=== PATIENT | male | born 1955 | race Caucasian/White ===

== ENCOUNTER 2018-02-11 12:43 | Emergency (ER) | payer OTHER, SELFPAY ==
--- NOTE | 2018-02-11 12:46 | ED.WOUNDLAC ---
HPI - Wound/Laceration <ARIANNE Mojica - Last Filed: 02/11/18 22:15> General Chief Complaint: Wound/Laceration Stated Complaint: cut on right leg Time Seen by Provider: 02/11/18 12:46 Source: patient Mode of arrival: ambulatory Limitations: no limitations History of Present Illness HPI narrative: 63-year-old male with history of previous [place] and is a former smoker here for complaint of lacerations to his right [place]. he states that he accidentally bumped his [place]ton area on the 31 of January causing laceration. He states that he has been treating it with hydrogen peroxide and alcohol and dressing it with antibiotic ointment and a dressing. He reports that it has been healing slowly. He denies any fevers. He denies any drainage from the area. He denies any other injuries or complaints. He is ambulatory into the emergency room. Related Data Home Medications Medication Instructions Recorded Confirmed PRASUGREL HYDROCHLORIDE (EFFIENT) 10 mg PO #0 tab 01/18/13 11/09/17 aspirin 81 mg PO QDAY #0 01/18/13 11/09/17 Previous Rx's Medication Instructions Recorded sildenafil [Viagra] 0 mg PO QDAY PRN #10 tab 08/31/16 carvedilol 6.25 mg tablet See Label Instructions .ROUTE 10/25/17 .COMPLEX #180 tab atorvastatin [Lipitor] 40 mg PO HS #90 tab 12/06/17 lisinopril 2.5 mg tablet 2.5 mg PO QDAY #90 tab 12/08/17 mupirocin 1 applictn TOP BID #15 gram 02/11/18 Allergies Allergy/AdvReac Type Severity Reaction Status Date / Time No Known Drug Allergies Allergy Verified 02/11/18 13:09 Review of Systems <ARIANNE Mojica - Last Filed: 02/11/18 22:15> Constitutional Denies chills, Denies fever(s), Denies lethargy and Denies weakness Eyes Denies change in vision, Denies eye discharge, Denies irritation and Denies loss of vision ENT Ears, Nose, Mouth, and Throat: Denies change in voice, Denies neck pain and Denies sore throat Cardiovascular Denies chest pain, Denies irregular heart rhythm, Denies lightheadedness, Denies palpitations, Denies dyspnea, Denies dyspnea on exertion and Denies orthopnea Respiratory Denies cough, Denies dyspnea, Denies dyspnea on exertion and Denies wheezing Gastrointestinal Gastrointestinal: Denies abdominal pain, Denies change in bowel habits, Denies diarrhea, Denies nausea and Denies vomiting Genitourinary Denies hematuria, Denies flank pain, Denies urinary incontinence and Denies urinary urgency Musculoskeletal Denies neck pain Comments: Lacerations right newton Integumentary/Breasts Denies pruritus, Denies erythema, Denies rash and Denies wounds Neurologic Denies confusion, Denies loss of vision and Denies weakness Psychiatric Denies anxiety, Denies confusion, Denies depression, Denies homicidal ideation and Denies suicidal ideation Endocrine Denies palpitations Hematologic/Lymphatic Denies easy bruising Allergic/Immunologic Denies wheezing Exam <ARIANNE Mojica - Last Filed: 02/11/18 22:15> Initial Vital Signs Initial Vital Signs: Vital Signs Pulse Rate 81 02/11/18 12:49 Respiratory Rate 17 02/11/18 12:49 Blood Pressure 125/77 02/11/18 12:49 Pulse Oximetry 96 02/11/18 12:49 Const General: cooperative and well developed Nutritional Appearance: well nourished Orientation: alert, awake, oriented x3 and not confused HENLA Mouth: oral mucosae normal and oropharynx normal Eyes Conjunctivae: conjunctivae normal Sclera: sclerae normal Pupils: PERRL EOM: EOM intact bilaterally Resp Effort & Inspection: normal respiratory effort, able to speak in complete sentences, no respiratory distress and no use of accessory muscles Auscultation: clear to auscultation bilaterally, no rales, no rhonchi and no wheezes Cardio Rate: regular rate Rhythm: regular rhythm Heart Sounds: no click, no gallops, no murmurs and no rubs Pulses: normal peripheral pulses Skin General: no rashes or lesions noted, No jaundice and No petechiae Neuro General: alert, oriented x3, gait normal and no focal motor deficits Speech: speech normal Extrem Other: to 1.5 cm laceration/ erosions to the right newton area no signs of infection. No induration or fluctuance. Wounds appear to be healing by secondary intention. distal sensation is intact. Distal range of motion is intact. Distal cap refill less than 2 sec. <Remigio Logan DO - Last Filed: 02/14/18 04:51> Initial Vital Signs Initial Vital Signs: Vital Signs Pulse Rate 81 02/11/18 12:49 Respiratory Rate 17 02/11/18 12:49 Blood Pressure 125/77 02/11/18 12:49 Pulse Oximetry 96 02/11/18 12:49 Course <ARIANNE Mojica - Last Filed: 02/11/18 22:15> Orders Ordered: Discontinued Medications Diphtheria/Tetanus/Acell Pertussis (Adacel) 0.5 ml IM .ONCE ONE Stop: 02/11/18 12:58 Last Admin: 02/11/18 13:08 Dose: 0.5 ml Vital Signs - 8 hr 02/11/18 12:49 Pulse Rate 81 Respiratory Rate 17 Blood Pressure [Right Arm] 125/77 Pulse Oximetry 96 <Remigio Logan DO - Last Filed: 02/14/18 04:51> Orders Ordered: Discontinued Medications Diphtheria/Tetanus/Acell Pertussis (Adacel) 0.5 ml IM .ONCE ONE Stop: 02/11/18 12:58 Last Admin: 02/11/18 13:08 Dose: 0.5 ml Vital Signs - 8 hr 02/11/18 12:49 Pulse Rate 81 Respiratory Rate 17 Blood Pressure [Right Arm] 125/77 Pulse Oximetry 96 MDM - Wound/Laceration <ARIANNE Mojica - Last Filed: 02/11/18 22:15> MDM Narrative Medical decision making narrative: Wounds to right [place] area is healing by secondary intention. No signs of infection at this time. He is instructed not to use hydrogen peroxide or alcohol to clean the wound as this could delay wound healing. Mupirocin is prescribed for topical antibiotic to prevent infection. He does not know when his last tetanus was. Tetanus was updated in the emergency room today. [id number] Tylenol as needed for any discomfort. Follow up with primary care provider next week. For any worsening symptoms return to the emergency room. Discharge Plan Departure Patient Disposition: Home Clinical Impression: Laceration of leg, right Discharge Date/Time: 02/11/18 13:22 Interventions: ED Discharge Assessment Last Done: 02/11/18 13:21 Instructions: DI for Minor Laceration Activity Restrictions/Additional Instructions: laceration to the right [place] area appeared to be healing by secondary intention. The do not appear to be infected at this time. Do not use the hydrogen peroxide or alcohol as this could delay wound care as it causes damage to the tissues. tetanus was updated in the emergency room. You are prescribed a topical antibiotic called mupirocin use as directed. Dress wound daily with antibiotic and gauze. use [id number] Tylenol as needed for any discomfort. Follow up with primary care provider next week. For any worsening symptoms return to the emergency room. Prescriptions: New mupirocin 2 % ointment 1 applictn TOP BID Qty: 15 RF: 0 No Action aspirin 81 MG tablet,delayed release (DR/EC) 81 mg PO QDAY Qty: 0 RF: 0 PRASUGREL HYDROCHLORIDE (EFFIENT) 10 mg PO Qty: 0 RF: 0 sildenafil [Viagra] 100 MG tablet PO QDAY PRNQty: 10 RF: 12 carvedilol [Coreg] 6.25 mg tablet See Label Instructions .ROUTE .COMPLEX Qty: 180 RF: 1 atorvastatin [Lipitor] 40 mg tablet 40 mg PO HS Qty: 90 RF: 1 lisinopril 2.5 mg tablet 2.5 mg PO QDAY Qty: 90 RF: 0 Referrals: Kaz Cosme MD [Primary Care Provider] - <Remigio Logan DO - Last Filed: 02/14/18 04:51> Cosign ED Attending Juanature Attestation: I was immediately available in the department for consultation. Documentation has been reviewed. I agree with assessment and plan.
[2018-02-11 12:49] VITALS: BP 125/77; PULSE 81; RESP 17; O2SAT 96
[2018-02-11 12:59] VITALS: PULSE 81; RESP 17; TEMP 36.9; O2SAT 96
[2018-02-11] MEDS: TET,DIPH,PERTUSS(ACELL),VAC/PF 0.5 ML SYRINGE IM (13:08)
== END 2018-02-11 13:22 | disposition home or self-care (01) ==
PROVIDERS: Emergency Provider Nurse Practitioner Family; Family Provider Family Medicine; PCP Family Medicine
DX: S81.811A Laceration without foreign body, right lower leg, initial encounter (principal); W22.8XXA Striking against or struck by other objects, initial encounter
CPT/HCPCS: 90471; 99283; 90715

== ENCOUNTER → 2019-01-24 15:50 | Outpatient (CLI) | payer OTHER, SELFPAY ==
--- NOTE | 2019-01-24 15:54 | DI.RAD.S_ITS ---
PROCEDURE: XR LUMBAR SPINE 2-3V INDICATIONS: pain LUMBAR TECHNIQUE: 3 views of the lumbar spine were acquired. COMPARISON: [facility], , L-SPINE 2-3 VIEWS, 08/28/2007, 11:03. FINDINGS: Bones: 5 [id number]-ror-qbuoveu vertebrae are present. There is abnormal bony alignment, with grade 2 anterolisthesis of L4 on L5, associated with relatively prominent degenerative facet osteoarthritis and degenerative disc disease at L4-5 allowing anterolisthesis due to ligamentous laxity.. No vertebral body compression fractures. No suspicious bony lesions. Soft tissues: Overlying bowel gas pattern is normal. No suspicious soft tissue calcifications. IMPRESSION: Moderately severe degenerative disc disease and facet osteoarthritis allows grade 2 anterolisthesis of L4 on L5 and likelihood of significant spinal and foraminal stenosis at that level as a result. Dictated by: Hipolito Gonsalves M.D. on 01/24/2019 at 16:49 Approved by: Hipolito Gonsalves M.D. on 01/24/2019 at 16:51
--- NOTE | 2019-01-24 15:54 | DI.RAD.S_ITS ---
PROCEDURE: XR HAND LT MIN 3V INDICATIONS: pain LEFT HAND TECHNIQUE: 3 views of the hand(s) acquired. COMPARISON: None. FINDINGS: Bones: No fractures or dislocations. Carpal bones are normally aligned. No suspicious bony lesions. Soft tissues: No suspicious soft tissue calcifications. IMPRESSION: No trauma found, a moderate degree of osteoarthritis is seen at the base of the first metacarpal, less than that seen on the right. No recent trauma suspected. Dictated by: Hipolito Gonsalves M.D. on 01/24/2019 at 16:49 Approved by: Hipolito Gonsalves M.D. on 01/24/2019 at 16:49
--- NOTE | 2019-01-24 15:54 | DI.RAD.S_ITS ---
PROCEDURE: XR KNEE LT 3V INDICATIONS: pain LEFT KNEE TECHNIQUE: 3 views of the knee were acquired. COMPARISON: None. FINDINGS: Bones: No fractures or dislocations. No suspicious bony lesions. Soft tissues: No joint effusion. No suspicious soft tissue calcifications. IMPRESSION: Minimal degenerative osteoarthritic change appears present at the left knee where a slight degree of medial compartment joint space narrowing is present. No effusion or loose body. No trauma found. Dictated by: Hipolito Gonsalves M.D. on 01/24/2019 at 16:48 Approved by: Hipolito Gonsalves M.D. on 01/24/2019 at 16:48
--- NOTE | 2019-01-24 15:54 | DI.RAD.S_ITS ---
PROCEDURE: XR KNEE RT 3V INDICATIONS: pain RIGHT KNEE TECHNIQUE: 3 views of the knee were acquired. COMPARISON: None. FINDINGS: Bones: No fractures or dislocations. No suspicious bony lesions. Soft tissues: No joint effusion. No suspicious soft tissue calcifications. IMPRESSION: There is a slight degree of medial and lateral compartment joint space narrowing, consistent with a small degree of osteoarthritis in that portion of the right knee. No effusion or loose body is seen. Dictated by: Hipolito Gonsalves M.D. on 01/24/2019 at 16:47 Approved by: Hipolito Gonsalves M.D. on 01/24/2019 at 16:48
--- NOTE | 2019-01-24 15:54 | DI.RAD.S_ITS ---
PROCEDURE: XR HAND RT MIN 3V INDICATIONS: pain RIGHT HAND TECHNIQUE: 3 views of the hand(s) acquired. COMPARISON: None. FINDINGS: Bones: No fractures or dislocations. Carpal bones are normally aligned. No suspicious bony lesions. There is a moderate to moderately severe degree of degenerative osteoarthritis at the base of the first metacarpal as it articulates against the trapezium. Soft tissues: No suspicious soft tissue calcifications. IMPRESSION: No acute trauma found, moderately severe degenerative osteoarthritis at the base of the first metacarpal. Dictated by: Hipolito Gonsalves M.D. on 01/24/2019 at 16:47 Approved by: Hipolito Gonsalves M.D. on 01/24/2019 at 16:47
[2019-01-24 16:12] LABS: Add Manual Diff / Slide Review NO; Basophils Absolute Auto 100 /uL (0-100); Basophils Percent Auto 1.1 % (0-2); Eosinophils Absolute Auto 200 /uL (0-450); Eosinophils Percent Auto 2.8 % (2-4); Hematocrit 40.3 % (41-53); Lymphocytes Absolute Auto 1900 /uL (1100-4500); Lymphocytes Percent Auto 30.8 % (25-40); Mean Corpuscular HGB Conc 34.8 % (30-36); Mean Corpuscular Hemoglobin 33.9 PG (26-34); Mean Corpuscular Volume 97.6 fL (80-100); Monocytes Absolute Auto 500 /uL (0-900); Monocytes Percent Auto 7.9 % (3-14); Neutrophils Absolute Auto 3500 /uL (1500-7000); Neutrophils Percent Auto 57.4 % (50-75); Platelet Count 147 X10^3/uL (150-400); Red Blood Cell Count 4.12 X10^6/uL (4.5-5.9); Red Cell Distribution Width 13.1 % (11.6-14.8); White Blood Cell Count 6.1 X10^3/uL (4.5-11.0)
[2019-01-24 16:59] LABS: Alanine Aminotransferase 28 IU/L (21-72); Albumin 4.2 g/dL (3.5-5.0); Albumin Globulin Ratio 1.7 (1.0-2.8); Alkaline Phosphatase 60 U/L (38-126); Aspartate Aminotransferase 22 IU/L (17-59); BUN Creatinine Ratio 24.3 (6-22); Bilirubin Total 1.2 mg/dL (0.2-1.3); Blood Urea Nitrogen 17 mg/dL (9-20); Calcium 8.9 mg/dL (8.4-10.2); Carbon Dioxide 25 mmol/L (22-32); Chloride 104 mmol/L (98-107); Cholesterol 112 mg/dL (140-199); Estimated Glomerular Filt Rate > 60.0 mL/min (>60); Globulin 2.5 g/dL (1.7-4.1); Glucose 130 mg/dL (80-110); HDL Cholesterol 46 mg/dL (40-60); HEMOLYSIS 17 (0-50); LDL Cholesterol Calculated 29 mg/dL (<100); Potassium 4.3 mmol/L (3.4-5.1); Sodium 139 mmol/L (137-145); Total Protein 6.7 g/dL (6.3-8.2); Triglycerides 183 mg/dL (35-150)
[2019-01-24 17:28] LABS: Prostate Specific Antigen Scrn 0.354 ng/mL (0.1-4.0); Thyroid Stimulating Hormone 2.26 uIU/mL (0.47-4.68)
== END ==
PROVIDERS: PCP Family Medicine; Visit Provider Family Medicine
DX: M19.90 Unspecified osteoarthritis, unspecified site (principal); E78.2 Mixed hyperlipidemia
CPT/HCPCS: 36415; 72100; 73130; 73562; 80053; 80061; 84443; 85025; G0103

== ENCOUNTER 2019-03-07 12:15 | Outpatient (RCR) | payer OTHER, SELFPAY ==
--- NOTE | 2019-02-26 11:32 | PT.OIE ---
Current Diagnoses Pain in unspecified knee (02/26/19) Dorsalgia, unspecified (02/26/19) Past Medical History (Last Reviewed 02/11/18 @ 13:01 by ARIANNE Mojica) Hearing loss (Resolved 1978) Heart attack (Resolved 2011) Past Surgical History (Last Reviewed 02/11/18 @ 13:01 by ARIANNE Mojica) Anesthesia (Resolved) H/O heart artery stent (Resolved 05/09/12) History of vasectomy (Resolved 1998) Status post hernia repair (Resolved) Visit Care Team Role Provider Type Kaz Cosme MD Attending Provider Physician Primary Care Provider Specialty: Family Practice Address: [address] [place] [address], [facility] Email: [email or web address] Therapy Initial Evaluation PT-OP-A Visit Information Start: 02/26/19 07:32 Freq: Status: Active Protocol: Document 02/26/19 08:28 MB (Rec: 02/26/19 09:13 MB [id number]) Out-Patient Physical Therapy Visit Information Visit Information Visit Type Initial Evaluation Visit Note Pt arrives 12 minutes after eval time Visit Start Time 08:28 Visit Stop Time 09:01 Total Visit Minutes 33 Visit Number 1 Number of PARKING CONTROL OFFICER Visits 0 Evaluation Information Evaluation Date 02/26/19 PT-OP-B Current Condition Start: 02/26/19 07:32 Freq: Status: Active Protocol: Document 02/26/19 08:28 MB (Rec: 02/26/19 09:13 MB [id number]) Current Condition History of Current Condition Onset Date Gradual Current Complaints LB pain, LLE pain, B knee pain History of Current Condition Chronic onset of LBP, LLE pain (posterior) and occ LLE numbness, B knee pain. Biggest complaint is back pain. He has B knee pain with descending-type movements. Works 40 hr/week at [employer]. He states that he squats. Hx LA and cardiac rehab. Hx HTN, HLD Prior Treatments and Tests Cardiac rehab Treatment Goals Patient/Caregiver Goals To decrease back pain, be able to go for walks and play with grandkids Prior Functional Status Baseline Function- ADL's Independent Baseline Function- Mobility Independent Personal Factors Other Personal Factors That May Effect Working 40 hrs/week [employer] Therapy/Recovery PT-OP-C Subjective Start: 02/26/19 07:32 Freq: Status: Active Protocol: Document 02/26/19 08:28 MB (Rec: 02/26/19 09:13 MB [id number]) OP-PT Subjective Patient Comments Patient Comments Pt states that he has occ episodes of grabbing back and he points to B SI area. He reports occ shooting pain down his posterior left leg and numbness down posterior left leg. No associated weakness or sensation loss. No change in B&B. His sleep is disturbed greatly, sleeps on both sides without pillow support between knees. Patient Reported Progress Worse Patient Questionnaires Oswestry Low Back Index Oswestry Score 18/50 Oswestry Impairment 20 to 39% Impaired (Score 20- 39) OP-PT Pain Assessment Pain Assessment Grid Paper Pain Assessment Grid Completed Yes: Most pain 5/10 LB PT-OP-D Balance Start: 02/26/19 07:32 Freq: Status: Active Protocol: Document 02/26/19 08:28 MB (Rec: 02/26/19 09:43 MB [id number]) Balance Tests Other Other Balance Tests Performed Pt is unable to get into B SLS with socks on--LOB; Romberg and Romberg with eyes closed 30 sec in socks PT-OP-J Posture/Palpation/Skin Start: 02/26/19 07:32 Freq: Status: Active Protocol: Document 02/26/19 08:28 MB (Rec: 02/26/19 09:43 MB [id number]) Posture Evaluation Comments Posture Comments Standing with socks on: forward head, rounded shoulders with tragus 1/2 in front of AC joint, decreased thoracic kyphosis and increased lumbar lordosis. Left iliac crest grossly 1/4 higher than the right. He stands with feet greater than 1 foot apart. B pes planus. B LEs intact to light touch testing PT-OP-M Strength Start: 02/26/19 07:32 Freq: Status: Active Protocol: Document 02/26/19 08:28 MB (Rec: 02/26/19 09:43 MB [id number]) Hip Strength Hip Manual Muscle Testing Left Flexion (L2) 4 Good Abduction 4 Good Right Flexion (L2) 5 Normal Abduction 5 Normal Comments Supine LE MMT Knee Strength Knee Manual Muscle Testing Left Flexion (S2) 5 Normal Extension (L3) 5 Normal Right Flexion (S2) 5 Normal Extension (L3) 5 Normal Ankle/Foot Strength Ankle and Foot Manual Muscle Testing Left Plantarflexion (S1) 5 Normal Right Dorsiflexion (L4) 5 Normal Plantarflexion (S1) 5 Normal Comments B great toe extension 4/5 PT-OP-Q Treatments Start: 02/26/19 07:32 Freq: Status: Active Protocol: Document 02/26/19 08:28 MB (Rec: 02/26/19 09:43 MB [id number]) Self-Care/Home Management Treatment Education Other Education Pillow support between LEs when sleeping on her side; use of frozen vegetables in pillow case to help decrease pain PT-OP-T Assessment and Plan Start: 02/26/19 07:32 Freq: Status: Active Protocol: Document 02/26/19 08:28 MB (Rec: 02/26/19 09:43 MB [id number]) Physical Therapy Assessment Rehab Potential Rehabilitation Potential Good Evaluation Complexity Number of Personal Factors/Comorbidities 1-2 Number of Body Systems Impaired 1-2 Clinical Presentation at Evaluation Evolving Impairments Impairments Balance,Pain,Posture,Soft Tissue Mobility,Strength Other Impairments Pt presents with B passive straight leg raise reduced, worse on the left LE: right 50 deg and c/o LE stretch; Left 45 deg and pt reports greater stretch than on the right Repeated standing extension increases anterior thigh discomfort B; pt can reach with fingertips 6 from floor for forward flexion. Reports increased left greater than right leg stretch with flexion . Slump B causes LE stretch, greater on the left. Per x-ray lumbar spine, pt has mod-severe DDD amd facet arthritis with grade 2 anterolisthesis L4-5, stenosis Goals 6 Welding Machine Operator Ultrasonic Goal (LTG) Pt will perform progressive HEP with I by 04/28/19. LTG Duration 8 weeks 5 Assisted Goal (LTG) Pt will present with an improved Oswestry score to reflect no more than 10% impairment by 04/28/19. LTG Duration 8 weeks 4 Impairment Poor sleep Assisted Goal (LTG) Pt will report a 50% improvement in sleeping by 04/28/19. LTG Duration 8 weeks 3 Impairment L hip weakness Welding Machine Operator Ultrasonic Goal (LTG) Pt will presents with left hip flexion and abduction to 5/5 with MMT by 04/28/19. LTG Duration 8 weeks 2 Impairment Decreased LE flexibility Assisted Goal (LTG) Pt will present with B LE flexibility improved with passive SLR to at least 75 deg in supine to decrease strain on LB and allow improvement in posture and hip strength by 04/28/19. LTG Duration 8 weeks 1 Impairment Pain Assisted Goal (LTG) Pt will report a 75% improvement in LB and LLE pain and paresthesias by 04/28/19. LTG Duration 8 weeks Assessment Summary Assessment Pt is a 63 y/o male presenting with decreased balance, postural changes, LLE weakness and pain. His pain is chronic progressive in nature and is localized to his LBP with reports of pain down his LLE. The pain is intermittent. Lumbar x-ray does reveal many changes that may be contributory to his sxs. He will benefit from PT for flexibility, strengthening, pelvic realignment and balance exercises. He will benefit from manual intervention. He has a history of LA and takes BP and HLD medications. Physical Therapy Plan Frequency and Duration Frequency of Treatment 2x/Week Duration of Treatment 8 weeks Plan of Care Start Date 02/26/19 Plan of Care End Date 04/28/19 Therapeutic Interventions Therapeutic Interventions Balance Training,Home Exercise Program,Joint Mobilizations, Manual Therapy,Neuromuscular Re-education,Patient/Caregiver Education,Self-Care/Home Management,Soft Tissue Mobilization,Taping, Therapeutic Activities, Therapeutic Exercises Modalities Cold Pack/Ice Massage,Electric Stimulation,Hot Packs, Ultrasound Next Visit Focus/Plan Next Note Type Treatment Note Next Visit Plan Initiate hamstring, calf flexibility exercises, pelvic realignment ex
--- NOTE | 2019-02-28 15:11 | PT.OTN ---
Current Diagnoses Pain in unspecified knee (02/28/19) Dorsalgia, unspecified (02/28/19) Physical Therapy Treatment Note PT-OP-A Visit Information Start: 02/26/19 07:32 Freq: Status: Active Protocol: Document 02/28/19 12:01 MB (Rec: 02/28/19 14:45 MB [id number]) Out-Patient Physical Therapy Visit Information Visit Information Visit Type Treatment Note Visit Note Progressed cardiac and flexibility exercises this date. Visit Start Time 12:01 Visit Stop Time 12:45 Total Visit Minutes 44 Visit Number 2 Number of HELIUM ARC WELDER Visits 0 PT-OP-B Current Condition Start: 02/26/19 07:32 Freq: Status: Active Protocol: Document 02/26/19 08:28 MB (Rec: 02/26/19 09:13 MB [id number]) Current Condition History of Current Condition Onset Date Gradual Current Complaints LB pain, LLE pain, B knee pain History of Current Condition Chronic onset of LBP, LLE pain (posterior) and occ LLE numbness, B knee pain. Biggest complaint is back pain. He has B knee pain with descending-type movements. Works 40 hr/week at [employer]. He states that he squats. Hx [place] and cardiac rehab. Hx HTN, HLD Prior Treatments and Tests Cardiac rehab Treatment Goals Patient/Caregiver Goals To decrease back pain, be able to go for walks and play with grandkids Prior Functional Status Baseline Function- ADL's Independent Baseline Function- Mobility Independent Personal Factors Other Personal Factors That May Effect Working 40 hrs/week [employer] Therapy/Recovery PT-OP-C Subjective Start: 02/26/19 07:32 Freq: Status: Active Protocol: Document 02/28/19 12:01 MB (Rec: 02/28/19 12:43 MB [id number]) OP-PT Subjective Patient Comments Patient Comments Pt states that he is sleeping with the pillow between his knees and his feet feel better in the morning. He typically has pain in his feet for 5 minutes when he gets up in the morning. PT-OP-D Balance Start: 02/26/19 07:32 Freq: Status: Active Protocol: Document 02/26/19 08:28 MB (Rec: 02/26/19 09:43 MB [id number]) Balance Tests Other Other Balance Tests Performed Pt is unable to get into B SLS with socks on--LOB; Romberg and Romberg with eyes closed 30 sec in socks PT-OP-J Posture/Palpation/Skin Start: 02/26/19 07:32 Freq: Status: Active Protocol: Document 02/26/19 08:28 MB (Rec: 02/26/19 09:43 MB [id number]) Posture Evaluation Comments Posture Comments Standing with socks on: forward head, rounded shoulders with tragus 1/2 in front of AC joint, decreased thoracic kyphosis and increased lumbar lordosis. Left iliac crest grossly 1/4 higher than the right. He stands with feet greater than 1 foot apart. B pes planus. B LEs intact to light touch testing PT-OP-M Strength Start: 02/26/19 07:32 Freq: Status: Active Protocol: Document 02/26/19 08:28 MB (Rec: 02/26/19 09:43 MB [id number]) Hip Strength Hip Manual Muscle Testing Left Flexion (L2) 4 Good Abduction 4 Good Right Flexion (L2) 5 Normal Abduction 5 Normal Comments Supine LE MMT Knee Strength Knee Manual Muscle Testing Left Flexion (S2) 5 Normal Extension (L3) 5 Normal Right Flexion (S2) 5 Normal Extension (L3) 5 Normal Ankle/Foot Strength Ankle and Foot Manual Muscle Testing Left Plantarflexion (S1) 5 Normal Right Dorsiflexion (L4) 5 Normal Plantarflexion (S1) 5 Normal Comments B great toe extension 4/5 PT-OP-Q Treatments Start: 02/26/19 07:32 Freq: Status: Active Protocol: Document 02/28/19 12:01 MB (Rec: 02/28/19 12:43 MB [id number]) Cardio Equipment Recumbent Stepper (Sci-Fit) Duration (Minutes) 10 Resistance 1.5 Therapeutic Exercises Supine Exercises Raj stretch Comments Added to HEP: Raj stretch Hamstring, calf and AP stretch Comments Added to HEP: hamstring, calf and AP stretch with belt under foot, add/abd PT-OP-T Assessment and Plan Start: 02/26/19 07:32 Freq: Status: Active Protocol: Document 02/28/19 12:01 MB (Rec: 02/28/19 12:43 MB [id number]) Physical Therapy Assessment Assessment Summary Assessment Progressed cardio and flexibility exercises this date. Pt responds well. Physical Therapy Plan Frequency and Duration Frequency of Treatment 2x/Week Duration of Treatment 8 weeks Plan of Care Start Date 02/26/19 Plan of Care End Date 04/28/19 Therapeutic Interventions Therapeutic Interventions Balance Training,Home Exercise Program,Joint Mobilizations, Manual Therapy,Neuromuscular Re-education,Patient/Caregiver Education,Self-Care/Home Management,Soft Tissue Mobilization,Taping, Therapeutic Activities, Therapeutic Exercises Modalities Cold Pack/Ice Massage,Electric Stimulation,Hot Packs, Ultrasound Next Visit Focus/Plan Next Note Type Treatment Note Next Visit Plan Initiate pelvic realignment exercises
--- NOTE | 2019-03-05 08:33 | PT-IP ANOTE ---
Pt does not show for appointment. PT calls him and he is apologetic. He overslept. Confirmed next appointment.
--- NOTE | 2019-03-07 13:41 | PT.OTN ---
Current Diagnoses Pain in unspecified knee (03/07/19) Dorsalgia, unspecified (03/07/19) Physical Therapy Treatment Note PT-OP-A Visit Information Start: 02/26/19 07:32 Freq: Status: Active Protocol: Document 03/07/19 12:11 MB (Rec: 03/07/19 12:25 MB [id number]) Out-Patient Physical Therapy Visit Information Visit Information Visit Type Treatment Note Visit Start Time 12:17 Visit Stop Time 13:00 Total Visit Minutes 43 Visit Number 3 Number of HOIST CYLINDER LOADER Visits 0 PT-OP-B Current Condition Start: 02/26/19 07:32 Freq: Status: Active Protocol: Document 02/26/19 08:28 MB (Rec: 02/26/19 09:13 MB [id number]) Current Condition History of Current Condition Onset Date Gradual Current Complaints LB pain, LLE pain, B knee pain History of Current Condition Chronic onset of LBP, LLE pain (posterior) and occ LLE numbness, B knee pain. Biggest complaint is back pain. He has B knee pain with descending-type movements. Works 40 hr/week at [employer]. He states that he squats. Hx [place] and cardiac rehab. Hx HTN, HLD Prior Treatments and Tests Cardiac rehab Treatment Goals Patient/Caregiver Goals To decrease back pain, be able to go for walks and play with grandkids Prior Functional Status Baseline Function- ADL's Independent Baseline Function- Mobility Independent Personal Factors Other Personal Factors That May Effect Working 40 hrs/week [employer] Therapy/Recovery PT-OP-C Subjective Start: 02/26/19 07:32 Freq: Status: Active Protocol: Document 03/07/19 12:11 MB (Rec: 03/07/19 12:22 MB [id number]) OP-PT Subjective Patient Comments Patient Comments Pt states that he is doing pretty good. The stretches are helpful. He is feeling good at work. PT-OP-D Balance Start: 02/26/19 07:32 Freq: Status: Active Protocol: Document 02/26/19 08:28 MB (Rec: 02/26/19 09:43 MB [id number]) Balance Tests Other Other Balance Tests Performed Pt is unable to get into B SLS with socks on--LOB; Romberg and Romberg with eyes closed 30 sec in socks PT-OP-J Posture/Palpation/Skin Start: 02/26/19 07:32 Freq: Status: Active Protocol: Document 02/26/19 08:28 MB (Rec: 02/26/19 09:43 MB [id number]) Posture Evaluation Comments Posture Comments Standing with socks on: forward head, rounded shoulders with tragus 1/2 in front of AC joint, decreased thoracic kyphosis and increased lumbar lordosis. Left iliac crest grossly 1/4 higher than the right. He stands with feet greater than 1 foot apart. B pes planus. B LEs intact to light touch testing PT-OP-M Strength Start: 02/26/19 07:32 Freq: Status: Active Protocol: Document 02/26/19 08:28 MB (Rec: 02/26/19 09:43 MB [id number]) Hip Strength Hip Manual Muscle Testing Left Flexion (L2) 4 Good Abduction 4 Good Right Flexion (L2) 5 Normal Abduction 5 Normal Comments Supine LE MMT Knee Strength Knee Manual Muscle Testing Left Flexion (S2) 5 Normal Extension (L3) 5 Normal Right Flexion (S2) 5 Normal Extension (L3) 5 Normal Ankle/Foot Strength Ankle and Foot Manual Muscle Testing Left Plantarflexion (S1) 5 Normal Right Dorsiflexion (L4) 5 Normal Plantarflexion (S1) 5 Normal Comments B great toe extension 4/5 PT-OP-Q Treatments Start: 02/26/19 07:32 Freq: Status: Active Protocol: Document 03/07/19 12:11 MB (Rec: 03/07/19 12:38 MB [id number]) Cardio Equipment Recumbent Bicycle Duration (Minutes) 10 Resistance 10-12 Other Rest break d/t SOB, pt request Therapeutic Exercises Supine Exercises Pelvic realignment exercises Comments Pelvic realignment exercises, added to HEP Raj stretch Comments Added to HEP: Raj stretch Manual Therapy Treatment Other Other Manual Treatments Rolling pin STM right rectus and vastus lateralis PT-OP-T Assessment and Plan Start: 02/26/19 07:32 Freq: Status: Active Protocol: Document 03/07/19 12:11 MB (Rec: 03/07/19 12:13 MB [id number]) Physical Therapy Assessment Goals 6 Mcc Goal (LTG) Pt will perform progressive HEP with I by 04/28/19. LTG Duration 8 weeks 5 Work Adjustment Instructor Goal (LTG) Pt will present with an improved Oswestry score to reflect no more than 10% impairment by 04/28/19. LTG Duration 8 weeks 4 Impairment Poor sleep Work Adjustment Instructor Goal (LTG) Pt will report a 50% improvement in sleeping by 04/28/19. LTG Duration 8 weeks 3 Impairment L hip weakness Work Adjustment Instructor Goal (LTG) Pt will presents with left hip flexion and abduction to 5/5 with MMT by 04/28/19. LTG Duration 8 weeks 2 Impairment Decreased LE flexibility Work Adjustment Instructor Goal (LTG) Pt will present with B LE flexibility improved with passive SLR to at least 75 deg in supine to decrease strain on LB and allow improvement in posture and hip strength by 04/28/19. LTG Duration 8 weeks 1 Impairment Pain Work Adjustment Instructor Goal (LTG) Pt will report a 75% improvement in LB and LLE pain and paresthesias by 04/28/19. LTG Duration 8 weeks Assessment Summary Assessment Pt presents with increased tightness right hip flexor and quads compared to the left. Physical Therapy Plan Frequency and Duration Frequency of Treatment 2x/Week Duration of Treatment 8 weeks Plan of Care Start Date 02/26/19 Plan of Care End Date 04/28/19 Therapeutic Interventions Therapeutic Interventions Balance Training,Home Exercise Program,Joint Mobilizations, Manual Therapy,Neuromuscular Re-education,Patient/Caregiver Education,Self-Care/Home Management,Soft Tissue Mobilization,Taping, Therapeutic Activities, Therapeutic Exercises Modalities Cold Pack/Ice Massage,Electric Stimulation,Hot Packs, Ultrasound Next Visit Focus/Plan Next Note Type Treatment Note Next Visit Plan Consider adding hip extensor and abductor strengthening soon.
--- NOTE | 2019-03-12 08:34 | PT-OP ANOTE ---
Pt did not show for appointment. PT called him and he forgot. He is aware of appointment time on 03/14 and states he will come.
--- NOTE | 2019-03-14 13:27 | PT-OP ANOTE ---
Patient no showed today's treatment, 3rd no show. SIZE WORKER called patient regarding today's missed appt and he stated Oh, I forgot again, I am so sorry, I wasn't paying attention to the clock. SIZE WORKER reminded patient regarding the 3 no show policy will be discharged from PT and all scheduled appts will be cancelled. If wanting to continue PT, will need a new script from his physician, he verbalized understanding and will call his physician and get a new script. SIZE WORKER notified [facility] needing a discharge and front sight attacher to cancel upcoming appts.
--- NOTE | 2019-03-14 15:37 | PT.OPDS ---
Current Diagnoses Pain in unspecified knee (03/07/19) Dorsalgia, unspecified (03/07/19) Visit Care Team Role Provider Type Kaz Cosme MD Attending Provider Physician Primary Care Provider Specialty: Family Practice Address: [address] [place] [address], [facility] Email: [email or web address] Visit Number Visit Number 3 Discharge Summary PT-OP-B Current Condition Start: 02/26/19 07:32 Freq: Status: Active Protocol: Document 02/26/19 08:28 MB (Rec: 02/26/19 09:13 MB [id number]) Current Condition History of Current Condition Onset Date Gradual Current Complaints LB pain, LLE pain, B knee pain History of Current Condition Chronic onset of LBP, LLE pain (posterior) and occ LLE numbness, B knee pain. Biggest complaint is back pain. He has B knee pain with descending-type movements. Works 40 hr/week at [employer]. He states that he squats. Hx [place] and cardiac rehab. Hx HTN, HLD Prior Treatments and Tests Cardiac rehab Treatment Goals Patient/Caregiver Goals To decrease back pain, be able to go for walks and play with grandkids Prior Functional Status Baseline Function- ADL's Independent Baseline Function- Mobility Independent Personal Factors Other Personal Factors That May Effect Working 40 hrs/week [employer] Therapy/Recovery PT-OP-C Subjective Start: 02/26/19 07:32 Freq: Status: Active Protocol: Document 03/07/19 12:11 MB (Rec: 03/07/19 12:22 MB [id number]) OP-PT Subjective Patient Comments Patient Comments Pt states that he is doing pretty good. The stretches are helpful. He is feeling good at work. PT-OP-D Balance Start: 02/26/19 07:32 Freq: Status: Active Protocol: Document 02/26/19 08:28 MB (Rec: 02/26/19 09:43 MB [id number]) Balance Tests Other Other Balance Tests Performed Pt is unable to get into B SLS with socks on--LOB; Romberg and Romberg with eyes closed 30 sec in socks PT-OP-J Posture/Palpation/Skin Start: 02/26/19 07:32 Freq: Status: Active Protocol: Document 02/26/19 08:28 MB (Rec: 02/26/19 09:43 MB [id number]) Posture Evaluation Comments Posture Comments Standing with socks on: forward head, rounded shoulders with tragus 1/2 in front of AC joint, decreased thoracic kyphosis and increased lumbar lordosis. Left iliac crest grossly 1/4 higher than the right. He stands with feet greater than 1 foot apart. B pes planus. B LEs intact to light touch testing PT-OP-M Strength Start: 02/26/19 07:32 Freq: Status: Active Protocol: Document 02/26/19 08:28 MB (Rec: 02/26/19 09:43 MB [id number]) Hip Strength Hip Manual Muscle Testing Left Flexion (L2) 4 Good Abduction 4 Good Right Flexion (L2) 5 Normal Abduction 5 Normal Comments Supine LE MMT Knee Strength Knee Manual Muscle Testing Left Flexion (S2) 5 Normal Extension (L3) 5 Normal Right Flexion (S2) 5 Normal Extension (L3) 5 Normal Ankle/Foot Strength Ankle and Foot Manual Muscle Testing Left Plantarflexion (S1) 5 Normal Right Dorsiflexion (L4) 5 Normal Plantarflexion (S1) 5 Normal Comments B great toe extension 4/5 PT-OP-T Assessment and Plan Start: 02/26/19 07:32 Freq: Status: Active Protocol: Document 03/14/19 15:34 MB (Rec: 03/14/19 15:36 MB [id number]) Physical Therapy Assessment Assessment Summary Assessment Pt d/cd this date d/t 3rd no show. 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 Physical Therapy Plan Discharge Physical Therapy Discharge Comments 3rd time missed treatment
== END 2019-03-21 15:44 | disposition home or self-care (01) ==
LOC: PHYS 12:15
PROVIDERS: PCP Family Medicine; Visit Provider Family Medicine
DX: M25.569 Pain in unspecified knee (principal); M54.9 Dorsalgia, unspecified
CPT/HCPCS: 97110; 97140; 97161

== ENCOUNTER → 2019-10-09 08:30 | Outpatient (CLI) | payer OTHER, SELFPAY ==
[2019-10-09 09:27] LABS: Add Manual Diff / Slide Review NO; Basophils Absolute Auto 100 /uL (0-100); Basophils Percent Auto 1.3 % (0-2); Eosinophils Absolute Auto 100 /uL (0-450); Eosinophils Percent Auto 2.5 % (2-4); Hematocrit 42.6 % (41-53); Hemoglobin 14.9 g/dL (13.5-17.5); Lymphocytes Absolute Auto 1900 /uL (1100-4500); Lymphocytes Percent Auto 32.2 % (25-40); Mean Corpuscular HGB Conc 34.9 % (30-36); Mean Corpuscular Volume 97.5 fL (80-100); Monocytes Absolute Auto 500 /uL (0-900); Monocytes Percent Auto 8.6 % (3-14); Neutrophils Absolute Auto 3200 /uL (1500-7000); Neutrophils Percent Auto 55.4 % (50-75); Platelet Count 154 X10^3/uL (150-400); Red Blood Cell Count 4.37 X10^6/uL (4.5-5.9); Red Cell Distribution Width 13.2 % (11.6-14.8); White Blood Cell Count 5.9 X10^3/uL (4.5-11.0)
[2019-10-09 09:39] LABS: Alanine Aminotransferase 26 IU/L (<50); Albumin 4.5 g/dL (3.5-5.0); Albumin Globulin Ratio 1.5 (1.0-2.8); Alkaline Phosphatase 59 U/L (38-126); Aspartate Aminotransferase 26 IU/L (17-59); BUN Creatinine Ratio 16.7 (6-22); Bilirubin Total 1.2 mg/dL (0.2-1.3); Blood Urea Nitrogen 18 mg/dL (9-20); Calcium 9.6 mg/dL (8.4-10.2); Carbon Dioxide 30 mmol/L (22-32); Chloride 103 mmol/L (98-107); Cholesterol 147 mg/dL (140-199); Estimated Glomerular Filt Rate > 60.0 mL/min (>60); Globulin 3.1 g/dL (1.7-4.1); Glucose 111 mg/dL (80-110); HDL Cholesterol 43 mg/dL (40-60); HEMOLYSIS < 15 (0-50); LDL Cholesterol Calculated 77 mg/dL (<100); Potassium 4.8 mmol/L (3.4-5.1); Sodium 142 mmol/L (137-145); Total Protein 7.6 g/dL (6.3-8.2); Triglycerides 135 mg/dL (35-150)
[2019-10-09 10:10] LABS: Thyroid Stimulating Hormone 3.07 uIU/mL (0.47-4.68)
== END ==
PROVIDERS: PCP Family Medicine; Referring Provider Family Medicine; Visit Provider Family Medicine
DX: E78.2 Mixed hyperlipidemia (principal)
CPT/HCPCS: 36415; 80053; 80061; 84443; 85025

== ENCOUNTER → 2020-02-16 13:47 | Outpatient (CLI) | payer OTHER, SELFPAY ==
--- NOTE | 2020-02-16 13:48 | DI.MRI.S_ITS ---
PROCEDURE: MR LUMBAR SPINE WO CON INDICATIONS: low back pain with radiculopathy TECHNIQUE: Noncontrast sagittal T1 spin echo and T2 fast echo, sagittal STIR, axial T1 and T2 fast spin echo through the lumbar spine. In cases with scoliosis, additional coronal T2 fast spin echo may be performed. COMPARISON: [facility], CR, XR LUMBAR SPINE 2-3V, 01/24/2019, 16:11. FINDINGS: Image quality: Excellent. Alignment and Curvature: There is grade 1 L4 on L5 anterolisthesis. This is unchanged when compared with the plain film dated January 24, 2019. Bone Marrow: Marrow is of normal overall signal. No acute vertebral body compression fractures. Spinal Cord: Conus medullaris terminates at the T12 you level. Visualized cord demonstrates normal signal and size. Paraspinous Soft Tissues: No paravertebral masses. L1-L2: Normal appearance. L2-L3: Normal appearance. L3-L4: Mild disc bulge. Moderate facet ligamentum flavum hypertrophy. No canal stenosis. No neural foraminal narrowing. L4-L5: Epidural lipomatosis. Mild disc bulge. Severe facet ligamentum flavum hypertrophy. Severe canal stenosis. Severe bilateral foraminal stenosis with flattening of the exiting left nerve root. L5-S1: Epidural lipomatosis. Broad-based disc bulge. Mild facet sclerosis. There is narrowing of the thecal sac secondary to epidural lipomatosis. No foraminal stenosis. IMPRESSION: 1. Severe facet ligamentum flavum hypertrophy , trace anterolisthesis, and mild disc bulge at L4-5 with resultant severe canal stenosis. 2. Severe bilateral foraminal narrowing at L4-5 with flattening of the exiting left nerve root. 3. Epidural lipomatosis of the lower lumbar spine likely contributing to canal narrowing. Dictated by: Nathaly Ramires M.D. on 02/18/2020 at 9:54 Approved by: Nathaly Ramires M.D. on 02/18/2020 at 10:14
== END ==
PROVIDERS: Family Provider Family Medicine; PCP Family Medicine; Referring Provider Family Medicine; Visit Provider Family Medicine
DX: M54.5 Low back pain (principal); M51.16 Intervertebral disc disorders with radiculopathy, lumbar region; M48.061 Spinal stenosis, lumbar region without neurogenic claudication; E88.2 Lipomatosis, not elsewhere classified
CPT/HCPCS: 72148

== ENCOUNTER 2020-04-03 10:30 | Outpatient (RCR) | payer OTHER, SELFPAY ==
--- NOTE | 2019-11-15 18:01 | PT.OIE ---
Current Diagnoses Pain in right knee (11/15/19) Low back pain (11/15/19) Dorsalgia, unspecified (11/15/19) Difficulty in walking, not elsewhere classified (11/15/19) Abnormal posture (11/15/19) Weakness (11/15/19) Past Medical History (Last Reviewed 02/11/18 @ 13:01 by ARIANNE Mojica) Hearing loss (Resolved 1978) Heart attack (Resolved 2011) Past Surgical History (Last Reviewed 02/11/18 @ 13:01 by ARIANNE Mojica) Anesthesia (Resolved) H/O heart artery stent (Resolved 05/09/12) History of vasectomy (Resolved 1998) Status post hernia repair (Resolved) Visit Care Team Role Provider Type Kaz Cosme MD Attending Provider Physician Family Provider Primary Care Provider Referring Provider Specialty: Family Practice Address: [address] [place] [address], [facility] Email: [email or web address] Physical Therapy Initial Evaluation PT-OP-A Visit Information Start: 11/14/19 17:50 Freq: Status: Active Protocol: Document 11/15/19 15:18 [facility] (Rec: 11/15/19 16:03 [facility] [id number]) Out-Patient Physical Therapy Visit Information Visit Information Visit Type Initial Evaluation Visit Start Time 15:20 Visit Stop Time 16:00 Total Visit Minutes 40 Visit Number 1/6 Number of BLOCK MECHANIC Visits 0 PT-OP-B Current Condition Start: 11/14/19 17:50 Freq: Status: Active Protocol: Document 11/15/19 15:18 [facility] (Rec: 11/15/19 16:03 [facility] [id number]) Current Condition History of Current Condition Onset Date hurt again in July but started about 1 year ago Current Complaints R knee and L LBP History of Current Condition Pt reports pain will be there but not be so sharp then all of a sudden really bother him. Pt reports about 1 year ago LBP started and in July he fell back d/t stepping back and holding blue rock salt and fell into coworker but that inc pain. Reports it has not gotten better from that incident. He has seen a chiropractor 2x so far and will be seeing him again. Pt reports R knee pain happened when he fell in July. It doesn't bother him as much now but still hurts. He has not been working d/t pain and he is unable to lift. Pain goes from back and into leg. Pt can only stand about 15-20 min or less. He notes pain even with walking in grocery store. Even sitting he has pain. Cannot walk greater tahn 2 blocks d/t back pain. pt went for a run/walk about 1 week ago and regretted it after d/t pain. Pt recently has been moving around going side/side at night and having deififculty sleeping d/t pain. 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, be able to go for walks so he could lose some weight (up to 255 now and was 210 prior to this) Personal Factors Other Personal Factors That May Effect back pain, heart disease, R Therapy/Recovery inguinal hernia, hernia surgery, 4 stents in heart over 2 surgeries PT-OP-C Subjective Start: 11/14/19 17:50 Freq: Status: Active Protocol: Document 11/15/19 15:18 [facility] (Rec: 11/15/19 16:03 [facility] [id number]) Patient Questionnaires Lower Extremity Functional Scale LEFS Score 25/80 LEFS Impairment 60 to 79% Impaired (Score 17- 31) Neck Disability Index NDI Score 25/50 OP-PT Pain Assessment Location R knee Pain Location Details med knee Scale Used Numeric (0 - 10) Description- Other hardly any, just occasional w/ moving wrong direction Frequency Occasional Pain Duration a couple min Other Pain Aggravating Factors turning wrong way LB Pain Location Details LLB into LLE Intensity 5 Scale Used Numeric (0 - 10) Description Dull,With Movement Description- Other sometimes grabs and cannot move until can slowly move out of that position Frequency Frequent Pain Duration 2-3 min Radiating Location down entire thigh into post calf Variations/Patterns no numbness tingling Pain Aggravating Factors Standing,Sitting,Walking, Bending,Lifting Pain Alleviating Factors Heat,Medication Other Pain Alleviating Factors dec WB Into LLE, stand still the move around gently, laying down PT-OP-F Manual Assessment Start: 11/14/19 17:50 Freq: Status: Active Protocol: Document 11/15/19 15:18 [facility] (Rec: 11/15/19 16:03 [facility] [id number]) Manual Assessments Soft Tissue Assessment Soft Tissue Mobility Assessment L>R QL, ES, HS, calf & glutes tight & tender Joint Mobility Assessment Joint Mobility Assessment L iliac crest higher, even greater throchanter PT-OP-G Mobility & Gait Start: 11/14/19 17:50 Freq: Status: Active Protocol: Document 11/15/19 15:18 [facility] (Rec: 11/15/19 16:03 [facility] [id number]) OP Gait Assessment Comments Gait Comments Dec stance time LLE, dec push off B, lat shifting with amb PT-OP-J Posture/Palpation/Skin Start: 11/14/19 17:50 Freq: Status: Active Protocol: Document 11/15/19 15:18 [facility] (Rec: 11/15/19 16:03 [facility] [id number]) Posture Evaluation Kamlesh Postural Classification System Kamlesh Postural Classifications Posterior/Anterior Vertebral Compression Test 0 Elbow Flexion Test 2 Lumbar Protective Mechanism Left AP 1 Lumbar Protective Mechanism Right AP 0 Lumbar Protective Mechanism Left PA 2 Lumbar Protective Mechanism Right PA 1 PT-OP-K Range of Motion Start: 11/14/19 17:50 Freq: Status: Active Protocol: Document 11/15/19 15:18 [facility] (Rec: 11/15/19 16:03 [facility] [id number]) Lumbar Spine Range of Motion Lumbar Spine Active Degrees Flexion 31 Extension 24 Rotation Left 41 Rotation Right 71 Lateral Flexion Left 30 Lateral Flexion Right 31 ROM Limitations Pain Knee Goniometric Range of Motion Knee Right Flexion Active (degrees) 121 Extension Active (degrees) 8 PT-OP-L Special Tests Start: 11/14/19 17:50 Freq: Status: Active Protocol: Document 11/15/19 15:18 [facility] (Rec: 11/15/19 16:03 [facility] [id number]) Special Tests Lumbar Spine Special Tests SLR Test Results L positive Slump Test Results L positive PT-OP-M Strength Start: 11/14/19 17:50 Freq: Status: Active Protocol: Document 11/15/19 15:18 [facility] (Rec: 11/15/19 16:03 [facility] [id number]) Hip Strength Hip Manual Muscle Testing Left Flexion (L2) 3 Fair Extension (S1) 3+ Fair+ Abduction 4- Good- External Rotation 4- Good- Internal Rotation 4- Good- Right Flexion (L2) 4- Good- Extension (S1) 3+ Fair+ Abduction 4+ Good+ External Rotation 4 Good Internal Rotation 4 Good Knee Strength Knee Manual Muscle Testing Left Flexion (S2) 5 Normal Extension (L3) 5 Normal Right Flexion (S2) 5 Normal Extension (L3) 5 Normal Ankle/Foot Strength Ankle and Foot Manual Muscle Testing Left Dorsiflexion (L4) 5 Normal Plantarflexion (S1) 5 Normal Comments PF tested seated B Right Dorsiflexion (L4) 5 Normal Plantarflexion (S1) 5 Normal PT-OP-Q Treatments Start: 11/14/19 17:50 Freq: Status: Active Protocol: Document 11/15/19 15:18 [facility] (Rec: 11/15/19 18:01 [facility] [id number]) Therapeutic Exercises Supine Exercises HS stretch Side right Reps/Minutes 30 sec n glide Supine Exercise Name sciatic Side left Reps/Minutes 10 PT-OP-T Assessment and Plan Start: 11/14/19 17:50 Freq: Status: Active Protocol: Document 11/15/19 15:18 [facility] (Rec: 11/15/19 16:03 [facility] [id number]) Physical Therapy Assessment Rehab Potential Rehabilitation Potential Good Evaluation Complexity Number of Personal Factors/Comorbidities 3 or More Number of Body Systems Impaired 4 or More Clinical Presentation at Evaluation Evolving Impairments Impairments Activity Tolerance,Balance, Functional Activities, Functional Mobility,Gait,Pain, Posture,ROM,Soft Tissue Mobility,Strength Goals 3 Impairment Strength Short Term Goal (STG) Pt will be indep with HEP STG Duration 12/15/19 Duty Engineer Goal (LTG) Pt will have 5/5 LE strenth B and 4/5 LPM, EFT & VCT in order to show improved postural stability to allow him to do typical daily activities without pain. LTG Duration 01/15/20 2 Impairment DANILO 25 Short Term Goal (STG) DANILO will improve to 1850 to show improved functional ability for inc participation in typicaly daily activities. STG Duration 12/15/19 Retirement Goal (LTG) DANILO will improve to to show improved functional ability for inc participation in typicaly daily activities. LTG Duration 01/15/20 1 Impairment activities. Short Term Goal (STG) Pt will be able to demonstrate good lifting mechanics to lift an object that is 10 lbs without inc pain. STG Duration 12/15/19 Retirement Goal (LTG) Pt will be able to return to work with no greater than 2/10 pain. LTG Duration 01/15/20 Assessment Summary Assessment Pt presents with progressively worse LBP w/LLE radiculopathy that started about a year ago and got worse after his injury while carrying a heavy bag in July. During that same fall, pt injured his R knee, which is gradually is getting better but still is painful at end range flex and with twisting. His gait is significantly impaired, posture is impaired, core and LE strength is dec and lumbar & knee ROM is dec. He would benefit from skilled PT in order to return back to work and his other typical activities without pain. Physical Therapy Plan Frequency and Duration Frequency of Treatment 2x/Week Duration of Treatment 2 months Plan of Care Start Date 11/15/19 Plan of Care End Date 01/15/20 Therapeutic Interventions Therapeutic Interventions Aquatic Therapy,Balance Training,Home Exercise Program ,Joint Mobilizations,Manual Therapy,Neuromuscular Re- education,Patient/Caregiver Education,Self-Care/Home Management,Soft Tissue Mobilization,Taping, Therapeutic Activities, Therapeutic Exercises Modalities Cold Pack/Ice Massage,Electric Stimulation,Hot Packs, Infrared Therapy,Ultrasound Next Visit Focus/Plan Next Note Type Treatment Note Next Visit Plan supine core progression, STM to back, PNF
--- NOTE | 2019-11-15 18:01 | PT.OPPOC ---
Physical, Occupational & Speech Therapy At [facility] Current Diagnoses Pain in right knee (11/15/19) Low back pain (11/15/19) Dorsalgia, unspecified (11/15/19) Difficulty in walking, not elsewhere classified (11/15/19) Abnormal posture (11/15/19) Weakness (11/15/19) Visit Care Team Role Provider Type Kaz Csome MD Attending Provider Physician Family Provider Primary Care Provider Referring Provider Specialty: Family Practice Address: [address] [place] [address] Email: [email or web address] Plan Of Care PT-OP-T Assessment and Plan Start: 11/14/19 17:50 Freq: Status: Active Protocol: Document 11/15/19 15:18 [facility] (Rec: 11/15/19 16:03 [facility] [id number]) Physical Therapy Assessment Rehab Potential Rehabilitation Potential Good Evaluation Complexity Number of Personal Factors/Comorbidities 3 or More Number of Body Systems Impaired 4 or More Clinical Presentation at Evaluation Evolving Impairments Impairments Activity Tolerance,Balance, Functional Activities, Functional Mobility,Gait,Pain, Posture,ROM,Soft Tissue Mobility,Strength Goals 3 Impairment Strength Short Term Goal (STG) Pt will be indep with HEP STG Duration 12/15/19 Art Supervisor Goal (LTG) Pt will have 5/5 LE strenth B and 4/5 LPM, EFT & VCT in order to show improved postural stability to allow him to do typical daily activities without pain. LTG Duration 01/15/20 2 Impairment DANILO 25/50 Short Term Goal (STG) DANILO will improve to 18/50 to show improved functional ability for inc participation in typicaly daily activities. STG Duration 12/15/19 Art Supervisor Goal (LTG) DANILO will improve to 7/50 to show improved functional ability for inc participation in typicaly daily activities. LTG Duration 01/15/20 1 Impairment activities. Short Term Goal (STG) Pt will be able to demonstrate good lifting mechanics to lift an object that is 10 lbs without inc pain. STG Duration 12/15/19 Retirement Goal (LTG) Pt will be able to return to work with no greater than 2/10 pain. LTG Duration 01/15/20 Assessment Summary Assessment Pt presents with progressively worse LBP w/LLE radiculopathy that started about a year ago and got worse after his injury while carrying a heavy bag in July. During that same fall, pt injured his R knee, which is gradually is getting better but still is painful at end range flex and with twisting. His gait is significantly impaired, posture is impaired, core and LE strength is dec and lumbar & knee ROM is dec. He would benefit from skilled PT in order to return back to work and his other typical activities without pain. Physical Therapy Plan Frequency and Duration Frequency of Treatment 2x/Week Duration of Treatment 2 months Plan of Care Start Date 11/15/19 Plan of Care End Date 01/15/20 Therapeutic Interventions Therapeutic Interventions Aquatic Therapy,Balance Training,Home Exercise Program ,Joint Mobilizations,Manual Therapy,Neuromuscular Re- education,Patient/Caregiver Education,Self-Care/Home Management,Soft Tissue Mobilization,Taping, Therapeutic Activities, Therapeutic Exercises Modalities Cold Pack/Ice Massage,Electric Stimulation,Hot Packs, Infrared Therapy,Ultrasound Next Visit Focus/Plan Next Note Type Treatment Note Next Visit Plan supine core progression, STM to back, PNF Plan of Care Dates Plan of Care Start Date 11/15/19 Plan of Care End Date 01/15/20 Electronically Signed by: Brandi Domingo, PT 11/15/19 [id number] Please Sign and Return: I have reviewed this Plan of Care and certify that the skilled therapy services above are required to meet the patient?s needs. Physician Signature Date Printed Name and Credentials Clinical Instructor Signature Printed Name and Credentials
--- NOTE | 2019-11-20 11:16 | PT.OTN ---
Current Diagnoses Pain in right knee (11/20/19) Low back pain (11/20/19) Dorsalgia, unspecified (11/20/19) Difficulty in walking, not elsewhere classified (11/20/19) Abnormal posture (11/20/19) Weakness (11/20/19) Physical Therapy Treatment Note PT-OP-A Visit Information Start: 11/14/19 17:50 Freq: Status: Active Protocol: Document 11/20/19 10:23 (Rec: 11/20/19 11:15 [id number]) Out-Patient Physical Therapy Visit Information Visit Information Visit Type Treatment Note Visit Start Time 10:25 Visit Stop Time 11:14 Total Visit Minutes 49 Visit Number 2/6 Number of BAKER BENCH Visits 0 PT-OP-B Current Condition Start: 11/14/19 17:50 Freq: Status: Active Protocol: Document 11/15/19 15:18 [facility] (Rec: 11/15/19 16:03 [facility] [id number]) Current Condition History of Current Condition Onset Date hurt again in July but started about 1 year ago Current Complaints R knee and L LBP History of Current Condition Pt reports pain will be there but not be so sharp then all of a sudden really bother him. Pt reports about 1 year ago LBP started and in July he fell back d/t stepping back and holding blue rock salt and fell into coworker but that inc pain. Reports it has not gotten better from that incident. He has seen a chiropractor 2x so far and will be seeing him again. Pt reports R knee pain happened when he fell in July. It doesn't bother him as much now but still hurts. He has not been working d/t pain and he is unable to lift. Pain goes from back and into leg. Pt can only stand about 15-20 min or less. He notes pain even with walking in grocery store. Even sitting he has pain. Cannot walk greater tahn 2 blocks d/t back pain. pt went for a run/walk about 1 week ago and regretted it after d/t pain. Pt recently has been moving around going side/side at night and having deififculty sleeping d/t pain. 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 Patient Reported Progress Same PT-OP-F Manual Assessment Start: 11/14/19 17:50 Freq: Status: Active Protocol: Document 11/15/19 15:18 [facility] (Rec: 11/15/19 16:03 [facility] [id number]) Manual Assessments Soft Tissue Assessment Soft Tissue Mobility Assessment L>R QL, ES, HS, calf & glutes tight & tender Joint Mobility Assessment Joint Mobility Assessment L iliac crest higher, even greater throchanter PT-OP-G Mobility & Gait Start: 11/14/19 17:50 Freq: Status: Active Protocol: Document 11/15/19 15:18 [facility] (Rec: 11/15/19 16:03 [facility] [id number]) OP Gait Assessment Comments Gait Comments Dec stance time LLE, dec push off B, lat shifting with amb PT-OP-J Posture/Palpation/Skin Start: 11/14/19 17:50 Freq: Status: Active Protocol: Document 11/15/19 15:18 [facility] (Rec: 11/15/19 16:03 [facility] [id number]) Posture Evaluation Kamlesh Postural Classification System Kamlesh Postural Classifications Posterior/Anterior Vertebral Compression Test 0 Elbow Flexion Test 2 Lumbar Protective Mechanism Left AP 1 Lumbar Protective Mechanism Right AP 0 Lumbar Protective Mechanism Left PA 2 Lumbar Protective Mechanism Right PA 1 PT-OP-K Range of Motion Start: 11/14/19 17:50 Freq: Status: Active Protocol: Document 11/15/19 15:18 [facility] (Rec: 11/15/19 16:03 [facility] [id number]) Lumbar Spine Range of Motion Lumbar Spine Active Degrees Flexion 31 Extension 24 Rotation Left 41 Rotation Right 71 Lateral Flexion Left 30 Lateral Flexion Right 31 ROM Limitations Pain Knee Goniometric Range of Motion Knee Right Flexion Active (degrees) 121 Extension Active (degrees) 8 PT-OP-L Special Tests Start: 11/14/19 17:50 Freq: Status: Active Protocol: Document 11/15/19 15:18 [facility] (Rec: 11/15/19 16:03 [facility] [id number]) Special Tests Lumbar Spine Special Tests SLR Test Results L positive Slump Test Results L positive PT-OP-M Strength Start: 11/14/19 17:50 Freq: Status: Active Protocol: Document 11/15/19 15:18 [facility] (Rec: 11/15/19 16:03 [facility] [id number]) Hip Strength Hip Manual Muscle Testing Left Flexion (L2) 3 Fair Extension (S1) 3+ Fair+ Abduction 4- Good- External Rotation 4- Good- Internal Rotation 4- Good- Right Flexion (L2) 4- Good- Extension (S1) 3+ Fair+ Abduction 4+ Good+ External Rotation 4 Good Internal Rotation 4 Good Knee Strength Knee Manual Muscle Testing Left Flexion (S2) 5 Normal Extension (L3) 5 Normal Right Flexion (S2) 5 Normal Extension (L3) 5 Normal Ankle/Foot Strength Ankle and Foot Manual Muscle Testing Left Dorsiflexion (L4) 5 Normal Plantarflexion (S1) 5 Normal Comments PF tested seated B Right Dorsiflexion (L4) 5 Normal Plantarflexion (S1) 5 Normal PT-OP-Q Treatments Start: 11/14/19 17:50 Freq: Status: Active Protocol: Document 11/20/19 10:23 [facility] (Rec: 11/20/19 11:15 HH [id number]) Cardio Equipment Bicycle (Upright) Duration (Minutes) 6 Resistance 6 Other For HEP Therapeutic Exercises Supine Exercises pelvic tilt Side bilateral Reps/Minutes 10 x2 Comments cues on PPT for HEP knee to chest Supine Exercise Name knee to opposite chest Side bilateral Reps/Minutes 10 x 2 Comments for HEP HS stretch Side right Reps/Minutes 30 sec n glide Supine Exercise Name sciatic Side left Reps/Minutes 10 x 2 Comments supine knee extension for HEP Prone Exercises cat camel Side bilateral Reps/Minutes 10 x 2 Comments cues on PPT for HEP Manual Therapy Treatment Soft Tissue Mobilization gluteal muscle group Body Location L side Mobilization Type Sustained Pressure,Trigger Point Release Intensity/Depth Moderate Body Position Sidelying piriformis Body Location L piriformis Mobilization Type Sustained Pressure,Trigger Point Release Intensity/Depth Moderate Body Position Sidelying PT-OP-T Assessment and Plan Start: 11/14/19 17:50 Freq: Status: Active Protocol: Document 11/20/19 10:23 [facility] (Rec: 11/20/19 11:15 HH [id number]) Physical Therapy Assessment Goals 3 Impairment Strength Short Term Goal (STG) Pt will be indep with HEP STG Duration 12/15/19 Motion Picture Commentator Goal (LTG) Pt will have 5/5 LE strenth B and 4/5 LPM, EFT & VCT in order to show improved postural stability to allow him to do typical daily activities without pain. LTG Duration 01/15/20 2 Impairment DANILO 25/50 Short Term Goal (STG) DANILO will improve to 18/50 to show improved functional ability for inc participation in typicaly daily activities. STG Duration 12/15/19 Motion Picture Commentator Goal (LTG) DANILO will improve to 7/50 to show improved functional ability for inc participation in typicaly daily activities. LTG Duration 01/15/20 1 Impairment activities. Short Term Goal (STG) Pt will be able to demonstrate good lifting mechanics to lift an object that is 10 lbs without inc pain. STG Duration 12/15/19 Motion Picture Commentator Goal (LTG) Pt will be able to return to work with no greater than 2/10 pain. LTG Duration 01/15/20 Assessment Summary Assessment Tx focused on hip and lumbar mobility today. Pt tends to have increase pain with lumbar extension. Provided knee to opposite shoulder, lumbar flexion stretch, cat camel and sciatic nerve glide for HEP. There's noticeable R hip drop during L stance phase and pt tends to c/o pain on L lumbar region. Will work gait training and L hip stability next time Physical Therapy Plan Next Visit Focus/Plan Next Note Type Treatment Note Next Visit Plan supine core progression, STM to back, PNF
--- NOTE | 2019-11-22 11:19 | PT.OTN ---
Current Diagnoses Pain in right knee (11/22/19) Low back pain (11/22/19) Dorsalgia, unspecified (11/22/19) Difficulty in walking, not elsewhere classified (11/22/19) Abnormal posture (11/22/19) Weakness (11/22/19) Physical Therapy Treatment Note PT-OP-A Visit Information Start: 11/14/19 17:50 Freq: Status: Active Protocol: Document 11/22/19 10:34 [facility] (Rec: 11/22/19 11:18 [facility] [id number]) Out-Patient Physical Therapy Visit Information Visit Information Visit Type Treatment Note Visit Start Time 10:34 Visit Stop Time 11:33 Total Visit Minutes 59 Visit Number 3/6 Number of LEAD SOFTWARE TEST ENGINEER Visits 0 PT-OP-B Current Condition Start: 11/14/19 17:50 Freq: Status: Active Protocol: Document 11/15/19 15:18 [facility] (Rec: 11/15/19 16:03 [facility] [id number]) Current Condition History of Current Condition Onset Date hurt again in July but started about 1 year ago Current Complaints R knee and L LBP History of Current Condition Pt reports pain will be there but not be so sharp then all of a sudden really bother him. Pt reports about 1 year ago LBP started and in July he fell back d/t stepping back and holding blue rock salt and fell into coworker but that inc pain. Reports it has not gotten better from that incident. He has seen a chiropractor 2x so far and will be seeing him again. Pt reports R knee pain happened when he fell in July. It doesn't bother him as much now but still hurts. He has not been working d/t pain and he is unable to lift. Pain goes from back and into leg. Pt can only stand about 15-20 min or less. He notes pain even with walking in grocery store. Even sitting he has pain. Cannot walk greater tahn 2 blocks d/t back pain. pt went for a run/walk about 1 week ago and regretted it after d/t pain. Pt recently has been moving around going side/side at night and having deififculty sleeping d/t pain. 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 (Rec: 11/22/19 11:18 [facility] [id number]) OP-PT Subjective Patient Comments Patient Comments Pt reports back is sore from exercises but doing okay PT-OP-F Manual Assessment Start: 11/14/19 17:50 Freq: Status: Active Protocol: Document 11/15/19 15:18 [facility] (Rec: 11/15/19 16:03 [facility] [id number]) Manual Assessments Soft Tissue Assessment Soft Tissue Mobility Assessment L>R QL, ES, HS, calf & glutes tight & tender Joint Mobility Assessment Joint Mobility Assessment L iliac crest higher, even greater throchanter PT-OP-G Mobility & Gait Start: 11/14/19 17:50 Freq: Status: Active Protocol: Document 11/15/19 15:18 [facility] (Rec: 11/15/19 16:03 [facility] [id number]) OP Gait Assessment Comments Gait Comments Dec stance time LLE, dec push off B, lat shifting with amb PT-OP-J Posture/Palpation/Skin Start: 11/14/19 17:50 Freq: Status: Active Protocol: Document 11/15/19 15:18 [facility] (Rec: 11/15/19 16:03 [facility] [id number]) Posture Evaluation Kamlesh Postural Classification System Kamlesh Postural Classifications Posterior/Anterior Vertebral Compression Test 0 Elbow Flexion Test 2 Lumbar Protective Mechanism Left AP 1 Lumbar Protective Mechanism Right AP 0 Lumbar Protective Mechanism Left PA 2 Lumbar Protective Mechanism Right PA 1 PT-OP-K Range of Motion Start: 11/14/19 17:50 Freq: Status: Active Protocol: Document 11/15/19 15:18 [facility] (Rec: 11/15/19 16:03 [facility] [id number]) Lumbar Spine Range of Motion Lumbar Spine Active Degrees Flexion 31 Extension 24 Rotation Left 41 Rotation Right 71 Lateral Flexion Left 30 Lateral Flexion Right 31 ROM Limitations Pain Knee Goniometric Range of Motion Knee Right Flexion Active (degrees) 121 Extension Active (degrees) 8 PT-OP-L Special Tests Start: 11/14/19 17:50 Freq: Status: Active Protocol: Document 11/15/19 15:18 [facility] (Rec: 11/15/19 16:03 [facility] [id number]) Special Tests Lumbar Spine Special Tests SLR Test Results L positive Slump Test Results L positive PT-OP-M Strength Start: 11/14/19 17:50 Freq: Status: Active Protocol: Document 11/15/19 15:18 [facility] (Rec: 11/15/19 16:03 [facility] [id number]) Hip Strength Hip Manual Muscle Testing Left Flexion (L2) 3 Fair Extension (S1) 3+ Fair+ Abduction 4- Good- External Rotation 4- Good- Internal Rotation 4- Good- Right Flexion (L2) 4- Good- Extension (S1) 3+ Fair+ Abduction 4+ Good+ External Rotation 4 Good Internal Rotation 4 Good Knee Strength Knee Manual Muscle Testing Left Flexion (S2) 5 Normal Extension (L3) 5 Normal Right Flexion (S2) 5 Normal Extension (L3) 5 Normal Ankle/Foot Strength Ankle and Foot Manual Muscle Testing Left Dorsiflexion (L4) 5 Normal Plantarflexion (S1) 5 Normal Comments PF tested seated B Right Dorsiflexion (L4) 5 Normal Plantarflexion (S1) 5 Normal PT-OP-Q Treatments Start: 11/14/19 17:50 Freq: Status: Active Protocol: Document 11/22/19 10:34 [facility] (Rec: 11/22/19 11:18 [facility] [id number]) Therapeutic Exercises Supine Exercises TA Supine Exercise Name heel slides & BKFO Side bilateral Reps/Minutes 15 pelvic tilt Side bilateral Reps/Minutes 10 Comments cues on PPT for HEP knee to chest Supine Exercise Name knee to opposite chest Side bilateral Reps/Minutes 30 sec Comments for HEP Prone Exercises kev pose Reps/Minutes 30sec x2 cat camel Side bilateral Reps/Minutes 10 x 2 Comments cues on PPT for HEP Manual Therapy Treatment Soft Tissue Mobilization QL Body Location L QL/ES Mobilization Type Rolling,Sustained Pressure Intensity/Depth Moderate Body Position Sidelying gluteal muscle group Body Location L side Mobilization Type Sustained Pressure,Trigger Point Release Intensity/Depth Moderate Body Position Sidelying piriformis Body Location L piriformis Mobilization Type Sustained Pressure,Trigger Point Release Intensity/Depth Moderate Body Position Sidelying Joint Mobilizations innominate Joint L Direction caudal & ER FM sacrum Direction caudal & LUPA FM hip Joint L Direction on axis ER & IR FM PT-OP-R Modalities Start: 11/14/19 17:50 Freq: Status: Active Protocol: Document 11/22/19 10:34 [facility] (Rec: 11/22/19 11:19 [facility] [id number]) Hot Pack/Cold Pack Treatment Cold Pack Location lumbar Patient Position Prone Treatment Duration (minutes) 10 Hot Pack Location lumbar Patient Position Prone Treatment Duration (minutes) 10 PT-OP-T Assessment and Plan Start: 11/14/19 17:50 Freq: Status: Active Protocol: Document 11/22/19 10:34 [facility] (Rec: 11/22/19 11:18 [facility] [id number]) Physical Therapy Assessment Goals 3 Impairment Strength Short Term Goal (STG) Pt will be indep with HEP STG Duration 12/15/19 Motion Picture Projectionist Apprentice Goal (LTG) Pt will have 5/5 LE strenth B and 4/5 LPM, EFT & VCT in order to show improved postural stability to allow him to do typical daily activities without pain. LTG Duration 01/15/20 2 Impairment DANILO 25/50 Short Term Goal (STG) DANILO will improve to 18/50 to show improved functional ability for inc participation in typicaly daily activities. STG Duration 12/15/19 Longterm Goal (LTG) DANILO will improve to 7/50 to show improved functional ability for inc participation in typicaly daily activities. LTG Duration 01/15/20 1 Impairment activities. Short Term Goal (STG) Pt will be able to demonstrate good lifting mechanics to lift an object that is 10 lbs without inc pain. STG Duration 12/15/19 Motion Picture Projectionist Apprentice Goal (LTG) Pt will be able to return to work with no greater than 2/10 pain. LTG Duration 01/15/20 Assessment Summary Assessment Pt improved with ability to ER and IR after manual treatment . He was able to do all exercise sbut requires cueing for core exercises to not allow lat tipping of pevlis or lumbar ext during exercises Physical Therapy Plan Frequency and Duration Frequency of Treatment 2x/Week Duration of Treatment 2 months Plan of Care Start Date 11/15/19 Plan of Care End Date 01/15/20 Next Visit Focus/Plan Next Note Type Treatment Note Next Visit Plan supine core progression, STM to back, PNF
--- NOTE | 2019-11-26 12:32 | PT-OP ANOTE ---
Pt did not show for tx today. STAFFING PROGRAM MANAGER called and patient stated when automated system called him he selected needing to cancel appt today due to being out of town in [place], confirmed next appt 11/28/19 at 1345.
--- NOTE | 2019-11-28 14:29 | PT.OTN ---
Current Diagnoses Pain in right knee (11/28/19) Low back pain (11/28/19) Dorsalgia, unspecified (11/28/19) Difficulty in walking, not elsewhere classified (11/28/19) Abnormal posture (11/28/19) Weakness (11/28/19) Physical Therapy Treatment Note PT-OP-A Visit Information Start: 11/14/19 17:50 Freq: Status: Active Protocol: Document 11/28/19 13:46 [facility] (Rec: 11/28/19 14:29 [facility] [id number]) Out-Patient Physical Therapy Visit Information Visit Information Visit Type Treatment Note Visit Start Time 13:48 Visit Stop Time 14:26 Total Visit Minutes 38 Visit Number 4/6 Number of POLITICAL SCIENCE FACULTY MEMBER Visits 0 PT-OP-B Current Condition Start: 11/14/19 17:50 Freq: Status: Active Protocol: Document 11/15/19 15:18 [facility] (Rec: 11/15/19 16:03 [facility] [id number]) Current Condition History of Current Condition Onset Date hurt again in July but started about 1 year ago Current Complaints R knee and L LBP History of Current Condition Pt reports pain will be there but not be so sharp then all of a sudden really bother him. Pt reports about 1 year ago LBP started and in July he fell back d/t stepping back and holding blue rock salt and fell into coworker but that inc pain. Reports it has not gotten better from that incident. He has seen a chiropractor 2x so far and will be seeing him again. Pt reports R knee pain happened when he fell in July. It doesn't bother him as much now but still hurts. He has not been working d/t pain and he is unable to lift. Pain goes from back and into leg. Pt can only stand about 15-20 min or less. He notes pain even with walking in grocery store. Even sitting he has pain. Cannot walk greater tahn 2 blocks d/t back pain. pt went for a run/walk about 1 week ago and regretted it after d/t pain. Pt recently has been moving around going side/side at night and having deififculty sleeping d/t pain. 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 [id number]) OP-PT Subjective Patient Comments Patient Comments Pt reports he did a lot of walking around and his back and L leg gave him trouble. Pt felt pretty good after leaving last session PT-OP-F Manual Assessment Start: 11/14/19 17:50 Freq: Status: Active Protocol: Document 11/15/19 15:18 [facility] (Rec: 11/15/19 16:03 [facility] [id number]) Manual Assessments Soft Tissue Assessment Soft Tissue Mobility Assessment L>R QL, ES, HS, calf & glutes tight & tender Joint Mobility Assessment Joint Mobility Assessment L iliac crest higher, even greater throchanter PT-OP-G Mobility & Gait Start: 11/14/19 17:50 Freq: Status: Active Protocol: Document 11/15/19 15:18 [facility] (Rec: 11/15/19 16:03 [facility] [id number]) OP Gait Assessment Comments Gait Comments Dec stance time LLE, dec push off B, lat shifting with amb PT-OP-J Posture/Palpation/Skin Start: 11/14/19 17:50 Freq: Status: Active Protocol: Document 11/15/19 15:18 [facility] (Rec: 11/15/19 16:03 [facility] [id number]) Posture Evaluation Kamlesh Postural Classification System Kamlesh Postural Classifications Posterior/Anterior Vertebral Compression Test 0 Elbow Flexion Test 2 Lumbar Protective Mechanism Left AP 1 Lumbar Protective Mechanism Right AP 0 Lumbar Protective Mechanism Left PA 2 Lumbar Protective Mechanism Right PA 1 PT-OP-K Range of Motion Start: 11/14/19 17:50 Freq: Status: Active Protocol: Document 11/15/19 15:18 [facility] (Rec: 11/15/19 16:03 [facility] [id number]) Lumbar Spine Range of Motion Lumbar Spine Active Degrees Flexion 31 Extension 24 Rotation Left 41 Rotation Right 71 Lateral Flexion Left 30 Lateral Flexion Right 31 ROM Limitations Pain Knee Goniometric Range of Motion Knee Right Flexion Active (degrees) 121 Extension Active (degrees) 8 PT-OP-L Special Tests Start: 11/14/19 17:50 Freq: Status: Active Protocol: Document 11/15/19 15:18 [facility] (Rec: 11/15/19 16:03 [facility] [id number]) Special Tests Lumbar Spine Special Tests SLR Test Results L positive Slump Test Results L positive PT-OP-M Strength Start: 11/14/19 17:50 Freq: Status: Active Protocol: Document 11/15/19 15:18 [facility] (Rec: 11/15/19 16:03 [facility] [id number]) Hip Strength Hip Manual Muscle Testing Left Flexion (L2) 3 Fair Extension (S1) 3+ Fair+ Abduction 4- Good- External Rotation 4- Good- Internal Rotation 4- Good- Right Flexion (L2) 4- Good- Extension (S1) 3+ Fair+ Abduction 4+ Good+ External Rotation 4 Good Internal Rotation 4 Good Knee Strength Knee Manual Muscle Testing Left Flexion (S2) 5 Normal Extension (L3) 5 Normal Right Flexion (S2) 5 Normal Extension (L3) 5 Normal Ankle/Foot Strength Ankle and Foot Manual Muscle Testing Left Dorsiflexion (L4) 5 Normal Plantarflexion (S1) 5 Normal Comments PF tested seated B Right Dorsiflexion (L4) 5 Normal Plantarflexion (S1) 5 Normal PT-OP-Q Treatments Start: 11/14/19 17:50 Freq: Status: Active Protocol: Document 11/28/19 13:46 [facility] (Rec: 11/28/19 14:29 [facility] [id number]) Therapeutic Exercises Supine Exercises TA Supine Exercise Name heel slides & BKFO Side bilateral Reps/Minutes 15 pelvic tilt Side bilateral Reps/Minutes 10 Comments cues on PPT for HEP knee to chest Supine Exercise Name knee to opposite chest Side bilateral Reps/Minutes 30 sec Comments for HEP Manual Therapy Treatment Soft Tissue Mobilization QL Body Location L QL/ES Mobilization Type Rolling,Sustained Pressure Intensity/Depth Moderate Body Position Prone gluteal muscle group Body Location L side Mobilization Type Sustained Pressure,Trigger Point Release Intensity/Depth Moderate Body Position Sidelying piriformis Body Location L piriformis Mobilization Type Sustained Pressure,Trigger Point Release Intensity/Depth Moderate Body Position Sidelying Joint Mobilizations sacrum Direction caudal & LUPA FM hip Joint L Direction on axis ER & inf FM PT-OP-R Modalities Start: 11/14/19 17:50 Freq: Status: Active Protocol: Document 11/22/19 10:34 [facility] (Rec: 11/22/19 11:19 [facility] [id number]) Hot Pack/Cold Pack Treatment Cold Pack Location lumbar Patient Position Prone Treatment Duration (minutes) 10 Hot Pack Location lumbar Patient Position Prone Treatment Duration (minutes) 10 PT-OP-T Assessment and Plan Start: 11/14/19 17:50 Freq: Status: Active Protocol: Document 11/28/19 13:46 [facility] (Rec: 11/28/19 14:29 [facility] [id number]) Physical Therapy Assessment Goals 3 Impairment Strength Short Term Goal (STG) Pt will be indep with HEP STG Duration 12/15/19 Halfway Goal (LTG) Pt will have 5/5 LE strenth B and 4/5 LPM, EFT & VCT in order to show improved postural stability to allow him to do typical daily activities without pain. LTG Duration 01/15/20 2 Impairment DANILO 25/50 Short Term Goal (STG) DANILO will improve to 18/50 to show improved functional ability for inc participation in typicaly daily activities. STG Duration 12/15/19 Halfway Goal (LTG) DANILO will improve to 7/50 to show improved functional ability for inc participation in typicaly daily activities. LTG Duration 01/15/20 1 Impairment activities. Short Term Goal (STG) Pt will be able to demonstrate good lifting mechanics to lift an object that is 10 lbs without inc pain. STG Duration 12/15/19 Site Engineer Goal (LTG) Pt will be able to return to work with no greater than 2/10 pain. LTG Duration 01/15/20 Assessment Summary Assessment Pt reports relief with treatment. Improved hip flex with no further hip inpingement symptoms after manual treatment Physical Therapy Plan Frequency and Duration Frequency of Treatment 2x/Week Duration of Treatment 2 months Plan of Care Start Date 11/15/19 Plan of Care End Date 01/15/20 Next Visit Focus/Plan Next Note Type Treatment Note Next Visit Plan supine core progression, STM to back, PNF
--- NOTE | 2019-12-03 16:10 | PT.OTN ---
Current Diagnoses Pain in right knee (12/03/19) Low back pain (12/03/19) Dorsalgia, unspecified (12/03/19) Difficulty in walking, not elsewhere classified (12/03/19) Abnormal posture (12/03/19) Weakness (12/03/19) Physical Therapy Treatment Note PT-OP-A Visit Information Start: 11/14/19 17:50 Freq: Status: Active Protocol: Document 12/03/19 13:01 (Rec: 12/03/19 16:10 [id number]) Out-Patient Physical Therapy Visit Information Visit Information Visit Type Treatment Note Visit Start Time 13:00 Visit Stop Time 13:44 Total Visit Minutes 44 Visit Number 5/6 Number of OPERATIONS RESEARCH GROUP MANAGER Visits 0 PT-OP-B Current Condition Start: 11/14/19 17:50 Freq: Status: Active Protocol: Document 11/15/19 15:18 [facility] (Rec: 11/15/19 16:03 [facility] [id number]) Current Condition History of Current Condition Onset Date hurt again in July but started about 1 year ago Current Complaints R knee and L LBP History of Current Condition Pt reports pain will be there but not be so sharp then all of a sudden really bother him. Pt reports about 1 year ago LBP started and in July he fell back d/t stepping back and holding blue rock salt and fell into coworker but that inc pain. Reports it has not gotten better from that incident. He has seen a chiropractor 2x so far and will be seeing him again. Pt reports R knee pain happened when he fell in July. It doesn't bother him as much now but still hurts. He has not been working d/t pain and he is unable to lift. Pain goes from back and into leg. Pt can only stand about 15-20 min or less. He notes pain even with walking in grocery store. Even sitting he has pain. Cannot walk greater tahn 2 blocks d/t back pain. pt went for a run/walk about 1 week ago and regretted it after d/t pain. Pt recently has been moving around going side/side at night and having deififculty sleeping d/t pain. 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 Its there when im walk or standing. PT-OP-F Manual Assessment Start: 11/14/19 17:50 Freq: Status: Active Protocol: Document 11/15/19 15:18 [facility] (Rec: 11/15/19 16:03 [facility] [id number]) Manual Assessments Soft Tissue Assessment Soft Tissue Mobility Assessment L>R QL, ES, HS, calf & glutes tight & tender Joint Mobility Assessment Joint Mobility Assessment L iliac crest higher, even greater throchanter PT-OP-G Mobility & Gait Start: 11/14/19 17:50 Freq: Status: Active Protocol: Document 11/15/19 15:18 [facility] (Rec: 11/15/19 16:03 [facility] [id number]) OP Gait Assessment Comments Gait Comments Dec stance time LLE, dec push off B, lat shifting with amb PT-OP-J Posture/Palpation/Skin Start: 11/14/19 17:50 Freq: Status: Active Protocol: Document 11/15/19 15:18 [facility] (Rec: 11/15/19 16:03 [facility] [id number]) Posture Evaluation Kamlesh Postural Classification System Kamlesh Postural Classifications Posterior/Anterior Vertebral Compression Test 0 Elbow Flexion Test 2 Lumbar Protective Mechanism Left AP 1 Lumbar Protective Mechanism Right AP 0 Lumbar Protective Mechanism Left PA 2 Lumbar Protective Mechanism Right PA 1 PT-OP-K Range of Motion Start: 11/14/19 17:50 Freq: Status: Active Protocol: Document 11/15/19 15:18 [facility] (Rec: 11/15/19 16:03 [facility] [id number]) Lumbar Spine Range of Motion Lumbar Spine Active Degrees Flexion 31 Extension 24 Rotation Left 41 Rotation Right 71 Lateral Flexion Left 30 Lateral Flexion Right 31 ROM Limitations Pain Knee Goniometric Range of Motion Knee Right Flexion Active (degrees) 121 Extension Active (degrees) 8 PT-OP-L Special Tests Start: 11/14/19 17:50 Freq: Status: Active Protocol: Document 11/15/19 15:18 [facility] (Rec: 11/15/19 16:03 [facility] [id number]) Special Tests Lumbar Spine Special Tests SLR Test Results L positive Slump Test Results L positive PT-OP-M Strength Start: 11/14/19 17:50 Freq: Status: Active Protocol: Document 11/15/19 15:18 [facility] (Rec: 11/15/19 16:03 [facility] [id number]) Hip Strength Hip Manual Muscle Testing Left Flexion (L2) 3 Fair Extension (S1) 3+ Fair+ Abduction 4- Good- External Rotation 4- Good- Internal Rotation 4- Good- Right Flexion (L2) 4- Good- Extension (S1) 3+ Fair+ Abduction 4+ Good+ External Rotation 4 Good Internal Rotation 4 Good Knee Strength Knee Manual Muscle Testing Left Flexion (S2) 5 Normal Extension (L3) 5 Normal Right Flexion (S2) 5 Normal Extension (L3) 5 Normal Ankle/Foot Strength Ankle and Foot Manual Muscle Testing Left Dorsiflexion (L4) 5 Normal Plantarflexion (S1) 5 Normal Comments PF tested seated B Right Dorsiflexion (L4) 5 Normal Plantarflexion (S1) 5 Normal PT-OP-Q Treatments Start: 11/14/19 17:50 Freq: Status: Active Protocol: Document 12/03/19 13:01 (Rec: 12/03/19 16:10 [id number]) Gym Equipment Shuttle Rebound SL squat Reps/Duration 50 lbs Comments slight pain at bottom fo the squat on LLE Therapeutic Exercises Supine Exercises supine ER Side left Resistance yellow band Reps/Minutes 8x2 Comments minimal discomfort at end range ER pelvic tilt Supine Exercise Name focus on WB on LLE Resistance band at kness Reps/Minutes 10 Comments PPT Raj stretch Side left Reps/Minutes 15sec x5 Sidelying Exercises clamshell Side left Reps/Minutes 8x2 Comments minimal discomfort at end range ER Sitting Exercises single leg stance Sitting Exercise Name R knee up, L UE support Side left Reps/Minutes 8x 2 Comments for HEP, minimal discomfort. Standing Exercises hip hike Standing Exercise Name R hip hike Side left Reps/Minutes 8 x2 Comments 4 inch step Manual Therapy Treatment Soft Tissue Mobilization QL Body Location L QL/ES Mobilization Type Rolling,Sustained Pressure Intensity/Depth Moderate Body Position Prone gluteal muscle group Body Location L side Mobilization Type Sustained Pressure,Trigger Point Release Intensity/Depth Moderate Body Position Sidelying PT-OP-R Modalities Start: 11/14/19 17:50 Freq: Status: Active Protocol: Document 11/22/19 10:34 [facility] (Rec: 11/22/19 11:19 [facility] [id number]) Hot Pack/Cold Pack Treatment Cold Pack Location lumbar Patient Position Prone Treatment Duration (minutes) 10 Hot Pack Location lumbar Patient Position Prone Treatment Duration (minutes) 10 PT-OP-T Assessment and Plan Start: 11/14/19 17:50 Freq: Status: Active Protocol: Document 12/03/19 13:01 (Rec: 12/03/19 16:10 [id number]) Physical Therapy Assessment Goals 3 Impairment Strength Short Term Goal (STG) Pt will be indep with HEP STG Duration 12/15/19 Industrial Controls Technician Goal (LTG) Pt will have 5/5 LE strenth B and 4/5 LPM, EFT & VCT in order to show improved postural stability to allow him to do typical daily activities without pain. LTG Duration 01/15/20 2 Impairment DANILO 25/50 Short Term Goal (STG) DANILO will improve to 18/50 to show improved functional ability for inc participation in typicaly daily activities. STG Duration 12/15/19 Industrial Controls Technician Goal (LTG) DANILO will improve to 7/50 to show improved functional ability for inc participation in typicaly daily activities. LTG Duration 01/15/20 1 Impairment activities. Short Term Goal (STG) Pt will be able to demonstrate good lifting mechanics to lift an object that is 10 lbs without inc pain. STG Duration 12/15/19 Skilled Nursing Goal (LTG) Pt will be able to return to work with no greater than 2/10 pain. LTG Duration 01/15/20 Assessment Summary Assessment Noticed pt has R hip drop during L LE stance phase. Pt reports his L hip is 60% weaker compared to R while doing therex like clamshell, hip hike, SL squat, SL stance. Pt does feel his pain has reduced and more stable while walking at the end of tx session Physical Therapy Plan Next Visit Focus/Plan Next Note Type Treatment Note Next Visit Plan supine core progression, STM to back, PNF L hip stabilization gait training to maintain R hip level.
--- NOTE | 2019-12-05 10:05 | PT-OP ANOTE ---
Session started with leg press but pt noted he changed insurance so went up front to talk to vehicle insurance agent. Pt had to be cancelled today until auth received from [employer].
--- NOTE | 2019-12-20 14:31 | PT.OTN ---
Current Diagnoses Pain in right knee (12/20/19) Low back pain (12/20/19) Dorsalgia, unspecified (12/20/19) Difficulty in walking, not elsewhere classified (12/20/19) Abnormal posture (12/20/19) Weakness (12/20/19) Physical Therapy Treatment Note PT-OP-A Visit Information Start: 11/14/19 17:50 Freq: Status: Active Protocol: Document 12/20/19 13:46 [facility] (Rec: 12/20/19 14:30 [facility] [id number]) Out-Patient Physical Therapy Visit Information Visit Information Visit Type Treatment Note Visit Start Time 13:47 Visit Stop Time 14:27 Total Visit Minutes 40 Visit Number 06/03 Number of POPPED CORN OVEN ATTENDANT Visits 0 PT-OP-B Current Condition Start: 11/14/19 17:50 Freq: Status: Active Protocol: Document 11/15/19 15:18 [facility] (Rec: 11/15/19 16:03 [facility] [id number]) Current Condition History of Current Condition Onset Date hurt again in July but started about 1 year ago Current Complaints R knee and L LBP History of Current Condition Pt reports pain will be there but not be so sharp then all of a sudden really bother him. Pt reports about 1 year ago LBP started and in July he fell back d/t stepping back and holding blue rock salt and fell into coworker but that inc pain. Reports it has not gotten better from that incident. He has seen a chiropractor 2x so far and will be seeing him again. Pt reports R knee pain happened when he fell in July. It doesn't bother him as much now but still hurts. He has not been working d/t pain and he is unable to lift. Pain goes from back and into leg. Pt can only stand about 15-20 min or less. He notes pain even with walking in grocery store. Even sitting he has pain. Cannot walk greater tahn 2 blocks d/t back pain. pt went for a run/walk about 1 week ago and regretted it after d/t pain. Pt recently has been moving around going side/side at night and having deififculty sleeping d/t pain. 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 He walked a mile today to go to [employer]. PT-OP-F Manual Assessment Start: 11/14/19 17:50 Freq: Status: Active Protocol: Document 11/15/19 15:18 [facility] (Rec: 11/15/19 16:03 [facility] [id number]) Manual Assessments Soft Tissue Assessment Soft Tissue Mobility Assessment L>R QL, ES, HS, calf & glutes tight & tender Joint Mobility Assessment Joint Mobility Assessment L iliac crest higher, even greater throchanter PT-OP-G Mobility & Gait Start: 11/14/19 17:50 Freq: Status: Active Protocol: Document 11/15/19 15:18 [facility] (Rec: 11/15/19 16:03 [facility] [id number]) OP Gait Assessment Comments Gait Comments Dec stance time LLE, dec push off B, lat shifting with amb PT-OP-J Posture/Palpation/Skin Start: 11/14/19 17:50 Freq: Status: Active Protocol: Document 11/15/19 15:18 [facility] (Rec: 11/15/19 16:03 [facility] [id number]) Posture Evaluation Kamlesh Postural Classification System Kamlesh Postural Classifications Posterior/Anterior Vertebral Compression Test 0 Elbow Flexion Test 2 Lumbar Protective Mechanism Left AP 1 Lumbar Protective Mechanism Right AP 0 Lumbar Protective Mechanism Left PA 2 Lumbar Protective Mechanism Right PA 1 PT-OP-K Range of Motion Start: 11/14/19 17:50 Freq: Status: Active Protocol: Document 11/15/19 15:18 [facility] (Rec: 11/15/19 16:03 [facility] [id number]) Lumbar Spine Range of Motion Lumbar Spine Active Degrees Flexion 31 Extension 24 Rotation Left 41 Rotation Right 71 Lateral Flexion Left 30 Lateral Flexion Right 31 ROM Limitations Pain Knee Goniometric Range of Motion Knee Right Flexion Active (degrees) 121 Extension Active (degrees) 8 PT-OP-L Special Tests Start: 11/14/19 17:50 Freq: Status: Active Protocol: Document 11/15/19 15:18 [facility] (Rec: 11/15/19 16:03 [facility] [id number]) Special Tests Lumbar Spine Special Tests SLR Test Results L positive Slump Test Results L positive PT-OP-M Strength Start: 11/14/19 17:50 Freq: Status: Active Protocol: Document 11/15/19 15:18 [facility] (Rec: 11/15/19 16:03 [facility] [id number]) Hip Strength Hip Manual Muscle Testing Left Flexion (L2) 3 Fair Extension (S1) 3+ Fair+ Abduction 4- Good- External Rotation 4- Good- Internal Rotation 4- Good- Right Flexion (L2) 4- Good- Extension (S1) 3+ Fair+ Abduction 4+ Good+ External Rotation 4 Good Internal Rotation 4 Good Knee Strength Knee Manual Muscle Testing Left Flexion (S2) 5 Normal Extension (L3) 5 Normal Right Flexion (S2) 5 Normal Extension (L3) 5 Normal Ankle/Foot Strength Ankle and Foot Manual Muscle Testing Left Dorsiflexion (L4) 5 Normal Plantarflexion (S1) 5 Normal Comments PF tested seated B Right Dorsiflexion (L4) 5 Normal Plantarflexion (S1) 5 Normal PT-OP-Q Treatments Start: 11/14/19 17:50 Freq: Status: Active Protocol: Document 12/20/19 13:46 [facility] (Rec: 12/20/19 14:30 [facility] [id number]) Gym Equipment Shuttle Rebound SL squat Exercise Details 2x10 Reps/Duration 50 lbs Comments slight pain at bottom fo the squat on LLE Therapeutic Exercises Sidelying Exercises hip abd Side left Reps/Minutes 2x10 clamshell Side left Reps/Minutes 10x2 Comments minimal discomfort at end range ER Standing Exercises hip hike Standing Exercise Name R hip hike Side bilateral Reps/Minutes 12 Comments 4 inch step Manual Therapy Treatment Soft Tissue Mobilization QL Body Location L QL/ES Mobilization Type Rolling,Sustained Pressure Intensity/Depth Moderate Body Position Sidelying gluteal muscle group Body Location L side Mobilization Type Sustained Pressure,Trigger Point Release Intensity/Depth Moderate Body Position Sidelying Joint Mobilizations innominate Joint gapping L Neuro Re-Education Treatment Other Activities PNF Details ant elevation/post depression Comments 1. rhythmic initiation 2. sustained isometrics 3. Combo of isotonics PT-OP-R Modalities Start: 11/14/19 17:50 Freq: Status: Active Protocol: Document 11/22/19 10:34 [facility] (Rec: 11/22/19 11:19 [facility] [id number]) Hot Pack/Cold Pack Treatment Cold Pack Location lumbar Patient Position Prone Treatment Duration (minutes) 10 Hot Pack Location lumbar Patient Position Prone Treatment Duration (minutes) 10 PT-OP-T Assessment and Plan Start: 11/14/19 17:50 Freq: Status: Active Protocol: Document 12/20/19 13:46 [facility] (Rec: 12/20/19 14:30 [facility] [id number]) Physical Therapy Assessment Goals 3 Impairment Strength Short Term Goal (STG) Pt will be indep with HEP STG Duration 12/15/19 Paper Baler Goal (LTG) Pt will have 5/5 LE strenth B and 4/5 LPM, EFT & VCT in order to show improved postural stability to allow him to do typical daily activities without pain. LTG Duration 01/15/20 2 Impairment DANILO 25/50 Short Term Goal (STG) DANILO will improve to 18/50 to show improved functional ability for inc participation in typicaly daily activities. STG Duration 12/15/19 Paper Baler Goal (LTG) DANILO will improve to 7/50 to show improved functional ability for inc participation in typicaly daily activities. LTG Duration 01/15/20 1 Impairment activities. Short Term Goal (STG) Pt will be able to demonstrate good lifting mechanics to lift an object that is 10 lbs without inc pain. STG Duration 12/15/19 Group Home Goal (LTG) Pt will be able to return to work with no greater than 2/10 pain. LTG Duration 01/15/20 Assessment Summary Assessment Pt required ceuing for all exercises for correct isolation of exercises for form. He required cueing especailly with hip hike to avoid back ext. Improved gait pattern with improved LLE stance time after manual treatment. Physical Therapy Plan Frequency and Duration Frequency of Treatment 2x/Week Duration of Treatment 2 months Plan of Care Start Date 11/15/19 Plan of Care End Date 01/15/20 Next Visit Focus/Plan Next Note Type Treatment Note Next Visit Plan supine core progression, STM to back, PNF L hip stabilization gait training to maintain R hip level.
--- NOTE | 2019-12-24 11:26 | PT.OTN ---
Current Diagnoses Pain in right knee (12/24/19) Low back pain (12/24/19) Dorsalgia, unspecified (12/24/19) Difficulty in walking, not elsewhere classified (12/24/19) Abnormal posture (12/24/19) Weakness (12/24/19) Physical Therapy Treatment Note PT-OP-A Visit Information Start: 11/14/19 17:50 Freq: Status: Active Protocol: Document 12/24/19 10:39 [facility] (Rec: 12/24/19 11:25 [facility] [id number]) Out-Patient Physical Therapy Visit Information Visit Information Visit Type Treatment Note Visit Start Time 10:36 Visit Stop Time 11:14 Total Visit Minutes 38 Visit Number 2/12 Number of SALES ENABLEMENT MANAGER Visits 0 PT-OP-B Current Condition Start: 11/14/19 17:50 Freq: Status: Active Protocol: Document 11/15/19 15:18 [facility] (Rec: 11/15/19 16:03 [facility] [id number]) Current Condition History of Current Condition Onset Date hurt again in July but started about 1 year ago Current Complaints R knee and L LBP History of Current Condition Pt reports pain will be there but not be so sharp then all of a sudden really bother him. Pt reports about 1 year ago LBP started and in July he fell back d/t stepping back and holding blue rock salt and fell into coworker but that inc pain. Reports it has not gotten better from that incident. He has seen a chiropractor 2x so far and will be seeing him again. Pt reports R knee pain happened when he fell in July. It doesn't bother him as much now but still hurts. He has not been working d/t pain and he is unable to lift. Pain goes from back and into leg. Pt can only stand about 15-20 min or less. He notes pain even with walking in grocery store. Even sitting he has pain. Cannot walk greater tahn 2 blocks d/t back pain. pt went for a run/walk about 1 week ago and regretted it after d/t pain. Pt recently has been moving around going side/side at night and having deififculty sleeping d/t pain. 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 Reports lat hip is wehre he hurts the most. He has used his massager every night and that helps him sleep PT-OP-F Manual Assessment Start: 11/14/19 17:50 Freq: Status: Active Protocol: Document 11/15/19 15:18 [facility] (Rec: 11/15/19 16:03 [facility] [id number]) Manual Assessments Soft Tissue Assessment Soft Tissue Mobility Assessment L>R QL, ES, HS, calf & glutes tight & tender Joint Mobility Assessment Joint Mobility Assessment L iliac crest higher, even greater throchanter PT-OP-G Mobility & Gait Start: 11/14/19 17:50 Freq: Status: Active Protocol: Document 11/15/19 15:18 [facility] (Rec: 11/15/19 16:03 [facility] [id number]) OP Gait Assessment Comments Gait Comments Dec stance time LLE, dec push off B, lat shifting with amb PT-OP-J Posture/Palpation/Skin Start: 11/14/19 17:50 Freq: Status: Active Protocol: Document 11/15/19 15:18 [facility] (Rec: 11/15/19 16:03 [facility] [id number]) Posture Evaluation Kamlesh Postural Classification System Kamlesh Postural Classifications Posterior/Anterior Vertebral Compression Test 0 Elbow Flexion Test 2 Lumbar Protective Mechanism Left AP 1 Lumbar Protective Mechanism Right AP 0 Lumbar Protective Mechanism Left PA 2 Lumbar Protective Mechanism Right PA 1 PT-OP-K Range of Motion Start: 11/14/19 17:50 Freq: Status: Active Protocol: Document 11/15/19 15:18 [facility] (Rec: 11/15/19 16:03 [facility] [id number]) Lumbar Spine Range of Motion Lumbar Spine Active Degrees Flexion 31 Extension 24 Rotation Left 41 Rotation Right 71 Lateral Flexion Left 30 Lateral Flexion Right 31 ROM Limitations Pain Knee Goniometric Range of Motion Knee Right Flexion Active (degrees) 121 Extension Active (degrees) 8 PT-OP-L Special Tests Start: 11/14/19 17:50 Freq: Status: Active Protocol: Document 11/15/19 15:18 [facility] (Rec: 11/15/19 16:03 [facility] [id number]) Special Tests Lumbar Spine Special Tests SLR Test Results L positive Slump Test Results L positive PT-OP-M Strength Start: 11/14/19 17:50 Freq: Status: Active Protocol: Document 11/15/19 15:18 [facility] (Rec: 11/15/19 16:03 [facility] [id number]) Hip Strength Hip Manual Muscle Testing Left Flexion (L2) 3 Fair Extension (S1) 3+ Fair+ Abduction 4- Good- External Rotation 4- Good- Internal Rotation 4- Good- Right Flexion (L2) 4- Good- Extension (S1) 3+ Fair+ Abduction 4+ Good+ External Rotation 4 Good Internal Rotation 4 Good Knee Strength Knee Manual Muscle Testing Left Flexion (S2) 5 Normal Extension (L3) 5 Normal Right Flexion (S2) 5 Normal Extension (L3) 5 Normal Ankle/Foot Strength Ankle and Foot Manual Muscle Testing Left Dorsiflexion (L4) 5 Normal Plantarflexion (S1) 5 Normal Comments PF tested seated B Right Dorsiflexion (L4) 5 Normal Plantarflexion (S1) 5 Normal PT-OP-Q Treatments Start: 11/14/19 17:50 Freq: Status: Active Protocol: Document 12/24/19 10:39 [facility] (Rec: 12/24/19 11:25 [facility] [id number]) Gym Equipment Shuttle Rebound SL squat Exercise Details 2x15 Reps/Duration 62lbs Comments slight pain at bottom fo the squat on LLE Therapeutic Exercises Standing Exercises hip hike Standing Exercise Name R hip hike Side bilateral Reps/Minutes 12 Comments 4 inch step Gait Training Gait Activity wt acceptance Description SLS working on no lat leaning wt shifts Description in mirror working on fwd shift of wt vs lat Distance/Duration B Manual Therapy Treatment Soft Tissue Mobilization QL Body Location L QL/ES Mobilization Type Rolling,Sustained Pressure Intensity/Depth Moderate Body Position Prone gluteal muscle group Body Location L side Mobilization Type Sustained Pressure,Trigger Point Release Intensity/Depth Moderate Body Position Prone Joint Mobilizations innominate Joint L caudal FM sacrum Direction caudal & LUPA FM hip Joint L Direction on axis ER Neuro Re-Education Treatment Other Activities PNF Details post depression Comments 1. rhythmic initiation 2. sustained isometrics 3. Combo of isotonics PT-OP-R Modalities Start: 11/14/19 17:50 Freq: Status: Active Protocol: Document 11/22/19 10:34 [facility] (Rec: 11/22/19 11:19 [facility] [id number]) Hot Pack/Cold Pack Treatment Cold Pack Location lumbar Patient Position Prone Treatment Duration (minutes) 10 Hot Pack Location lumbar Patient Position Prone Treatment Duration (minutes) 10 PT-OP-T Assessment and Plan Start: 11/14/19 17:50 Freq: Status: Active Protocol: Document 12/24/19 10:39 [facility] (Rec: 12/24/19 11:25 [facility] [id number]) Physical Therapy Assessment Goals 3 Impairment Strength Short Term Goal (STG) Pt will be indep with HEP STG Duration 12/15/19 Senior Care Goal (LTG) Pt will have 5/5 LE strenth B and 4/5 LPM, EFT & VCT in order to show improved postural stability to allow him to do typical daily activities without pain. LTG Duration 01/15/20 2 Impairment DANILO 25/50 Short Term Goal (STG) DANILO will improve to 18/50 to show improved functional ability for inc participation in typicaly daily activities. STG Duration 12/15/19 Front Counter Clerk Goal (LTG) DANILO will improve to 7/50 to show improved functional ability for inc participation in typicaly daily activities. LTG Duration 01/15/20 1 Impairment activities. Short Term Goal (STG) Pt will be able to demonstrate good lifting mechanics to lift an object that is 10 lbs without inc pain. STG Duration 12/15/19 Senior Care Goal (LTG) Pt will be able to return to work with no greater than 2/10 pain. LTG Duration 01/15/20 Assessment Summary Assessment Improved ER with treatment today. Improved performance of hip hike and improved gait w /cueing Physical Therapy Plan Frequency and Duration Frequency of Treatment 2x/Week Duration of Treatment 2 months Plan of Care Start Date 11/15/19 Plan of Care End Date 01/15/20 Next Visit Focus/Plan Next Note Type Treatment Note Next Visit Plan supine core progression, STM to back, PNF L hip stabilization gait training to maintain R hip level.
--- NOTE | 2019-12-26 12:18 | PT.OTN ---
Current Diagnoses Pain in right knee (12/26/19) Low back pain (12/26/19) Dorsalgia, unspecified (12/26/19) Difficulty in walking, not elsewhere classified (12/26/19) Abnormal posture (12/26/19) Weakness (12/26/19) Physical Therapy Treatment Note PT-OP-A Visit Information Start: 11/14/19 17:50 Freq: Status: Active Protocol: Document 12/26/19 11:17 [facility] (Rec: 12/26/19 12:18 [facility] [id number]) Out-Patient Physical Therapy Visit Information Visit Information Visit Type Treatment Note Visit Start Time 11:15 Visit Stop Time 11:55 Total Visit Minutes 40 Visit Number 3/12 Number of TEST ENGINEERING TECHNICIAN Visits 0 PT-OP-B Current Condition Start: 11/14/19 17:50 Freq: Status: Active Protocol: Document 11/15/19 15:18 [facility] (Rec: 11/15/19 16:03 [facility] [id number]) Current Condition History of Current Condition Onset Date hurt again in July but started about 1 year ago Current Complaints R knee and L LBP History of Current Condition Pt reports pain will be there but not be so sharp then all of a sudden really bother him. Pt reports about 1 year ago LBP started and in July he fell back d/t stepping back and holding blue rock salt and fell into coworker but that inc pain. Reports it has not gotten better from that incident. He has seen a chiropractor 2x so far and will be seeing him again. Pt reports R knee pain happened when he fell in July. It doesn't bother him as much now but still hurts. He has not been working d/t pain and he is unable to lift. Pain goes from back and into leg. Pt can only stand about 15-20 min or less. He notes pain even with walking in grocery store. Even sitting he has pain. Cannot walk greater tahn 2 blocks d/t back pain. pt went for a run/walk about 1 week ago and regretted it after d/t pain. Pt recently has been moving around going side/side at night and having deififculty sleeping d/t pain. 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 [id number]) OP-PT Subjective Patient Comments Patient Comments Pt reports pain has been better. He has been using hsi massager nightly. PT-OP-F Manual Assessment Start: 11/14/19 17:50 Freq: Status: Active Protocol: Document 11/15/19 15:18 [facility] (Rec: 11/15/19 16:03 [facility] [id number]) Manual Assessments Soft Tissue Assessment Soft Tissue Mobility Assessment L>R QL, ES, HS, calf & glutes tight & tender Joint Mobility Assessment Joint Mobility Assessment L iliac crest higher, even greater throchanter PT-OP-G Mobility & Gait Start: 11/14/19 17:50 Freq: Status: Active Protocol: Document 11/15/19 15:18 [facility] (Rec: 11/15/19 16:03 [facility] [id number]) OP Gait Assessment Comments Gait Comments Dec stance time LLE, dec push off B, lat shifting with amb PT-OP-J Posture/Palpation/Skin Start: 11/14/19 17:50 Freq: Status: Active Protocol: Document 11/15/19 15:18 [facility] (Rec: 11/15/19 16:03 [facility] [id number]) Posture Evaluation Kamlesh Postural Classification System Kamlesh Postural Classifications Posterior/Anterior Vertebral Compression Test 0 Elbow Flexion Test 2 Lumbar Protective Mechanism Left AP 1 Lumbar Protective Mechanism Right AP 0 Lumbar Protective Mechanism Left PA 2 Lumbar Protective Mechanism Right PA 1 PT-OP-K Range of Motion Start: 11/14/19 17:50 Freq: Status: Active Protocol: Document 11/15/19 15:18 [facility] (Rec: 11/15/19 16:03 [facility] [id number]) Lumbar Spine Range of Motion Lumbar Spine Active Degrees Flexion 31 Extension 24 Rotation Left 41 Rotation Right 71 Lateral Flexion Left 30 Lateral Flexion Right 31 ROM Limitations Pain Knee Goniometric Range of Motion Knee Right Flexion Active (degrees) 121 Extension Active (degrees) 8 PT-OP-L Special Tests Start: 11/14/19 17:50 Freq: Status: Active Protocol: Document 11/15/19 15:18 [facility] (Rec: 11/15/19 16:03 [facility] [id number]) Special Tests Lumbar Spine Special Tests SLR Test Results L positive Slump Test Results L positive PT-OP-M Strength Start: 11/14/19 17:50 Freq: Status: Active Protocol: Document 11/15/19 15:18 [facility] (Rec: 11/15/19 16:03 [facility] [id number]) Hip Strength Hip Manual Muscle Testing Left Flexion (L2) 3 Fair Extension (S1) 3+ Fair+ Abduction 4- Good- External Rotation 4- Good- Internal Rotation 4- Good- Right Flexion (L2) 4- Good- Extension (S1) 3+ Fair+ Abduction 4+ Good+ External Rotation 4 Good Internal Rotation 4 Good Knee Strength Knee Manual Muscle Testing Left Flexion (S2) 5 Normal Extension (L3) 5 Normal Right Flexion (S2) 5 Normal Extension (L3) 5 Normal Ankle/Foot Strength Ankle and Foot Manual Muscle Testing Left Dorsiflexion (L4) 5 Normal Plantarflexion (S1) 5 Normal Comments PF tested seated B Right Dorsiflexion (L4) 5 Normal Plantarflexion (S1) 5 Normal PT-OP-Q Treatments Start: 11/14/19 17:50 Freq: Status: Active Protocol: Document 12/26/19 11:17 [facility] (Rec: 12/26/19 12:18 [facility] [id number]) Gym Equipment Shuttle Rebound SL squat Exercise Details 2x15 L & 15 R Reps/Duration 75lbs Comments slight pain at bottom fo the squat on LLE Sport Cord fwd & back walking Cord/Resistance red Reps/Duration 10x focus on wt shift fwd wt shift Exercise Details in mirror Cord/Resistance red Reps/Duration 10 x B to 10x with step through Therapeutic Exercises Standing Exercises hip hike Standing Exercise Name R hip hike Side bilateral Reps/Minutes 12 Comments 4 inch step Gait Training Gait Activity wt acceptance Description SLS working on no lat leaning wt shifts Description in mirror working on fwd shift of wt vs lat Distance/Duration B Manual Therapy Treatment Soft Tissue Mobilization gluteal muscle group Body Location L side Mobilization Type Sustained Pressure,Trigger Point Release Intensity/Depth Moderate Body Position Prone Joint Mobilizations sacrum Direction LUPA FM hip Joint L Direction on axis IR Neuro Re-Education Treatment Other Activities PNF Details post depression Comments 1. rhythmic initiation 2. sustained isometrics 3. Combo of isotonics 4.isometric hold for LE PT-OP-R Modalities Start: 11/14/19 17:50 Freq: Status: Active Protocol: Document 11/22/19 10:34 [facility] (Rec: 11/22/19 11:19 [facility] [id number]) Hot Pack/Cold Pack Treatment Cold Pack Location lumbar Patient Position Prone Treatment Duration (minutes) 10 Hot Pack Location lumbar Patient Position Prone Treatment Duration (minutes) 10 PT-OP-T Assessment and Plan Start: 11/14/19 17:50 Freq: Status: Active Protocol: Document 12/26/19 11:17 [facility] (Rec: 12/26/19 12:18 [facility] [id number]) Physical Therapy Assessment Goals 3 Impairment Strength Short Term Goal (STG) Pt will be indep with HEP STG Duration 12/15/19 [facility] Goal (LTG) Pt will have 5/5 LE strenth B and 4/5 LPM, EFT & VCT in order to show improved postural stability to allow him to do typical daily activities without pain. LTG Duration 01/15/20 2 Impairment DANILO 25/50 Short Term Goal (STG) DANILO will improve to 18/50 to show improved functional ability for inc participation in typicaly daily activities. STG Duration 12/15/19 Pattern Filer Goal (LTG) DANILO will improve to 7/50 to show improved functional ability for inc participation in typicaly daily activities. LTG Duration 01/15/20 1 Impairment activities. Short Term Goal (STG) Pt will be able to demonstrate good lifting mechanics to lift an object that is 10 lbs without inc pain. STG Duration 12/15/19 Pattern Filer Goal (LTG) Pt will be able to return to work with no greater than 2/10 pain. LTG Duration 01/15/20 Assessment Summary Assessment Pt is improving with wt shift and wt acceptance into LLE but does still require cueing. Improved PNF post depression with manaul treatment and imprvoement with activation w/ manual faciliation w/neurore edu Physical Therapy Plan Frequency and Duration Frequency of Treatment 2x/Week Duration of Treatment 2 months Plan of Care Start Date 11/15/19 Plan of Care End Date 01/15/20 Next Visit Focus/Plan Next Note Type Treatment Note Next Visit Plan Work on glute med stability & gait training
--- NOTE | 2020-01-01 13:24 | PT-OP ANOTE ---
Pt no showed 11:15 appt and came in at 12 knowing he missed his appt and asked to reschedule. Set up to see Lisa SANCHEZ at 1300. Arrived to this appt.
--- NOTE | 2020-01-01 13:45 | PT.OTN ---
Current Diagnoses Pain in right knee (01/01/20) Low back pain (01/01/20) Dorsalgia, unspecified (01/01/20) Difficulty in walking, not elsewhere classified (01/01/20) Abnormal posture (01/01/20) Weakness (01/01/20) Physical Therapy Treatment Note PT-OP-A Visit Information Start: 11/14/19 17:50 Freq: Status: Active Protocol: Document 01/01/20 13:02 [facility] (Rec: 01/01/20 16:29 [facility] [id number]) Out-Patient Physical Therapy Visit Information Visit Information Visit Type Treatment Note Visit Note POC expires 01/15/20. PT to update before next scheduled tx 01/17/20. Visit Start Time 13:02 Visit Stop Time 13:45 Total Visit Minutes 43 Visit Number 09/01 Number of SCREW REMOVER Visits 1 PT-OP-B Current Condition Start: 11/14/19 17:50 Freq: Status: Active Protocol: Document 11/15/19 15:18 [facility] (Rec: 11/15/19 16:03 [facility] [id number]) Current Condition History of Current Condition Onset Date hurt again in July but started about 1 year ago Current Complaints R knee and L LBP History of Current Condition Pt reports pain will be there but not be so sharp then all of a sudden really bother him. Pt reports about 1 year ago LBP started and in July he fell back d/t stepping back and holding blue rock salt and fell into coworker but that inc pain. Reports it has not gotten better from that incident. He has seen a chiropractor 2x so far and will be seeing him again. Pt reports R knee pain happened when he fell in July. It doesn't bother him as much now but still hurts. He has not been working d/t pain and he is unable to lift. Pain goes from back and into leg. Pt can only stand about 15-20 min or less. He notes pain even with walking in grocery store. Even sitting he has pain. Cannot walk greater tahn 2 blocks d/t back pain. pt went for a run/walk about 1 week ago and regretted it after d/t pain. Pt recently has been moving around going side/side at night and having deififculty sleeping d/t pain. 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 PT-OP-F Manual Assessment Start: 11/14/19 17:50 Freq: Status: Active Protocol: Document 11/15/19 15:18 [facility] (Rec: 11/15/19 16:03 [facility] [id number]) Manual Assessments Soft Tissue Assessment Soft Tissue Mobility Assessment L>R QL, ES, HS, calf & glutes tight & tender Joint Mobility Assessment Joint Mobility Assessment L iliac crest higher, even greater throchanter PT-OP-G Mobility & Gait Start: 11/14/19 17:50 Freq: Status: Active Protocol: Document 11/15/19 15:18 [facility] (Rec: 11/15/19 16:03 [facility] [id number]) OP Gait Assessment Comments Gait Comments Dec stance time LLE, dec push off B, lat shifting with amb PT-OP-J Posture/Palpation/Skin Start: 11/14/19 17:50 Freq: Status: Active Protocol: Document 11/15/19 15:18 [facility] (Rec: 11/15/19 16:03 [facility] [id number]) Posture Evaluation Kamlesh Postural Classification System Kamlesh Postural Classifications Posterior/Anterior Vertebral Compression Test 0 Elbow Flexion Test 2 Lumbar Protective Mechanism Left AP 1 Lumbar Protective Mechanism Right AP 0 Lumbar Protective Mechanism Left PA 2 Lumbar Protective Mechanism Right PA 1 PT-OP-K Range of Motion Start: 11/14/19 17:50 Freq: Status: Active Protocol: Document 11/15/19 15:18 [facility] (Rec: 11/15/19 16:03 [facility] [id number]) Lumbar Spine Range of Motion Lumbar Spine Active Degrees Flexion 31 Extension 24 Rotation Left 41 Rotation Right 71 Lateral Flexion Left 30 Lateral Flexion Right 31 ROM Limitations Pain Knee Goniometric Range of Motion Knee Right Flexion Active (degrees) 121 Extension Active (degrees) 8 PT-OP-L Special Tests Start: 11/14/19 17:50 Freq: Status: Active Protocol: Document 11/15/19 15:18 [facility] (Rec: 11/15/19 16:03 [facility] [id number]) Special Tests Lumbar Spine Special Tests SLR Test Results L positive Slump Test Results L positive PT-OP-M Strength Start: 11/14/19 17:50 Freq: Status: Active Protocol: Document 11/15/19 15:18 [facility] (Rec: 11/15/19 16:03 [facility] [id number]) Hip Strength Hip Manual Muscle Testing Left Flexion (L2) 3 Fair Extension (S1) 3+ Fair+ Abduction 4- Good- External Rotation 4- Good- Internal Rotation 4- Good- Right Flexion (L2) 4- Good- Extension (S1) 3+ Fair+ Abduction 4+ Good+ External Rotation 4 Good Internal Rotation 4 Good Knee Strength Knee Manual Muscle Testing Left Flexion (S2) 5 Normal Extension (L3) 5 Normal Right Flexion (S2) 5 Normal Extension (L3) 5 Normal Ankle/Foot Strength Ankle and Foot Manual Muscle Testing Left Dorsiflexion (L4) 5 Normal Plantarflexion (S1) 5 Normal Comments PF tested seated B Right Dorsiflexion (L4) 5 Normal Plantarflexion (S1) 5 Normal PT-OP-Q Treatments Start: 11/14/19 17:50 Freq: Status: Active Protocol: Document 01/01/20 13:02 SP (Rec: 01/01/20 16:29 SP [id number]) Gym Equipment Shuttle Recovery SL squat Details cued slow con/ecc with knee with midfoot Resistance 75# Shuttle Recovery Platform Stable Reps/Time 15x3 alternate BLE Sport Cord fwd & back walking Cord/Resistance black Reps/Duration 10x focus on wt shift Comments cued slow pacing fwd wt shift Exercise Details in mirror Cord/Resistance black Reps/Duration 10 x B to 10x with step through Comments Provided Lv 6 TB for HEP Therapeutic Exercises Standing Exercises hip hike Standing Exercise Name R hip hike Side bilateral Equipment Used contact rail Reps/Minutes 12 Comments 2 inch step, cued core and glut facilitation, improved slow control Other Exercises self STMs ball on wall Other Exercise Name racquetball on wall: PF, glut med Side left Equipment Used standing Reps/Minutes 30 sec Comments it is a good alternative to massage laying down, have a tennis ball home. Manual Therapy Treatment Soft Tissue Mobilization piriformis Body Location L piriformis Mobilization Type Sustained Pressure,Trigger Point Release Intensity/Depth Moderate Body Position Sidelying Comments MWM small range clamshell Neuro Re-Education Treatment Other Activities PNF Details post depression Comments 1. rhythmic initiation 2. sustained isometrics 3. Combo of isotonics 4.isometric hold for LE PT-OP-R Modalities Start: 11/14/19 17:50 Freq: Status: Active Protocol: Document 11/22/19 10:34 [facility] (Rec: 11/22/19 11:19 [facility] [id number]) Hot Pack/Cold Pack Treatment Cold Pack Location lumbar Patient Position Prone Treatment Duration (minutes) 10 Hot Pack Location lumbar Patient Position Prone Treatment Duration (minutes) 10 PT-OP-T Assessment and Plan Start: 11/14/19 17:50 Freq: Status: Active Protocol: Document 01/01/20 13:02 SP (Rec: 01/01/20 16:29 SP [id number]) Physical Therapy Assessment Goals 3 Impairment Strength Short Term Goal (STG) Pt will be indep with HEP STG Duration 12/15/19 Telehealth Nurse Goal (LTG) Pt will have 5/5 LE strenth B and 4/5 LPM, EFT & VCT in order to show improved postural stability to allow him to do typical daily activities without pain. LTG Duration 01/15/20 2 Impairment DANILO 25/50 Short Term Goal (STG) DANILO will improve to 18/50 to show improved functional ability for inc participation in typicaly daily activities. STG Duration 12/15/19 Skilled Nursing Goal (LTG) DANILO will improve to 7/50 to show improved functional ability for inc participation in typicaly daily activities. LTG Duration 01/15/20 1 Impairment activities. Short Term Goal (STG) Pt will be able to demonstrate good lifting mechanics to lift an object that is 10 lbs without inc pain. STG Duration 12/15/19 Telehealth Nurse Goal (LTG) Pt will be able to return to work with no greater than 2/10 pain. LTG Duration 01/15/20 Assessment Summary Assessment Pt improved with L hip stabilization during resisted wt shift post cuing for straight upright posture over stationary front leg engaging glut (mirror front self feedback) then progress to step through (give HO next tx, in chart). Provided level 6 TB for home use but stated may buy resisted tubing for home at [facility]. Decreased hip hike height using 2 step with improved eccentric control. Pt stated felt better when leaving. Physical Therapy Plan Frequency and Duration Frequency of Treatment 2x/Week Duration of Treatment 2 months Plan of Care Start Date 11/15/19 Plan of Care End Date 01/15/20 Therapeutic Interventions Therapeutic Interventions Aquatic Therapy,Balance Training,Home Exercise Program ,Joint Mobilizations,Manual Therapy,Neuromuscular Re- education,Patient/Caregiver Education,Self-Care/Home Management,Soft Tissue Mobilization,Taping, Therapeutic Activities, Therapeutic Exercises Modalities Cold Pack/Ice Massage,Electric Stimulation,Hot Packs, Infrared Therapy,Ultrasound Next Visit Focus/Plan Next Note Type Treatment Note Next Visit Plan Assess response to last tx: resisted wt shift, hip hikes dec to 2 step. Continue: Work on glute med stability & gait training
--- NOTE | 2020-01-01 18:27 | PT.OPPOC ---
Physical, Occupational & Speech Therapy At [facility] Current Diagnoses Pain in right knee (01/01/20) Low back pain (01/01/20) Dorsalgia, unspecified (01/01/20) Difficulty in walking, not elsewhere classified (01/01/20) Abnormal posture (01/01/20) Weakness (01/01/20) Visit Care Team Role Provider Type Kaz Cosme MD Attending Provider Physician Family Provider Primary Care Provider Referring Provider Specialty: Family Practice Address: [address] [place] [address], [facility] Email: [email or web address] Plan Of Care PT-OP-T Assessment and Plan Start: 11/14/19 17:50 Freq: Status: Active Protocol: Document 01/01/20 18:24 [facility] (Rec: 01/01/20 18:27 [facility] [id number]) Physical Therapy Assessment Goals 3 Impairment Strength Short Term Goal (STG) Pt will be indep with HEP STG Duration achieved Trip Follower Goal (LTG) Pt will have 5/5 LE strenth B and 4/5 LPM, EFT & VCT in order to show improved postural stability to allow him to do typical daily activities without pain. LTG Duration 03/02/20 2 Impairment DANILO 25/50 Short Term Goal (STG) DANILO will improve to 18/50 to show improved functional ability for inc participation in typicaly daily activities. STG Duration 02/01/20 Trip Follower Goal (LTG) DANILO will improve to 7/50 to show improved functional ability for inc participation in typicaly daily activities. LTG Duration 03/02/20 1 Impairment activities. Short Term Goal (STG) Pt will be able to demonstrate good lifting mechanics to lift an object that is 10 lbs without inc pain. STG Duration 02/01/20 Trip Follower Goal (LTG) Pt will be able to return to work with no greater than 2/10 pain. LTG Duration 03/02/20 Assessment Summary Assessment Pt has shown improvement with strength with ability to progress with exercises. Gait is improvingw ith cueing for improvement of activitation of hip abd appropriately with wt acceptance. Testing was not done, but he is reporting more managed pain over the last couple weeks with home self managemetn strategies. He would [facility]efit from [facility] PT to work on his gait, strength of LEs, core & mechanics. Physical Therapy Plan Frequency and Duration Frequency of Treatment 2x/Week Duration of Treatment 2 months Plan of Care Start Date 01/01/20 Plan of Care End Date 03/02/20 Therapeutic Interventions Therapeutic Interventions Aquatic Therapy,Balance Training,Home Exercise Program ,Joint Mobilizations,Manual Therapy,Neuromuscular Re- education,Patient/Caregiver Education,Self-Care/Home Management,Soft Tissue Mobilization,Taping, Therapeutic Activities, Therapeutic Exercises Modalities Cold Pack/Ice Massage,Electric Stimulation,Hot Packs, Infrared Therapy,Ultrasound Next Visit Focus/Plan Next Note Type Treatment Note Next Visit Plan work on lifting mechanics, Assess response to last tx: resisted wt shift, hip hikes dec to 2 step. Continue: Work on glute med stability & gait training Plan of Care Dates Plan of Care Start Date 01/01/20 Plan of Care End Date 03/02/20 Electronically Signed by: Brandi Domingo, PT 01/01/20 1727 Please Sign and Return: I have reviewed this Plan of Care and certify that the skilled therapy services above are required to meet the patient?s needs. Physician Signature Date Printed Name and Credentials Clinical Instructor Signature Printed Name and Credentials
--- NOTE | 2020-01-29 12:01 | PT.OTN ---
Current Diagnoses Pain in right knee (01/29/20) Low back pain (01/29/20) Dorsalgia, unspecified (01/29/20) Difficulty in walking, not elsewhere classified (01/29/20) Abnormal posture (01/29/20) Weakness (01/29/20) Physical Therapy Treatment Note PT-OP-A Visit Information Start: 11/14/19 17:50 Freq: Status: Active Protocol: Document 01/29/20 11:17 (Rec: 01/29/20 12:01 [id number]) Out-Patient Physical Therapy Visit Information Visit Information Visit Type Treatment Note Visit Note pt's last visit 01/01/20 since pt has long road trip with family. Visit Start Time 11:17 Visit Stop Time 11:58 Total Visit Minutes 41 Visit Number 10/01 Number of MEDICAL VIDEOGRAPHER Visits 0 PT-OP-B Current Condition Start: 11/14/19 17:50 Freq: Status: Active Protocol: Document 11/15/19 15:18 [facility] (Rec: 11/15/19 16:03 [facility] [id number]) Current Condition History of Current Condition Onset Date hurt again in July but started about 1 year ago Current Complaints R knee and L LBP History of Current Condition Pt reports pain will be there but not be so sharp then all of a sudden really bother him. Pt reports about 1 year ago LBP started and in July he fell back d/t stepping back and holding blue rock salt and fell into coworker but that inc pain. Reports it has not gotten better from that incident. He has seen a chiropractor 2x so far and will be seeing him again. Pt reports R knee pain happened when he fell in July. It doesn't bother him as much now but still hurts. He has not been working d/t pain and he is unable to lift. Pain goes from back and into leg. Pt can only stand about 15-20 min or less. He notes pain even with walking in grocery store. Even sitting he has pain. Cannot walk greater tahn 2 blocks d/t back pain. pt went for a run/walk about 1 week ago and regretted it after d/t pain. Pt recently has been moving around going side/side at night and having deififculty sleeping d/t pain. 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 PT-OP-F Manual Assessment Start: 11/14/19 17:50 Freq: Status: Active Protocol: Document 11/15/19 15:18 [facility] (Rec: 11/15/19 16:03 [facility] [id number]) Manual Assessments Soft Tissue Assessment Soft Tissue Mobility Assessment L>R QL, ES, HS, calf & glutes tight & tender Joint Mobility Assessment Joint Mobility Assessment L iliac crest higher, even greater throchanter PT-OP-G Mobility & Gait Start: 11/14/19 17:50 Freq: Status: Active Protocol: Document 11/15/19 15:18 [facility] (Rec: 11/15/19 16:03 [facility] [id number]) OP Gait Assessment Comments Gait Comments Dec stance time LLE, dec push off B, lat shifting with amb PT-OP-J Posture/Palpation/Skin Start: 11/14/19 17:50 Freq: Status: Active Protocol: Document 11/15/19 15:18 [facility] (Rec: 11/15/19 16:03 [facility] [id number]) Posture Evaluation [facility] Postural Classification System [facility] Postural Classifications Posterior/Anterior Vertebral Compression Test 0 Elbow Flexion Test 2 Lumbar Protective Mechanism Left AP 1 Lumbar Protective Mechanism Right AP 0 Lumbar Protective Mechanism Left PA 2 Lumbar Protective Mechanism Right PA 1 PT-OP-K Range of Motion Start: 11/14/19 17:50 Freq: Status: Active Protocol: Document 11/15/19 15:18 [facility] (Rec: 11/15/19 16:03 [facility] [id number]) Lumbar Spine Range of Motion Lumbar Spine Active Degrees Flexion 31 Extension 24 Rotation Left 41 Rotation Right 71 Lateral Flexion Left 30 Lateral Flexion Right 31 ROM Limitations Pain Knee Goniometric Range of Motion Knee Right Flexion Active (degrees) 121 Extension Active (degrees) 8 PT-OP-L Special Tests Start: 11/14/19 17:50 Freq: Status: Active Protocol: Document 11/15/19 15:18 [facility] (Rec: 11/15/19 16:03 [facility] [id number]) Special Tests Lumbar Spine Special Tests SLR Test Results L positive Slump Test Results L positive PT-OP-M Strength Start: 11/14/19 17:50 Freq: Status: Active Protocol: Document 11/15/19 15:18 [facility] (Rec: 11/15/19 16:03 [facility] [id number]) Hip Strength Hip Manual Muscle Testing Left Flexion (L2) 3 Fair Extension (S1) 3+ Fair+ Abduction 4- Good- External Rotation 4- Good- Internal Rotation 4- Good- Right Flexion (L2) 4- Good- Extension (S1) 3+ Fair+ Abduction 4+ Good+ External Rotation 4 Good Internal Rotation 4 Good Knee Strength Knee Manual Muscle Testing Left Flexion (S2) 5 Normal Extension (L3) 5 Normal Right Flexion (S2) 5 Normal Extension (L3) 5 Normal Ankle/Foot Strength Ankle and Foot Manual Muscle Testing Left Dorsiflexion (L4) 5 Normal Plantarflexion (S1) 5 Normal Comments PF tested seated B Right Dorsiflexion (L4) 5 Normal Plantarflexion (S1) 5 Normal PT-OP-Q Treatments Start: 11/14/19 17:50 Freq: Status: Active Protocol: Document 01/29/20 11:17 (Rec: 01/29/20 12:01 [id number]) Cardio Equipment Bicycle (Upright) Duration (Minutes) 6 Resistance 8 Seat Position 3 Gym Equipment Sport Cord fwd & back walking Cord/Resistance black Reps/Duration 10x focus on wt shift Comments cued slow pacing fwd wt shift Exercise Details in mirror Cord/Resistance black Reps/Duration 10 x B to 10x with step through Comments Provided Lv 6 TB for HEP Therapeutic Exercises Standing Exercises sidewalking Standing Exercise Name squat stance Side bilateral Equipment Used yellow band around forefoot Reps/Minutes 10 ft x 4 hip hike Standing Exercise Name R hip hike Side bilateral Equipment Used contact rail Reps/Minutes 12 Comments 2 inch step, cued core and glut facilitation, improved slow control PT-OP-R Modalities Start: 11/14/19 17:50 Freq: Status: Active Protocol: Document 11/22/19 10:34 [facility] (Rec: 11/22/19 11:19 [facility] [id number]) Hot Pack/Cold Pack Treatment Cold Pack Location lumbar Patient Position Prone Treatment Duration (minutes) 10 Hot Pack Location lumbar Patient Position Prone Treatment Duration (minutes) 10 PT-OP-T Assessment and Plan Start: 11/14/19 17:50 Freq: Status: Active Protocol: Document 01/29/20 11:17 HH (Rec: 01/29/20 12:01 HH [id number]) Physical Therapy Assessment Goals 3 Impairment Strength Short Term Goal (STG) Pt will be indep with HEP STG Duration achieved Inspector Balance Wheel Motion Goal (LTG) 01/28 Pt will have 5/5 LE strenth B and 4/5 LPM, EFT & VCT in order to show improved postural stability to allow him to do typical daily activities without pain. LTG Duration 03/02/20 2 Impairment DANILO 25/50 Short Term Goal (STG) 01/28 goal met DANILO improves to 18/50 to show improved functional ability for inc participation in typicaly daily activities. STG Duration 02/01/20 Inspector Balance Wheel Motion Goal (LTG) DANILO will improve to 7/50 to show improved functional ability for inc participation in typicaly daily activities. LTG Duration 03/02/20 1 Impairment activities. Short Term Goal (STG) Pt will be able to demonstrate good lifting mechanics to lift an object that is 10 lbs without inc pain. STG Duration 02/01/20 Inspector Balance Wheel Motion Goal (LTG) 01/28 pt is going to return to work in a few weeks. Pt will be able to return to work with no greater than 2/10 pain. LTG Duration 03/02/20 Progress Towards Goals Progress Towards Goals Goals Met Assessment Summary Assessment Pt returns to PT today with improved hip stability and strnegth during gait after a month long road trip. Pt reports he has been feeling great without discomfort and he thinks he is ready to return to work but will f/u with PCP first. He requested to be d/c from therapy but he also agreed to let therapy team to contact with him in a few weeks for progress check up prior to d/c. Physical Therapy Plan Next Visit Focus/Plan Next Note Type Discharge Summary Next Visit Plan Will check on pt progress via phone.
--- NOTE | 2020-02-21 12:29 | PT.OTRE ---
Current Diagnoses Pain in right knee (02/21/20) Low back pain (02/21/20) Dorsalgia, unspecified (02/21/20) Difficulty in walking, not elsewhere classified (02/21/20) Abnormal posture (02/21/20) Weakness (02/21/20) Past Medical History (Last Reviewed 02/11/18 @ 13:01 by ARIANNE Mojica) Hearing loss (Resolved 1978) Heart attack (Resolved 2011) Surgical History (Last Reviewed 02/11/18 @ 13:01 by ARIANNE Mojica) Anesthesia (Resolved) H/O heart artery stent (Resolved 05/09/12) History of vasectomy (Resolved 1998) Status post hernia repair (Resolved) Visit Care Team Role Provider Type Kaz Cosme MD Attending Provider Physician Family Provider Primary Care Provider Referring Provider Specialty: Family Practice Address: [address] [place] [address], [facility] Email: [email or web address] Physical Therapy Re-Evaluation PT-OP-A Visit Information Start: 11/14/19 17:50 Freq: Status: Active Protocol: Document 02/21/20 11:19 (Rec: 02/21/20 12:28 [id number]) Out-Patient Physical Therapy Visit Information Visit Information Visit Type Re-Evaluation Visit Note Pt was referred to see back specialist and will get a cortisone shot soon as he stated. Visit Start Time 11:16 Visit Stop Time 12:00 Total Visit Minutes 44 Visit Number 11/01 Number of STRAIGHTENING MACHINE FEEDER Visits 0 PT-OP-B Current Condition Start: 11/14/19 17:50 Freq: Status: Active Protocol: Document 11/15/19 15:18 [facility] (Rec: 11/15/19 16:03 [facility] [id number]) Current Condition History of Current Condition Onset Date hurt again in July but started about 1 year ago Current Complaints R knee and L LBP History of Current Condition Pt reports pain will be there but not be so sharp then all of a sudden really bother him. Pt reports about 1 year ago LBP started and in July he fell back d/t stepping back and holding blue rock salt and fell into coworker but that inc pain. Reports it has not gotten better from that incident. He has seen a chiropractor 2x so far and will be seeing him again. Pt reports R knee pain happened when he fell in July. It doesn't bother him as much now but still hurts. He has not been working d/t pain and he is unable to lift. Pain goes from back and into leg. Pt can only stand about 15-20 min or less. He notes pain even with walking in grocery store. Even sitting he has pain. Cannot walk greater tahn 2 blocks d/t back pain. pt went for a run/walk about 1 week ago and regretted it after d/t pain. Pt recently has been moving around going side/side at night and having deififculty sleeping d/t pain. 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 Pretty having L back pain and it gets worse in standing and lifting. Patient Reported Progress Worse PT-OP-F Manual Assessment Start: 11/14/19 17:50 Freq: Status: Active Protocol: Document 11/15/19 15:18 [facility] (Rec: 11/15/19 16:03 [facility] [id number]) Manual Assessments Soft Tissue Assessment Soft Tissue Mobility Assessment L>R QL, ES, HS, calf & glutes tight & tender Joint Mobility Assessment Joint Mobility Assessment L iliac crest higher, even greater throchanter PT-OP-G Mobility & Gait Start: 11/14/19 17:50 Freq: Status: Active Protocol: Document 11/15/19 15:18 [facility] (Rec: 11/15/19 16:03 [facility] [id number]) OP Gait Assessment Comments Gait Comments Dec stance time LLE, dec push off B, lat shifting with amb PT-OP-J Posture/Palpation/Skin Start: 11/14/19 17:50 Freq: Status: Active Protocol: Document 11/15/19 15:18 [facility] (Rec: 11/15/19 16:03 [facility] [id number]) Posture Evaluation [facility] Postural Classification System [facility] Postural Classifications Posterior/Anterior Vertebral Compression Test 0 Elbow Flexion Test 2 Lumbar Protective Mechanism Left AP 1 Lumbar Protective Mechanism Right AP 0 Lumbar Protective Mechanism Left PA 2 Lumbar Protective Mechanism Right PA 1 PT-OP-K Range of Motion Start: 11/14/19 17:50 Freq: Status: Active Protocol: Document 02/21/20 11:19 HH (Rec: 02/21/20 12:28 HH [id number]) Lumbar Spine Range of Motion Lumbar Spine Active Degrees Comments toe touch = 9.5 inches from floor lateral flexion to L= 21.5 inches with pinch pain at L low back lateral flexion R= 20 inches with stretching feeling on L lateral abdominal. PT-OP-L Special Tests Start: 11/14/19 17:50 Freq: Status: Active Protocol: Document 02/21/20 11:19 [facility] (Rec: 02/21/20 12:28 [id number]) Special Tests Lumbar Spine Special Tests SLR Test Results +ve L @ 80 degrees Comments pain at anterior medial knee region Slump Test Results +ve L with slight trunk flexion Comments pain at anterior medial knee region PT-OP-M Strength Start: 11/14/19 17:50 Freq: Status: Active Protocol: Document 02/21/20 11:19 [facility] (Rec: 02/21/20 12:29 [id number]) Hip Strength Hip Manual Muscle Testing Left Flexion (L2) 4 Good Extension (S1) 4 Good Abduction 3+ Fair+ Adduction 4 Good External Rotation 4- Good- Right Flexion (L2) 5 Normal Extension (S1) 5 Normal Abduction 5 Normal Adduction 5 Normal External Rotation 5 Normal Internal Rotation 5 Normal Knee Strength Knee Manual Muscle Testing Left Flexion (S2) 4 Good Extension (L3) 4- Good- Right Flexion (S2) 5 Normal Extension (L3) 5 Normal PT-OP-Q Treatments Start: 11/14/19 17:50 Freq: Status: Active Protocol: Document 02/21/20 11:19 (Rec: 02/21/20 12:28 [id number]) Therapeutic Exercises Supine Exercises piriformis stretch Side left Reps/Minutes PT assisted 15sec x 5 Comments for HEP, pain at L SIJ initially. Other Exercises jesus Other Exercise Name lateral flexion to R Side bilateral Reps/Minutes 8 x5 Comments for HEP, no discomfort on L Manual Therapy Treatment Soft Tissue Mobilization gluteal muscle group Mobilization Type Sustained Pressure,Trigger Point Release Intensity/Depth Moderate Body Position Sidelying piriformis Body Location L piriformis Mobilization Type Sustained Pressure,Trigger Point Release Intensity/Depth Moderate Body Position Sidelying Joint Mobilizations lumbar traction Direction distraction Grade III Body Position Supine Reps/Duration 8 sec x5 Comments with mob belt hip Joint L hip Direction distraction Grade III Body Position Supine Reps/Duration 8 sec x 5 PT-OP-R Modalities Start: 11/14/19 17:50 Freq: Status: Active Protocol: Document 11/22/19 10:34 [facility] (Rec: 11/22/19 11:19 [facility] [id number]) Hot Pack/Cold Pack Treatment Cold Pack Location lumbar Patient Position Prone Treatment Duration (minutes) 10 Hot Pack Location lumbar Patient Position Prone Treatment Duration (minutes) 10 PT-OP-T Assessment and Plan Start: 11/14/19 17:50 Freq: Status: Active Protocol: Document 02/21/20 11:19 (Rec: 02/21/20 12:28 [id number]) Physical Therapy Assessment Goals neural tension Impairment Pt has nerve pain at L 4 dermatome during special tests Tip Stretcher Goal (LTG) Pt will be symptoms free for PSLR and slump test. LTG Duration 04/22/20 3 Impairment Strength Short Term Goal (STG) Pt will be indep with HEP STG Duration achieved [facility] Goal (LTG) 01/28 Pt will have 5/5 LE strenth B and 4/5 LPM, EFT & VCT in order to show improved postural stability to allow him to do typical daily activities without pain. LTG Duration 04/22/20 2 Impairment DANILO 25/50 Short Term Goal (STG) 01/28 goal met DANILO improves to 18/50 to show improved functional ability for inc participation in typicaly daily activities. [facility] Goal (LTG) DANILO will improve to 7/50 to show improved functional ability for inc participation in typicaly daily activities. LTG Duration 04/22/20 1 Impairment activities. Short Term Goal (STG) Pt will be able to demonstrate good lifting mechanics to lift an object that is 10 lbs without inc pain. STG Duration 02/01/20 Tip Stretcher Goal (LTG) 9/8 pt is going to return to work in a few weeks. Pt will be able to return to work with no greater than 2/10 pain. LTG Duration 04/22/20 Assessment Summary Assessment Pt returned to clinic today after he had a fall on his L side with weighted object at work. Pt has new onset of nerve pain at anterior knee region during slump and PSLR which inidicates L4 dermatome involvment. Pt's MRI also shows mild disc bulge at L4-5 with resultant severe canal stenosis. Pt is going to see back specialist and get a cortisone shot soon. Meanwhile, pt will cont to benefit from skilled therapy to address his symptoms and impairments. Physical Therapy Plan Frequency and Duration Frequency of Treatment 2x/Week Duration of Treatment 2 months Plan of Care Start Date 01/01/20 Plan of Care End Date 03/02/20 Next Visit Focus/Plan Next Note Type Treatment Note Next Visit Plan check tolerance after last session reassess slump and PSLR nerve glide jesus if needed piriformis and HS stretch clam shell
--- NOTE | 2020-02-21 12:29 | PT.OPPOC ---
Physical, Occupational & Speech Therapy At [facility] Current Diagnoses Pain in right knee (02/21/20) Low back pain (02/21/20) Dorsalgia, unspecified (02/21/20) Difficulty in walking, not elsewhere classified (02/21/20) Abnormal posture (02/21/20) Weakness (02/21/20) Visit Care Team Role Provider Type Kaz Cosme MD Attending Provider Physician Family Provider Primary Care Provider Referring Provider Specialty: Family Practice Address: [address] [place] [address], [facility] Email: [email or web address] Plan Of Care PT-OP-T Assessment and Plan Start: 11/14/19 17:50 Freq: Status: Active Protocol: Document 02/21/20 11:19 HH (Rec: 02/21/20 12:28 HH [id number]) Physical Therapy Assessment Goals neural tension Impairment Pt has nerve pain at L 4 dermatome during special tests Machined Parts Quality 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 LTG Duration 04/22/20 3 Impairment Strength Short Term Goal (STG) Pt will be indep with HEP STG Duration achieved [facility] Goal (LTG) 01/28 Pt will have 5/5 LE strenth B and 4/5 LPM, EFT & VCT in order to show improved postural stability to allow him to do typical daily activities without pain. LTG Duration 04/22/20 2 Impairment DANILO 25/50 Short Term Goal (STG) 01/28 goal met DANILO improves to 18/50 to show improved functional ability for inc participation in typicaly daily activities. [facility] Goal (LTG) DANILO will improve to 7/50 to show improved functional ability for inc participation in typicaly daily activities. LTG Duration 04/22/20 1 Impairment activities. Short Term Goal (STG) Pt will be able to demonstrate good lifting mechanics to lift an object that is 10 lbs without inc pain. STG Duration 02/01/20 [facility] Goal (LTG) 01/28 pt is going to return to work in a few weeks. Pt will be able to return to work with no greater than 2/10 pain. LTG Duration 04/22/20 Assessment Summary Assessment Pt returned to clinic today after he had a fall on his L side with weighted object at work. Pt has new onset of nerve pain at anterior knee region during slump and PSLR which inidicates L4 dermatome involvment. Pt's MRI also shows mild disc bulge at L4-5 with resultant severe canal stenosis. Pt is going to see back specialist and get a cortisone shot soon. Meanwhile, pt will cont to benefit from skilled therapy to address his symptoms and impairments. Physical Therapy Plan Frequency and Duration Frequency of Treatment 2x/Week Duration of Treatment 2 months Plan of Care Start Date 01/01/20 Plan of Care End Date 03/02/20 Next Visit Focus/Plan Next Note Type Treatment Note Next Visit Plan check tolerance after last session reassess slump and PSLR nerve glide jesus if needed piriformis and HS stretch clam shell Plan of Care Dates Plan of Care Start Date 01/01/20 Plan of Care End Date 03/02/20 Electronically Signed by: Laura Grider, PT 02/21/20 [id number] Please Sign and Return: I have reviewed this Plan of Care and certify that the skilled therapy services above are required to meet the patient?s needs. Physician Signature Date Printed Name and Credentials Clinical Instructor Signature Printed Name and Credentials
--- NOTE | 2020-02-21 16:52 | PT.OPPOC ---
Physical, Occupational & Speech Therapy At [facility] Current Diagnoses Pain in right knee (02/27/20) Low back pain (02/27/20) Dorsalgia, unspecified (02/27/20) Difficulty in walking, not elsewhere classified (02/27/20) Abnormal posture (02/27/20) Weakness (02/27/20) Visit Care Team Role Provider Type Kaz Cosme MD Attending Provider Physician Family Provider Primary Care Provider Referring Provider Specialty: Family Practice Address: [address] [place] [address], [facility] Email: [email or web address] Plan Of Care PT-OP-T Assessment and Plan Start: 11/14/19 17:50 Freq: Status: Active Protocol: Document 02/28/20 11:19 HH (Rec: 02/21/20 12:28 HH [id number]) Physical Therapy Assessment Goals neural tension Impairment Pt has nerve pain at L 4 dermatome during special tests Care Technician Goal (LTG) Pt will be symptoms free for PSLR and slump test. LTG Duration 04/22/20 3 Impairment Strength Short Term Goal (STG) Pt will be indep with HEP STG Duration achieved Snf Goal (LTG) 01/28 Pt will have 5/5 LE strenth B and 4/5 LPM, EFT & VCT in order to show improved postural stability to allow him to do typical daily activities without pain. LTG Duration 04/22/20 2 Impairment DANILO 25/50 Short Term Goal (STG) 01/28 goal met DANILO improves to 18/50 to show improved functional ability for inc participation in typicaly daily activities. Snf Goal (LTG) DANILO will improve to 7/50 to show improved functional ability for inc participation in typicaly daily activities. LTG Duration 04/22/20 1 Impairment activities. Short Term Goal (STG) Pt will be able to demonstrate good lifting mechanics to lift an object that is 10 lbs without inc pain. STG Duration 02/01/20 Snf Goal (LTG) 01/28 pt is going to return to work in a few weeks. Pt will be able to return to work with no greater than 2/10 pain. LTG Duration 04/22/20 Assessment Summary Assessment Pt returned to clinic today after he had a fall on his L side with weighted object at work. Pt has new onset of nerve pain at anterior knee region during slump and PSLR which inidicates L4 dermatome involvment. Pt's MRI also shows mild disc bulge at L4-5 with resultant severe canal stenosis. Pt is going to see back specialist and get a cortisone shot soon. Meanwhile, pt will cont to benefit from skilled therapy to address his symptoms and impairments. Physical Therapy Plan Frequency and Duration Frequency of Treatment 2x/Week Duration of Treatment 2 months Plan of Care Start Date 02/21/20 Plan of Care End Date 04/22/20 Next Visit Focus/Plan Next Note Type Treatment Note Next Visit Plan check tolerance after last session reassess slump and PSLR nerve glide jesus if needed piriformis and HS stretch clam shell Plan of Care Dates Plan of Care Start Date 02/21/20 Plan of Care End Date 04/22/20 Electronically Signed by: Laura Grider, PT 02/28/20 [id number] Please Sign and Return: I have reviewed this Plan of Care and certify that the skilled therapy services above are required to meet the patient?s needs. Physician Signature Date Printed Name and Credentials Clinical Instructor Signature Printed Name and Credentials
--- NOTE | 2020-02-21 16:52 | PT.OTRE ---
Current Diagnoses Pain in right knee (02/27/20) Low back pain (02/27/20) Dorsalgia, unspecified (02/27/20) Difficulty in walking, not elsewhere classified (02/27/20) Abnormal posture (02/27/20) Weakness (02/27/20) Past Medical History (Last Reviewed 02/11/18 @ 13:01 by ARIANNE Mojica) Hearing loss (Resolved 1978) Heart attack (Resolved 2011) Surgical History (Last Reviewed 02/11/18 @ 13:01 by ARIANNE Mojica) Anesthesia (Resolved) H/O heart artery stent (Resolved 05/09/12) History of vasectomy (Resolved 1998) Status post hernia repair (Resolved) Visit Care Team Role Provider Type Kaz Cosme MD Attending Provider Physician Family Provider Primary Care Provider Referring Provider Specialty: Family Practice Address: [address] [place] [address], [facility] Email: [email or web address] Physical Therapy Re-Evaluation PT-OP-A Visit Information Start: 11/14/19 17:50 Freq: Status: Active Protocol: Document 02/28/20 11:19 (Rec: 02/21/20 12:28 [id number]) Out-Patient Physical Therapy Visit Information Visit Information Visit Type Re-Evaluation Visit Note Pt was referred to see back specialist and will get a cortisone shot soon as he stated. Visit Start Time 11:16 Visit Stop Time 12:00 Total Visit Minutes 44 Visit Number 11/01 Number of NIGHT SHIFT MANAGER Visits 0 PT-OP-B Current Condition Start: 11/14/19 17:50 Freq: Status: Active Protocol: Document 11/15/19 15:18 [facility] (Rec: 11/15/19 16:03 [facility] [id number]) Current Condition History of Current Condition Onset Date hurt again in July but started about 1 year ago Current Complaints R knee and L LBP History of Current Condition Pt reports pain will be there but not be so sharp then all of a sudden really bother him. Pt reports about 1 year ago LBP started and in July he fell back d/t stepping back and holding blue rock salt and fell into coworker but that inc pain. Reports it has not gotten better from that incident. He has seen a chiropractor 2x so far and will be seeing him again. Pt reports R knee pain happened when he fell in July. It doesn't bother him as much now but still hurts. He has not been working d/t pain and he is unable to lift. Pain goes from back and into leg. Pt can only stand about 15-20 min or less. He notes pain even with walking in grocery store. Even sitting he has pain. Cannot walk greater tahn 2 blocks d/t back pain. pt went for a run/walk about 1 week ago and regretted it after d/t pain. Pt recently has been moving around going side/side at night and having deififculty sleeping d/t pain. 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 Pretty having L back pain and it gets worse in standing and lifting. Patient Reported Progress Worse PT-OP-F Manual Assessment Start: 11/14/19 17:50 Freq: Status: Active Protocol: Document 11/15/19 15:18 LR (Rec: 11/15/19 16:03 [facility] [id number]) Manual Assessments Soft Tissue Assessment Soft Tissue Mobility Assessment L>R QL, ES, HS, calf & glutes tight & tender Joint Mobility Assessment Joint Mobility Assessment L iliac crest higher, even greater throchanter PT-OP-G Mobility & Gait Start: 11/14/19 17:50 Freq: Status: Active Protocol: Document 11/15/19 15:18 [facility] (Rec: 11/15/19 16:03 [facility] [id number]) OP Gait Assessment Comments Gait Comments Dec stance time LLE, dec push off B, lat shifting with amb PT-OP-J Posture/Palpation/Skin Start: 11/14/19 17:50 Freq: Status: Active Protocol: Document 11/15/19 15:18 [facility] (Rec: 11/15/19 16:03 [facility] [id number]) Posture Evaluation [facility] Postural Classification System [facility] Postural Classifications Posterior/Anterior Vertebral Compression Test 0 Elbow Flexion Test 2 Lumbar Protective Mechanism Left AP 1 Lumbar Protective Mechanism Right AP 0 Lumbar Protective Mechanism Left PA 2 Lumbar Protective Mechanism Right PA 1 PT-OP-K Range of Motion Start: 11/14/19 17:50 Freq: Status: Active Protocol: Document 02/21/20 11:19 HH (Rec: 02/21/20 12:28 HH [id number]) Lumbar Spine Range of Motion Lumbar Spine Active Degrees Comments toe touch = 9.5 inches from floor lateral flexion to L= 21.5 inches with pinch pain at L low back lateral flexion R= 20 inches with stretching feeling on L lateral abdominal. PT-OP-L Special Tests Start: 11/14/19 17:50 Freq: Status: Active Protocol: Document 02/21/20 11:19 HH (Rec: 02/21/20 12:28 [id number]) Special Tests Lumbar Spine Special Tests SLR Test Results +ve L @ 80 degrees Comments pain at anterior medial knee region Slump Test Results +ve L with slight trunk flexion Comments pain at anterior medial knee region PT-OP-M Strength Start: 11/14/19 17:50 Freq: Status: Active Protocol: Document 02/21/20 11:19 HH (Rec: 02/21/20 12:29 [id number]) Hip Strength Hip Manual Muscle Testing Left Flexion (L2) 4 Good Extension (S1) 4 Good Abduction 3+ Fair+ Adduction 4 Good External Rotation 4- Good- Right Flexion (L2) 5 Normal Extension (S1) 5 Normal Abduction 5 Normal Adduction 5 Normal External Rotation 5 Normal Internal Rotation 5 Normal Knee Strength Knee Manual Muscle Testing Left Flexion (S2) 4 Good Extension (L3) 4- Good- Right Flexion (S2) 5 Normal Extension (L3) 5 Normal PT-OP-Q Treatments Start: 11/14/19 17:50 Freq: Status: Active Protocol: Document 02/28/20 11:19 (Rec: 02/21/20 12:28 [id number]) Therapeutic Exercises Supine Exercises piriformis stretch Side left Reps/Minutes PT assisted 15sec x 5 Comments for HEP, pain at L SIJ initially. Other Exercises jesus Other Exercise Name lateral flexion to R Side bilateral Reps/Minutes 8 x5 Comments for HEP, no discomfort on L Manual Therapy Treatment Soft Tissue Mobilization gluteal muscle group Mobilization Type Sustained Pressure,Trigger Point Release Intensity/Depth Moderate Body Position Sidelying piriformis Body Location L piriformis Mobilization Type Sustained Pressure,Trigger Point Release Intensity/Depth Moderate Body Position Sidelying Joint Mobilizations lumbar traction Direction distraction Grade III Body Position Supine Reps/Duration 8 sec x5 Comments with mob belt hip Joint L hip Direction distraction Grade III Body Position Supine Reps/Duration 8 sec x 5 PT-OP-R Modalities Start: 11/14/19 17:50 Freq: Status: Active Protocol: Document 11/22/19 10:34 LR (Rec: 11/22/19 11:19 [facility] [id number]) Hot Pack/Cold Pack Treatment Cold Pack Location lumbar Patient Position Prone Treatment Duration (minutes) 10 Hot Pack Location lumbar Patient Position Prone Treatment Duration (minutes) 10 PT-OP-T Assessment and Plan Start: 11/14/19 17:50 Freq: Status: Active Protocol: Document 02/28/20 11:19 (Rec: 02/21/20 12:28 [id number]) Physical Therapy Assessment Goals neural tension Impairment Pt has nerve pain at L 4 dermatome during special tests Test Fixture 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 LTG Duration 04/22/20 3 Impairment Strength Short Term Goal (STG) Pt will be indep with HEP STG Duration achieved Usp Goal (LTG) 01/28 Pt will have 5/5 LE strenth B and 4/5 LPM, EFT & VCT in order to show improved postural stability to allow him to do typical daily activities without pain. LTG Duration 04/22/20 2 Impairment DANILO 25/50 Short Term Goal (STG) 01/28 goal met DANILO improves to 18/50 to show improved functional ability for inc participation in typicaly daily activities. Usp Goal (LTG) DANILO will improve to 7/50 to show improved functional ability for inc participation in typicaly daily activities. LTG Duration 04/22/20 1 Impairment activities. Short Term Goal (STG) Pt will be able to demonstrate good lifting mechanics to lift an object that is 10 lbs without inc pain. STG Duration 02/01/20 Test Fixture Assembler Goal (LTG) 9/8 pt is going to return to work in a few weeks. Pt will be able to return to work with no greater than 2/10 pain. LTG Duration 04/22/20 Assessment Summary Assessment Pt returned to clinic today after he had a fall on his L side with weighted object at work. Pt has new onset of nerve pain at anterior knee region during slump and PSLR which inidicates L4 dermatome involvment. Pt's MRI also shows mild disc bulge at L4-5 with resultant severe canal stenosis. Pt is going to see back specialist and get a cortisone shot soon. Meanwhile, pt will cont to benefit from skilled therapy to address his symptoms and impairments. Physical Therapy Plan Frequency and Duration Frequency of Treatment 2x/Week Duration of Treatment 2 months Plan of Care Start Date 02/21/20 Plan of Care End Date 04/22/20 Next Visit Focus/Plan Next Note Type Treatment Note Next Visit Plan check tolerance after last session reassess slump and PSLR nerve glide jesus if needed piriformis and HS stretch clam shell
--- NOTE | 2020-02-25 13:00 | PT.OTN ---
Addendum entered and electronically signed by Lisa De Leon PTA 02/25/20 16:09: Pt reported that as 2 referrrals to have further testing done here in [facility], unsure who with, will let us know for awareness next tx. Original Note: Addendum entered and electronically signed by Lisa De Leon PTA 02/25/20 16:08: Education provided for use of pillows during supine/ sidelying for LS alignment and decrease back discomfort with good response. Original Note: Current Diagnoses Pain in right knee (02/25/20) Low back pain (02/25/20) Dorsalgia, unspecified (02/25/20) Difficulty in walking, not elsewhere classified (02/25/20) Abnormal posture (02/25/20) Weakness (02/25/20) Physical Therapy Treatment Note PT-OP-A Visit Information Start: 11/14/19 17:50 Freq: Status: Active Protocol: Document 02/25/20 12:16 SP (Rec: 02/25/20 16:07 SP [id number]) Out-Patient Physical Therapy Visit Information Visit Information Visit Type Treatment Note Visit Start Time 12:16 Visit Stop Time 13:00 Total Visit Minutes 44 Visit Number 7 Number of KILN STACKER Visits 1 PT-OP-B Current Condition Start: 11/14/19 17:50 Freq: Status: Active Protocol: Document 11/15/19 15:18 [facility] (Rec: 11/15/19 16:03 [facility] [id number]) Current Condition History of Current Condition Onset Date hurt again in July but started about 1 year ago Current Complaints R knee and L LBP History of Current Condition Pt reports pain will be there but not be so sharp then all of a sudden really bother him. Pt reports about 1 year ago LBP started and in July he fell back d/t stepping back and holding blue rock salt and fell into coworker but that inc pain. Reports it has not gotten better from that incident. He has seen a chiropractor 2x so far and will be seeing him again. Pt reports R knee pain happened when he fell in July. It doesn't bother him as much now but still hurts. He has not been working d/t pain and he is unable to lift. Pain goes from back and into leg. Pt can only stand about 15-20 min or less. He notes pain even with walking in grocery store. Even sitting he has pain. Cannot walk greater tahn 2 blocks d/t back pain. pt went for a run/walk about 1 week ago and regretted it after d/t pain. Pt recently has been moving around going side/side at night and having deififculty sleeping d/t pain. 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, be able to go for walks so he could lose some weight (up to 255 now and was 210 prior to this) Personal Factors Other Personal Factors That May Effect back pain, heart disease, R Therapy/Recovery inguinal hernia, hernia surgery, 4 stents in heart over 2 surgeries PT-OP-C Subjective Start: 11/14/19 17:50 Freq: Status: Active Protocol: Document 02/25/20 12:16 SP (Rec: 02/25/20 16:07 SP [id number]) OP-PT Subjective Patient Comments Patient Comments Pt reported did I did feel little better after last tx and the exercises seem to help that learned last tx but still get that tingling needle feeling down lateral ITB area on both legs. PT-OP-F Manual Assessment Start: 11/14/19 17:50 Freq: Status: Active Protocol: Document 11/15/19 15:18 [facility] (Rec: 11/15/19 16:03 [facility] [id number]) Manual Assessments Soft Tissue Assessment Soft Tissue Mobility Assessment L>R QL, ES, HS, calf & glutes tight & tender Joint Mobility Assessment Joint Mobility Assessment L iliac crest higher, even greater throchanter PT-OP-G Mobility & Gait Start: 11/14/19 17:50 Freq: Status: Active Protocol: Document 11/15/19 15:18 LR (Rec: 11/15/19 16:03 [facility] [id number]) OP Gait Assessment Comments Gait Comments Dec stance time LLE, dec push off B, lat shifting with amb PT-OP-J Posture/Palpation/Skin Start: 11/14/19 17:50 Freq: Status: Active Protocol: Document 11/15/19 15:18 [facility] (Rec: 11/15/19 16:03 [facility] [id number]) Posture Evaluation [facility] Postural Classification System [facility] Postural Classifications Posterior/Anterior Vertebral Compression Test 0 Elbow Flexion Test 2 Lumbar Protective Mechanism Left AP 1 Lumbar Protective Mechanism Right AP 0 Lumbar Protective Mechanism Left PA 2 Lumbar Protective Mechanism Right PA 1 PT-OP-K Range of Motion Start: 11/14/19 17:50 Freq: Status: Active Protocol: Document 02/21/20 11:19 (Rec: 02/21/20 12:28 [id number]) Lumbar Spine Range of Motion Lumbar Spine Active Degrees Comments toe touch = 9.5 inches from floor lateral flexion to L= 21.5 inches with pinch pain at L low back lateral flexion R= 20 inches with stretching feeling on L lateral abdominal. PT-OP-L Special Tests Start: 11/14/19 17:50 Freq: Status: Active Protocol: Document 02/21/20 11:19 (Rec: 02/21/20 12:28 [id number]) Special Tests Lumbar Spine Special Tests SLR Test Results +ve L @ 80 degrees Comments pain at anterior medial knee region Slump Test Results +ve L with slight trunk flexion Comments pain at anterior medial knee region PT-OP-M Strength Start: 11/14/19 17:50 Freq: Status: Active Protocol: Document 02/21/20 11:19 (Rec: 02/21/20 12:29 [id number]) Hip Strength Hip Manual Muscle Testing Left Flexion (L2) 4 Good Extension (S1) 4 Good Abduction 3+ Fair+ Adduction 4 Good External Rotation 4- Good- Right Flexion (L2) 5 Normal Extension (S1) 5 Normal Abduction 5 Normal Adduction 5 Normal External Rotation 5 Normal Internal Rotation 5 Normal Knee Strength Knee Manual Muscle Testing Left Flexion (S2) 4 Good Extension (L3) 4- Good- Right Flexion (S2) 5 Normal Extension (L3) 5 Normal PT-OP-Q Treatments Start: 11/14/19 17:50 Freq: Status: Active Protocol: Document 02/25/20 12:16 SP (Rec: 02/25/20 16:07 SP [id number]) Therapeutic Exercises Supine Exercises LTR Supine Exercise Name R rotation, L side stretch better, performed B Resistance AROM Reps/Minutes 20 sec hold x3 Comments cued tolerant range, added HEP , no discomfort on L Pelvic realignment exercises Reps/Minutes 3 sec hold x5 each Comments Pelvic realignment exercises, added to HEP Sitting Exercises Lat side bend/ QL stretch Sitting Exercise Name R rotation, L side stretch better, performed B Reps/Minutes 30 x3 Comments added for HEP, no discomfort on L Other Exercises jesus Other Exercise Name lateral flexion to R Side bilateral Reps/Minutes 8 x5 Comments reviewed HEP, no discomfort on L Manual Therapy Treatment Soft Tissue Mobilization QL Body Location L QL/ES Mobilization Type Rolling,Sustained Pressure Intensity/Depth Moderate Body Position Prone gluteal muscle group Mobilization Type Sustained Pressure,Trigger Point Release Intensity/Depth Moderate Body Position Sidelying piriformis Body Location L piriformis Mobilization Type Sustained Pressure,Trigger Point Release Intensity/Depth Moderate Body Position Sidelying Joint Mobilizations lumbar traction Joint B Direction distraction Grade III Body Position Supine Reps/Duration 8 sec x5 Comments with mob belt no significant change, better response helpful with long leg pull PT-OP-R Modalities Start: 11/14/19 17:50 Freq: Status: Active Protocol: Document 11/22/19 10:34 [facility] (Rec: 11/22/19 11:19 [facility] [id number]) Hot Pack/Cold Pack Treatment Cold Pack Location lumbar Patient Position Prone Treatment Duration (minutes) 10 Hot Pack Location lumbar Patient Position Prone Treatment Duration (minutes) 10 PT-OP-T Assessment and Plan Start: 11/14/19 17:50 Freq: Status: Active Protocol: Document 02/25/20 12:16 SP (Rec: 02/25/20 16:07 SP [id number]) Physical Therapy Assessment Goals neural tension Impairment Pt has nerve pain at L 4 dermatome during special tests Music Store Manager Goal (LTG) Pt will be symptoms free for PSLR and slump test. LTG Duration 04/22/20 3 Impairment Strength Short Term Goal (STG) Pt will be indep with HEP STG Duration achieved Music Store Manager Goal (LTG) 01/28 Pt will have 5/5 LE strenth B and 4/5 LPM, EFT & VCT in order to show improved postural stability to allow him to do typical daily activities without pain. LTG Duration 04/22/20 2 Impairment DANILO 25/50 Short Term Goal (STG) 01/28 goal met DANILO improves to 18/50 to show improved functional ability for inc participation in typicaly daily activities. Music Store Manager Goal (LTG) DANILO will improve to 7/50 to show improved functional ability for inc participation in typicaly daily activities. LTG Duration 04/22/20 1 Impairment activities. Short Term Goal (STG) Pt will be able to demonstrate good lifting mechanics to lift an object that is 10 lbs without inc pain. STG Duration 02/01/20 Assisted Goal (LTG) 9/8 pt is going to return to work in a few weeks. Pt will be able to return to work with no greater than 2/10 pain. LTG Duration 04/22/20 Assessment Summary Assessment Slump test - pre tx, little pinching L LB during L side bend, just stretch R side bend on L. Pt reported good response to manual, stretching , bernard side bend activities. I don't feel the tingling in my leg, commented when leaving. Physical Therapy Plan Frequency and Duration Frequency of Treatment 2x/Week Duration of Treatment 2 months Plan of Care Start Date 01/01/20 Plan of Care End Date 03/02/20 Therapeutic Interventions Therapeutic Interventions Aquatic Therapy,Balance Training,Home Exercise Program ,Joint Mobilizations,Manual Therapy,Neuromuscular Re- education,Patient/Caregiver Education,Self-Care/Home Management,Soft Tissue Mobilization,Taping, Therapeutic Activities, Therapeutic Exercises Modalities Cold Pack/Ice Massage,Electric Stimulation,Hot Packs, Infrared Therapy,Ultrasound Next Visit Focus/Plan Next Note Type Treatment Note Next Visit Plan check tolerance after last session reassess slump and PSLR nerve glide jesus if needed piriformis and HS stretch clam shell
--- NOTE | 2020-02-27 12:19 | PT.OTN ---
Current Diagnoses Pain in right knee (02/27/20) Low back pain (02/27/20) Dorsalgia, unspecified (02/27/20) Difficulty in walking, not elsewhere classified (02/27/20) Abnormal posture (02/27/20) Weakness (02/27/20) Physical Therapy Treatment Note PT-OP-A Visit Information Start: 11/14/19 17:50 Freq: Status: Active Protocol: Document 02/27/20 11:19 [facility] (Rec: 02/27/20 12:19 [facility] [id number]) Out-Patient Physical Therapy Visit Information Visit Information Visit Type Treatment Note Visit Start Time 11:19 Visit Stop Time 12:00 Total Visit Minutes 41 Visit Number 01/01 Number of LEAD ATG DEVELOPER Visits 0 PT-OP-B Current Condition Start: 11/14/19 17:50 Freq: Status: Active Protocol: Document 11/15/19 15:18 [facility] (Rec: 11/15/19 16:03 [facility] [id number]) Current Condition History of Current Condition Onset Date hurt again in July but started about 1 year ago Current Complaints R knee and L LBP History of Current Condition Pt reports pain will be there but not be so sharp then all of a sudden really bother him. Pt reports about 1 year ago LBP started and in July he fell back d/t stepping back and holding blue rock salt and fell into coworker but that inc pain. Reports it has not gotten better from that incident. He has seen a chiropractor 2x so far and will be seeing him again. Pt reports R knee pain happened when he fell in July. It doesn't bother him as much now but still hurts. He has not been working d/t pain and he is unable to lift. Pain goes from back and into leg. Pt can only stand about 15-20 min or less. He notes pain even with walking in grocery store. Even sitting he has pain. Cannot walk greater tahn 2 blocks d/t back pain. pt went for a run/walk about 1 week ago and regretted it after d/t pain. Pt recently has been moving around going side/side at night and having deififculty sleeping d/t pain. 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, be able to go for walks so he could lose some weight (up to 255 now and was 210 prior to this) Personal Factors Other Personal Factors That May Effect back pain, heart disease, R Therapy/Recovery inguinal hernia, hernia surgery, 4 stents in heart over 2 surgeries PT-OP-C Subjective Start: 11/14/19 17:50 Freq: Status: Active Protocol: Document 02/27/20 11:19 [facility] (Rec: 02/27/20 12:19 [facility] [id number]) OP-PT Subjective Patient Comments Patient Comments Pt reports he woke up with stinging in L lat thigh PT-OP-F Manual Assessment Start: 11/14/19 17:50 Freq: Status: Active Protocol: Document 11/15/19 15:18 [facility] (Rec: 11/15/19 16:03 [facility] [id number]) Manual Assessments Soft Tissue Assessment Soft Tissue Mobility Assessment L>R QL, ES, HS, calf & glutes tight & tender Joint Mobility Assessment Joint Mobility Assessment L iliac crest higher, even greater throchanter PT-OP-G Mobility & Gait Start: 11/14/19 17:50 Freq: Status: Active Protocol: Document 11/15/19 15:18 [facility] (Rec: 11/15/19 16:03 [facility] [id number]) OP Gait Assessment Comments Gait Comments Dec stance time LLE, dec push off B, lat shifting with amb PT-OP-J Posture/Palpation/Skin Start: 11/14/19 17:50 Freq: Status: Active Protocol: Document 11/15/19 15:18 [facility] (Rec: 11/15/19 16:03 [facility] [id number]) Posture Evaluation Kamlesh Postural Classification System Kamlesh Postural Classifications Posterior/Anterior Vertebral Compression Test 0 Elbow Flexion Test 2 Lumbar Protective Mechanism Left AP 1 Lumbar Protective Mechanism Right AP 0 Lumbar Protective Mechanism Left PA 2 Lumbar Protective Mechanism Right PA 1 PT-OP-K Range of Motion Start: 11/14/19 17:50 Freq: Status: Active Protocol: Document 02/21/20 11:19 [facility] (Rec: 02/21/20 12:28 [facility] [id number]) Lumbar Spine Range of Motion Lumbar Spine Active Degrees Comments toe touch = 9.5 inches from floor lateral flexion to L= 21.5 inches with pinch pain at L low back lateral flexion R= 20 inches with stretching feeling on L lateral abdominal. PT-OP-L Special Tests Start: 11/14/19 17:50 Freq: Status: Active Protocol: Document 02/21/20 11:19 [facility] (Rec: 02/21/20 12:28 [facility] [id number]) Special Tests Lumbar Spine Special Tests SLR Test Results +ve L @ 80 degrees Comments pain at anterior medial knee region Slump Test Results +ve L with slight trunk flexion Comments pain at anterior medial knee region PT-OP-M Strength Start: 11/14/19 17:50 Freq: Status: Active Protocol: Document 02/21/20 11:19 (Rec: 02/21/20 12:29 [id number]) Hip Strength Hip Manual Muscle Testing Left Flexion (L2) 4 Good Extension (S1) 4 Good Abduction 3+ Fair+ Adduction 4 Good External Rotation 4- Good- Right Flexion (L2) 5 Normal Extension (S1) 5 Normal Abduction 5 Normal Adduction 5 Normal External Rotation 5 Normal Internal Rotation 5 Normal Knee Strength Knee Manual Muscle Testing Left Flexion (S2) 4 Good Extension (L3) 4- Good- Right Flexion (S2) 5 Normal Extension (L3) 5 Normal PT-OP-Q Treatments Start: 11/14/19 17:50 Freq: Status: Active Protocol: Document 02/27/20 11:19 [facility] (Rec: 02/27/20 12:19 [facility] [id number]) Therapeutic Exercises Supine Exercises LTR Resistance AROM Reps/Minutes 10 Comments comfortable range piriformis stretch Supine Exercise Name 1. knee to opposite chest w/ towel 2. figure 4 stretching Side left Reps/Minutes 30 sec ea HS stretch Side left Reps/Minutes 30 sec Sidelying Exercises hip abd Sidelying Exercise Name attempted but stopped d/t pain clamshell Side left Reps/Minutes 10x2 Other Exercises jesus Other Exercise Name lateral flexion to R Side bilateral Reps/Minutes 8 x5 Comments reviewed HEP, no discomfort on L Manual Therapy Treatment Soft Tissue Mobilization ITB Body Location L Mobilization Type Rolling QL Body Location L QL/ES Mobilization Type Rolling,Sustained Pressure Intensity/Depth Moderate Body Position Prone gluteal muscle group Mobilization Type Sustained Pressure,Trigger Point Release Intensity/Depth Moderate Body Position Sidelying piriformis Body Location L piriformis Mobilization Type Sustained Pressure,Trigger Point Release Intensity/Depth Moderate Body Position Sidelying Joint Mobilizations lumbar traction Joint B Direction distraction Grade III Body Position Supine Reps/Duration 8 sec x5 Comments long axis and short axis innominate Joint L Direction ER FM hip Joint L hip Direction inf Grade III Body Position Supine PT-OP-R Modalities Start: 11/14/19 17:50 Freq: Status: Active Protocol: Document 11/22/19 10:34 [facility] (Rec: 11/22/19 11:19 [facility] [id number]) Hot Pack/Cold Pack Treatment Cold Pack Location lumbar Patient Position Prone Treatment Duration (minutes) 10 Hot Pack Location lumbar Patient Position Prone Treatment Duration (minutes) 10 PT-OP-T Assessment and Plan Start: 11/14/19 17:50 Freq: Status: Active Protocol: Document 02/27/20 11:19 [facility] (Rec: 02/27/20 12:19 [facility] [id number]) Physical Therapy Assessment Goals neural tension Impairment Pt has nerve pain at L 4 dermatome during special tests Snf Goal (LTG) Pt will be symptoms free for PSLR and slump test. LTG Duration 04/22/20 3 Impairment Strength Short Term Goal (STG) Pt will be indep with HEP STG Duration achieved Biology Lecturer Goal (LTG) 01/28 Pt will have 5/5 LE strenth B and 4/5 LPM, EFT & VCT in order to show improved postural stability to allow him to do typical daily activities without pain. LTG Duration 04/22/20 2 Impairment DANILO 25/50 Short Term Goal (STG) 01/28 goal met DANILO improves to 18/50 to show improved functional ability for inc participation in typicaly daily activities. Biology Lecturer Goal (LTG) DANILO will improve to 7/50 to show improved functional ability for inc participation in typicaly daily activities. LTG Duration 04/22/20 1 Impairment activities. Short Term Goal (STG) Pt will be able to demonstrate good lifting mechanics to lift an object that is 10 lbs without inc pain. STG Duration 02/01/20 Snf Goal (LTG) 01/28 pt is going to return to work in a few weeks. Pt will be able to return to work with no greater than 2/10 pain. LTG Duration 04/22/20 Assessment Summary Assessment Pt able to tolerate all exercises except abd without pain. Pt had some SI pain w/ER clamshell but improved after manual treatment. Physical Therapy Plan Next Visit Focus/Plan Next Note Type Treatment Note Next Visit Plan Review HEP and progress as tolerated
--- NOTE | 2020-03-03 12:13 | PT.OTN ---
Current Diagnoses Pain in right knee (03/03/20) Low back pain (03/03/20) Dorsalgia, unspecified (03/03/20) Difficulty in walking, not elsewhere classified (03/03/20) Abnormal posture (03/03/20) Weakness (03/03/20) Physical Therapy Treatment Note PT-OP-A Visit Information Start: 11/14/19 17:50 Freq: Status: Active Protocol: Document 03/03/20 11:25 [facility] (Rec: 03/03/20 12:13 [facility] [id number]) Out-Patient Physical Therapy Visit Information Visit Information Visit Type Treatment Note Visit Start Time 11:16 Visit Stop Time 11:56 Total Visit Minutes 40 Visit Number 02/01 Number of ASSOCIATE PROFESSOR OF FORESTRY Visits 0 PT-OP-B Current Condition Start: 11/14/19 17:50 Freq: Status: Active Protocol: Document 11/15/19 15:18 [facility] (Rec: 11/15/19 16:03 [facility] [id number]) Current Condition History of Current Condition Onset Date hurt again in July but started about 1 year ago Current Complaints R knee and L LBP History of Current Condition Pt reports pain will be there but not be so sharp then all of a sudden really bother him. Pt reports about 1 year ago LBP started and in July he fell back d/t stepping back and holding blue rock salt and fell into coworker but that inc pain. Reports it has not gotten better from that incident. He has seen a chiropractor 2x so far and will be seeing him again. Pt reports R knee pain happened when he fell in July. It doesn't bother him as much now but still hurts. He has not been working d/t pain and he is unable to lift. Pain goes from back and into leg. Pt can only stand about 15-20 min or less. He notes pain even with walking in grocery store. Even sitting he has pain. Cannot walk greater tahn 2 blocks d/t back pain. pt went for a run/walk about 1 week ago and regretted it after d/t pain. Pt recently has been moving around going side/side at night and having deififculty sleeping d/t pain. 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 Notes that he did his exercises last night is wondering if he overdid them. PT-OP-F Manual Assessment Start: 11/14/19 17:50 Freq: Status: Active Protocol: Document 11/15/19 15:18 [facility] (Rec: 11/15/19 16:03 [facility] [id number]) Manual Assessments Soft Tissue Assessment Soft Tissue Mobility Assessment L>R QL, ES, HS, calf & glutes tight & tender Joint Mobility Assessment Joint Mobility Assessment L iliac crest higher, even greater throchanter PT-OP-G Mobility & Gait Start: 11/14/19 17:50 Freq: Status: Active Protocol: Document 11/15/19 15:18 [facility] (Rec: 11/15/19 16:03 [facility] [id number]) OP Gait Assessment Comments Gait Comments Dec stance time LLE, dec push off B, lat shifting with amb PT-OP-J Posture/Palpation/Skin Start: 11/14/19 17:50 Freq: Status: Active Protocol: Document 11/15/19 15:18 [facility] (Rec: 11/15/19 16:03 [facility] [id number]) Posture Evaluation Kamlesh Postural Classification System Kamlesh Postural Classifications Posterior/Anterior Vertebral Compression Test 0 Elbow Flexion Test 2 Lumbar Protective Mechanism Left AP 1 Lumbar Protective Mechanism Right AP 0 Lumbar Protective Mechanism Left PA 2 Lumbar Protective Mechanism Right PA 1 PT-OP-K Range of Motion Start: 11/14/19 17:50 Freq: Status: Active Protocol: Document 02/21/20 11:19 [facility] (Rec: 02/21/20 12:28 [facility] [id number]) Lumbar Spine Range of Motion Lumbar Spine Active Degrees Comments toe touch = 9.5 inches from floor lateral flexion to L= 21.5 inches with pinch pain at L low back lateral flexion R= 20 inches with stretching feeling on L lateral abdominal. PT-OP-L Special Tests Start: 11/14/19 17:50 Freq: Status: Active Protocol: Document 02/21/20 11:19 (Rec: 02/21/20 12:28 [id number]) Special Tests Lumbar Spine Special Tests SLR Test Results +ve L @ 80 degrees Comments pain at anterior medial knee region Slump Test Results +ve L with slight trunk flexion Comments pain at anterior medial knee region PT-OP-M Strength Start: 11/14/19 17:50 Freq: Status: Active Protocol: Document 02/21/20 11:19 (Rec: 02/21/20 12:29 [id number]) Hip Strength Hip Manual Muscle Testing Left Flexion (L2) 4 Good Extension (S1) 4 Good Abduction 3+ Fair+ Adduction 4 Good External Rotation 4- Good- Right Flexion (L2) 5 Normal Extension (S1) 5 Normal Abduction 5 Normal Adduction 5 Normal External Rotation 5 Normal Internal Rotation 5 Normal Knee Strength Knee Manual Muscle Testing Left Flexion (S2) 4 Good Extension (L3) 4- Good- Right Flexion (S2) 5 Normal Extension (L3) 5 Normal PT-OP-Q Treatments Start: 11/14/19 17:50 Freq: Status: Active Protocol: Document 03/03/20 11:25 [facility] (Rec: 03/03/20 12:13 [facility] [id number]) Therapeutic Exercises Supine Exercises LTR Supine Exercise Name focus on core Resistance AROM Reps/Minutes 10 Comments comfortable range piriformis stretch Supine Exercise Name 1. knee to opposite chest w/ towel 2. figure 4 stretching w /opp knee flex Side left Reps/Minutes 30 sec ea HS stretch Side left Reps/Minutes 30 sec Sidelying Exercises clamshell Side left Reps/Minutes 10 Sitting Exercises Lat side bend/ QL stretch Sitting Exercise Name R rotation, L side stretch better, performed B but stopped w/R d/t pain Reps/Minutes 30 sec x2 Other Exercises jesus Other Exercise Name lateral flexion to R Side bilateral Reps/Minutes 10 Comments reviewed HEP, no discomfort on L Therapeutic Activity Therapeutic Activity log roll Name work on neutral spine Manual Therapy Treatment Soft Tissue Mobilization adductor Mobilization Type Rolling Body Position Hooklying Comments w/hip IR/ER& MFR of thigh ITB Body Location L Mobilization Type Rolling Body Position Hooklying Comments w/hip ER/IR Self-Care/Home Management Treatment Education Patient Education Home Exercise Program Other Education discussed staying in comfortable ranges PT-OP-R Modalities Start: 11/14/19 17:50 Freq: Status: Active Protocol: Document 11/22/19 10:34 [facility] (Rec: 11/22/19 11:19 [facility] [id number]) Hot Pack/Cold Pack Treatment Cold Pack Location lumbar Patient Position Prone Treatment Duration (minutes) 10 Hot Pack Location lumbar Patient Position Prone Treatment Duration (minutes) 10 PT-OP-T Assessment and Plan Start: 11/14/19 17:50 Freq: Status: Active Protocol: Document 03/03/20 11:25 [facility] (Rec: 03/03/20 12:13 [facility] [id number]) Physical Therapy Assessment Goals neural tension Impairment Pt has nerve pain at L 4 dermatome during special tests Dental Equipment Technician Goal (LTG) Pt will be symptoms free for PSLR and slump test. LTG Duration 04/22/20 3 Impairment Strength Short Term Goal (STG) Pt will be indep with HEP STG Duration achieved Dental Equipment Technician Goal (LTG) 01/28 Pt will have 5/5 LE strenth B and 4/5 LPM, EFT & VCT in order to show improved postural stability to allow him to do typical daily activities without pain. LTG Duration 04/22/20 2 Impairment DANILO 25/50 Short Term Goal (STG) 01/28 goal met DANILO improves to 18/50 to show improved functional ability for inc participation in typicaly daily activities. Usp Goal (LTG) DANILO will improve to 7/50 to show improved functional ability for inc participation in typicaly daily activities. LTG Duration 04/22/20 1 Impairment activities. Short Term Goal (STG) Pt will be able to demonstrate good lifting mechanics to lift an object that is 10 lbs without inc pain. STG Duration 02/01/20 Usp Goal (LTG) 01/28 pt is going to return to work in a few weeks. Pt will be able to return to work with no greater than 2/10 pain. LTG Duration 04/22/20 Assessment Summary Assessment Pt required significant cueing with exercises re: form & staying in comfortable ranges to prevent inc pain after doing exercises. Physical Therapy Plan Frequency and Duration Frequency of Treatment 2x/Week Duration of Treatment 2 months Plan of Care Start Date 02/21/20 Plan of Care End Date 04/22/20 Next Visit Focus/Plan Next Note Type Treatment Note Next Visit Plan Review HEP and progress as tolerated
--- NOTE | 2020-03-06 08:15 | PT.OTN ---
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 Pt reports about 1 year ago LBP started and in July he fell back d/t stepping back and holding blue rock salt and fell into coworker but that inc pain. Reports it has not gotten better from that incident. He has seen a chiropractor 2x so far and will be seeing him again. Pt reports R knee pain happened when he fell in July. It doesn't bother him as much now but still hurts. He has not been working d/t pain and he is unable to lift. Pain goes from back and into leg. Pt can only stand about 15-20 min or less. He notes pain even with walking in grocery store. Even sitting he has pain. Cannot walk greater tahn 2 blocks d/t back pain. pt went for a run/walk about 1 week ago and regretted it after d/t pain. Pt recently has been moving around going side/side at night and having deififculty sleeping d/t pain. 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 Saw orthopedic in [facility] assessed him and referred to Dr Alon jay specialist for further assessment. Sees Dr Mary johnson as well. PT-OP-F Manual Assessment Start: 11/14/19 17:50 Freq: Status: Active Protocol: Document 11/15/19 15:18 [facility] (Rec: 11/15/19 16:03 [facility] [id number]) Manual Assessments Soft Tissue Assessment Soft Tissue Mobility Assessment L>R QL, ES, HS, calf & glutes tight & tender Joint Mobility Assessment Joint Mobility Assessment L iliac crest higher, even greater throchanter PT-OP-G Mobility & Gait Start: 11/14/19 17:50 Freq: Status: Active Protocol: Document 11/15/19 15:18 [facility] (Rec: 11/15/19 16:03 [facility] [id number]) OP Gait Assessment Comments Gait Comments Dec stance time LLE, dec push off B, lat shifting with amb PT-OP-J Posture/Palpation/Skin Start: 11/14/19 17:50 Freq: Status: Active Protocol: Document 11/15/19 15:18 [facility] (Rec: 11/15/19 16:03 [facility] [id number]) Posture Evaluation Kamlesh Postural Classification System Kamlesh Postural Classifications Posterior/Anterior Vertebral Compression Test 0 Elbow Flexion Test 2 Lumbar Protective Mechanism Left AP 1 Lumbar Protective Mechanism Right AP 0 Lumbar Protective Mechanism Left PA 2 Lumbar Protective Mechanism Right PA 1 PT-OP-K Range of Motion Start: 11/14/19 17:50 Freq: Status: Active Protocol: Document 02/21/20 11:19 [facility] (Rec: 02/21/20 12:28 HH [id number]) Lumbar Spine Range of Motion Lumbar Spine Active Degrees Comments toe touch = 9.5 inches from floor lateral flexion to L= 21.5 inches with pinch pain at L low back lateral flexion R= 20 inches with stretching feeling on L lateral abdominal. PT-OP-L Special Tests Start: 11/14/19 17:50 Freq: Status: Active Protocol: Document 02/21/20 11:19 [facility] (Rec: 02/21/20 12:28 HH [id number]) Special Tests Lumbar Spine Special Tests SLR Test Results +ve L @ 80 degrees Comments pain at anterior medial knee region Slump Test Results +ve L with slight trunk flexion Comments pain at anterior medial knee region PT-OP-M Strength Start: 11/14/19 17:50 Freq: Status: Active Protocol: Document 02/21/20 11:19 [facility] (Rec: 02/21/20 12:29 [id number]) Hip Strength Hip Manual Muscle Testing Left Flexion (L2) 4 Good Extension (S1) 4 Good Abduction 3+ Fair+ Adduction 4 Good External Rotation 4- Good- Right Flexion (L2) 5 Normal Extension (S1) 5 Normal Abduction 5 Normal Adduction 5 Normal External Rotation 5 Normal Internal Rotation 5 Normal Knee Strength Knee Manual Muscle Testing Left Flexion (S2) 4 Good Extension (L3) 4- Good- Right Flexion (S2) 5 Normal Extension (L3) 5 Normal PT-OP-Q Treatments Start: 11/14/19 17:50 Freq: Status: Active Protocol: Document 03/06/20 07:30 SP (Rec: 03/06/20 08:29 SP [id number]) Therapeutic Exercises Supine Exercises LTR Supine Exercise Name focus on core Resistance AROM Reps/Minutes 10 Comments comfortable range piriformis stretch Supine Exercise Name 1. knee to opposite chest w/ towel 2. figure 4 stretching w /opp knee flex Side left Reps/Minutes 30 sec ea HS stretch Side left Resistance #6 TB (for HEP) Reps/Minutes 30 sec Sidelying Exercises clamshell Side left Resistance TB #1 Reps/Minutes 2x10 Comments added Tb today, no discomfort, cued stacked alignment, slow control Standing Exercises Core pull down/ rows Resistance Tb #2 Reps/Minutes 2x10 each Comments cued PPT Other Exercises standing PPT posture w/ dowel Other Exercise Name Posture at wall, then with dowel for posture at sink/ cooking Comments self care education-see hand out PPT alignment jesus Other Exercise Name lateral flexion to R Side bilateral Reps/Minutes 10 Comments reviewed HEP, no discomfort on L PT-OP-R Modalities Start: 11/14/19 17:50 Freq: Status: Active Protocol: Document 11/22/19 10:34 [facility] (Rec: 11/22/19 11:19 [facility] [id number]) Hot Pack/Cold Pack Treatment Cold Pack Location lumbar Patient Position Prone Treatment Duration (minutes) 10 Hot Pack Location lumbar Patient Position Prone Treatment Duration (minutes) 10 PT-OP-T Assessment and Plan Start: 11/14/19 17:50 Freq: Status: Active Protocol: Document 03/06/20 07:30 SP (Rec: 03/06/20 08:29 SP [id number]) Physical Therapy Assessment Goals neural tension Impairment Pt has nerve pain at L 4 dermatome during special tests 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 LTG Duration 04/22/20 3 Impairment Strength Short Term Goal (STG) Pt will be indep with HEP STG Duration achieved Rotary Rig Engine Operator Goal (LTG) 01/28 Pt will have 5/5 LE strenth B and 4/5 LPM, EFT & VCT in order to show improved postural stability to allow him to do typical daily activities without pain. LTG Duration 04/22/20 2 Impairment DANILO 25/50 Short Term Goal (STG) 01/28 goal met DANILO improves to 18/50 to show improved functional ability for inc participation in typicaly daily activities. Rotary Rig Engine Operator Goal (LTG) DANILO will improve to 7/50 to show improved functional ability for inc participation in typicaly daily activities. LTG Duration 04/22/20 1 Impairment activities. Short Term Goal (STG) Pt will be able to demonstrate good lifting mechanics to lift an object that is 10 lbs without inc pain. STG Duration 02/01/20 Rotary Rig Engine Operator Goal (LTG) 01/28 pt is going to return to work in a few weeks. Pt will be able to return to work with no greater than 2/10 pain. LTG Duration 04/22/20 Assessment Summary Assessment Pt required Mod cuing for PPT/ core facilitation awareness during exercises and stretching, slow muscular control movements to allow stabilization and comfort ranges. Added standing resisted core row/ shld ext strengthening after posture with dowel with no pain I feel like I am a little soreness, working my muscles in a good way again. Provided hand outs for self feedback proper form and carryover standing posture for washing dishes/ cooking with better understanding of incorporating stretch/core activation in the moment for LB relief if needed. Physical Therapy Plan Frequency and Duration Frequency of Treatment 2x/Week Duration of Treatment 2 months Plan of Care Start Date 02/21/20 Plan of Care End Date 04/22/20 Therapeutic Interventions Therapeutic Interventions Aquatic Therapy,Balance Training,Home Exercise Program ,Joint Mobilizations,Manual Therapy,Neuromuscular Re- education,Patient/Caregiver Education,Self-Care/Home Management,Soft Tissue Mobilization,Taping, Therapeutic Activities, Therapeutic Exercises Modalities Cold Pack/Ice Massage,Electric Stimulation,Hot Packs, Infrared Therapy,Ultrasound Next Visit Focus/Plan Next Note Type Treatment Note Next Visit Plan Review added posture with dowel, added resisted rows/ pull down to HEP last tx. Progress strengthening with proper back health alignment as tolerated to work toward personal goal to get back to walking further distance with no LBP.
--- NOTE | 2020-03-10 14:31 | PT.OTN ---
Current Diagnoses Pain in right knee (03/10/20) Low back pain (03/10/20) Dorsalgia, unspecified (03/10/20) Difficulty in walking, not elsewhere classified (03/10/20) Abnormal posture (03/10/20) Weakness (03/10/20) Physical Therapy Treatment Note PT-OP-A Visit Information Start: 11/14/19 17:50 Freq: Status: Active Protocol: Document 03/10/20 13:41 AMB (Rec: 03/10/20 14:31 AMB [id number]) Out-Patient Physical Therapy Visit Information Visit Information Visit Type Treatment Note Visit Start Time 13:45 Visit Stop Time 14:30 Total Visit Minutes 45 Visit Number 04/03 PT-OP-B Current Condition Start: 11/14/19 17:50 Freq: Status: Active Protocol: Document 11/15/19 15:18 [facility] (Rec: 11/15/19 16:03 [facility] [id number]) Current Condition History of Current Condition Onset Date hurt again in July but started about 1 year ago Current Complaints R knee and L LBP History of Current Condition Pt reports pain will be there but not be so sharp then all of a sudden really bother him. Pt reports about 1 year ago LBP started and in July he fell back d/t stepping back and holding blue rock salt and fell into coworker but that inc pain. Reports it has not gotten better from that incident. He has seen a chiropractor 2x so far and will be seeing him again. Pt reports R knee pain happened when he fell in July. It doesn't bother him as much now but still hurts. He has not been working d/t pain and he is unable to lift. Pain goes from back and into leg. Pt can only stand about 15-20 min or less. He notes pain even with walking in grocery store. Even sitting he has pain. Cannot walk greater tahn 2 blocks d/t back pain. pt went for a run/walk about 1 week ago and regretted it after d/t pain. Pt recently has been moving around going side/side at night and having deififculty sleeping d/t pain. 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 Hernandez. Reports PT was helping and then he fell January 17 and now it's only been helping a little. PT-OP-F Manual Assessment Start: 11/14/19 17:50 Freq: Status: Active Protocol: Document 11/15/19 15:18 LR (Rec: 11/15/19 16:03 [facility] [id number]) Manual Assessments Soft Tissue Assessment Soft Tissue Mobility Assessment L>R QL, ES, HS, calf & glutes tight & tender Joint Mobility Assessment Joint Mobility Assessment L iliac crest higher, even greater throchanter PT-OP-G Mobility & Gait Start: 11/14/19 17:50 Freq: Status: Active Protocol: Document 11/15/19 15:18 LR (Rec: 11/15/19 16:03 [facility] [id number]) OP Gait Assessment Comments Gait Comments Dec stance time LLE, dec push off B, lat shifting with amb PT-OP-J Posture/Palpation/Skin Start: 11/14/19 17:50 Freq: Status: Active Protocol: Document 11/15/19 15:18 LR (Rec: 11/15/19 16:03 [facility] [id number]) Posture Evaluation Kamlesh Postural Classification System Kamlesh Postural Classifications Posterior/Anterior Vertebral Compression Test 0 Elbow Flexion Test 2 Lumbar Protective Mechanism Left AP 1 Lumbar Protective Mechanism Right AP 0 Lumbar Protective Mechanism Left PA 2 Lumbar Protective Mechanism Right PA 1 PT-OP-K Range of Motion Start: 11/14/19 17:50 Freq: Status: Active Protocol: Document 02/21/20 11:19 HH (Rec: 02/21/20 12:28 HH [id number]) Lumbar Spine Range of Motion Lumbar Spine Active Degrees Comments toe touch = 9.5 inches from floor lateral flexion to L= 21.5 inches with pinch pain at L low back lateral flexion R= 20 inches with stretching feeling on L lateral abdominal. PT-OP-L Special Tests Start: 11/14/19 17:50 Freq: Status: Active Protocol: Document 02/21/20 11:19 [facility] (Rec: 02/21/20 12:28 [id number]) Special Tests Lumbar Spine Special Tests SLR Test Results +ve L @ 80 degrees Comments pain at anterior medial knee region Slump Test Results +ve L with slight trunk flexion Comments pain at anterior medial knee region PT-OP-M Strength Start: 11/14/19 17:50 Freq: Status: Active Protocol: Document 02/21/20 11:19 [facility] (Rec: 02/21/20 12:29 [id number]) Hip Strength Hip Manual Muscle Testing Left Flexion (L2) 4 Good Extension (S1) 4 Good Abduction 3+ Fair+ Adduction 4 Good External Rotation 4- Good- Right Flexion (L2) 5 Normal Extension (S1) 5 Normal Abduction 5 Normal Adduction 5 Normal External Rotation 5 Normal Internal Rotation 5 Normal Knee Strength Knee Manual Muscle Testing Left Flexion (S2) 4 Good Extension (L3) 4- Good- Right Flexion (S2) 5 Normal Extension (L3) 5 Normal PT-OP-Q Treatments Start: 11/14/19 17:50 Freq: Status: Active Protocol: Document 03/10/20 13:41 AMB (Rec: 03/10/20 14:31 AMB [id number]) Therapeutic Exercises Supine Exercises LTR Supine Exercise Name focus on core Resistance AROM Reps/Minutes 10 Comments comfortable range TA Supine Exercise Name heel slides & BKFO Side bilateral Reps/Minutes 15 pelvic tilt Supine Exercise Name focus on WB on LLE Resistance band at kness Reps/Minutes 10 Comments PPT HS stretch Side left Reps/Minutes 30 sec n glide Supine Exercise Name sciatic Side left Reps/Minutes 10 x 2 Comments supine knee extension for HEP Sidelying Exercises clamshell Side left Resistance TB #1 Reps/Minutes 2x10 Comments added Tb today, no discomfort, cued stacked alignment, slow control Manual Therapy Treatment Joint Mobilizations lumbar traction Joint B Direction distraction Grade III Body Position Supine Reps/Duration 8 sec x5 Comments long axis and short axis PT-OP-R Modalities Start: 11/14/19 17:50 Freq: Status: Active Protocol: Document 11/22/19 10:34 [facility] (Rec: 11/22/19 11:19 [facility] [id number]) Hot Pack/Cold Pack Treatment Cold Pack Location lumbar Patient Position Prone Treatment Duration (minutes) 10 Hot Pack Location lumbar Patient Position Prone Treatment Duration (minutes) 10 PT-OP-T Assessment and Plan Start: 11/14/19 17:50 Freq: Status: Active Protocol: Document 03/10/20 13:41 AMB (Rec: 03/10/20 14:31 AMB [id number]) Physical Therapy Assessment Assessment Summary Assessment Brock is getting somewhat frustrated that pain has been continuing since he fell again in December. States it comes and goes. Continues to need cueing for posture, form with core exercises, but did well with stretches today. Physical Therapy Plan Next Visit Focus/Plan Next Note Type Treatment Note Next Visit Plan Review posture re washing dishes, ways to progress to walking further distances
--- NOTE | 2020-03-13 10:30 | PT.OTN ---
Addendum entered and electronically signed by Lisa De Leon, INSTANT POWDER SUPERVISOR 03/13/20 11:33: Pt reported has an appt with Dr Chi 03/20/[address] Hernandez 04/28/20. Original Note: Current Diagnoses Pain in right knee (03/13/20) Low back pain (03/13/20) Dorsalgia, unspecified (03/13/20) Difficulty in walking, not elsewhere classified (03/13/20) Abnormal posture (03/13/20) Weakness (03/13/20) Physical Therapy Treatment Note PT-OP-A Visit Information Start: 11/14/19 17:50 Freq: Status: Active Protocol: Document 03/13/20 09:48 SP (Rec: 03/13/20 10:32 SP [id number]) Out-Patient Physical Therapy Visit Information Visit Information Visit Type Treatment Note Visit Start Time 09:48 Visit Stop Time 10:30 Total Visit Minutes 42 Visit Number 05/03 Number of INSTANT POWDER SUPERVISOR Visits 1 PT-OP-B Current Condition Start: 11/14/19 17:50 Freq: Status: Active Protocol: Document 11/15/19 15:18 [facility] (Rec: 11/15/19 16:03 [facility] [id number]) Current Condition History of Current Condition Onset Date hurt again in July but started about 1 year ago Current Complaints R knee and L LBP History of Current Condition Pt reports pain will be there but not be so sharp then all of a sudden really bother him. Pt reports about 1 year ago LBP started and in July he fell back d/t stepping back and holding blue rock salt and fell into coworker but that inc pain. Reports it has not gotten better from that incident. He has seen a chiropractor 2x so far and will be seeing him again. Pt reports R knee pain happened when he fell in July. It doesn't bother him as much now but still hurts. He has not been working d/t pain and he is unable to lift. Pain goes from back and into leg. Pt can only stand about 15-20 min or less. He notes pain even with walking in grocery store. Even sitting he has pain. Cannot walk greater tahn 2 blocks d/t back pain. pt went for a run/walk about 1 week ago and regretted it after d/t pain. Pt recently has been moving around going side/side at night and having deififculty sleeping d/t pain. 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 Pt wants to get back to walking again, does in the house but not outside yet. Is able to complete walking around store but leans on the cart, not sure how long before needs support but will pay attention next trip. PT-OP-F Manual Assessment Start: 11/14/19 17:50 Freq: Status: Active Protocol: Document 11/15/19 15:18 [facility] (Rec: 11/15/19 16:03 [facility] [id number]) Manual Assessments Soft Tissue Assessment Soft Tissue Mobility Assessment L>R QL, ES, HS, calf & glutes tight & tender Joint Mobility Assessment Joint Mobility Assessment L iliac crest higher, even greater throchanter PT-OP-G Mobility & Gait Start: 11/14/19 17:50 Freq: Status: Active Protocol: Document 11/15/19 15:18 LR (Rec: 11/15/19 16:03 [facility] [id number]) OP Gait Assessment Comments Gait Comments Dec stance time LLE, dec push off B, lat shifting with amb PT-OP-J Posture/Palpation/Skin Start: 11/14/19 17:50 Freq: Status: Active Protocol: Document 11/15/19 15:18 [facility] (Rec: 11/15/19 16:03 [facility] [id number]) Posture Evaluation Kamlesh Postural Classification System Kamlesh Postural Classifications Posterior/Anterior Vertebral Compression Test 0 Elbow Flexion Test 2 Lumbar Protective Mechanism Left AP 1 Lumbar Protective Mechanism Right AP 0 Lumbar Protective Mechanism Left PA 2 Lumbar Protective Mechanism Right PA 1 PT-OP-K Range of Motion Start: 11/14/19 17:50 Freq: Status: Active Protocol: Document 02/21/20 11:19 HH (Rec: 02/21/20 12:28 HH [id number]) Lumbar Spine Range of Motion Lumbar Spine Active Degrees Comments toe touch = 9.5 inches from floor lateral flexion to L= 21.5 inches with pinch pain at L low back lateral flexion R= 20 inches with stretching feeling on L lateral abdominal. PT-OP-L Special Tests Start: 11/14/19 17:50 Freq: Status: Active Protocol: Document 02/21/20 11:19 HH (Rec: 02/21/20 12:28 [id number]) Special Tests Lumbar Spine Special Tests SLR Test Results +ve L @ 80 degrees Comments pain at anterior medial knee region Slump Test Results +ve L with slight trunk flexion Comments pain at anterior medial knee region PT-OP-M Strength Start: 11/14/19 17:50 Freq: Status: Active Protocol: Document 02/21/20 11:19 HH (Rec: 02/21/20 12:29 [id number]) Hip Strength Hip Manual Muscle Testing Left Flexion (L2) 4 Good Extension (S1) 4 Good Abduction 3+ Fair+ Adduction 4 Good External Rotation 4- Good- Right Flexion (L2) 5 Normal Extension (S1) 5 Normal Abduction 5 Normal Adduction 5 Normal External Rotation 5 Normal Internal Rotation 5 Normal Knee Strength Knee Manual Muscle Testing Left Flexion (S2) 4 Good Extension (L3) 4- Good- Right Flexion (S2) 5 Normal Extension (L3) 5 Normal PT-OP-Q Treatments Start: 11/14/19 17:50 Freq: Status: Active Protocol: Document 03/13/20 09:48 SP (Rec: 03/13/20 10:32 SP [id number]) Cardio Equipment Recumbent Bicycle Duration (Minutes) 6 Resistance 7 Seat Position 7 Therapeutic Exercises Supine Exercises LTR Supine Exercise Name focus on core Resistance AROM Reps/Minutes 10 Comments comfortable range supine ER Supine Exercise Name TA hooklying: hip abd clamshell Side left Resistance blue TB Reps/Minutes 2x10 Comments occasional cuing for PPT TA Supine Exercise Name heel slides Side bilateral Reps/Minutes 15 Comments occasional cuing for TA PPT pelvic tilt Supine Exercise Name focus on WB on LLE Resistance band at kness Reps/Minutes 10 Comments PPT HS stretch Side left Reps/Minutes 30 sec n glide Supine Exercise Name sciatic Side left Equipment Used towel Reps/Minutes 10 x 2 (ankle pumps) Comments supine knee extension Sidelying Exercises clamshell Side left Resistance Blue Tb loop (#4 HEP) Reps/Minutes 2x10 Comments cued slow control w/ PPT core fac- good form Sitting Exercises Lat side bend/ QL stretch Sitting Exercise Name R rotation, L side stretch better, performed B but stopped w/R d/t pain Side bilateral Reps/Minutes 30 sec x2 Other Exercises standing PPT posture w/ dowel Other Exercise Name Posture at wall (seg roll up / down) Comments self care education-see hand out PPT alignment (cued LS align) jesus Other Exercise Name lateral flexion to R Side bilateral Reps/Minutes 10 Comments reviewed HEP, no discomfort on L PT-OP-R Modalities Start: 11/14/19 17:50 Freq: Status: Active Protocol: Document 11/22/19 10:34 [facility] (Rec: 11/22/19 11:19 LR [id number]) Hot Pack/Cold Pack Treatment Cold Pack Location lumbar Patient Position Prone Treatment Duration (minutes) 10 Hot Pack Location lumbar Patient Position Prone Treatment Duration (minutes) 10 PT-OP-T Assessment and Plan Start: 11/14/19 17:50 Freq: Status: Active Protocol: Document 03/13/20 09:48 SP (Rec: 03/13/20 10:32 SP [id number]) Physical Therapy Assessment Goals neural tension Impairment Pt has nerve pain at L 4 dermatome during special tests User Experience Team Lead Goal (LTG) Pt will be symptoms free for PSLR and slump test. LTG Duration 04/22/20 3 Impairment Strength Short Term Goal (STG) Pt will be indep with HEP STG Duration achieved User Experience Team Lead Goal (LTG) 01/28 Pt will have 5/5 LE strenth B and 4/5 LPM, EFT & VCT in order to show improved postural stability to allow him to do typical daily activities without pain. LTG Duration 04/22/20 2 Impairment DANILO 25/50 Short Term Goal (STG) 01/28 goal met DANILO improves to 18/50 to show improved functional ability for inc participation in typicaly daily activities. User Experience Team Lead Goal (LTG) DANILO will improve to 7/50 to show improved functional ability for inc participation in typicaly daily activities. LTG Duration 04/22/20 1 Impairment activities. Short Term Goal (STG) Pt will be able to demonstrate good lifting mechanics to lift an object that is 10 lbs without inc pain. STG Duration 02/01/20 Long-Term Goal (LTG) 9/8 pt is going to return to work in a few weeks. Pt will be able to return to work with no greater than 2/10 pain. LTG Duration 04/22/20 Assessment Summary Assessment Pt tolerated tx well, increased effort level during warm up on bike and ther ex, improved TA and PPT with decreased cuing, occasional. Able to perform wall posture so added segmental roll with cue awareness of LS neutral w/ core activation- good demo. QL stretch at end to decrease deep L4-5 alway tightness that doesn't ever release. Physical Therapy Plan Frequency and Duration Frequency of Treatment 2x/Week Duration of Treatment 2 months Plan of Care Start Date 02/21/20 Plan of Care End Date 04/22/20 Therapeutic Interventions Therapeutic Interventions Aquatic Therapy,Balance Training,Home Exercise Program ,Joint Mobilizations,Manual Therapy,Neuromuscular Re- education,Patient/Caregiver Education,Self-Care/Home Management,Soft Tissue Mobilization,Taping, Therapeutic Activities, Therapeutic Exercises Modalities Cold Pack/Ice Massage,Electric Stimulation,Hot Packs, Infrared Therapy,Ultrasound Next Visit Focus/Plan Next Note Type Treatment Note Next Visit Plan Review TA strengthening, assess LS distraction next tx and ways to progress to walking further distances
--- NOTE | 2020-03-21 13:49 | PT.OTN ---
Current Diagnoses Pain in right knee (03/21/20) Low back pain (03/21/20) Dorsalgia, unspecified (03/21/20) Difficulty in walking, not elsewhere classified (03/21/20) Abnormal posture (03/21/20) Weakness (03/21/20) Physical Therapy Treatment Note PT-OP-A Visit Information Start: 11/14/19 17:50 Freq: Status: Active Protocol: Document 03/21/20 13:05 SP (Rec: 03/21/20 16:24 SP [id number]) Out-Patient Physical Therapy Visit Information Visit Information Visit Type Treatment Note Visit Start Time 13:05 Visit Stop Time 13:49 Total Visit Minutes 44 Visit Number 06/03 or Number of TYPE BAR AND SEGMENT ASSEMBLER Visits 2 PT-OP-B Current Condition Start: 11/14/19 17:50 Freq: Status: Active Protocol: Document 11/15/19 15:18 [facility] (Rec: 11/15/19 16:03 [facility] [id number]) Current Condition History of Current Condition Onset Date hurt again in July but started about 1 year ago Current Complaints R knee and L LBP History of Current Condition Pt reports pain will be there but not be so sharp then all of a sudden really bother him. Pt reports about 1 year ago LBP started and in July he fell back d/t stepping back and holding blue rock salt and fell into coworker but that inc pain. Reports it has not gotten better from that incident. He has seen a chiropractor 2x so far and will be seeing him again. Pt reports R knee pain happened when he fell in July. It doesn't bother him as much now but still hurts. He has not been working d/t pain and he is unable to lift. Pain goes from back and into leg. Pt can only stand about 15-20 min or less. He notes pain even with walking in grocery store. Even sitting he has pain. Cannot walk greater tahn 2 blocks d/t back pain. pt went for a run/walk about 1 week ago and regretted it after d/t pain. Pt recently has been moving around going side/side at night and having deififculty sleeping d/t pain. 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 Pt also received new prescription gabapentin for pain will take soon. Not walking yet but will start soon. PT-OP-F Manual Assessment Start: 11/14/19 17:50 Freq: Status: Active Protocol: Document 11/15/19 15:18 LR (Rec: 11/15/19 16:03 [facility] [id number]) Manual Assessments Soft Tissue Assessment Soft Tissue Mobility Assessment L>R QL, ES, HS, calf & glutes tight & tender Joint Mobility Assessment Joint Mobility Assessment L iliac crest higher, even greater throchanter PT-OP-G Mobility & Gait Start: 11/14/19 17:50 Freq: Status: Active Protocol: Document 11/15/19 15:18 [facility] (Rec: 11/15/19 16:03 [facility] [id number]) OP Gait Assessment Comments Gait Comments Dec stance time LLE, dec push off B, lat shifting with amb PT-OP-J Posture/Palpation/Skin Start: 11/14/19 17:50 Freq: Status: Active Protocol: Document 11/15/19 15:18 LR (Rec: 11/15/19 16:03 [facility] [id number]) Posture Evaluation Kamlesh Postural Classification System Kamlesh Postural Classifications Posterior/Anterior Vertebral Compression Test 0 Elbow Flexion Test 2 Lumbar Protective Mechanism Left AP 1 Lumbar Protective Mechanism Right AP 0 Lumbar Protective Mechanism Left PA 2 Lumbar Protective Mechanism Right PA 1 PT-OP-K Range of Motion Start: 11/14/19 17:50 Freq: Status: Active Protocol: Document 02/21/20 11:19 HH (Rec: 02/21/20 12:28 HH [id number]) Lumbar Spine Range of Motion Lumbar Spine Active Degrees Comments toe touch = 9.5 inches from floor lateral flexion to L= 21.5 inches with pinch pain at L low back lateral flexion R= 20 inches with stretching feeling on L lateral abdominal. PT-OP-L Special Tests Start: 11/14/19 17:50 Freq: Status: Active Protocol: Document 02/21/20 11:19 HH (Rec: 02/21/20 12:28 [id number]) Special Tests Lumbar Spine Special Tests SLR Test Results +ve L @ 80 degrees Comments pain at anterior medial knee region Slump Test Results +ve L with slight trunk flexion Comments pain at anterior medial knee region PT-OP-M Strength Start: 11/14/19 17:50 Freq: Status: Active Protocol: Document 02/21/20 11:19 (Rec: 02/21/20 12:29 [id number]) Hip Strength Hip Manual Muscle Testing Left Flexion (L2) 4 Good Extension (S1) 4 Good Abduction 3+ Fair+ Adduction 4 Good External Rotation 4- Good- Right Flexion (L2) 5 Normal Extension (S1) 5 Normal Abduction 5 Normal Adduction 5 Normal External Rotation 5 Normal Internal Rotation 5 Normal Knee Strength Knee Manual Muscle Testing Left Flexion (S2) 4 Good Extension (L3) 4- Good- Right Flexion (S2) 5 Normal Extension (L3) 5 Normal PT-OP-Q Treatments Start: 11/14/19 17:50 Freq: Status: Active Protocol: Document 03/21/20 13:05 SP (Rec: 03/21/20 16:24 SP [id number]) Cardio Equipment Recumbent Bicycle Duration (Minutes) 6 Resistance 10 Seat Position 7 Other 2.27 miles Therapeutic Exercises Supine Exercises TA Supine Exercise Name B heel slide Side bilateral Reps/Minutes 15 Comments occasional cuing for TA PPT, small range n glide Supine Exercise Name sciatic Side bilateral Equipment Used towel Reps/Minutes 10 x 2 (ankle pumps) Comments supine knee extension Standing Exercises Core pull down/ rows Resistance Tb #4 Reps/Minutes 2x10 each Comments good scap stab and core facilitation form and pacing Other Exercises bird dog Other Exercise Name arm/leg ext- add HEP Side bilateral Reps/Minutes x5 Comments occasional cuing for level pelvic and slow pacing stability standing PPT posture w/ dowel Other Exercise Name Posture at wall (seg roll up / down) Resistance AROM, 2- 5# DB -no pain Reps/Minutes x10 Comments Occasional cuing for segmental mobilization, scap stab, core fac jesus Other Exercise Name lateral flexion to R Side bilateral Resistance AROM, assess #5 DB Reps/Minutes x10 Comments HEP review added little discomfort on L but not enough to stop- beneficial PT-OP-R Modalities Start: 11/14/19 17:50 Freq: Status: Active Protocol: Document 11/22/19 10:34 [facility] (Rec: 11/22/19 11:19 [facility] [id number]) Hot Pack/Cold Pack Treatment Cold Pack Location lumbar Patient Position Prone Treatment Duration (minutes) 10 Hot Pack Location lumbar Patient Position Prone Treatment Duration (minutes) 10 PT-OP-T Assessment and Plan Start: 11/14/19 17:50 Freq: Status: Active Protocol: Document 03/21/20 13:05 SP (Rec: 03/21/20 16:24 SP [id number]) Physical Therapy Assessment Goals neural tension Impairment Pt has nerve pain at L 4 dermatome during special tests Halfway Goal (LTG) Pt will be symptoms free for PSLR and slump test. LTG Duration 04/22/20 3 Impairment Strength Short Term Goal (STG) Pt will be indep with HEP STG Duration achieved Retail Field Representative Goal (LTG) 01/28 Pt will have 5/5 LE strenth B and 4/5 LPM, EFT & VCT in order to show improved postural stability to allow him to do typical daily activities without pain. LTG Duration 04/22/20 2 Impairment DANILO 25/50 Short Term Goal (STG) 01/28 goal met DANILO improves to 18/50 to show improved functional ability for inc participation in typicaly daily activities. Retail Field Representative Goal (LTG) DANILO will improve to 7/50 to show improved functional ability for inc participation in typicaly daily activities. LTG Duration 04/22/20 1 Impairment activities. Short Term Goal (STG) Pt will be able to demonstrate good lifting mechanics to lift an object that is 10 lbs without inc pain. STG Duration 02/01/20 Retail Field Representative Goal (LTG) 01/28 pt is going to return to work in a few weeks. Pt will be able to return to work with no greater than 2/10 pain. LTG Duration 04/22/20 Assessment Summary Assessment Pt responded well to increased challenge DL heel slide TA, weighted roll up/ down ( mihaela curl) bird dog and reported no pain end of tx, alot looser in LB. Pt sceduled for LS injections in near future assist pain. Physical Therapy Plan Frequency and Duration Frequency of Treatment 2x/Week Duration of Treatment 2 months Plan of Care Start Date 02/21/20 Plan of Care End Date 04/22/20 Therapeutic Interventions Therapeutic Interventions Aquatic Therapy,Balance Training,Home Exercise Program ,Joint Mobilizations,Manual Therapy,Neuromuscular Re- education,Patient/Caregiver Education,Self-Care/Home Management,Soft Tissue Mobilization,Taping, Therapeutic Activities, Therapeutic Exercises Modalities Cold Pack/Ice Massage,Electric Stimulation,Hot Packs, Infrared Therapy,Ultrasound Next Visit Focus/Plan Next Note Type Treatment Note Next Visit Plan Review TA strengthening, reassess bird dog, mihaela curl, DL heel slide added last tx, challenged core stabillztaion/ strengthen to allow progress to walking further distances.
--- NOTE | 2020-03-25 10:30 | PT.OTN ---
Current Diagnoses Pain in right knee (03/25/20) Low back pain (03/25/20) Dorsalgia, unspecified (03/25/20) Difficulty in walking, not elsewhere classified (03/25/20) Abnormal posture (03/25/20) Weakness (03/25/20) Physical Therapy Treatment Note PT-OP-A Visit Information Start: 11/14/19 17:50 Freq: Status: Active Protocol: Document 03/25/20 09:45 [facility] (Rec: 03/25/20 10:30 [facility] [id number]) Out-Patient Physical Therapy Visit Information Visit Information Visit Type Treatment Note Visit Start Time 09:46 Visit Stop Time 10:27 Total Visit Minutes 41 Visit Number Number of SENIOR CASE MANAGER Visits 0 PT-OP-B Current Condition Start: 11/14/19 17:50 Freq: Status: Active Protocol: Document 11/15/19 15:18 [facility] (Rec: 11/15/19 16:03 [facility] [id number]) Current Condition History of Current Condition Onset Date hurt again in July but started about 1 year ago Current Complaints R knee and L LBP History of Current Condition Pt reports pain will be there but not be so sharp then all of a sudden really bother him. Pt reports about 1 year ago LBP started and in July he fell back d/t stepping back and holding blue rock salt and fell into coworker but that inc pain. Reports it has not gotten better from that incident. He has seen a chiropractor 2x so far and will be seeing him again. Pt reports R knee pain happened when he fell in July. It doesn't bother him as much now but still hurts. He has not been working d/t pain and he is unable to lift. Pain goes from back and into leg. Pt can only stand about 15-20 min or less. He notes pain even with walking in grocery store. Even sitting he has pain. Cannot walk greater tahn 2 blocks d/t back pain. pt went for a run/walk about 1 week ago and regretted it after d/t pain. Pt recently has been moving around going side/side at night and having deififculty sleeping d/t pain. 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 [id number]) OP-PT Subjective Patient Comments Patient Comments Pt reports just a dull ache today. Waiting on steroid auth . Pt reports has not started walking yet. Pain mostly B lat thighs and L back PT-OP-F Manual Assessment Start: 11/14/19 17:50 Freq: Status: Active Protocol: Document 11/15/19 15:18 [facility] (Rec: 11/15/19 16:03 [facility] [id number]) Manual Assessments Soft Tissue Assessment Soft Tissue Mobility Assessment L>R QL, ES, HS, calf & glutes tight & tender Joint Mobility Assessment Joint Mobility Assessment L iliac crest higher, even greater throchanter PT-OP-G Mobility & Gait Start: 11/14/19 17:50 Freq: Status: Active Protocol: Document 11/15/19 15:18 [facility] (Rec: 11/15/19 16:03 [facility] [id number]) OP Gait Assessment Comments Gait Comments Dec stance time LLE, dec push off B, lat shifting with amb PT-OP-J Posture/Palpation/Skin Start: 11/14/19 17:50 Freq: Status: Active Protocol: Document 11/15/19 15:18 [facility] (Rec: 11/15/19 16:03 [facility] [id number]) Posture Evaluation Kamlesh Postural Classification System Kamlesh Postural Classifications Posterior/Anterior Vertebral Compression Test 0 Elbow Flexion Test 2 Lumbar Protective Mechanism Left AP 1 Lumbar Protective Mechanism Right AP 0 Lumbar Protective Mechanism Left PA 2 Lumbar Protective Mechanism Right PA 1 PT-OP-K Range of Motion Start: 11/14/19 17:50 Freq: Status: Active Protocol: Document 02/21/20 11:19 [facility] (Rec: 02/21/20 12:28 [facility] [id number]) Lumbar Spine Range of Motion Lumbar Spine Active Degrees Comments toe touch = 9.5 inches from floor lateral flexion to L= 21.5 inches with pinch pain at L low back lateral flexion R= 20 inches with stretching feeling on L lateral abdominal. PT-OP-L Special Tests Start: 11/14/19 17:50 Freq: Status: Active Protocol: Document 02/21/20 11:19 (Rec: 02/21/20 12:28 [id number]) Special Tests Lumbar Spine Special Tests SLR Test Results +ve L @ 80 degrees Comments pain at anterior medial knee region Slump Test Results +ve L with slight trunk flexion Comments pain at anterior medial knee region PT-OP-M Strength Start: 11/14/19 17:50 Freq: Status: Active Protocol: Document 02/21/20 11:19 (Rec: 02/21/20 12:29 [id number]) Hip Strength Hip Manual Muscle Testing Left Flexion (L2) 4 Good Extension (S1) 4 Good Abduction 3+ Fair+ Adduction 4 Good External Rotation 4- Good- Right Flexion (L2) 5 Normal Extension (S1) 5 Normal Abduction 5 Normal Adduction 5 Normal External Rotation 5 Normal Internal Rotation 5 Normal Knee Strength Knee Manual Muscle Testing Left Flexion (S2) 4 Good Extension (L3) 4- Good- Right Flexion (S2) 5 Normal Extension (L3) 5 Normal PT-OP-Q Treatments Start: 11/14/19 17:50 Freq: Status: Active Protocol: Document 03/25/20 09:45 [facility] (Rec: 03/25/20 10:30 [facility] [id number]) Therapeutic Exercises Supine Exercises TA Supine Exercise Name B heel slide Side bilateral Reps/Minutes 15 Comments occasional cuing for TA PPT, small range Standing Exercises Core pull down/ rows Resistance Tb #4 Reps/Minutes 2x10 each Comments good scap stab and core facilitation form and pacing hip hike Standing Exercise Name B hip hike Side bilateral Equipment Used contact rail Reps/Minutes 15 Comments on step Other Exercises bird dog Other Exercise Name arm/leg ext-individually Side bilateral Reps/Minutes 10 ea Comments occasional cuing for level pelvic and slow pacing stability standing PPT posture w/ dowel Other Exercise Name Posture at wall (seg roll up / down) Manual Therapy Treatment Soft Tissue Mobilization QL Body Location L QL/ES Mobilization Type Rolling,Sustained Pressure Intensity/Depth Moderate Body Position Sidelying PT-OP-R Modalities Start: 11/14/19 17:50 Freq: Status: Active Protocol: Document 11/22/19 10:34 [facility] (Rec: 11/22/19 11:19 [facility] [id number]) Hot Pack/Cold Pack Treatment Cold Pack Location lumbar Patient Position Prone Treatment Duration (minutes) 10 Hot Pack Location lumbar Patient Position Prone Treatment Duration (minutes) 10 PT-OP-T Assessment and Plan Start: 11/14/19 17:50 Freq: Status: Active Protocol: Document 03/25/20 09:45 [facility] (Rec: 03/25/20 10:30 [facility] [id number]) Physical Therapy Assessment Goals neural tension Impairment Pt has nerve pain at L 4 dermatome during special tests Intermediate Goal (LTG) Pt will be symptoms free for PSLR and slump test. LTG Duration 04/22/20 3 Impairment Strength Short Term Goal (STG) Pt will be indep with HEP STG Duration achieved Senior Java Web Developer Goal (LTG) 01/28 Pt will have 5/5 LE strenth B and 4/5 LPM, EFT & VCT in order to show improved postural stability to allow him to do typical daily activities without pain. LTG Duration 04/22/20 2 Impairment DANILO 25/50 Short Term Goal (STG) 01/28 goal met DANILO improves to 18/50 to show improved functional ability for inc participation in typicaly daily activities. Intermediate Goal (LTG) DANILO will improve to 7/50 to show improved functional ability for inc participation in typicaly daily activities. LTG Duration 04/22/20 1 Impairment activities. Short Term Goal (STG) Pt will be able to demonstrate good lifting mechanics to lift an object that is 10 lbs without inc pain. STG Duration 02/01/20 Intermediate Goal (LTG) 01/28 pt is going to return to work in a few weeks. Pt will be able to return to work with no greater than 2/10 pain. LTG Duration 04/22/20 Assessment Summary Assessment Pt required max ceuing on all exercises today to work on neutral pelvis during all exercises otherwise he went into ext of lumbar spine. Cut back quadruped exercsies d/t excessive lat lean to just single arm or leg at a time and pt improved with form Physical Therapy Plan Frequency and Duration Frequency of Treatment 2x/Week Duration of Treatment 2 months Plan of Care Start Date 02/21/20 Plan of Care End Date 04/22/20 Next Visit Focus/Plan Next Note Type Treatment Note Next Visit Plan Progress core stability as tolerated and work on mobility for dec pain, gait mechanics.
--- NOTE | 2020-03-27 14:29 | PT.OTN ---
Current Diagnoses Pain in right knee (03/27/20) Low back pain (03/27/20) Dorsalgia, unspecified (03/27/20) Difficulty in walking, not elsewhere classified (03/27/20) Abnormal posture (03/27/20) Weakness (03/27/20) Physical Therapy Treatment Note PT-OP-A Visit Information Start: 11/14/19 17:50 Freq: Status: Active Protocol: Document 03/27/20 13:48 [facility] (Rec: 03/27/20 14:29 [facility] [id number]) Out-Patient Physical Therapy Visit Information Visit Information Visit Type Treatment Note Visit Start Time 13:46 Visit Stop Time 14:26 Total Visit Minutes 40 Visit Number Number of SCRAP PICKER Visits 0 PT-OP-B Current Condition Start: 11/14/19 17:50 Freq: Status: Active Protocol: Document 11/15/19 15:18 [facility] (Rec: 11/15/19 16:03 [facility] [id number]) Current Condition History of Current Condition Onset Date hurt again in July but started about 1 year ago Current Complaints R knee and L LBP History of Current Condition Pt reports pain will be there but not be so sharp then all of a sudden really bother him. Pt reports about 1 year ago LBP started and in July he fell back d/t stepping back and holding blue rock salt and fell into coworker but that inc pain. Reports it has not gotten better from that incident. He has seen a chiropractor 2x so far and will be seeing him again. Pt reports R knee pain happened when he fell in July. It doesn't bother him as much now but still hurts. He has not been working d/t pain and he is unable to lift. Pain goes from back and into leg. Pt can only stand about 15-20 min or less. He notes pain even with walking in grocery store. Even sitting he has pain. Cannot walk greater tahn 2 blocks d/t back pain. pt went for a run/walk about 1 week ago and regretted it after d/t pain. Pt recently has been moving around going side/side at night and having deififculty sleeping d/t pain. 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 Pt notes he did a heat pack later in the evening. Reports he did exercises yesterday but felt sore in back after doing them. he feels like he may have overdid PT-OP-F Manual Assessment Start: 11/14/19 17:50 Freq: Status: Active Protocol: Document 11/15/19 15:18 [facility] (Rec: 11/15/19 16:03 [facility] [id number]) Manual Assessments Soft Tissue Assessment Soft Tissue Mobility Assessment L>R QL, ES, HS, calf & glutes tight & tender Joint Mobility Assessment Joint Mobility Assessment L iliac crest higher, even greater throchanter PT-OP-G Mobility & Gait Start: 11/14/19 17:50 Freq: Status: Active Protocol: Document 11/15/19 15:18 [facility] (Rec: 11/15/19 16:03 [facility] [id number]) OP Gait Assessment Comments Gait Comments Dec stance time LLE, dec push off B, lat shifting with amb PT-OP-J Posture/Palpation/Skin Start: 11/14/19 17:50 Freq: Status: Active Protocol: Document 11/15/19 15:18 [facility] (Rec: 11/15/19 16:03 [facility] [id number]) Posture Evaluation Kamlesh Postural Classification System Kamlesh Postural Classifications Posterior/Anterior Vertebral Compression Test 0 Elbow Flexion Test 2 Lumbar Protective Mechanism Left AP 1 Lumbar Protective Mechanism Right AP 0 Lumbar Protective Mechanism Left PA 2 Lumbar Protective Mechanism Right PA 1 PT-OP-K Range of Motion Start: 11/14/19 17:50 Freq: Status: Active Protocol: Document 02/21/20 11:19 [facility] (Rec: 02/21/20 12:28 [id number]) Lumbar Spine Range of Motion Lumbar Spine Active Degrees Comments toe touch = 9.5 inches from floor lateral flexion to L= 21.5 inches with pinch pain at L low back lateral flexion R= 20 inches with stretching feeling on L lateral abdominal. PT-OP-L Special Tests Start: 11/14/19 17:50 Freq: Status: Active Protocol: Document 02/21/20 11:19 (Rec: 02/21/20 12:28 [id number]) Special Tests Lumbar Spine Special Tests SLR Test Results +ve L @ 80 degrees Comments pain at anterior medial knee region Slump Test Results +ve L with slight trunk flexion Comments pain at anterior medial knee region PT-OP-M Strength Start: 11/14/19 17:50 Freq: Status: Active Protocol: Document 02/21/20 11:19 (Rec: 02/21/20 12:29 [id number]) Hip Strength Hip Manual Muscle Testing Left Flexion (L2) 4 Good Extension (S1) 4 Good Abduction 3+ Fair+ Adduction 4 Good External Rotation 4- Good- Right Flexion (L2) 5 Normal Extension (S1) 5 Normal Abduction 5 Normal Adduction 5 Normal External Rotation 5 Normal Internal Rotation 5 Normal Knee Strength Knee Manual Muscle Testing Left Flexion (S2) 4 Good Extension (L3) 4- Good- Right Flexion (S2) 5 Normal Extension (L3) 5 Normal PT-OP-Q Treatments Start: 11/14/19 17:50 Freq: Status: Active Protocol: Document 03/27/20 13:48 [facility] (Rec: 03/27/20 14:29 [facility] [id number]) Cardio Equipment Recumbent Bicycle Duration (Minutes) 6 Resistance 10 Seat Position 7 Therapeutic Exercises Supine Exercises TA Supine Exercise Name B heel slide-single leg at a time Side bilateral Reps/Minutes 15 Comments occasional cuing for TA PPT, small range Standing Exercises Core pull down/ rows Resistance Tb #4 Reps/Minutes 2x10 each Comments good scap stab and core facilitation form and pacing hip hike Standing Exercise Name B hip hike Side bilateral Equipment Used contact rail Reps/Minutes 15 Comments on step Other Exercises bird dog Other Exercise Name arm/leg ext-individually Side bilateral Reps/Minutes 10 ea Comments occasional cuing for level pelvic and slow pacing stability standing PPT posture w/ dowel Other Exercise Name Posture at wall (seg roll up / down) Manual Therapy Treatment Soft Tissue Mobilization adductor Body Location L Mobilization Type Rolling Body Position Hooklying Comments w/hip IR/ER& MFR of thigh Neuro Re-Education Treatment Other Activities core facilition Comments D1 pattern w/chop pattern to faciliate core w/LEs PT-OP-R Modalities Start: 11/14/19 17:50 Freq: Status: Active Protocol: Document 11/22/19 10:34 [facility] (Rec: 11/22/19 11:19 [facility] [id number]) Hot Pack/Cold Pack Treatment Cold Pack Location lumbar Patient Position Prone Treatment Duration (minutes) 10 Hot Pack Location lumbar Patient Position Prone Treatment Duration (minutes) 10 PT-OP-T Assessment and Plan Start: 11/14/19 17:50 Freq: Status: Active Protocol: Document 03/27/20 13:48 [facility] (Rec: 03/27/20 14:29 [facility] [id number]) Physical Therapy Assessment Goals neural tension Impairment Pt has nerve pain at L 4 dermatome during special tests Director Design Goal (LTG) Pt will be symptoms free for PSLR and slump test. LTG Duration 04/22/20 3 Impairment Strength Short Term Goal (STG) Pt will be indep with HEP STG Duration achieved Director Design Goal (LTG) 01/28 Pt will have 5/5 LE strenth B and 4/5 LPM, EFT & VCT in order to show improved postural stability to allow him to do typical daily activities without pain. LTG Duration 04/22/20 2 Impairment DANILO 25/50 Short Term Goal (STG) 01/28 goal met DANILO improves to 18/50 to show improved functional ability for inc participation in typicaly daily activities. Director Design Goal (LTG) DANILO will improve to 7/50 to show improved functional ability for inc participation in typicaly daily activities. LTG Duration 04/22/20 1 Impairment activities. Short Term Goal (STG) Pt will be able to demonstrate good lifting mechanics to lift an object that is 10 lbs without inc pain. STG Duration 02/01/20 [facility] Goal (LTG) 01/28 pt is going to return to work in a few weeks. Pt will be able to return to work with no greater than 2/10 pain. LTG Duration 04/22/20 Assessment Summary Assessment Dec pain and stiffness in LE after manual treatment of thigh. Pt had imroved core engagment after facilaition especially on L side. He still erquired cueign espeically with hip hikes and w/quadruped exercises. Physical Therapy Plan Next Visit Focus/Plan Next Note Type Treatment Note Next Visit Plan Progress core stability as tolerated and work on mobility for dec pain, gait mechanics.
--- NOTE | 2020-03-31 11:18 | PT.OTN ---
Current Diagnoses Pain in right knee (03/31/20) Low back pain (03/31/20) Dorsalgia, unspecified (03/31/20) Difficulty in walking, not elsewhere classified (03/31/20) Abnormal posture (03/31/20) Weakness (03/31/20) Physical Therapy Treatment Note PT-OP-A Visit Information Start: 11/14/19 17:50 Freq: Status: Active Protocol: Document 03/31/20 09:51 [facility] (Rec: 03/31/20 11:18 [facility] [id number]) Out-Patient Physical Therapy Visit Information Visit Information Visit Type Treatment Note Visit Start Time 09:49 Visit Stop Time 10:29 Total Visit Minutes 40 Visit Number Number of LINUX ADMIN Visits 0 PT-OP-B Current Condition Start: 11/14/19 17:50 Freq: Status: Active Protocol: Document 11/15/19 15:18 [facility] (Rec: 11/15/19 16:03 [facility] [id number]) Current Condition History of Current Condition Onset Date hurt again in July but started about 1 year ago Current Complaints R knee and L LBP History of Current Condition Pt reports pain will be there but not be so sharp then all of a sudden really bother him. Pt reports about 1 year ago LBP started and in July he fell back d/t stepping back and holding blue rock salt and fell into coworker but that inc pain. Reports it has not gotten better from that incident. He has seen a chiropractor 2x so far and will be seeing him again. Pt reports R knee pain happened when he fell in July. It doesn't bother him as much now but still hurts. He has not been working d/t pain and he is unable to lift. Pain goes from back and into leg. Pt can only stand about 15-20 min or less. He notes pain even with walking in grocery store. Even sitting he has pain. Cannot walk greater tahn 2 blocks d/t back pain. pt went for a run/walk about 1 week ago and regretted it after d/t pain. Pt recently has been moving around going side/side at night and having deififculty sleeping d/t pain. 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 [id number]) OP-PT Subjective Patient Comments Patient Comments Pt reports he still has the dull pain in low back and lat legs PT-OP-F Manual Assessment Start: 11/14/19 17:50 Freq: Status: Active Protocol: Document 11/15/19 15:18 [facility] (Rec: 11/15/19 16:03 [facility] [id number]) Manual Assessments Soft Tissue Assessment Soft Tissue Mobility Assessment L>R QL, ES, HS, calf & glutes tight & tender Joint Mobility Assessment Joint Mobility Assessment L iliac crest higher, even greater throchanter PT-OP-G Mobility & Gait Start: 11/14/19 17:50 Freq: Status: Active Protocol: Document 11/15/19 15:18 [facility] (Rec: 11/15/19 16:03 [facility] [id number]) OP Gait Assessment Comments Gait Comments Dec stance time LLE, dec push off B, lat shifting with amb PT-OP-J Posture/Palpation/Skin Start: 11/14/19 17:50 Freq: Status: Active Protocol: Document 11/15/19 15:18 [facility] (Rec: 11/15/19 16:03 [facility] [id number]) Posture Evaluation Kamlesh Postural Classification System Kamlesh Postural Classifications Posterior/Anterior Vertebral Compression Test 0 Elbow Flexion Test 2 Lumbar Protective Mechanism Left AP 1 Lumbar Protective Mechanism Right AP 0 Lumbar Protective Mechanism Left PA 2 Lumbar Protective Mechanism Right PA 1 PT-OP-K Range of Motion Start: 11/14/19 17:50 Freq: Status: Active Protocol: Document 02/21/20 11:19 [facility] (Rec: 02/21/20 12:28 HH [id number]) Lumbar Spine Range of Motion Lumbar Spine Active Degrees Comments toe touch = 9.5 inches from floor lateral flexion to L= 21.5 inches with pinch pain at L low back lateral flexion R= 20 inches with stretching feeling on L lateral abdominal. PT-OP-L Special Tests Start: 11/14/19 17:50 Freq: Status: Active Protocol: Document 02/21/20 11:19 HH (Rec: 02/21/20 12:28 HH [id number]) Special Tests Lumbar Spine Special Tests SLR Test Results +ve L @ 80 degrees Comments pain at anterior medial knee region Slump Test Results +ve L with slight trunk flexion Comments pain at anterior medial knee region PT-OP-M Strength Start: 11/14/19 17:50 Freq: Status: Active Protocol: Document 02/21/20 11:19 (Rec: 02/21/20 12:29 [id number]) Hip Strength Hip Manual Muscle Testing Left Flexion (L2) 4 Good Extension (S1) 4 Good Abduction 3+ Fair+ Adduction 4 Good External Rotation 4- Good- Right Flexion (L2) 5 Normal Extension (S1) 5 Normal Abduction 5 Normal Adduction 5 Normal External Rotation 5 Normal Internal Rotation 5 Normal Knee Strength Knee Manual Muscle Testing Left Flexion (S2) 4 Good Extension (L3) 4- Good- Right Flexion (S2) 5 Normal Extension (L3) 5 Normal PT-OP-Q Treatments Start: 11/14/19 17:50 Freq: Status: Active Protocol: Document 03/31/20 09:51 [facility] (Rec: 03/31/20 11:18 [facility] [id number]) Cardio Equipment Recumbent Bicycle Duration (Minutes) 6 Resistance 10 Seat Position 7 Gym Equipment Shuttle Recovery SL squat Details cued slow con/ecc with knee with midfoot Resistance 75# Shuttle Recovery Platform Stable Reps/Time 15x2 alternate BLE Therapeutic Exercises Supine Exercises TA Supine Exercise Name B heel slide-single leg at a time Side bilateral Reps/Minutes 15 Comments occasional cuing for TA PPT, L more difficult Standing Exercises hip hike Standing Exercise Name B hip hike Side bilateral Equipment Used contact rail Reps/Minutes 15 Comments on step Other Exercises bird dog Other Exercise Name arm/leg ext-individually Side bilateral Reps/Minutes 10 ea Comments occasional cuing for level pelvic and slow pacing stability standing PPT posture w/ dowel Other Exercise Name Posture at wall (seg roll up / down) Manual Therapy Treatment Soft Tissue Mobilization adductor Body Location L adductors &iliacus Mobilization Type Rolling Body Position Hooklying Comments w/hip IR/ER Joint Mobilizations hip Joint L distraction PT-OP-R Modalities Start: 11/14/19 17:50 Freq: Status: Active Protocol: Document 11/22/19 10:34 [facility] (Rec: 11/22/19 11:19 [facility] [id number]) Hot Pack/Cold Pack Treatment Cold Pack Location lumbar Patient Position Prone Treatment Duration (minutes) 10 Hot Pack Location lumbar Patient Position Prone Treatment Duration (minutes) 10 PT-OP-T Assessment and Plan Start: 11/14/19 17:50 Freq: Status: Active Protocol: Document 03/31/20 09:51 [facility] (Rec: 03/31/20 11:18 [facility] [id number]) Physical Therapy Assessment Goals neural tension Impairment Pt has nerve pain at L 4 dermatome during special tests Intermediate Goal (LTG) Pt will be symptoms free for PSLR and slump test. LTG Duration 04/22/20 3 Impairment Strength Short Term Goal (STG) Pt will be indep with HEP STG Duration achieved Intermediate Goal (LTG) 01/28 Pt will have 5/5 LE strenth B and 4/5 LPM, EFT & VCT in order to show improved postural stability to allow him to do typical daily activities without pain. LTG Duration 04/22/20 2 Impairment DANILO 25/50 Short Term Goal (STG) 01/28 goal met DANILO improves to 18/50 to show improved functional ability for inc participation in typicaly daily activities. [employer] Developer [employer] Goal (LTG) DANILO will improve to 7/50 to show improved functional ability for inc participation in typicaly daily activities. LTG Duration 04/22/20 1 Impairment activities. Short Term Goal (STG) Pt will be able to demonstrate good lifting mechanics to lift an object that is 10 lbs without inc pain. STG Duration 02/01/20 [employer] Goal (LTG) 01/28 pt is going to return to work in a few weeks. Pt will be able to return to work with no greater than 2/10 pain. LTG Duration 04/22/20 Assessment Summary Assessment Pt still required cueing with quadruped ext and with LLE during heel slide core activiation exercise but did improve with wall posture exercise. He did require reset with posture to do hip hike exercise Physical Therapy Plan Frequency and Duration Frequency of Treatment 2x/Week Duration of Treatment 2 months Plan of Care Start Date 02/21/20 Plan of Care End Date 04/22/20 Next Visit Focus/Plan Next Note Type Treatment Note Next Visit Plan Progress core stability as tolerated and work on mobility for dec pain, gait mechanics.
--- NOTE | 2020-04-03 11:14 | PT.OTN ---
Current Diagnoses Pain in right knee (04/03/20) Low back pain (04/03/20) Dorsalgia, unspecified (04/03/20) Difficulty in walking, not elsewhere classified (04/03/20) Abnormal posture (04/03/20) Weakness (04/03/20) Physical Therapy Treatment Note PT-OP-A Visit Information Start: 11/14/19 17:50 Freq: Status: Active Protocol: Document 04/03/20 10:38 [facility] (Rec: 04/03/20 11:14 [facility] [id number]) Out-Patient Physical Therapy Visit Information Visit Information Visit Type Treatment Note Visit Start Time 10:34 Visit Stop Time 11:12 Total Visit Minutes 38 Visit Number Number of SPORTS ANCHOR Visits 0 PT-OP-B Current Condition Start: 11/14/19 17:50 Freq: Status: Active Protocol: Document 11/15/19 15:18 [facility] (Rec: 11/15/19 16:03 [facility] [id number]) Current Condition History of Current Condition Onset Date hurt again in July but started about 1 year ago Current Complaints R knee and L LBP History of Current Condition Pt reports pain will be there but not be so sharp then all of a sudden really bother him. Pt reports about 1 year ago LBP started and in July he fell back d/t stepping back and holding blue rock salt and fell into coworker but that inc pain. Reports it has not gotten better from that incident. He has seen a chiropractor 2x so far and will be seeing him again. Pt reports R knee pain happened when he fell in July. It doesn't bother him as much now but still hurts. He has not been working d/t pain and he is unable to lift. Pain goes from back and into leg. Pt can only stand about 15-20 min or less. He notes pain even with walking in grocery store. Even sitting he has pain. Cannot walk greater tahn 2 blocks d/t back pain. pt went for a run/walk about 1 week ago and regretted it after d/t pain. Pt recently has been moving around going side/side at night and having deififculty sleeping d/t pain. 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 [id number]) OP-PT Subjective Patient Comments Patient Comments Pt reports about the same as last week. Mostly achey Patient Reported Progress Same PT-OP-F Manual Assessment Start: 11/14/19 17:50 Freq: Status: Active Protocol: Document 11/15/19 15:18 LR (Rec: 11/15/19 16:03 [facility] [id number]) Manual Assessments Soft Tissue Assessment Soft Tissue Mobility Assessment L>R QL, ES, HS, calf & glutes tight & tender Joint Mobility Assessment Joint Mobility Assessment L iliac crest higher, even greater throchanter PT-OP-G Mobility & Gait Start: 11/14/19 17:50 Freq: Status: Active Protocol: Document 11/15/19 15:18 [facility] (Rec: 11/15/19 16:03 [facility] [id number]) OP Gait Assessment Comments Gait Comments Dec stance time LLE, dec push off B, lat shifting with amb PT-OP-J Posture/Palpation/Skin Start: 11/14/19 17:50 Freq: Status: Active Protocol: Document 11/15/19 15:18 [facility] (Rec: 11/15/19 16:03 [facility] [id number]) Posture Evaluation Kamlesh Postural Classification System Kamlesh Postural Classifications Posterior/Anterior Vertebral Compression Test 0 Elbow Flexion Test 2 Lumbar Protective Mechanism Left AP 1 Lumbar Protective Mechanism Right AP 0 Lumbar Protective Mechanism Left PA 2 Lumbar Protective Mechanism Right PA 1 PT-OP-K Range of Motion Start: 11/14/19 17:50 Freq: Status: Active Protocol: Document 02/21/20 11:19 HH (Rec: 02/21/20 12:28 HH [id number]) Lumbar Spine Range of Motion Lumbar Spine Active Degrees Comments toe touch = 9.5 inches from floor lateral flexion to L= 21.5 inches with pinch pain at L low back lateral flexion R= 20 inches with stretching feeling on L lateral abdominal. PT-OP-L Special Tests Start: 11/14/19 17:50 Freq: Status: Active Protocol: Document 02/21/20 11:19 HH (Rec: 02/21/20 12:28 HH [id number]) Special Tests Lumbar Spine Special Tests SLR Test Results +ve L @ 80 degrees Comments pain at anterior medial knee region Slump Test Results +ve L with slight trunk flexion Comments pain at anterior medial knee region PT-OP-M Strength Start: 11/14/19 17:50 Freq: Status: Active Protocol: Document 02/21/20 11:19 HH (Rec: 02/21/20 12:29 HH [id number]) Hip Strength Hip Manual Muscle Testing Left Flexion (L2) 4 Good Extension (S1) 4 Good Abduction 3+ Fair+ Adduction 4 Good External Rotation 4- Good- Right Flexion (L2) 5 Normal Extension (S1) 5 Normal Abduction 5 Normal Adduction 5 Normal External Rotation 5 Normal Internal Rotation 5 Normal Knee Strength Knee Manual Muscle Testing Left Flexion (S2) 4 Good Extension (L3) 4- Good- Right Flexion (S2) 5 Normal Extension (L3) 5 Normal PT-OP-Q Treatments Start: 11/14/19 17:50 Freq: Status: Active Protocol: Document 04/03/20 10:38 [facility] (Rec: 04/03/20 11:14 [facility] [id number]) Cardio Equipment Recumbent Bicycle Duration (Minutes) 6 Resistance 10 Seat Position 7 Therapeutic Exercises Supine Exercises flex Supine Exercise Name march alt Side bilateral Reps/Minutes 15 TA Supine Exercise Name SLR w/TA Side bilateral Reps/Minutes 2x5 pelvic tilt Supine Exercise Name w/diaphragmatic breathing when holding Standing Exercises hip hike Standing Exercise Name B hip hike Side bilateral Equipment Used contact rail Reps/Minutes 10 Comments on step Other Exercises bird dog Other Exercise Name arm/leg ext-individually Side bilateral Reps/Minutes 10 ea Comments occasional cuing for level pelvic and slow pacing stability standing PPT posture w/ dowel Other Exercise Name Posture at wall (seg roll up / down) Manual Therapy Treatment Soft Tissue Mobilization ITB Body Location L proximal and progressed to distally Mobilization Type Rolling Body Position Hooklying gluteal muscle group Body Location L w/foucs on sup glutes Mobilization Type Sustained Pressure,Trigger Point Release Intensity/Depth Moderate Body Position Sidelying PT-OP-R Modalities Start: 11/14/19 17:50 Freq: Status: Active Protocol: Document 11/22/19 10:34 LR (Rec: 11/22/19 11:19 [facility] [id number]) Hot Pack/Cold Pack Treatment Cold Pack Location lumbar Patient Position Prone Treatment Duration (minutes) 10 Hot Pack Location lumbar Patient Position Prone Treatment Duration (minutes) 10 PT-OP-T Assessment and Plan Start: 11/14/19 17:50 Freq: Status: Active Protocol: Document 04/03/20 10:38 [facility] (Rec: 04/03/20 11:14 [facility] [id number]) Physical Therapy Assessment Goals neural tension Impairment Pt has nerve pain at L 4 dermatome during special tests Sub Plant Manager Goal (LTG) Pt will be symptoms free for PSLR and slump test. LTG Duration 04/22/20 3 Impairment Strength Short Term Goal (STG) Pt will be indep with HEP STG Duration achieved Sub Plant Manager Goal (LTG) 01/28 Pt will have 5/5 LE strenth B and 4/5 LPM, EFT & VCT in order to show improved postural stability to allow him to do typical daily activities without pain. LTG Duration 04/22/20 2 Impairment DANILO 25/50 Short Term Goal (STG) 01/28 goal met DANILO improves to 18/50 to show improved functional ability for inc participation in typicaly daily activities. [employer] Plant Manager Goal (LTG) DANILO will improve to 7/50 to show improved functional ability for inc participation in typicaly daily activities. LTG Duration 04/22/20 1 Impairment activities. Short Term Goal (STG) Pt will be able to demonstrate good lifting mechanics to lift an object that is 10 lbs without inc pain. STG Duration 02/01/20 [employer] Plant Manager Goal (LTG) 01/28 pt is going to return to work in a few weeks. Pt will be able to return to work with no greater than 2/10 pain. LTG Duration 04/22/20 Assessment Summary Assessment Cueing for breathing reqjuired when doing all exercises. Occ need to reset lumbar spine positiong with all exercises. Physical Therapy Plan Frequency and Duration Frequency of Treatment 2x/Week Duration of Treatment 2 months Plan of Care Start Date 02/21/20 Plan of Care End Date 04/22/20 Next Visit Focus/Plan Next Note Type Treatment Note Next Visit Plan Progress core stability as tolerated and work on mobility for dec pain, gait mechanics.
--- NOTE | 2020-04-08 11:36 | PT-OP ANOTE ---
Pt called re: no show. He had forgotten appointment and apologized. He was reminded of next appt and plans to attend.
--- NOTE | 2020-05-13 17:48 | PT.OPDS ---
Current Diagnoses Pain in right knee (04/03/20) Low back pain (04/03/20) Dorsalgia, unspecified (04/03/20) Difficulty in walking, not elsewhere classified (04/03/20) Abnormal posture (04/03/20) Weakness (04/03/20) Visit Care Team Role Provider Type Kaz Cosme MD Attending Provider Physician Family Provider Primary Care Provider Referring Provider Specialty: Family Practice Address: [address] [place] [address], [facility] Email: [email or web address] Visit Number Visit Number Discharge Summary PT-OP-B Current Condition Start: 11/14/19 17:50 Freq: Status: Active Protocol: Document 11/15/19 15:18 [facility] (Rec: 11/15/19 16:03 [facility] [id number]) Current Condition History of Current Condition Onset Date hurt again in July but started about 1 year ago Current Complaints R knee and L LBP History of Current Condition Pt reports pain will be there but not be so sharp then all of a sudden really bother him. Pt reports about 1 year ago LBP started and in July he fell back d/t stepping back and holding blue rock salt and fell into coworker but that inc pain. Reports it has not gotten better from that incident. He has seen a chiropractor 2x so far and will be seeing him again. Pt reports R knee pain happened when he fell in July. It doesn't bother him as much now but still hurts. He has not been working d/t pain and he is unable to lift. Pain goes from back and into leg. Pt can only stand about 15-20 min or less. He notes pain even with walking in grocery store. Even sitting he has pain. Cannot walk greater tahn 2 blocks d/t back pain. pt went for a run/walk about 1 week ago and regretted it after d/t pain. Pt recently has been moving around going side/side at night and having deififculty sleeping d/t pain. 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 Mostly achey Patient Reported Progress Same PT-OP-F Manual Assessment Start: 11/14/19 17:50 Freq: Status: Active Protocol: Document 11/15/19 15:18 [facility] (Rec: 11/15/19 16:03 [facility] [id number]) Manual Assessments Soft Tissue Assessment Soft Tissue Mobility Assessment L>R QL, ES, HS, calf & glutes tight & tender Joint Mobility Assessment Joint Mobility Assessment L iliac crest higher, even greater throchanter PT-OP-G Mobility & Gait Start: 11/14/19 17:50 Freq: Status: Active Protocol: Document 11/15/19 15:18 [facility] (Rec: 11/15/19 16:03 [facility] [id number]) OP Gait Assessment Comments Gait Comments Dec stance time LLE, dec push off B, lat shifting with amb PT-OP-J Posture/Palpation/Skin Start: 11/14/19 17:50 Freq: Status: Active Protocol: Document 11/15/19 15:18 [facility] (Rec: 11/15/19 16:03 [facility] [id number]) Posture Evaluation Kamlesh Postural Classification System Kamlesh Postural Classifications Posterior/Anterior Vertebral Compression Test 0 Elbow Flexion Test 2 Lumbar Protective Mechanism Left AP 1 Lumbar Protective Mechanism Right AP 0 Lumbar Protective Mechanism Left PA 2 Lumbar Protective Mechanism Right PA 1 PT-OP-K Range of Motion Start: 11/14/19 17:50 Freq: Status: Active Protocol: Document 02/21/20 11:19 [facility] (Rec: 02/21/20 12:28 [facility] [id number]) Lumbar Spine Range of Motion Lumbar Spine Active Degrees Comments toe touch = 9.5 inches from floor lateral flexion to L= 21.5 inches with pinch pain at L low back lateral flexion R= 20 inches with stretching feeling on L lateral abdominal. PT-OP-L Special Tests Start: 11/14/19 17:50 Freq: Status: Active Protocol: Document 02/21/20 11:19 [facility] (Rec: 02/21/20 12:28 [facility] [id number]) Special Tests Lumbar Spine Special Tests SLR Test Results +ve L @ 80 degrees Comments pain at anterior medial knee region Slump Test Results +ve L with slight trunk flexion Comments pain at anterior medial knee region PT-OP-M Strength Start: 11/14/19 17:50 Freq: Status: Active Protocol: Document 02/21/20 11:19 (Rec: 02/21/20 12:29 [id number]) Hip Strength Hip Manual Muscle Testing Left Flexion (L2) 4 Good Extension (S1) 4 Good Abduction 3+ Fair+ Adduction 4 Good External Rotation 4- Good- Right Flexion (L2) 5 Normal Extension (S1) 5 Normal Abduction 5 Normal Adduction 5 Normal External Rotation 5 Normal Internal Rotation 5 Normal Knee Strength Knee Manual Muscle Testing Left Flexion (S2) 4 Good Extension (L3) 4- Good- Right Flexion (S2) 5 Normal Extension (L3) 5 Normal PT-OP-T Assessment and Plan Start: 11/14/19 17:50 Freq: Status: Active Protocol: Document 05/13/20 17:48 [facility] (Rec: 05/13/20 17:48 [facility] [id number]) Physical Therapy Assessment Assessment Summary Assessment Pt called re: scheduling further and said he starting seeing Dr Hernandez for injections and probably wont return to PT. DC at this time d/t pt request Physical Therapy Plan Discharge Physical Therapy Discharge Reasons No Longer Attending PT
== END 2020-05-14 10:35 | disposition home or self-care (01) ==
LOC: PHYS 10:30
PROVIDERS: Family Provider Family Medicine; PCP Family Medicine; Referring Provider Family Medicine; Visit Provider Family Medicine
DX: M25.561 Pain in right knee (principal); M54.5 Low back pain; M54.9 Dorsalgia, unspecified; R53.1 Weakness; R29.3 Abnormal posture; R26.2 Difficulty in walking, not elsewhere classified
CPT/HCPCS: 97010; 97110; 97112; 97116; 97140; 97162; 97164; 97530; 97535

== ENCOUNTER → 2020-04-29 14:06 | Outpatient (CLI) | payer OTHER, SELFPAY ==
[2020-04-29 15:40] LABS: COVID19 -Nasal RAPID Negative (Negative)
== END ==
PROVIDERS: Family Provider Family Medicine; PCP Family Medicine; Visit Provider Physical Medicine & Rehabilitation
DX: Z01.812 Encounter for preprocedural laboratory examination (principal); Z20.828 Contact with and (suspected) exposure to other viral communicable diseases
CPT/HCPCS: 87635; C9803

== ENCOUNTER 2020-05-01 09:33 | Outpatient (CLI) | payer OTHER, SELFPAY ==
[2020-05-01] VITALS (8 sets, daily range): BP systolic 129–148; BP diastolic 60–74; PULSE 76–90; RESP 12–23; TEMP 36.2; O2SAT 96–99
--- NOTE | 2020-05-01 09:35 | DI.RAD.S_ITS ---
PROCEDURE: PAIN L INTERLAMINAR/CAUDAL INJ INDICATIONS: SPONDYLOSIS COMPARISON: [facility] Vernon Heber, , LUMBAR TRANSFORAMINAL TAPAN, 04/09/2020, 9:57. FINDINGS: Fluoroscopic spot filming was performed to verify placement of a spinal needle at the L4-L5 level, as labeled on the films. Appropriate location of the needle tip was confirmed by injection of iodinated contrast. IMPRESSION: Intraprocedural examination within normal limits. Dictated by: Felipe Miller M.D. on 05/01/2020 at 10:43 Approved by: Felipe Miller M.D. on 05/01/2020 at 10:44
[2020-05-01] MEDS: MIDAZOLAM 5 MG/5 ML VIAL IV (10:32)
[2020-05-01] MEDS: DEXAMETHASONE 10 MG/ML VIAL 20 MG INJ (10:35)
[2020-05-01] MEDS: BUPIVACAINE 0.25% (PF) VIAL 2 ML INJ (10:36)
[2020-05-01] MEDS: BETAMETHASONE 30 MG/5 ML MDV 6 MG INJ (10:36)
[2020-05-01] MEDS: IOPAMIDOL 15 ML VIAL 3 ML INJ (10:36)
--- NOTE | 2020-05-01 10:41 | P.PCN_ITS ---
Date/Time/Diagnoses Date of procedure: 05/01/20 Time of procedure: 10:41 Pre-procedure diagnosis: 1. HNP WITH RADICULAR FEATURES, 2. MULTILEVEL CENTRAL STENOSIS, Post-procedure diagnosis: same Procedure Notes Procedure: 1. FLUOROSCOPICALLY GUIDED CONTRAST CONTROLLED INTERLAMINAR EPIDURAL STEROID INJECTION -L4/5 Indications: Brock is referred by Dr. Cosme for treatment of Bilateral Foraminal Stenosis R>L LE symptoms. Physician: Jose R Hernandez Total Fluoroscopy time (seconds): 7 Total sedation minutes: 7 Complications: none Procedure in detail & Post-procedure care: FINDINGS Multilevel Central Spinal Stenosis with Nerve Root Compression DESCRIPTION OF PROCEDURE Fluoroscopically guided, contrast-controlled L4/5 translaminar epidural steroid injection. Following review of allergy and review of potential side effects and complications, including, but not necessarily limited to, infection, allergic reaction, local tissue breakdown, temporary as well as permanent nerve injury, paralysis, stroke and possible , the patient indicated that the patient understood and agreed to proceed. An informed consent document was signed by the patient, witnessed by a nurse, and placed in the patient's chart. Additionally, other treatment options including modalities, medications, and physical therapy were reviewed with the patient. After review of previous anaesthesic history and IV conscious sedation the patient was deemed safe to proceed with today?s procedure with IV conscious sedation as ASA class II designation. Safety time-out was performed to confirm patient ID, procedure to be performed and site of procedure. IV sedation was accomplished with a combination of 2mg of Versed was administered by the RN after DO order, titrated to patient comfort during the course of the procedure while the patient remained responsive to all verbal commands In the prone position, following sterile prep and drape of the lumbar region, the L4/5 translaminar space was identified fluoroscopically. The skin was anesthetized via a 25-gauge, 1.5inch needle with 1% lidocaine solution. At this point, a 22-gauge short bevel spinal needle was atraumatically introduced and a dvanced under fluoroscopic guidance into the region of the L4/5 translaminar space. Depth was confirmed on lateral view. Radiological data, including multiple fluoroscopic views of the lumbar spine, reveal a spinal needle at the L4/5 translaminar space. Lateral views then show placement of the needle in the epidural space. Subsequent views show contrast material flowing superiorly and inferiorly in the epidural space. No vascular or intrathecal uptake is observed. At this point, using loss of resistance technique with saline and air, the epidural space was entered. This was confirmed following negative aspiration with injection of approximately 1.5cc of Isovue 200, showing excellent epidural flow without vascular or intrathecal uptake. At this point, 1cc of 1% lidocaine solution combined with 3cc or 20mg of dexamethasone and 6mg betamethasone was injected without incident. The patient tolerated the procedure well without signs or symptoms of complications prior to transfer to the recovery area continued monitoring without incident. The patient was then transferred to the recovery area where they were observed for an appropriate period of time after the injection. The patient reported a VAS score of 6 prior to the procedure and a post- procedure VAS of 0. POST OP INSTRUCTIONS The patient was provided a Pain Log to continue to record their response to the target-specific procedure prior to follow-up visit with their referring physician. Additionally, specific post-injection care instructions and a contact number to our office were provided if concerns arise regarding possible complications associated with the procedure are suspected.
== END 2020-05-01 11:07 | disposition home or self-care (01) ==
LOC: RAD 09:34
PROVIDERS: Family Provider Family Medicine; PCP Family Medicine; Referring Provider Physical Medicine & Rehabilitation; Visit Provider Physical Medicine & Rehabilitation
DX: M51.16 Intervertebral disc disorders with radiculopathy, lumbar region (principal); M48.061 Spinal stenosis, lumbar region without neurogenic claudication
CPT/HCPCS: 62323; J0702; J1100; J2250; J3010

== ENCOUNTER → 2020-05-13 09:17 | Outpatient (CLI) | payer OTHER, SELFPAY ==
[2020-05-13 10:12] LABS: Add Manual Diff / Slide Review NO; Basophils Absolute Auto 100 /uL (0-100); Basophils Percent Auto 1.3 % (0-2); Eosinophils Absolute Auto 100 /uL (0-450); Eosinophils Percent Auto 1.8 % (2-4); Hematocrit 42.6 % (41-53); Hemoglobin 14.7 g/dL (13.5-17.5); Lymphocytes Absolute Auto 1900 /uL (1100-4500); Mean Corpuscular HGB Conc 34.6 % (30-36); Mean Corpuscular Hemoglobin 33.9 PG (26-34); Monocytes Absolute Auto 700 /uL (0-900); Monocytes Percent Auto 8.7 % (3-14); Neutrophils Absolute Auto 5000 /uL (1500-7000); Neutrophils Percent Auto 64.2 % (50-75); Platelet Count 132 X10^3/uL (150-400); Red Blood Cell Count 4.35 X10^6/uL (4.5-5.9); Red Cell Distribution Width 12.9 % (11.6-14.8); White Blood Cell Count 7.8 X10^3/uL (4.5-11.0)
[2020-05-13 10:26] LABS: Alanine Aminotransferase 118 IU/L (<50); Albumin 4.3 g/dL (3.5-5.0); Albumin Globulin Ratio 1.4 (1.0-2.8); Alkaline Phosphatase 82 U/L (38-126); Aspartate Aminotransferase 66 IU/L (17-59); BUN Creatinine Ratio 17.4 (6-22); Bilirubin Total 1.1 mg/dL (0.2-1.3); Blood Urea Nitrogen 16 mg/dL (9-20); Calcium 9.3 mg/dL (8.4-10.2); Carbon Dioxide 30 mmol/L (22-32); Chloride 99 mmol/L (98-107); Cholesterol 159 mg/dL (140-199); Estimated Glomerular Filt Rate > 60.0 mL/min (>60); Glucose 144 mg/dL (80-110); HDL Cholesterol 40 mg/dL (40-60); LDL Cholesterol Calculated 83 mg/dL (<100); Potassium 5.3 mmol/L (3.4-5.1); Sodium 136 mmol/L (137-145); Total Protein 7.3 g/dL (6.3-8.2); Triglycerides 178 mg/dL (35-150)
[2020-05-13 10:58] LABS: HEMOLYSIS 18 (0-50); Prostate Specific Antigen Scrn 0.496 ng/mL (0.1-4.0)
== END ==
PROVIDERS: Family Provider Family Medicine; PCP Family Medicine; Referring Provider Family Medicine; Visit Provider Family Medicine
DX: E78.2 Mixed hyperlipidemia (principal); Z12.5 Encounter for screening for malignant neoplasm of prostate
CPT/HCPCS: 36415; 80053; 80061; 85025; G0103

== ENCOUNTER → 2020-05-19 07:38 | Outpatient (CLI) | payer OTHER, SELFPAY ==
[2020-05-19 08:53] LABS: Hemoglobin A1C% w Est Avg Glu 6.8 % (4.0-6.0)
[2020-05-19 09:21] LABS: BUN Creatinine Ratio 18.1 (6-22); Blood Urea Nitrogen 17 mg/dL (9-20); Calcium 9.2 mg/dL (8.4-10.2); Carbon Dioxide 32 mmol/L (22-32); Chloride 99 mmol/L (98-107); Estimated Glomerular Filt Rate > 60.0 mL/min (>60); Glucose 122 mg/dL (80-110); HEMOLYSIS < 15 (0-50); Sodium 136 mmol/L (137-145)
[2020-05-20 04:13] LABS: HBsAg Screen Negative (Negative); Hepatitis A Antibody IgM Negative (Negative); Hepatitis B Core Antibody IgM Negative (Negative); Hepatitis C Antibody <0.1 s/co ratio (0.0-0.9)
== END ==
PROVIDERS: Family Provider Family Medicine; PCP Family Medicine; Referring Provider Family Medicine; Visit Provider Family Medicine
DX: I10 Essential (primary) hypertension (principal); R73.09 Other abnormal glucose; R74.8 Abnormal levels of other serum enzymes
CPT/HCPCS: 36415; 80048; 80074; 83036

== ENCOUNTER → 2020-06-10 12:41 | Outpatient (CLI) | payer OTHER, SELFPAY ==
[2020-06-10 13:50] LABS: COVID19 -Nasal RAPID Negative (Negative)
== END ==
PROVIDERS: Family Provider Family Medicine; PCP Family Medicine; Referring Provider Physical Medicine & Rehabilitation; Visit Provider Physical Medicine & Rehabilitation
DX: Z01.812 Encounter for preprocedural laboratory examination (principal); Z20.822 Contact with and (suspected) exposure to COVID-19
CPT/HCPCS: 87635; C9803

== ENCOUNTER 2020-06-12 14:50 | Outpatient (CLI) | payer OTHER, SELFPAY ==
[2020-06-12] VITALS (8 sets, daily range): BP systolic 114–134; BP diastolic 58–72; PULSE 78–88; RESP 12–22; TEMP 36.9; O2SAT 95–99
--- NOTE | 2020-06-12 14:55 | DI.RAD.S_ITS ---
PROCEDURE: PAIN L/S TRANSFORAMINAL INJECT INDICATIONS: SPONDYLOSIS COMPARISON: [facility], XA, PAIN L INTERLAMINAR/CAUDAL INJ, 05/01/2020, 10:33. FINDINGS: Fluoroscopic spot filming was performed to verify placement of a spinal needle at the L4-L5 level, as labeled on the films. Appropriate location of the needle tip was confirmed by injection of iodinated contrast. IMPRESSION: Intraprocedural examination within normal limits. Dictated by: Felipe Miller M.D. on 06/12/2020 at 15:38 Approved by: Felipe Miller M.D. on 06/12/2020 at 15:38
[2020-06-12] MEDS: BUPIVACAINE 0.25% (PF) VIAL 2 ML INJ (15:30)
[2020-06-12] MEDS: IOPAMIDOL 15 ML VIAL 3 ML INJ (15:30)
[2020-06-12] MEDS: DEXAMETHASONE 10 MG/ML VIAL 20 MG INJ (15:30)
[2020-06-12] MEDS: BETAMETHASONE 30 MG/5 ML MDV 6 MG INJ (15:30)
[2020-06-12] MEDS: MIDAZOLAM 5 MG/5 ML VIAL IV (15:35)
--- NOTE | 2020-06-12 15:48 | P.PCN_ITS ---
Date/Time/Diagnoses Date of procedure: 06/12/20 Time of procedure: 15:48 Pre-procedure diagnosis: 1. FORAMINAL STENOSIS WITH LE SYMPTOMS Post-procedure diagnosis: same Procedure Notes Procedure: 1. FLUOROSCOPICALLY GUIDED CONTRAST CONTROLLED TRANSFORAMINAL EPIDURAL STEROID INJECTION - RIGHT L4/5 TFESI Indications: Brock is referred by Dr. Jorgensen for treatment of Foraminal Stenosis with Right LE Symptoms Physician: Jose R Hernandez Total Fluoroscopy time (seconds): 7 Total sedation minutes: 10 Complications: none Procedure in detail & Post-procedure care: FINDINGS Foraminal Nerve Root Compression secondary to disc disease and facet hypertrophy DESCRIPTION OF PROCEDURE Following review of allergy and review of potential side effects and complications, including, but not necessarily limited to, infection, allergic reaction, local tissue breakdown, stroke, temporary or permanent nerve injury, paralysis, and possible , the patient indicated that the patient understood and agreed to proceed. An informed consent document was signed by the patient, witnessed by a nurse, and placed in the patient's chart. Additionally, other treatment options including medications, modalities, and physical therapy were reviewed with the patient. After review of previous anaesthesic history and IV conscious sedation the patient was deemed safe to proceed with today?s procedure with IV conscious sedation as ASA class II designation. Safety time-out was performed to confirm patient ID, procedure to be performed and site of procedure. IV sedation was accomplished with a combination of 2mg of Versed was administered by the RN after DO order, titrated to patient comfort during the course of the procedure while the patient remained responsive to all verbal commands In the prone position following sterile prep and drape of the lumbar region, the Right L4/5 posterior neuroforamen was identified fluoroscopically. The skin was anesthetized via a 25-gauge 1.5-inch needle with 1% lidocaine solution. At this point, a 25-gauge 3.5-inch spinal needle was atraumatically introduced and advanced under fluoroscopic guidance through the posterior Right L4/5 neuroforamen to approximately the anterior aspect of the canal. Depth was confirmed on lateral view. Following negative aspiration, injection of approximately 1.5cc of Isovue 200 under live fluoroscopy in the AP view co nfirmed excellent flow along the nerve root, into the epidural space without vascular or intrathecal uptake observed Radiological data, including multiple fluoroscopic views of the lumbosacral spin e, reveal a spinal needle at the right L4/5 posterior neuroforamen. Subsequent views show flow of contrast material flowing superiorly and inferiorly along the nerve root confirming epidural flow. Subsequently, a test dose of 1.5 cc of 1% lidocaine solution was administered and patient was observed for two minutes for signs or symptoms of complications, including abdominal pain, shortness of breath, bilateral upper or lower extremity weakness, nausea and vomiting, prior to steroid injection. At this point, a total of 3cc or 20mg of dexamethasone and 6mg of betamethasone was injected without incident. The procedure tolerated the procedure well without signs or symptoms of complications prior to transfer to the recovery area continued monitoring without incident. The patient was then transferred to the recovery area where they were observed for an appropriate time after the injection. The patient reported a VAS score of 7 prior to the procedure and a post- procedure VAS of 0. POST OP INSTRUCTIONS The patient was provided a Pain Log to continue to record their response to the target-specific procedure prior to follow-up visit with their referring physician. Additionally, specific post-injection care instructions and a contact number to our office were provided if concerns arise regarding possible complications associated with the procedure are suspected.
== END 2020-06-12 16:13 | disposition home or self-care (01) ==
LOC: RAD 14:55
PROVIDERS: Family Provider Family Medicine; PCP Family Medicine; Referring Provider Physical Medicine & Rehabilitation; Visit Provider Physical Medicine & Rehabilitation
DX: M43.16 Spondylolisthesis, lumbar region (principal); M47.816 Spondylosis without myelopathy or radiculopathy, lumbar region
CPT/HCPCS: 64483; 99152; J0702; J1100; J2250; J3010

== ENCOUNTER → 2020-08-07 11:42 | Outpatient (CLI) | payer OTHER, SELFPAY ==
[2020-08-07 12:32] LABS: Creatinine Urine Random 216.6 mg/dL
[2020-08-07 12:38] LABS: Microalbumin Urine Random < 0.6 mg/dL (0-1.6)
[2020-08-07 12:52] LABS: Add Manual Diff / Slide Review NO; Basophils Absolute Auto 100 /uL (0-100); Basophils Percent Auto 1.5 % (0-2); Eosinophils Absolute Auto 200 /uL (0-450); Eosinophils Percent Auto 2.7 % (2-4); Hematocrit 43.8 % (41-53); Hemoglobin 14.9 g/dL (13.5-17.5); Lymphocytes Absolute Auto 1900 /uL (1100-4500); Lymphocytes Percent Auto 30.9 % (25-40); Mean Corpuscular Hemoglobin 33.8 PG (26-34); Mean Corpuscular Volume 99.3 fL (80-100); Monocytes Absolute Auto 600 /uL (0-900); Neutrophils Absolute Auto 3300 /uL (1500-7000); Neutrophils Percent Auto 54.9 % (50-75); Platelet Count 160 X10^3/uL (150-400); Red Blood Cell Count 4.41 X10^6/uL (4.5-5.9); Red Cell Distribution Width 13.1 % (11.6-14.8)
[2020-08-07 13:00] LABS: Prothrombin Time 11.2 SECONDS (10.1-12.7)
[2020-08-07 13:01] LABS: Hemoglobin A1C% w Est Avg Glu 6.4 % (4.0-6.0)
[2020-08-07 13:02] LABS: PTT Partial Thromboplastin Tim 30 SECONDS (26.4-36.2)
[2020-08-07 13:15] LABS: Alanine Aminotransferase 90 IU/L (<50); Albumin 4.8 g/dL (3.5-5.0); Albumin Globulin Ratio 1.9 (1.0-2.8); Alkaline Phosphatase 74 U/L (38-126); Aspartate Aminotransferase 56 IU/L (17-59); BUN Creatinine Ratio 19.8 (6-22); Blood Urea Nitrogen 19 mg/dL (9-20); Calcium 9.7 mg/dL (8.4-10.2); Carbon Dioxide 27 mmol/L (22-32); Chloride 104 mmol/L (98-107); Estimated Glomerular Filt Rate > 60.0 mL/min (>60); Globulin 2.5 g/dL (1.7-4.1); Glucose 112 mg/dL (80-110); HEMOLYSIS < 15 (0-50); Sodium 141 mmol/L (137-145); Total Protein 7.3 g/dL (6.3-8.2)
[2020-08-08 04:52] LABS: HBsAg Screen Negative (Negative); Hepatitis A Antibody IgM Negative (Negative); Hepatitis B Core Antibody IgM Negative (Negative); Hepatitis C Antibody <0.1 s/co ratio (0.0-0.9)
== END ==
PROVIDERS: Family Provider Family Medicine; PCP Family Medicine; Referring Provider Family Medicine; Visit Provider Family Medicine
DX: E78.2 Mixed hyperlipidemia (principal); I10 Essential (primary) hypertension; R74.8 Abnormal levels of other serum enzymes; D69.6 Thrombocytopenia, unspecified; I25.10 Atherosclerotic heart disease of native coronary artery without angina pectoris; Z68.31 Body mass index [BMI] 31.0-31.9, adult
CPT/HCPCS: 36415; 80053; 80074; 82043; 82570; 83036; 85025; 85610; 85730

== ENCOUNTER → 2020-08-19 13:53 | Outpatient (CLI) | payer OTHER, SELFPAY ==
[2020-08-19 15:20] LABS: COVID19 -Nasal RAPID Negative (Negative)
== END ==
PROVIDERS: Family Provider Family Medicine; PCP Family Medicine; Visit Provider Physical Medicine & Rehabilitation
DX: Z20.822 Contact with and (suspected) exposure to COVID-19 (principal)
CPT/HCPCS: 87635; C9803

== ENCOUNTER 2020-08-21 09:54 | Outpatient (CLI) | payer OTHER, SELFPAY ==
[2020-08-21] VITALS (8 sets, daily range): BP systolic 134–142; BP diastolic 56–85; PULSE 89–97; RESP 17–22; TEMP 37; O2SAT 96–99
--- NOTE | 2020-08-21 09:58 | DI.RAD.S_ITS ---
PROCEDURE: PAIN L/S FACET INJ/BLK 1ST FORTINO COMPARISON: None. INDICATIONS: SPONDYLOSIS FINDINGS: Needle tip localization has been performed on the right and left for facet joint injections involving L4-L5, L5-S1 facet joints bilaterally. IMPRESSION: Successful needle tip localization for bilateral low lumbosacral facet joint steroid injections, 4 facets equally positioned on the right and the left at L4-L5 and L5-S1. Dictated by: Hipolito Gonsalves M.D. on 08/21/2020 at 12:43 Approved by: Hipolito Gonsalves M.D. on 08/21/2020 at 12:44
[2020-08-21] MEDS: fentaNYL 100 MCG/2 ML INJ 50 MCG IV (10:44)
[2020-08-21] MEDS: MIDAZOLAM 5 MG/5 ML VIAL IV (10:44)
[2020-08-21] MEDS: IOPAMIDOL 15 ML VIAL 3 ML INJ (10:46)
[2020-08-21] MEDS: BUPIVACAINE 0.5% (PF) VIAL 2 ML INJ (10:47)
[2020-08-21] MEDS: BETAMETHASONE 30 MG/5 ML MDV 12 MG INJ (10:47)
[2020-08-21] MEDS: LIDOCAINE 1% 20 ML 10 ML INJ (10:48)
--- NOTE | 2020-08-21 10:59 | P.PCN_ITS ---
Date/Time/Diagnoses Date of procedure: 08/21/20 Time of procedure: 10:59 Pre-procedure diagnosis: 1. FACET ARTHROPATHY 2. AXIAL LBP 3. MULTILEVEL DDD Post-procedure diagnosis: same Procedure Notes Procedure: 1. FLUOROSCOPICALLY GUIDED CONTRAST CONTROLLED FACET JOINT INJECTIONS BILATERAL L4/5, L5/S1 Indications: Brock is referred by for treatment of Axial LBP Physician: Jose R Hernandez Total Fluoroscopy time (seconds): 12 Total sedation minutes: 16 Complications: none Procedure in detail & Post-procedure care: FINDINGS Multilevel Facet Arthropathy with Clinically significant axial LBP DESCRIPTION OF PROCEDURE Fluoroscopically guided, contrast-controlled bilateral L4/5, L5/S1 facet joint injections. Following review of allergy and review of potential side effects and complications, including, but not necessarily limited to, infection, allergic reaction, local tissue breakdown, stroke, temporary or permanent nerve injury, paralysis, and possible , the patient indicated that the patient understood and agreed to proceed. An informed consent document was signed by the patient, witnessed by a nurse, and placed in the patient's chart. Additionally, other treatment options including medications, modalities, and physical therapy were reviewed with the patient. After review of previous anaesthesic history and IV conscious sedation the patient was deemed safe to proceed with today?s procedure with IV conscious sedation as ASA class II designation. Safety time-out was performed to confirm patient ID, procedure to be performed and site of procedure. IV sedation was accomplished with a combination of 2mg of Versed and 50mcg of Fentanyl was administered by the RN after DO order, titrated to patient comfort during the course of the procedure while the patient remained responsive to all verbal commands In the prone position, following sterile prep and drape of the lumbar region, the posterior aspect of the L4/5, L5/S1 facet joints were identified fluoroscopically. The skin was anesthetized via a 25-gauge 1.5inch needle with 1% lidocaine solution into the corresponding facet joints. At this point, a 22- gauge 3.5-inch spinal needle was atraumatically introduced and advanced under fluoroscopic guidance into the corresponding facet joints. Following negative aspiration, injections of approximately 0.2cc of Isovue 200 confirmed intera rticular placement without vascular uptake. The identical procedure was then performed at the L4/5, L5/S1 facet joints on the left. Radiological data, including multiple fluoroscopic views of the lumbosacral spine, reveal a spinal needle at the L4/5, L5/S1 facet joints bilaterally. Subsequent views show flow of contrast material both superiorly and inferiorly within the joint space without vascular or intrathecal uptake. At this point, a total of 0.5cc including a mixture of 0.25cc Marcaine and 0.25cc betamethasone was injected without complication into each of the corresponding facet joints. The patient tolerated the procedure well without signs or symptoms of complications prior to transfer to the recovery area continued monitoring without incident. The patient was then transferred to the recovery area where they were observed for an appropriate period of time after the injection. The patient reported a VAS score of 7 prior to the procedure and a post- procedure VAS of 0. POST OP INSTRUCTIONS The patient was provided a Pain Log to continue to record their response to the target-specific procedure prior to follow-up visit with their referring physician. Additionally, specific post-injection care instructions and a contact number to our office were provided if concerns arise regarding possible complications associated with the procedure are suspected.
--- NOTE | 2020-08-21 11:23 | PC.NURSE ---
Pt mentioned another appt this afternoon with surgery consult as he was getting in the car. Recommended to pt that he not do this, that instructions from Dr Hernandez and that were reviewed prior to procedure were to take it easy, head home and rest for the day. Pt understands he has sedation onboard and shoudl not be ambulating around anywhere but home carefully per our instructions.
== END 2020-08-21 11:16 | disposition home or self-care (01) ==
LOC: RAD 09:57
PROVIDERS: Family Provider Family Medicine; PCP Family Medicine; Referring Provider Physical Medicine & Rehabilitation; Visit Provider Physical Medicine & Rehabilitation
DX: M43.16 Spondylolisthesis, lumbar region (principal); M47.816 Spondylosis without myelopathy or radiculopathy, lumbar region; M51.36 Other intervertebral disc degeneration, lumbar region; K60.2 Anal fissure, unspecified
CPT/HCPCS: 64493; 64494; 99152; 99213; J0702; J2250; J3010

== ENCOUNTER → 2020-10-02 09:04 | Outpatient (CLI) | payer OTHER, SELFPAY ==
[2020-10-02 09:45] LABS: COVID19 -Nasal RAPID Negative (Negative)
== END ==
PROVIDERS: Family Provider Family Medicine; PCP Family Medicine; Visit Provider Specialist
DX: Z20.822 Contact with and (suspected) exposure to COVID-19 (principal)
CPT/HCPCS: 87635; C9803

== ENCOUNTER 2020-10-03 07:29 | Day surgery (SDC) | payer OTHER, SELFPAY ==
[2020-10-03] VITALS (8 sets, daily range): BP systolic 111–137; BP diastolic 60–86; PULSE 80–91; RESP 10–20; TEMP 36.4–37.2; O2SAT 94–97; BMI 38.7
[2020-10-03] MEDS: LACTATED RINGERS 1,000 ML 200 ML IV (08:15)
--- NOTE | 2020-10-03 08:28 | PM.HP.1 ---
History of Present Illness History of Present Illness Date Patient Seen: 10/03/20 Time Patient Seen: 08:28 Chief complaint: SDC *$63 copay* Narrative: Patient is a gentleman who is been having small amount of bright red blood per rectum who has a visible abnormality it is not quite clear. He is brought in for flexible sigmoidoscopy and possible hemorrhoidal banding. Also possible biopsy of this lesion that is seen. Patient History Medical History Diabetes mellitus type 2, controlled, without complications Elevated liver enzymes Facet arthropathy, lumbar Gait instability Hearing loss (1978) Heart attack (2011) Lumbar radiculopathy Sleep apnea Spondylolisthesis at L4-L5 level Thrombocytopenia Surgical History Anesthesia H/O heart artery stent (05/09/12) History of vasectomy (1998) Status post hernia repair Family & Social History Family History Mother Ovarian cancer Hypertension Sister Cancer Father No problems noted. Brother Alcoholism and drug addiction in family Sleep apnea Family/Other Depression Social History: household members none Tobacco & Substance use: Smoking Status Former smoker alcohol intake current alcohol intake frequency 0-2 drinks per day Substance Use Type marijuana Meds Home Medications and Allergies Home Medications Medication Instructions Recorded Confirmed Type atorvastatin 40 mg tablet 40 mg PO HS #90 tab 05/08/20 10/03/20 Rx carvedilol 6.25 mg tablet See Rx Instructions .ROUTE 05/08/20 10/03/20 Rx .COMPLEX #270 tab gabapentin 300 mg capsule 900 mg PO TID #300 cap 05/08/20 10/03/20 Rx lisinopril 2.5 mg tablet 2.5 mg PO QDAY #90 tab 05/08/20 10/03/20 Rx nifedipine See Rx Instructions .ROUTE 07/17/20 10/03/20 Rx .COMPLEX #30 g celecoxib 200 mg capsule 200 mg PO DAILY #30 cap 07/25/20 10/03/20 Rx tramadol 50 mg tablet 50 mg PO BID PRN #30 tab 07/25/20 10/03/20 Rx oxygen-air delivery systems #1 08/07/20 08/21/20 History naproxen sodium [Aleve] 220 mg PO DAILY 10/03/20 10/03/20 History Allergies Allergy/AdvReac Type Severity Reaction Status Date / Time No Known Drug Allergies Allergy Verified 08/21/20 13:07 Review of Systems Review of Systems Narrative: No breathing issues. No cardiac problems at this time. He has a long cardiac history. No black bowel movements. Has not lost weight. Exam Vital Signs (past 8 hours): - 10/03/20 08:09 Temperature 97.6 F Pulse Rate 84 Respiratory Rate 16 Blood Pressure 135/76 Pulse Oximetry 96 Oxygen Delivery Method Room Air Narrative Exam Narrative: Cooperative gentleman in no apparent distress. A bit overweight. BMI is 39. Lungs are clear. Heart regular rate and rhythm without murmur gallop. Abdomen is protuberant soft. Alert and oriented. Assessment & Plan Assessment & Plan narrative: Patient for flexible sigmoidoscopy and possible banding. I have discussed the procedure with him including risks of bleeding infection perforation. He appears to understand wishes to proceed. This is a limited exam. He had coffee with cream this morning at about 6:30 a.m..
--- NOTE | 2020-10-03 08:31 | PM.DDS.1 ---
Discharge Summary History of Illness Narrative: Patient is a gentleman who is been having small amount of bright red blood per rectum who has a visible abnormality it is not quite clear. He is brought in for flexible sigmoidoscopy and possible hemorrhoidal banding. Also possible biopsy of this lesion that is seen. Hospital Course Primary care provider: Morales Jorgensen MD Consults: 10/03/20 07:54 Consult to Respiratory Therapy Evaluate & Treat Comment: Physician Instructions: Evaluate and treat
--- NOTE | 2020-10-03 08:31 | PM.PREOP ---
Pre-operative Note COVID-19 COVID-19 status: Negative Result date/Date tested (Pos, Neg/Pending): 10/02/20 Interval Note History & Physical reviewed/Exam performed by Physician: Yes Changes to H&P: No ASA Class (for procedural sedation): III
[2020-10-03] MEDS: fentaNYL 250 MCG/5 ML INJ IV (08:38)
[2020-10-03] MEDS: MIDAZOLAM 5 MG/5 ML VIAL IV (08:38)
--- NOTE | 2020-10-03 08:49 | PM.OP.ENDO ---
Operative Date/Time/Diagnoses Date of procedure: 10/03/20 Time of procedure: 08:50 Pre-op diagnosis: Rectal bleeding Post-op diagnosis: same (Internal hemorrhoids) Procedure & Clinicians Study performed: Flexible sigmoidoscopy. Anoscopy with 3 column hemorrhoidal banding. Same procedure as scheduled: Yes Indications: Patient with intermittent rectal bleeding. Surgeon: Kulwinder Villagran Procedure Notes SCOAP/Timeout: Performed Procedure in detail: Patient was placed in left lateral decubitus position and given a small amount of sedation of fentanyl and Versed. Digital exam was unremarkable. A is a small tag of his anus. Flexible is a sigmoidoscopy was performed to 30 cm. No lesions were seen. Retroflexed view revealed a fairly normal deep anal canal. However as I slowly came through the anus there were obvious ulcerations on hemorrhoids. In anoscope was inserted and circumferential exam revealed 3 columns that I banded. These were located in the right anterior right posterior and left lateral positions. Patient tolerated the procedure well. Scope withdrawal time: Not applicable Sedation minutes: 17 Findings: internal hemorrhoids Specimen(s): none sent Complications: none Post-procedure Plan for aftercare: Follow-up in the office in 2 or 3 weeks. Disposition: PACU
== END 2020-10-03 10:00 | disposition home or self-care (01) ==
PROVIDERS: Family Provider Family Medicine; PCP Family Medicine; Referring Provider Family Medicine; Visit Provider Specialist
PROC: 0DJD8ZZ Inspection of Lower Intestinal Tract, Via Natural or Artificial Opening Endoscopic (ICD-10-PCS; CPT 45378; principal; 2020-10-03 08:30)
DX: K64.8 Other hemorrhoids (principal); E11.9 Type 2 diabetes mellitus without complications; I25.2 Old myocardial infarction; G47.30 Sleep apnea, unspecified; K64.4 Residual hemorrhoidal skin tags
CPT/HCPCS: 46221; 99152; J2250; J3010

== ENCOUNTER → 2021-02-12 11:18 | Outpatient (CLI) | payer OTHER, SELFPAY ==
[2021-02-12 12:14] LABS: Add Manual Diff / Slide Review NO; Basophils Absolute Auto 100 /uL (0-100); Basophils Percent Auto 1.1 % (0-2); Eosinophils Absolute Auto 100 /uL (0-450); Eosinophils Percent Auto 1.6 % (2-4); Hemoglobin 14.4 g/dL (13.5-17.5); Lymphocytes Absolute Auto 1500 /uL (1100-4500); Lymphocytes Percent Auto 26.4 % (25-40); Mean Corpuscular HGB Conc 33.4 % (30-36); Mean Corpuscular Hemoglobin 33.2 PG (26-34); Mean Corpuscular Volume 99.4 fL (80-100); Monocytes Absolute Auto 400 /uL (0-900); Monocytes Percent Auto 6.9 % (3-14); Neutrophils Absolute Auto 3600 /uL (1500-7000); Platelet Count 138 X10^3/uL (150-400); Red Blood Cell Count 4.33 X10^6/uL (4.5-5.9); Red Cell Distribution Width 12.8 % (11.6-14.8); White Blood Cell Count 5.6 X10^3/uL (4.5-11.0)
[2021-02-12 12:44] LABS: Hemoglobin A1C% w Est Avg Glu 6.1 % (4.0-6.0)
[2021-02-12 12:47] LABS: Alanine Aminotransferase 52 IU/L (<50); Albumin 4.3 g/dL (3.5-5.0); Albumin Globulin Ratio 1.7 (1.0-2.8); Alkaline Phosphatase 69 U/L (38-126); Aspartate Aminotransferase 41 IU/L (17-59); BUN Creatinine Ratio 13.8 (6-22); Bilirubin Total 1.1 mg/dL (0.2-1.3); Blood Urea Nitrogen 11 mg/dL (9-20); Calcium 9.2 mg/dL (8.4-10.2); Carbon Dioxide 28 mmol/L (22-32); Chloride 104 mmol/L (98-107); Estimated Glomerular Filt Rate > 60.0 mL/min (>60); Globulin 2.5 g/dL (1.7-4.1); Glucose 116 mg/dL (80-110); HEMOLYSIS < 15 (0-50); Potassium 4.8 mmol/L (3.4-5.1); Sodium 140 mmol/L (137-145); Total Protein 6.8 g/dL (6.3-8.2)
== END ==
PROVIDERS: Family Provider Family Medicine; PCP Family Medicine; Referring Provider Family Medicine; Visit Provider Family Medicine
DX: E11.9 Type 2 diabetes mellitus without complications (principal); D69.6 Thrombocytopenia, unspecified; R74.8 Abnormal levels of other serum enzymes
CPT/HCPCS: 36415; 80053; 83036; 85025

== ENCOUNTER → 2021-02-16 08:18 | Outpatient (CLI) | payer OTHER, SELFPAY ==
[2021-02-16 11:52] LABS: COVID19 -Nasal RAPID Negative (Negative)
== END ==
PROVIDERS: Family Provider Family Medicine; PCP Family Medicine; Visit Provider Physical Medicine & Rehabilitation
DX: Z20.822 Contact with and (suspected) exposure to COVID-19 (principal)
CPT/HCPCS: 87635; C9803

== ENCOUNTER 2021-02-17 10:10 | Outpatient (CLI) | payer OTHER, SELFPAY ==
[2021-02-17] VITALS (8 sets, daily range): BP systolic 123–151; BP diastolic 61–98; PULSE 74–91; RESP 10–19; TEMP 37.1; O2SAT 95–98
--- NOTE | 2021-02-17 10:14 | DI.RAD.S_ITS ---
PROCEDURE: PAIN L/S FACET INJ/BLK 1ST FORTINO COMPARISON: [facility], , PAIN L/S FACET INJ/BLK 1ST FORTINO, 08/21/2020, 10:48. INDICATIONS: SPONDYLOSIS FINDINGS: Fluoroscopic spot filming was performed to verify placement of spinal needles on both sides at the L4, L5, and S1 levels, as labeled on the films. Appropriate location of the needle tips was confirmed by injection of iodinated contrast. IMPRESSION: Intraprocedural examination within normal limits. Dictated by: Felipe Miller M.D. on 02/17/2021 at 11:12 Approved by: Felipe Miller M.D. on 02/17/2021 at 11:13
[2021-02-17] MEDS: fentaNYL 100 MCG/2 ML INJ 50 MCG IV (11:32)
[2021-02-17] MEDS: MIDAZOLAM 5 MG/5 ML VIAL IV (11:32)
[2021-02-17] MEDS: IOPAMIDOL 15 ML VIAL 3 ML INJ (11:35)
[2021-02-17] MEDS: LIDOCAINE 1% 20 ML 10 ML INJ (11:35)
[2021-02-17] MEDS: BUPIVACAINE 0.5% (PF) VIAL 5 ML INJ (11:35)
--- NOTE | 2021-02-17 11:48 | PM.PROC.IR.1 ---
Date/Time/Diagnoses Date of procedure: 02/17/21 Time of procedure: 11:48 Pre-procedure diagnosis: 1. FACET ARTHROPATHY Post-procedure diagnosis: same Procedure Notes Procedure: 1. BILATERAL- L4, L5 and S1 DIAGNOSTIC MB BLOCKS with LA Anesthetic Indications: Brock is referred by Dr. Jorgensen for treatment of Bilateral Axial LBP. Physician: Jose R Hernandez Total Fluoroscopy time (seconds): 10 Total sedation minutes: 12 Complications: none Procedure in detail & Post-procedure care: DESCRIPTION OF PROCEDURE Fluoroscopically guided, contrast-controlled bilateral L4, L5 and S1 medial branch blocks with 0.5cc of 0.5% Marcaine. Following review of allergy and review of potential side effects and complications, including, but not necessarily limited to, infection, allergic reaction, local tissue breakdown, nerve injury, paralysis, stroke and possible , the patient indicated that the patient understood and agreed to proceed. An informed consent document was signed by the patient, witnessed by a nurse, and placed in the patient's chart. After review of previous anaesthesic history and IV conscious sedation the patient was deemed safe to proceed with today's procedure with IV conscious sedation as ASA class II designation. Safety time-out was performed to confirm patient ID, procedure to be performed and site of procedure. IV sedation was accomplished with a combination of 2mg of Versed and 50mcg of Fentanyl was administered by the RN after DO order, titrated to patient comfort during the course of the procedure while the patient remained responsive to all verbal commands In the prone position, following sterile prep and drape of the lumbar region, the right L4, L5 and S1 anatomical location of the medial branch of the dorsal ramus was identified fluoroscopically. Subsequently an anesthetic skin wheal using 1% lidocaine solution was initiated at each of the anatomical spots. Subsequently then a 22-gauge 3.5-inch spinal needle was atraumatically introduced and advanced under fluoroscopic guidance at each of the corresponding sites at the right L4, L5 and S1 MB. After negative aspiration, 0.2cc of Isovue 200 was injected, confirming placement without vascular or intrathecal uptake. Subsequently then 0.5cc of 0.5% Marcaine solution was injected at each of the corresponding sites at the right L4, L5 and S1 medial branch locations. The identical procedure was replicated on the left. The patient tolerated the procedure well without signs or symptoms of complications prior to transfer to the recovery area continued monitoring without incident. Post-procedure, the patient was monitored initiating provocative activities to measure the amount of relief from block of the facetogenic pain. The patient reported a VAS of 7 prior to the procedure and a post-procedure VAS of 1. It has been a pleasure to assist in the diagnostic and therapeutic care of your patient. POST OP INSTRUCTIONS The patient was provided with a Pain Log to complete over the next several hours and subsequent days prior to the patient's follow up with the ordering physician. If the patient has cultural historian relief to the solution applied, then they may be a candidate for medial branch rhizotomy. The patient is aware, was provided, once again, with a Pain Log and will follow up with the referring physician for review and clinical correlation
== END 2021-02-17 12:10 | disposition home or self-care (01) ==
LOC: RAD 10:14
PROVIDERS: Family Provider Family Medicine; PCP Family Medicine; Referring Provider Physical Medicine & Rehabilitation; Visit Provider Physical Medicine & Rehabilitation
DX: M47.816 Spondylosis without myelopathy or radiculopathy, lumbar region (principal); M47.817 Spondylosis without myelopathy or radiculopathy, lumbosacral region; M54.5 Low back pain
CPT/HCPCS: 64493; 64494; 99152

== ENCOUNTER 2021-04-06 19:56 | Emergency (ER) | payer MEDICARE, OTHER, SELFPAY ==
[2021-04-06] VITALS (9 sets, daily range): BP systolic 126–187; BP diastolic 60–89; PULSE 63–85; RESP 16–26; TEMP 36.7; O2SAT 96–97; BMI 36.9
--- NOTE | 2021-04-06 20:02 | DI.RAD.S_ITS ---
PROCEDURE: XR CHEST 1V INDICATIONS: chest pain TECHNIQUE: One view of the chest was acquired. COMPARISON: None. FINDINGS: Surgical changes and devices: None. Lungs and pleura: Lungs are clear. No pleural effusions or pneumothorax. Mediastinum: Mediastinal contours appear normal. Heart size is normal. Bones and chest wall: No suspicious bony lesions. Overlying soft tissues appear unremarkable. IMPRESSION: No acute cardiopulmonary disease process. Dictated by: Lisa Ramos MD, PhD on 04/06/2021 at 20:36 Approved by: Lisa Ramos MD, PhD on 04/06/2021 at 20:36
[2021-04-06 20:39] LABS: Add Manual Diff / Slide Review NO; Basophils Absolute Auto 100 /uL (0-100); Basophils Percent Auto 1.4 % (0-2); Eosinophils Absolute Auto 200 /uL (0-450); Hematocrit 41.3 % (41-53); Hemoglobin 14.3 g/dL (13.5-17.5); Lymphocytes Absolute Auto 2100 /uL (1100-4500); Lymphocytes Percent Auto 40.8 % (25-40); Mean Corpuscular HGB Conc 34.6 % (30-36); Mean Corpuscular Hemoglobin 33.3 PG (26-34); Monocytes Absolute Auto 500 /uL (0-900); Monocytes Percent Auto 8.9 % (3-14); Neutrophils Absolute Auto 2400 /uL (1500-7000); Neutrophils Percent Auto 45.9 % (50-75); Platelet Count 142 X10^3/uL (150-400); Red Cell Distribution Width 13.2 % (11.6-14.8); White Blood Cell Count 5.2 X10^3/uL (4.5-11.0)
[2021-04-06 20:52] LABS: Magnesium 1.6 mg/dL (1.6-2.3)
[2021-04-06 20:53] LABS: Alanine Aminotransferase 32 IU/L (<50); Albumin 4.4 g/dL (3.5-5.0); Albumin Globulin Ratio 1.5 (1.0-2.8); Alkaline Phosphatase 62 U/L (38-126); Aspartate Aminotransferase 29 IU/L (17-59); BUN Creatinine Ratio 14.1 (6-22); Bilirubin Total 1.4 mg/dL (0.2-1.3); Blood Urea Nitrogen 12 mg/dL (9-20); Calcium 9.1 mg/dL (8.4-10.2); Carbon Dioxide 26 mmol/L (22-32); Chloride 105 mmol/L (98-107); Creatine Kinase 135 U/L (55-170); Estimated Glomerular Filt Rate > 60.0 mL/min (>60); Glucose 108 mg/dL (80-110); HEMOLYSIS < 15 (0-50); Lipase 36 U/L (23-300); Potassium 3.8 mmol/L (3.4-5.1); Sodium 139 mmol/L (137-145); Total Protein 7.4 g/dL (6.3-8.2)
--- NOTE | 2021-04-06 21:03 | ED_ITS ---
HPI - Dizziness General Chief Complaint: Dizziness Stated Complaint: DIZZY DISORIENTED Time Seen by Provider: 04/06/21 20:10 Source: patient Mode of arrival: Ambulatory History of Present Illness HPI Narrative: 66-year-old male former smoker with history of hypertension, hyperlipidemia and coronary artery disease presents with a chief complaint of dizziness and a near syncopal episode that occurred a few hours prior to his arrival. He had had a long stressful day and had very little to drink and had not eaten when he started working underneath his car. He became frustrated with lack of progress and when looking over his left shoulder felt dizzy and developed some pain in his occiput. He immediately felt a bit flushed and lightheaded. He removed himself from underneath the car and noted he became dizzy when moving his head, particularly to the left. His symptoms lasted a short period and seemed to improve after a family member gave him a peanut butter sandwich and he drank some fluids. He was largely asymptomatic by his arrival here. He denies any trauma or injury. He has no blurred vision or trouble speech. He has no numbness, tingling or weakness. He denies runny nose, sore throat or cough. He denies any ear pain or drainage. He denies any recent flights or swimming or diving Related Data Home Medications Medication Instructions Recorded Confirmed oxygen-air delivery systems #1 08/07/20 02/12/21 naproxen sodium 220 mg tablet 220 mg PO DAILY 10/03/20 02/12/21 (Aleve) Previous Rx's Medication Instructions Recorded atorvastatin 40 mg tablet (Lipitor) 40 mg PO HS #90 tab 05/08/20 carvedilol 6.25 mg tablet (Coreg) See Rx Instructions .ROUTE 05/08/20 .COMPLEX #270 tab lisinopril 2.5 mg tablet 2.5 mg PO QDAY #90 tab 05/08/20 tramadol 50 mg tablet 50 mg PO BID PRN #30 tab 07/25/20 nifedipine See Rx Instructions .ROUTE 10/10/20 .COMPLEX #30 g gabapentin 300 mg capsule 900 mg PO TID #300 cap 01/15/21 celecoxib 200 mg capsule (Celebrex) 200 mg PO DAILY #30 cap 03/23/21 Allergies Allergy/AdvReac Type Severity Reaction Status Date / Time No Known Drug Allergies Allergy Verified 04/06/21 20:16 Review of Systems Review of Systems Narrative: GENERAL: Denies chills, fatigue, malaise, fever, sweats. HEENT: Denies sinus pain, ear pain, sore throat, difficulty swallowing, dizziness. RESPIRATORY: Denies dyspnea, cough, wheezing, hemoptysis, sputum. CARDIOVASCULAR: See HPI GASTROINTESTINAL: Denies nausea, vomiting, abdominal pain, diarrhea, cons tipation, melena. : Denies dysuria, frequency, incontinence, hematuria, urinary retention. MUSCULOSKELETAL: denies weakness, joint pain, or bony pain SKIN: Denies rash, skin lesions, or other NEUROLOGIC: See HPI PSYCHIATRIC: No concerning psychosocial issues. 12 point review of systems is negative except for those stated above Patient History Medical History Diabetes mellitus type 2, controlled, without complications Elevated liver enzymes Facet arthropathy, lumbar Facet arthropathy, lumbar Gait instability Hearing loss (1978) Heart attack (2011) Lumbar radiculopathy Medicare welcome exam Sleep apnea Spondylolisthesis at L4-L5 level Thrombocytopenia Surgical History Anesthesia H/O heart artery stent (05/09/12) History of vasectomy (1998) Status post hernia repair Family History Mother Ovarian cancer Hypertension Sister Cancer Father No problems noted. Brother Alcoholism and drug addiction in family Sleep apnea Family/Other Depression Social History marital status: unknown household members: none occupational status: previously employed Smoking Status: Former smoker Tobacco: How many years used: 13 alcohol intake: current (1 drink before bedtime ) substance use type: does not use Smoking Status: Former smoker alcohol intake frequency: 0-2 drinks per day Substance Use Type: marijuana Exam Narrative Exam Narrative: GENERAL: [66] year old patient appears stated age. Well- developed patient, in mild distress. GCS 15 HEAD: Atraumatic. Normocephalic. EYES: Pupils equal round and reactive. Extraocular motions intact. No scleral icterus. No injection or drainage. ENT: Nose without bleeding, purulent drainage. Throat without erythema, tonsillar hypertrophy or exudate. Airway patent. NECK: Trachea midline. Non tender CARDIOVASCULAR: Regular rate and rhythm without murmurs, gallops, or rubs. RESPIRATORY: Clear to auscultation. Breath sounds equal bilaterally. No wheezes, rales, or rhonchi. GASTROINTESTINAL: Abdomen soft, non-tender, nondistended. EXTREMITIES: No edema or joint tenderness. BACK: Nontender without deformity or crepitance. No flank tenderness. NEURO: AOx3. SKIN: No rash or erythema of visible areas NIH Stroke Scale 1a. LOC: Patient is alert and keenly responsive (0) 1b. LOC Questions: Patient answers both LOC questions accurately (0) 1c. LOC Commands: Patient performs both tasks correctly (0) 2. Best Gaze: Normal (0) 3. Visual: No visual loss (0) 4. Facial palsy: Normal symmetrical movements (0) 5. Motor arm: No drift (0) 6. Motor leg: No drift (0) 7. Limb ataxia: Absent (0) 8. Sensory: Normal (0) 9. Best language: No aphasia; normal (0) 10. Dysarthria: Normal (0) 11. Extinction and inattention: No abnormality (0) NIHSS: 0 Initial Vital Signs Initial Vital Signs: Vital Signs Temperature 98.0 F 04/06/21 20:12 Pulse Rate 85 04/06/21 20:12 Respiratory Rate 16 04/06/21 20:12 Blood Pressure 187/89 H 04/06/21 20:12 Pulse Oximetry 96 04/06/21 20:12 Course Orders Ordered: ED Orders 04/06/21 20:02 XR chest 1V Stat EKG-12 Lead Stat 04/06/21 20:10 Complete Blood Count AUTO DIFF Stat Comprehensive Metabolic Panel Stat Lipase Stat Magnesium Stat Troponin & CK Cardiac Panel Stat 04/06/21 21:50 Troponin I Stat Vital Signs Vital signs: Vital Signs - 8 hr 04/06/21 20:12 04/06/21 21:01 04/06/21 21:25 Temperature 98.0 F Pulse Rate 85 80 78 Respiratory Rate 16 26 H Blood Pressure 187/89 H 130/62 Pulse Oximetry 96 97 96 04/06/21 21:28 04/06/21 21:30 04/06/21 22:00 Temperature Pulse Rate 79 80 76 Respiratory Rate 22 23 20 Blood Pressure 139/69 129/60 Pulse Oximetry 97 97 97 04/06/21 22:01 04/06/21 22:30 04/06/21 22:31 Temperature Pulse Rate 78 68 63 Respiratory Rate 24 17 17 Blood Pressure 126/62 149/70 H Pulse Oximetry 96 97 97 MDM - Dizziness Lab Data Result diagrams: 04/06/21 20:10 04/06/21 20:10 Labs: Lab Results 04/06/21 04/06/21 04/06/21 Range/Units 20:10 20:10 20:10 WBC 5.2 (4.5-11.0) X10^3/uL RBC 4.30 L (4.5-5.9) X10^6/uL Hgb 14.3 (13.5-17.5) g/dL Hct 41.3 (41-53) % MCV 96.0 (80-100) fL MCH 33.3 (26-34) PG MCHC 34.6 (30-36) % RDW 13.2 (11.6-14.8) % Plt Count 142 L (150-400) X10^3/uL Neut % (Auto) 45.9 L (50-75) % Lymph % (Auto) 40.8 H (25-40) % [place]ult[place] % (Auto) 8.9 (3-14) % Eos % (Auto) 3.0 (2-4) % Baso % (Auto) 1.4 (0-2) % Neut # (Auto) 2400 (7269-7210) /uL Lymph # (Auto) 2100 (8133-6847) /uL [place] # (Auto) 500 (0-900) /uL Eos # (Auto) 200 (0-450) /uL Baso # (Auto) 100 (0-100) /uL Sodium 139 (137-145) mmol/L Potassium 3.8 (3.4-5.1) mmol/L Chloride 105 (98-107) mmol/L Carbon Dioxide 26 (22-32) mmol/L BUN 12 (9-20) mg/dL Creatinine 0.85 (0.66-1.25) mg/dL Estimated GFR > 60.0 (>60) mL/min BUN/Creatinine Ratio 14.1 (6-22) Glucose 108 (80-110) mg/dL Calcium 9.1 (8.4-10.2) mg/dL Magnesium 1.6 (1.6-2.3) mg/dL Total Bilirubin 1.4 H (0.2-1.3) mg/dL AST 29 (17-59) IU/L ALT 32 (<50) IU/L Alkaline Phosphatase 62 (38-126) U/L Total Creatine Kinase 135 (55-170) U/L CK-MB (CK-2) 1.63 (<2.37) ng/mL CK-MB (CK-2) Rel Index 1.2 L (1.5-5.0) % Troponin I < 0.012 (0.01-0.034) ng/mL Total Protein 7.4 (6.3-8.2) g/dL Albumin 4.4 (3.5-5.0) g/dL Globulin 3.0 (1.7-4.1) g/dL Albumin/Globulin Ratio 1.5 (1.0-2.8) Lipase 36 (23-300) U/L 11/15/21 Range/Units 21:50 WBC (4.5-11.0) X10^3/uL RBC (4.5-5.9) X10^6/uL Hgb (13.5-17.5) g/dL Hct (41-53) % MCV (80-100) fL MCH (26-34) PG MCHC (30-36) % RDW (11.6-14.8) % Plt Count (150-400) X10^3/uL Neut % (Auto) (50-75) % Lymph % (Auto) (25-40) % [place] % (Auto) (3-14) % Eos % (Auto) (2-4) % Baso % (Auto) (0-2) % Neut # (Auto) (2378-6250) /uL Lymph # (Auto) (1650-0981) /uL [place] # (Auto) (0-900) /uL Eos # (Auto) (0-450) /uL Baso # (Auto) (0-100) /uL Sodium (137-145) mmol/L Potassium (3.4-5.1) mmol/L Chloride (98-107) mmol/L Carbon Dioxide (22-32) mmol/L BUN (9-20) mg/dL Creatinine (0.66-1.25) mg/dL Estimated GFR (>60) mL/min BUN/Creatinine Ratio (6-22) Glucose (80-110) mg/dL Calcium (8.4-10.2) mg/dL Magnesium (1.6-2.3) mg/dL Total Bilirubin (0.2-1.3) mg/dL AST (17-59) IU/L ALT (<50) IU/L Alkaline Phosphatase (38-126) U/L Total Creatine Kinase (55-170) U/L CK-MB (CK-2) (<2.37) ng/mL CK-MB (CK-2) Rel Index (1.5-5.0) % Troponin I < 0.012 (0.01-0.034) ng/mL Total Protein (6.3-8.2) g/dL Albumin (3.5-5.0) g/dL Globulin (1.7-4.1) g/dL Albumin/Globulin Ratio (1.0-2.8) Lipase (23-300) U/L MDM Narrative Medical decision making narrative: Patient with very reassuring history and physical exam. EKG shows no arrhythmia or ischemic change. Labs are very reassuring. Patient's description is very consistent with a peripheral vertigo as it is severe and reproducible. He has had no injury or trauma. He denies any neck pain. Labs are very reassuring. Seems likely that his relative jose guevara and probable low blood sugar likely played a role in how he was feeling when this episode happened. He has been given extensive return precautions and questions answered to his apparent satisfaction Discharge Plan Departure Patient Disposition: Home Clinical Impression: Episodic peripheral vertigo, Near syncope Instructions: DI for Vertigo Activity Restrictions/Additional Instructions: *You have been diagnosed with [positional dizziness, your story, exam, labs and EKGs are very reassuring. As we discussed, this is likely a combination of a positional vertigo associated with position of her head, along with some element of dehydration and low blood sugar.] *What to do: *Please continue to take your regular medications as directed. [ ] New medication prescriptions sent to your pharmacy: [ ] [ ] New medication written as a paper prescription [x ] No new medications given *Please follow up with your primary care provider in 2-3 days, call for an appointment. Let them know you were seen in the Emergency Department and that we ask that you be seen in follow up. We will electronically transmit a record of today's note if your PCP is in our system *If you do not have a primary care provider please contact the [facility] Resource line at [phone]. They will ask some questions about your medical history and help get you set up with a doctor in the community. *Return to Emergency Department if you should have any new, worsening or concerning symptoms, such as [fever greater than 101 F, shaking chills, worsening pain, persistent vomiting or other bothersome symptoms] Prescriptions: No Action (DME) oxygen-air delivery systems Device See Rx Instructions .ROUTE .MEDSUPPLY Qty: 1 RF: 0 nifedipine ointment See Rx Instructions .ROUTE .COMPLEX Qty: 30 RF: 1 gabapentin 300 mg capsule 900 mg PO TID Qty: 300 RF: 1 celecoxib [Celebrex] 200 mg capsule 200 mg PO DAILY Qty: 30 RF: 2 atorvastatin [Lipitor] 40 mg tablet 40 mg PO HS Qty: 90 RF: 3 carvedilol [Coreg] 6.25 mg tablet See Rx Instructions .ROUTE .COMPLEX Qty: 270 RF: 3 lisinopril 2.5 mg tablet 2.5 mg PO QDAY Qty: 90 RF: 3 naproxen sodium [Aleve] 220 mg Tablet 220 mg PO DAILY RF: 0 tramadol 50 mg tablet 50 mg PO BID PRN (Reason: pain) Qty: 30 RF: 1 Referrals: Morales Jorgensen MD [Primary Care Provider] -
[2021-04-06 21:04] LABS: Troponin I < 0.012 ng/mL (0.01-0.034)
[2021-04-06 21:08] LABS: CKMB % Relative Index 1.2 % (1.5-5.0); Creatine Kinase MB 1.63 ng/mL (<2.37)
[2021-04-06 22:20] LABS: Troponin I < 0.012 ng/mL (0.01-0.034)
== END 2021-04-06 22:33 | disposition home or self-care (01) ==
PROVIDERS: Emergency Provider Emergency Medicine; Family Provider Family Medicine; PCP Family Medicine
DX: H81.392 Other peripheral vertigo, left ear (principal); R55 Syncope and collapse; R03.0 Elevated blood-pressure reading, without diagnosis of hypertension
CPT/HCPCS: 36415; 71045; 80053; 82550; 82553; 83690; 83735; 84484; 85025; 93005; 99283; 99284

== ENCOUNTER → 2021-05-21 10:13 | Outpatient (CLI) | payer MEDICARE, OTHER, SELFPAY ==
[2021-05-21 11:19] LABS: COVID19 -Nasal RAPID Negative (Negative)
== END ==
PROVIDERS: Family Provider Family Medicine; PCP Family Medicine; Visit Provider Nurse Practitioner Family
DX: Z20.822 Contact with and (suspected) exposure to COVID-19 (principal)
CPT/HCPCS: 87635

== ENCOUNTER 2021-05-27 12:14 | Emergency (ER) | payer MEDICARE, OTHER, SELFPAY ==
[2021-05-27 12:56] VITALS: BP 174/72; PULSE 83; RESP 18; TEMP 36.1; O2SAT 95; BMI 37.6
--- NOTE | 2021-05-27 17:01 | ED_ITS ---
HPI - Recheck/Abnormal Lab/Rx General Chief Complaint: Recheck/Abnormal Lab/Rx Stated Complaint: Cut right finger a stitch came out Time Seen by Provider: 05/27/21 15:40 Source: patient Mode of arrival: Ambulatory History of Present Illness HPI narrative: 66M former smoker with history of HTN and hyperlipidemia presents for evaluation of a wound suffered on Tuesday. He had slipped and fallen and cut his finger on Tuesday and was seen and evaluated at an outside facility. He had sutures placed and was splinted. He admits that he got his bandage wet when taking a shower and did not take it off, he felt a pop and was concerned there was some bleeding and wanted to be evaluated for possible sutures at head popped. He denies any ongoing pain, bleeding, numbness, tingling. He is otherwise well and free of complaint Related Data Home Medications Medication Instructions Recorded Confirmed oxygen-air delivery systems #1 08/07/20 05/21/21 Previous Rx's Medication Instructions Recorded atorvastatin 40 mg tablet (Lipitor) 40 mg PO HS #90 tab 05/08/20 nifedipine See Rx Instructions .ROUTE 10/10/20 .COMPLEX #30 g gabapentin 300 mg capsule 900 mg PO TID #300 cap 04/09/21 celecoxib 200 mg capsule (Celebrex) 200 mg PO DAILY #30 cap 05/05/21 tramadol 50 mg tablet 50 mg PO BID PRN #30 tab 05/05/21 carvedilol 6.25 mg tablet (Coreg) See Rx Instructions .ROUTE 05/25/21 .COMPLEX #270 tab lisinopril 2.5 mg tablet 2.5 mg PO QDAY #90 tab 05/25/21 Allergies Allergy/AdvReac Type Severity Reaction Status Date / Time No Known Drug Allergies Allergy Verified 05/05/21 11:01 Review of Systems Review of Systems Narrative: GENERAL: Denies chills, fatigue, malaise, fever, sweats. HEENT: Denies sinus pain, ear pain, sore throat, difficulty swallowing, dizziness. RESPIRATORY: Denies dyspnea, cough, wheezing, hemoptysis, sputum. CARDIOVASCULAR: Denies chest pain, palpitations, orthopnea, edema, GASTROINTESTINAL: Denies nausea, vomiting, abdominal pain, diarrhea, constipation, melena. : Denies dysuria, frequency, incontinence, hematuria, urinary retention. MUSCULOSKELETAL: denies weakness, joint pain, or bony pain SKIN: Denies rash, skin lesions, or other NEUROLOGIC: Denies weakness, headache, numbness, change in speech, confusion, seizures, incoordination. PSYCHIATRIC: No concerning psychosocial issues. 12 point review of systems is negative except for those stated above Patient History Medical History Diabetes mellitus type 2, controlled, without complications Elevated liver enzymes Facet arthropathy, lumbar Facet arthropathy, lumbar Gait instability Hearing loss (1978) Heart attack (2011) Lumbar radiculopathy Medicare welcome exam Sleep apnea Spondylolisthesis at L4-L5 level Thrombocytopenia Surgical History Anesthesia H/O heart artery stent (05/09/12) History of vasectomy (1998) Status post hernia repair Family History Mother Ovarian cancer Hypertension Sister Cancer Father No problems noted. Brother Alcoholism and drug addiction in family Sleep apnea Family/Other Depression Social History marital status: unknown household members: none occupational status: previously employed Smoking Status: Former smoker Tobacco: How many years used: 13 alcohol intake: current (1 drink before bedtime ) substance use type: does not use Smoking Status: Former smoker alcohol intake frequency: 0-2 drinks per day Substance Use Type: marijuana Exam Narrative Exam Narrative: GEN: AOx3 and in mild distress EYES: Pupils are equal, round, and reactive to light and accommodation. Extraoccular muscles are intact bilaterally. There is no subconjunctival hemorrhage or exudate. CHEST: Lungs are clear to auscultation bilaterally and free of wheezes, rales, or rhonchi. Heart rate is regular rhythm, there are no murmurs, clicks, rubs, or gallops. There is no chest wall tenderness. ABD: Abdomen is soft and nontender. There is no guarding or rebound. Bowel sounds are normal in all 4 quadrants. There is no mass or organomegaly. EXT: Right finger with sutures in place, there is a very thin piece of skin that may have pulled through a stitch which remains intact. There is no indication that sutures need to be replaced or pole. Wound margins clearly have been wet, extensive discussion with patient about need to keep bandages dry and continue with planned follow-up. Full painless ROM of all extremities with no loss of sensation or strength. SKIN: Warm, pink, and dry. No erythema or rash Initial Vital Signs Initial Vital Signs: Vital Signs Temperature 97.0 F L 05/27/21 12:56 Pulse Rate 83 05/27/21 12:56 Respiratory Rate 18 05/27/21 12:56 Blood Pressure 174/72 H 05/27/21 12:56 Pulse Oximetry 95 05/27/21 12:56 Course Vital Signs Vital signs: Vital Signs - 8 hr 05/27/21 12:56 Temperature 97.0 F L Pulse Rate 83 Respiratory Rate 18 Blood Pressure 174/72 H Pulse Oximetry 95 MDM - Recheck/Abnormal Lab/Rx MDM Narrative Medical decision making narrative: Wound had become wet and 1 suture may have pulled through with thin layer of skin but remains intact. There is no sign of infection, drainage or ongoing bleeding. No indication that sutures need to be removed or replaced. Wound re- dressed by Nursing. Return precautions discussed and questions answered to his apparent satisfaction Discharge Plan Departure Patient Disposition: Home Clinical Impression: Wound, open, finger Instructions: DI for Laceration Repair -- Finger Activity Restrictions/Additional Instructions: *You have been diagnosed with [wound check, as we discussed there is no need to remove or replace sutures at this time ] *What to do: *Please continue to take your regular medications as directed. [ ] New medication prescriptions sent to your pharmacy: [ ] [ ] New medication written as a paper prescription [ x] No new medications given *Please follow up with your primary care provider in 2-3 days, call for an appointment. Let them know you were seen in the Emergency Department and that we ask that you be seen in follow up. We will electronically transmit a record of today's note if your PCP is in our system *If you do not have a primary care provider please contact the [facility] Resource line at [phone]. They will ask some questions about your medical history and help get you set up with a doctor in the community. *Return to Emergency Department if you should have any new, worsening or concerning symptoms, such as [fever greater than 101 F, shaking chills, worsening pain, persistent vomiting or other bothersome symptoms] Prescriptions: No Action (DME) oxygen-air delivery systems Device See Rx Instructions .ROUTE .MEDSUPPLY Qty: 1 0RF Rx Instructions: As directed nifedipine ointment See Rx Instructions .ROUTE .COMPLEX Qty: 30 1RF Rx Instructions: apply small amount to anal area twice a day gabapentin 300 mg capsule 900 mg PO TID Qty: 300 1RF Rx Instructions: take 3-300mg TID lisinopril 2.5 mg tablet 2.5 mg PO QDAY Qty: 90 3RF carvedilol [Coreg] 6.25 mg tablet See Rx Instructions .ROUTE .COMPLEX Qty: 270 3RF Dose Instruction: Take 1 and a 1/2 tabs by mouth every morning and 1 and 1/2 tab by mouth every night ; Rx Instructions: Take 1 and a 1/2 tabs by mouth every morning and 1 and 1/2 tab by mouth every night ; atorvastatin [Lipitor] 40 mg tablet 40 mg PO HS Qty: 90 3RF celecoxib [Celebrex] 200 mg capsule 200 mg PO DAILY Qty: 30 2RF tramadol 50 mg tablet 50 mg PO BID PRN (Reason: pain) Qty: 30 1RF Referrals: Morales Jorgensen MD [Primary Care Provider] -
--- NOTE | 2021-05-27 17:13 | PC.NURSE ---
new dressing placed.
== END 2021-05-27 17:14 | disposition home or self-care (01) ==
PROVIDERS: Emergency Provider Emergency Medicine; Family Provider Family Medicine; PCP Family Medicine
DX: S61.209D Unspecified open wound of unspecified finger without damage to nail, subsequent encounter (principal); Z87.891 Personal history of nicotine dependence; X58.XXXD Exposure to other specified factors, subsequent encounter
CPT/HCPCS: 99281

== ENCOUNTER → 2021-06-08 12:57 | Outpatient (CLI) | payer MEDICARE, OTHER, SELFPAY ==
[2021-06-08 16:21] LABS: COVID19 -Nasal RAPID Negative (Negative)
== END ==
PROVIDERS: Family Provider Family Medicine; PCP Family Medicine; Referring Provider Physical Medicine & Rehabilitation; Visit Provider Physical Medicine & Rehabilitation
DX: Z20.822 Contact with and (suspected) exposure to COVID-19 (principal)
CPT/HCPCS: 87635; C9803

== ENCOUNTER 2021-06-09 07:07 | Outpatient (CLI) | payer MEDICARE, OTHER, SELFPAY ==
[2021-06-09] VITALS (10 sets, daily range): BP systolic 98–155; BP diastolic 56–78; PULSE 15–95; RESP 12–97; TEMP 36.1–36.6; O2SAT 95–100
--- NOTE | 2021-06-09 07:09 | DI.RAD.S_ITS ---
PROCEDURE: PAIN L/S MED/LAT N RFA BILAT INDICATIONS: SPONDLYLOSIS COMPARISON: [facility], XA, PAIN L/S FACET INJ/BLK 1ST [place], 02/17/2021, 11:36. FINDINGS: Fluoroscopic spot filming was performed to verify placement of spinal needles on both sides at the L4, L5, and S1 levels, as labeled on the films. IMPRESSION: Intraprocedural examination within normal limits. Dictated by: Felipe Miller M.D. on 06/09/2021 at 8:11 Approved by: Felipe Miller M.D. on 06/09/2021 at 8:13
[2021-06-09] MEDS: fentaNYL 100 MCG/2 ML INJ 50 MCG IV (08:17)
[2021-06-09] MEDS: MIDAZOLAM 5 MG/5 ML VIAL IV (08:17)
[2021-06-09] MEDS: BUPIVACAINE 0.5% (PF) VIAL 5 ML INJ (08:27)
[2021-06-09] MEDS: LIDOCAINE 1% 20 ML INJ (08:27)
--- NOTE | 2021-06-09 08:53 | P.PCN_ITS ---
Date/Time/Diagnoses Date of procedure: 06/09/21 Time of procedure: 08:54 Pre-procedure diagnosis: 1. RECALCITRANT FACET ARTHROPATHY - This procedure is found to meet the Governor's proclamation 20-24.2 regarding non urgent procedures. This patient meets multiple criteria for the procedure including continuing or worsening of significant or severe pain, combined with further deterioration of the patient's condition or overall health as well as delay in treatment would be expected to result in less positive ultimate medical outcome. Therefore the decision to perform the procedure in an outpatient hospital setting is found to be in accordance with guidelines of the proclamation. Post-procedure diagnosis: same Procedure Notes Procedure: 1. BILATERAL L4 AND L5 MEDIAL BRANCH RADIOFREQUENCY NEUROTOMY AND S1 DORSAL RAMUS BRANCH RADIOFREQUENCY NEUROTOMY Indications: Brock is referred by Dr. Jorgensen for treatment of facet arthropathy. Physician: Jose R Hernandez Total Fluoroscopy time (seconds): 16 Total sedation minutes: 30 Complications: none Procedure in detail & Post-procedure care: DESCRIPTION OF PROCEDURE Bilateral L4 and L5 medial branch radiofrequency neurotomy and bilateral S1 dorsal ramus radiofrequency neurotomy under fluoroscopy with conscious sedation. The patient is well known to this clinic having undergone previous facet injections with good but temporary relief. The patient has experienced appropriate, concordant relief with previous facet and median branch blocks but the patient's pain has been recalcitrant to further conservative measures. Therefore, based upon the patient's relief and persistent symptoms, the patient is considered an appropriate candidate for facet rhizotomy. All of the patient's questions regarding the risks versus benefits of the procedure, including, but not limited to, bleeding, infection, temporary as well as lasting nerve injury, paralysis, stroke, and , as well treatment alternatives were answered to satisfaction. After obtaining informed consent, denial of pertinent drug allergies, as well as being made aware of the potential risks of bleeding, infection, spinal cord trauma, paralysis, temporary and permanent nerve damage, seizure, stroke, and possible , the patient was brought to the fluoroscopy suite and positioned prone on the fluoroscopy table. The lumbar region was prepped with Betadine and covered with a fenestrated drape in the usual sterile fashion. Appropriate monitors applied including pulse oximeter, pulse, and blood pressure for regular monitoring throughout the procedure. After review of previous anaesthesic history and IV conscious sedation the patient was deemed safe to proceed with today's procedure with IV conscious sedation as ASA class II designation. Safety time-out was performed to confirm patient ID, procedure to be performed and site of procedure. IV sedation was accomplished with a combination of 3mg of Versed and 50mcg of Fentanyl administered by the RN after DO order, titrated to patient comfort during the course of the procedure while the patient remained responsive to all verbal commands. After local infiltration using 1% lidocaine, under fluoroscopic guidance, a 10- cm RF insulated needle with a 10-mm active tip was positioned parallel to the junction of the right sacral ala and the superior articulating process where the S1 dorsal ramus resides. Needle placement was confirmed with motor stimulation of .5v on the right which produced local stimulation without radicular component. The stimulation was then increased to 2v with, once again, only local multifidus stimulation without radicular component. The needle was then removed and the identical procedure was performed along the length of the right L5 medial branch with motor stimulation at .7v on the right. The identical procedure was once again performed along the length of the right L4 medial branch with motor stimulation of .5v on the right. The medial branches were then anesthetised with 0.5% Marcaine. This was then followed by two discreet lesions performed at 80 degrees Celsius for 90 seconds each. The identical procedure was repeated on the left. The patient tolerated the procedure well without signs or symptoms of complications prior to transfer to the recovery area continued monitoring without incident. The patient was then transferred to the recovery area where they were observed for an appropriate period of time after the injection. The patient reported a VAS score of 9 prior to the procedure and a post-procedure VAS of 0. POST OP INSTRUCTIONS The patient was provided a Pain Log to continue to record the patient's response to the target-specific procedure prior to the patient's follow-up visit with the referring physician. Additionally, specific post-injection care instructions and a contact number to our office were provided if concerns arise regarding possible complications associated with the procedure are suspected.
== END 2021-06-09 09:15 | disposition home or self-care (01) ==
LOC: RAD 07:09
PROVIDERS: Family Provider Family Medicine; PCP Family Medicine; Referring Provider Physical Medicine & Rehabilitation; Visit Provider Physical Medicine & Rehabilitation
DX: M47.816 Spondylosis without myelopathy or radiculopathy, lumbar region (principal); M47.817 Spondylosis without myelopathy or radiculopathy, lumbosacral region
CPT/HCPCS: 64635; 64636; 99152; 99153; J2250; J3010

== ENCOUNTER 2021-12-03 15:11 | Emergency (ER) | payer MEDICARE, OTHER, SELFPAY ==
[2021-12-03 15:18] VITALS: BP 160/73; PULSE 95; RESP 18; TEMP 37; O2SAT 96; BMI 38.4
[2021-12-03 15:39] LABS: Add Manual Diff / Slide Review NO; Basophils Absolute Auto 100 /uL (0-100); Basophils Percent Auto 1.4 % (0-2); Eosinophils Absolute Auto 100 /uL (0-450); Eosinophils Percent Auto 1.6 % (2-4); Hematocrit 42.3 % (41-53); Hemoglobin 14.8 g/dL (13.5-17.5); Lymphocytes Absolute Auto 2200 /uL (1100-4500); Lymphocytes Percent Auto 30.9 % (25-40); Mean Corpuscular HGB Conc 34.9 % (30-36); Mean Corpuscular Hemoglobin 33.7 PG (26-34); Mean Corpuscular Volume 96.4 fL (80-100); Monocytes Absolute Auto 700 /uL (0-900); Neutrophils Absolute Auto 4100 /uL (1500-7000); Neutrophils Percent Auto 57.1 % (50-75); Platelet Count 162 X10^3/uL (150-400); Red Blood Cell Count 4.39 X10^6/uL (4.5-5.9); Red Cell Distribution Width 13.3 % (11.6-14.8); White Blood Cell Count 7.2 X10^3/uL (4.5-11.0)
--- NOTE | 2021-12-03 15:39 | DI.CT.S_ITS ---
PROCEDURE: CT ABDOMEN PELVIS W CON INDICATIONS: severe, worsening RLQ pain TECHNIQUE: After the administration of intravenous contrast, axial sections acquired from the lung bases to the pubic symphysis. Coronal and sagittal reformats were performed. For radiation dose reduction, the following was used: automated exposure control, adjustment of mA and/or kV according to patient size. COMPARISON: None. FINDINGS: Image quality: Excellent. Lung bases: Calcified bibasilar granulomata are present. Mild scarring within the left posteromedial lung base. Heart: No significant findings. ABDOMEN: Liver: Medial segment left hepatic lobe cyst measuring 47 mm. Diffusely decreased hepatic density. 23 mm cyst within the right hepatic lobe inferiorly. Gallbladder: Unremarkable. Biliary ducts: Unremarkable. Pancreas: Unremarkable. Spleen: Unremarkable. Adrenal Glands: Unremarkable. Kidneys and Ureters: No hydronephrosis. Nonobstructing 4 mm calculus within the left interpolar kidney posteriorly.. Stomach and Bowel: Small hiatal hernia. Stomach, small bowel loops, and colon are unremarkable. Normal appendix. Peritoneum: No abnormal intraperitoneal fluid. No free air. Ventral Wall: No hernias. Abdominal Nodes: No retroperitoneal or mesenteric adenopathy by size criteria. Vessels: Aorta and inferior vena cava are normal in size. PELVIS: Pelvic Organs: Unremarkable. Bladder: Unremarkable. Pelvic Nodes: No enlarged lymph nodes. Miscellaneous: No hernias are seen. Bones: Unremarkable. IMPRESSION: 1. No acute process. 2. Nonobstructing left renal calculus. 3. Hepatic steatosis. 4. Normal appendix. Dictated by: Lourdes Puga M.D. on 12/03/2021 at 16:24 Transcribed by: JULITO on 12/03/2021 at 16:26 Approved by: Lourdes Puga M.D. on 12/03/2021 at 16:39
--- NOTE | 2021-12-03 15:41 | ED.ABDPAIN ---
HPI - Abdominal Pain General Chief Complaint: Abdominal Pain Stated Complaint: r/o appendicitis Time Seen by Provider: 12/03/21 15:37 Source: patient Mode of arrival: Wheelchair History of Present Illness HPI narrative: 66-year-old male nonsmoker with history of coronary artery disease, hypertension, hyperlipidemia presents with a chief complaint of gradually worsening right lower quadrant pain over the past few days. States it came on gradually a few days ago and now is significantly worse and hurts so much that he can barely stand up. Any motion or changing position makes the pain significantly worse and resting seems to help. He is had chills but denies any fever. He denies any runny nose, sore throat or cough. He is had no chest pain or shortness of breath. He has been nauseated but denies any vomiting. He denies any dysuria, frequency or urgency. He last ate at breakfast time today. Related Data Home Medications Medication Instructions Recorded Confirmed oxygen-air delivery systems ##1 08/07/20 12/03/21 Previous Rx's Medication Instructions Recorded nifedipine See Rx Instructions .Route 10/10/20 .COMPLEX #30 grams celecoxib 200 mg capsule (Celebrex) 200 mg PO DAILY #30 caps 05/05/21 carvedilol 6.25 mg tablet (Coreg) See Rx Instructions .Route 05/25/21 .COMPLEX #270 tabs lisinopril 2.5 mg tablet 2.5 mg PO QDAY #90 tabs 05/25/21 atorvastatin 40 mg tablet (Lipitor) 40 mg PO HS #90 tabs 05/28/21 mupirocin 2 % topical ointment 1 applic topical TID #22 grams 06/18/21 gabapentin 300 mg capsule 900 mg PO TID #300 caps 10/28/21 tramadol 50 mg tablet 50 mg PO BID PRN pain #30 tabs 11/20/21 hydrocodone 5 mg-acetaminophen 325 1 tab PO Q4-6H PRN pain #10 tabs 12/03/21 mg tablet ondansetron 4 mg disintegrating 4 mg PO TID-QID PRN nausea and 12/03/21 tablet vomiting #10 tabs Allergies Allergy/AdvReac Type Severity Reaction Status Date / Time No Known Drug Allergies Allergy Verified 12/03/21 15:05 Review of Systems Review of Systems Narrative: GENERAL: See HPI HEENT: Denies sinus pain, ear pain, sore throat, difficulty swallowing, dizziness. RESPIRATORY: Denies dyspnea, cough, wheezing, hemoptysis, sputum. CARDIOVASCULAR: Denies chest pain, palpitations, orthopnea, edema, GASTROINTESTINAL: See HPI : Denies dysuria, frequency, incontinence, hematuria, urinary retention. MUSCULOSKELETAL: denies weakness, joint pain, or bony pain SKIN: Denies rash, skin lesions, or other NEUROLOGIC: Denies weakness, headache, numbness, change in speech, confusion, seizures, incoordination. PSYCHIATRIC: No concerning psychosocial issues. 12 point review of systems is negative except for those stated above Patient History Medical History Diabetes mellitus type 2, controlled, without complications Elevated liver enzymes Facet arthropathy, lumbar Facet arthropathy, lumbar Gait instability Hearing loss (1978) Heart attack (2011) Lumbar radiculopathy Medicare welcome exam Sleep apnea Spondylolisthesis at L4-L5 level Thrombocytopenia Surgical History Anesthesia H/O heart artery stent (05/09/12) History of vasectomy (1998) Status post hernia repair Family History Mother Ovarian cancer Hypertension Sister Cancer Father No problems noted. Brother Alcoholism and drug addiction in family Sleep apnea Family/Other Depression Social History marital status: unknown household members: none occupational status: previously employed Smoking Status: Never smoker Tobacco: How many years used: 13 alcohol intake: current (1 drink before bedtime ) substance use type: does not use Smoking Status: Never smoker alcohol intake frequency: 0-2 drinks per day Substance Use Type: marijuana Exam Narrative Exam Narrative: GENERAL: [66] year old patient appears stated age. Well-developed patient, in mild distress. HEAD: Atraumatic. Normocephalic. EYES: Pupils equal round and reactive. Extraocular motions intact. No scleral icterus. No injection or drainage. ENT: Nose without bleeding, purulent drainage. Throat without erythema, tonsillar hypertrophy or exudate. Airway patent. NECK: Trachea midline. Non tender CARDIOVASCULAR: Regular rate and rhythm without murmurs, gallops, or rubs. RESPIRATORY: Clear to auscultation. Breath sounds equal bilaterally. No wheezes, rales, or rhonchi. GASTROINTESTINAL: Abdomen soft, significant tenderness and right lower quadrant with localized guarding, Rovsing's, psoas and heel tap, nondistended. : Examined while patient standing, no testicular pain, swelling or scrotal edema, erythema or induration. No evidence of incarcerated or strangulated hernia EXTREMITIES: No edema or joint tenderness. BACK: Nontender without deformity or crepitance. No flank tenderness. NEURO: AOx3. SKIN: No rash or erythema of visible areas Initial Vital Signs Initial Vital Signs: Vital Signs Temperature 98.6 F 12/03/21 15:18 Pulse Rate 95 H 12/03/21 15:18 Respiratory Rate 18 12/03/21 15:18 Blood Pressure 160/73 H 12/03/21 15:18 Pulse Oximetry 96 12/03/21 15:18 Oxygen Delivery Method 12/03/21 15:18 Course Orders Ordered: ED Orders 12/03/21 15:23 EKG-12 Lead Stat 12/03/21 15:30 Complete Blood Count AUTO DIFF Stat Comprehensive Metabolic Panel Stat Lactate (Lactic Acid) Stat Lipase Stat 12/03/21 15:39 CT abdomen pelvis w con Stat 12/03/21 15:40 Complete Blood Count AUTO DIFF Stat 12/03/21 15:55 COVID19 -Nasal RAPID/Pre-Proc Stat Sodium Chloride (Normal Saline 0.9%) 1,000 mls @ 150 mls/hr IV CONT REESE Last Admin: 12/03/21 16:06 Dose: 150 mls/hr Documented By: AT Discontinued Medications Hydromorphone HCl (Hydromorphone 0.5 Mg Inj) 0.5 mg IV NOW ONE Stop: 12/03/21 15:40 Last Admin: 12/03/21 16:02 Dose: 0.5 mg Documented By: AT Ondansetron HCl (Ondansetron 4 Mg/2 Ml Inj) 4 mg IV NOW ONE Stop: 12/03/21 15:40 Last Admin: 12/03/21 16:02 Dose: 4 mg Documented By: AT Vital Signs Vital signs: Vital Signs - 8 hr 12/03/21 15:18 12/03/21 17:01 Temperature 98.6 F Pulse Rate 95 H 88 Respiratory Rate 18 Blood Pressure 160/73 H 126/60 Pulse Oximetry 96 95 Oxygen Delivery Method Room Air Room Air MDM - Abdominal Pain Lab Data Result diagrams: 12/03/21 15:30 12/03/21 15:30 Labs: Lab Results 12/03/21 12/03/21 12/03/21 Range/Units 15:30 15:30 15:30 WBC 7.2 (4.5-11.0) X10^3/uL RBC 4.39 L (4.5-5.9) X10^6/uL Hgb 14.8 (13.5-17.5) g/dL Hct 42.3 (41-53) % MCV 96.4 (80-100) fL MCH 33.7 (26-34) PG MCHC 34.9 (30-36) % RDW 13.3 (11.6-14.8) % Plt Count 162 (150-400) X10^3/uL Neut % (Auto) 57.1 (50-75) % Lymph % (Auto) 30.9 (25-40) % [place] % (Auto) 9.0 (3-14) % Eos % (Auto) 1.6 L (2-4) % Baso % (Auto) 1.4 (0-2) % Neut # (Auto) 4100 (2343-3062) /uL Lymph # (Auto) 2200 (8274-9086) /uL [place] # (Auto) 700 (0-900) /uL Eos # (Auto) 100 (0-450) /uL Baso # (Auto) 100 (0-100) /uL Sodium 138 (137-145) mmol/L Potassium 4.4 (3.4-5.1) mmol/L Chloride 101 (98-107) mmol/L Carbon Dioxide 29 (22-32) mmol/L BUN 13 (9-20) mg/dL Creatinine 0.81 (0.66-1.25) mg/dL Estimated GFR > 60 (>60) mL/min BUN/Creatinine Ratio 16.0 (6-22) Glucose 113 H (80-110) mg/dL Lactate 1.6 (0.7-2.1) mmol/L Calcium 9.2 (8.4-10.2) mg/dL Total Bilirubin 1.6 H (0.2-1.3) mg/dL AST 33 (17-59) IU/L ALT 32 (<50) IU/L Alkaline Phosphatase 56 (38-126) U/L Total Protein 8.2 (6.3-8.2) g/dL Albumin 4.9 (3.5-5.0) g/dL Globulin 3.3 (1.7-4.1) g/dL Albumin/Globulin Ratio 1.5 (1.0-2.8) Lipase 30 (23-300) U/L SARS-CoV-2 (PCR) (Negative) 12/03/21 Range/Units 15:55 WBC (4.5-11.0) X10^3/uL RBC (4.5-5.9) X10^6/uL Hgb (13.5-17.5) g/dL Hct (41-53) % MCV (80-100) fL MCH (26-34) PG MCHC (30-36) % RDW (11.6-14.8) % Plt Count (150-400) X10^3/uL Neut % (Auto) (50-75) % Lymph % (Auto) (25-40) % [place] % (Auto) (3-14) % Eos % (Auto) (2-4) % Baso % (Auto) (0-2) % Neut # (Auto) (2361-0259) /uL Lymph # (Auto) (8184-0441) /uL [place] # (Auto) (0-900) /uL Eos # (Auto) (0-450) /uL Baso # (Auto) (0-100) /uL Sodium (137-145) mmol/L Potassium (3.4-5.1) mmol/L Chloride (98-107) mmol/L Carbon Dioxide (22-32) mmol/L BUN (9-20) mg/dL Creatinine (0.66-1.25) mg/dL Estimated GFR (>60) mL/min BUN/Creatinine Ratio (6-22) Glucose (80-110) mg/dL Lactate (0.7-2.1) mmol/L Calcium (8.4-10.2) mg/dL Total Bilirubin (0.2-1.3) mg/dL AST (17-59) IU/L ALT (<50) IU/L Alkaline Phosphatase (38-126) U/L Total Protein (6.3-8.2) g/dL Albumin (3.5-5.0) g/dL Globulin (1.7-4.1) g/dL Albumin/Globulin Ratio (1.0-2.8) Lipase (23-300) U/L SARS-CoV-2 (PCR) Negative (Negative) Point of care testing: Urine Dip Bedside Urine Glucose Negative Bedside Urine Bilirubin - Negative Bedside Urine Ketone - Negative Urine Specific [place] 1.010 Bedside Urine Occult Blood - Negative Bedside Urine pH 7.0 Bedside Urine Protein - Negative Bedside Urine Urobilinogen 0.2 Bedside Urine Nitrite - Negative Bedside Urine Leukocytes - Negative Esterase Imaging Data CT scan - abdomen/pelvis: Radiologist's Impression: [address] [address] [address] Scan Report Signed Patient: Brock Restrepo MR#: [id number] : 1955 Acct:[id number] Age/Sex: 66 / M Date of Service: 12/03/21 Loc: ED Accession Number: [id number] ?? Procedure: CT abdomen pelvis w con Ordering Provider: Remigio Logan D.O. PROCEDURE:? CT ABDOMEN PELVIS W CON ? INDICATIONS:? severe, worsening RLQ pain ? TECHNIQUE:? After the administration of intravenous contrast, axial sections acquired from the lung bases to the pubic symphysis.? Coronal and sagittal reformats were performed.? For radiation dose reduction, the following was used:? automated exposure control, adjustment of mA and/or kV according to patient size.? ? COMPARISON:? None. ? FINDINGS:? Image quality:? Excellent.? ? Lung bases:? Calcified bibasilar granulomata are present.? Mild scarring within the left posteromedial lung base. Heart:? No significant findings. ? ABDOMEN: Liver:? Medial segment left hepatic lobe cyst measuring 47 mm.? Diffusely decreased hepatic density.? 23 mm cyst within the right hepatic lobe inferiorly. Gallbladder:? Unremarkable.? ? Biliary ducts:? Unremarkable.? ? Pancreas:? Unremarkable.? ? Spleen:? Unremarkable.? ? Adrenal Glands:? Unremarkable.? ? Kidneys and Ureters:? No hydronephrosis.? Nonobstructing 4 mm calculus within the left interpolar kidney posteriorly..? ? ? Stomach and Bowel:? Small hiatal hernia.? Stomach, small bowel loops, and colon are unremarkable.? Normal appendix. Peritoneum:? No abnormal intraperitoneal fluid.? No free air.? ? Ventral Wall: ? No hernias.? Abdominal Nodes:? No retroperitoneal or mesenteric adenopathy by size criteria.? Vessels:? Aorta and inferior vena cava are normal in size.? ? PELVIS: Pelvic Organs:? Unremarkable.? ? Bladder:? Unremarkable.? ? Pelvic Nodes: No enlarged lymph nodes.? Miscellaneous: No hernias are seen. ? ? ? Bones:? Unremarkable.? IMPRESSION:? 1. No acute process. 2. Nonobstructing left renal calculus. 3. Hepatic steatosis. 4. Normal appendix.? ? ? Dictated by: Lourdes Puga M.D. on 12/03/2021 at 16:24 ? Transcribed by: JULITO on 12/03/2021 at 16:26? ? Approved by: Lourdes Puga M.D. on 12/03/2021 at 16:39 ? MDM Narrative Medical decision making narrative: Multiple etiologies for patient's symptoms considered include, but not limited to: [Appendicitis versus mesenteric adenitis versus Bowel obstruction versus kidney stone versus diverticulitis versus other Patient's symptoms improved over duration of stay with above-stated therapies. History, physical exam, labs, imaging, and response to therapies have been reassuring. Findings and discharge diagnosis discussed with patient/family followed by verbalization of understanding Return precautions discussed with patient/family whom verbalize understanding. Pain has been well controlled and patient is tolerating oral hydration. Discharge Plan Departure Patient Disposition: Home Clinical Impression: Abdominal pain, acute, right lower quadrant Instructions: DI for Abdominal Pain-Adult Activity Restrictions/Additional Instructions: *You have been diagnosed with [right lower quadrant abdominal pain] * As we discussed your history and physical exam as well as labs and imaging are very reassuring. There is no evidence of any severe diagnoses that would require a specific or immediate intervention such as appendicitis, testicular torsion, kidney stone, bowel obstruction or other *What to do: *Please continue to take your regular medications as directed. [x ] New medication prescriptions sent to your pharmacy: [[facility] ] *Please follow up with your primary care provider in 2-3 days, call for an appointment. Let them know you were seen in the Emergency Department and that we ask that you be seen in follow up. We will electronically transmit a record of today's note if your PCP is in our system *Please consider a clear liquid diet for the next 24-48 hours and then slowly advance to regular as tolerated. Also, try to avoid alcohol, nicotine, caffeine, spicy, acidic or fatty foods as this may worsen your symptoms *If you do not have a primary care provider please contact the [facility] Resource line at [phone]. They will ask some questions about your medical history and help get you set up with a doctor in the community. *Return to Emergency Department if you should have any new, worsening or concerning symptoms, such as [fever greater than 101 F, shaking chills, worsening pain, persistent vomiting or other bothersome symptoms] Prescriptions: New hydrocodone-acetaminophen 5-325 mg tablet 1 tab PO Q4-6H PRN (Reason: pain) Qty: 10 0RF ondansetron 4 mg tablet,disintegrating 4 mg PO TID-QID PRN (Reason: nausea and vomiting) Qty: 10 0RF No Action mupirocin 2 % ointment 1 applic topical TID Qty: 22 0RF (DME) oxygen-air delivery systems Device See Rx Instructions .ROUTE .MEDSUPPLY Qty: 1 Rx Instructions: As directed nifedipine ointment See Rx Instructions .ROUTE .COMPLEX Qty: 30 1RF Rx Instructions: apply small amount to anal area twice a day lisinopril 2.5 mg tablet 2.5 mg PO QDAY Qty: 90 3RF carvedilol [Coreg] 6.25 mg tablet See Rx Instructions .ROUTE .COMPLEX Qty: 270 3RF Dose Instruction: Take 1 and a 1/2 tabs by mouth every morning and 1 and 1/2 tab by mouth every night ; Rx Instructions: Take 1 and a 1/2 tabs by mouth every morning and 1 and 1/2 tab by mouth every night ; atorvastatin [Lipitor] 40 mg tablet 40 mg PO HS Qty: 90 3RF gabapentin 300 mg capsule 900 mg PO TID Qty: 300 1RF Rx Instructions: take 3-300mg TID tramadol 50 mg tablet 50 mg PO BID PRN (Reason: pain) Qty: 30 1RF celecoxib [Celebrex] 200 mg capsule 200 mg PO DAILY Qty: 30 2RF Referrals: Radha Maria MD [Physician] - Morales Jorgensen MD [Primary Care Provider] -
[2021-12-03 15:59] LABS: Alanine Aminotransferase 32 IU/L (<50); Albumin 4.9 g/dL (3.5-5.0); Albumin Globulin Ratio 1.5 (1.0-2.8); Alkaline Phosphatase 56 U/L (38-126); Aspartate Aminotransferase 33 IU/L (17-59); Bilirubin Total 1.6 mg/dL (0.2-1.3); Blood Urea Nitrogen 13 mg/dL (9-20); Calcium 9.2 mg/dL (8.4-10.2); Carbon Dioxide 29 mmol/L (22-32); Chloride 101 mmol/L (98-107); Estimated Glomerular Filt Rate > 60 mL/min (>60); Globulin 3.3 g/dL (1.7-4.1); Glucose 113 mg/dL (80-110); HEMOLYSIS 44 (0-50); Lipase 30 U/L (23-300); Potassium 4.4 mmol/L (3.4-5.1); Sodium 138 mmol/L (137-145); Total Protein 8.2 g/dL (6.3-8.2)
[2021-12-03 16:00] LABS: Lactate (Lactic Acid) 1.6 mmol/L (0.7-2.1)
[2021-12-03] MEDS: ONDANSETRON 4 MG/2 ML INJ IV (16:02)
[2021-12-03] MEDS: HYDROMORPHONE 0.5 MG INJ IV (16:02)
[2021-12-03] MEDS: SODIUM CHLORIDE 0.9% 1,000 ML 150 ML IV (16:06)
[2021-12-03 16:40] LABS: COVID19 -Nasal RAPID Negative (Negative)
[2021-12-03 17:01] VITALS: BP 126/60; PULSE 88; O2SAT 95
== END 2021-12-03 17:30 | disposition home or self-care (01) ==
PROVIDERS: Emergency Provider Emergency Medicine; Family Provider Family Medicine; PCP Family Medicine
DX: R10.31 Right lower quadrant pain (principal); Z20.822 Contact with and (suspected) exposure to COVID-19
CPT/HCPCS: 36415; 74177; 80053; 81003; 83605; 83690; 85025; 87635; 96361; 96374; 96375; 99284; C9803; J1170; J2405; Q9967

== ENCOUNTER 2021-12-04 12:29 | Emergency (ER) | payer MEDICARE, OTHER, SELFPAY ==
[2021-12-04 13:12] VITALS: BP 142/70; PULSE 79; RESP 16; TEMP 36.9; O2SAT 95; BMI 37.6
--- NOTE | 2021-12-04 13:27 | ED_ITS ---
HPI - Abdominal Pain General Chief Complaint: Abdominal Pain Stated Complaint: right side abdominal pain Time Seen by Provider: 12/04/21 13:21 History of Present Illness HPI narrative: 66-year-old male, nonsmoker, returns to the emergency department with complaints of persistent right-sided abdominal pain x5 days. Patient was in the emergency department yesterday and had a full workup, for which everything was negative, including the CT. Patient reports that he woke up in the middle of the night with the pain, took 1 of his pain medications and went back to sleep, but was reawakened 4 hours later with the same pain and took another pain medication with no resolution of pain. Patient denies any trauma to that area, dysuria, change in urinary stream, N/V/D. Related Data Home Medications Medication Instructions Recorded Confirmed oxygen-air delivery systems ##1 08/07/20 12/03/21 Previous Rx's Medication Instructions Recorded nifedipine See Rx Instructions .Route 10/10/20 .COMPLEX #30 grams celecoxib 200 mg capsule (Celebrex) 200 mg PO DAILY #30 caps 05/05/21 carvedilol 6.25 mg tablet (Coreg) See Rx Instructions .Route 05/25/21 .COMPLEX #270 tabs lisinopril 2.5 mg tablet 2.5 mg PO QDAY #90 tabs 05/25/21 atorvastatin 40 mg tablet (Lipitor) 40 mg PO HS #90 tabs 05/28/21 mupirocin 2 % topical ointment 1 applic topical TID #22 grams 06/18/21 gabapentin 300 mg capsule 900 mg PO TID #300 caps 10/28/21 tramadol 50 mg tablet 50 mg PO BID PRN pain #30 tabs 11/20/21 hydrocodone 5 mg-acetaminophen 325 1 tab PO Q4-6H PRN pain #10 tabs 12/03/21 mg tablet ondansetron 4 mg disintegrating 4 mg PO TID-QID PRN nausea and 12/03/21 tablet vomiting #10 tabs hydrocodone 5 mg-acetaminophen 325 1 tab PO Q6H PRN pain #10 tabs 12/04/21 mg tablet Allergies Allergy/AdvReac Type Severity Reaction Status Date / Time No Known Drug Allergies Allergy Verified 12/03/21 15:05 Review of Systems Review of Systems Narrative: Narrative: GENERAL: Denies chills, fatigue, fever, sweats. See HPI HEENT: Denies sinus pain, ear pain, sore throat, difficulty swallowing, dizziness. RESPIRATORY: Denies dyspnea, cough, wheezing, sputum. CARDIOVASCULAR: Denies chest pain, palpitations, edema. GASTROINTESTINAL: Denies nausea, vomiting, diarrhea, constipation. Endorses right lower quadrant pain that worsens with palpation. : Denies dysuria, frequency, incontinence, hematuria, urinary retention, flank pain. MSK: Denies weakness, joint pain, or bony pain. SKIN: Denies rash, skin lesions, or pruritis. NEUROLOGIC: Denies weakness, dizziness, headache, numbness, confusion. PSYCHIATRIC: No concerning psychosocial issues. Patient History Medical History Diabetes mellitus type 2, controlled, without complications Elevated liver enzymes Facet arthropathy, lumbar Facet arthropathy, lumbar Gait instability Hearing loss (1978) Heart attack (2011) Lumbar radiculopathy [facility] Sleep apnea Spondylolisthesis at L4-L5 level Thrombocytopenia Surgical History Anesthesia H/O heart artery stent (05/09/12) History of vasectomy (1998) Status post hernia repair Family History Mother Ovarian cancer Hypertension Sister Cancer Father No problems noted. Brother Alcoholism and drug addiction in family Sleep apnea Family/Other Depression Social History marital status: unknown household members: none occupational status: previously employed Smoking Status: Never smoker Tobacco: How many years used: 13 alcohol intake: current (1 drink before bedtime ) substance use type: does not use Smoking Status: Never smoker alcohol intake frequency: 0-2 drinks per day Substance Use Type: marijuana Exam Narrative Exam Narrative: Exam Narrative: GENERAL: This is a well-nourished, well-developed patient, in mild distress HEAD: Atraumatic. Normocephalic. EYES: Pupils equal round and reactive. Extraocular motions intact. No scleral icterus, injection or drainage. ENT: Nose without bleeding, purulent drainage. Throat without erythema, tonsillar hypertrophy or exudate. Airway patent. NECK: Trachea midline. No JVD or lymphadenopathy. Nontender. CARDIOVASCULAR: Regular rate and rhythm without murmurs, peripheral pulses intact, cap refill <2 sec. RESPIRATORY: Breath sounds equal and clear bilaterally. No wheezes, rales, or rhonchi. No cough. No increased respiratory effort. No accessory muscle use. GASTROINTESTINAL: Abdomen soft, nondistended, right lower quadrant tenderness with guarding and rebound. No suprapubic pain. Positive heel tap test. MSK: Moves all extremities. Normal range of motion, no clubbing or edema. Neurovascularly intact. NEURO: A&O x 3. SKIN: Warm, dry, no rashes or lesions noted. Initial Vital Signs Initial Vital Signs: Vital Signs Temperature 98.4 F 12/04/21 13:12 Pulse Rate 79 12/04/21 13:12 Respiratory Rate 16 12/04/21 13:12 Blood Pressure 142/70 H 12/04/21 13:12 Pulse Oximetry 95 12/04/21 13:12 Oxygen Delivery Method 12/04/21 13:12 Reviewed Course Orders Ordered: ED Orders 12/04/21 13:49 CT abdomen pelvis w con Stat 12/04/21 13:57 CBC Auto Diff [Complete Blood Count AUTO DIFF] Stat CMP [Comprehensive Metabolic Panel] Stat Discontinued Medications Hydromorphone HCl (Hydromorphone 1 Mg Inj) 1 mg IV NOW ONE Stop: 12/04/21 13:57 Last Admin: 12/04/21 14:03 Dose: 1 mg Documented By: FATIMAH Ondansetron HCl (Ondansetron 4 Mg/2 Ml Inj) 4 mg IV NOW ONE Stop: 12/04/21 14:25 Last Admin: 12/04/21 14:25 Dose: 4 mg Documented By: FATIMAH Consultations Consultation #1: Dr. Maria, general surgery. Vital Signs Vital signs: Vital Signs - 8 hr 12/04/21 13:12 12/04/21 16:26 Temperature 98.4 F Pulse Rate 79 90 Respiratory Rate 16 20 Blood Pressure 142/70 H 161/78 H Pulse Oximetry 95 98 Oxygen Delivery Method Room Air Room Air MDM - Abdominal Pain Differential Diagnosis Differential diagnosis: Likely abdominal pain and acute appendicitis Lab Data Result diagrams: 12/04/21 13:57 12/04/21 13:57 Labs: Lab Results 12/04/21 12/04/21 Range/Units 13:57 13:57 WBC 5.9 (4.5-11.0) X10^3/uL RBC 4.23 L (4.5-5.9) X10^6/uL Hgb 14.3 (13.5-17.5) g/dL Hct 41.1 (41-53) % MCV 97.1 (80-100) fL MCH 33.9 (26-34) PG MCHC 34.9 (30-36) % RDW 13.4 (11.6-14.8) % Plt Count 151 (150-400) X10^3/uL Neut % (Auto) 52.2 (50-75) % Lymph % (Auto) 34.3 (25-40) % [place] % (Auto) 9.6 (3-14) % Eos % (Auto) 1.9 L (2-4) % Baso % (Auto) 2.0 (0-2) % Neut # (Auto) 3100 (7865-3016) /uL Lymph # (Auto) 2000 (3245-4390) /uL [place] # (Auto) 600 (0-900) /uL Eos # (Auto) 100 (0-450) /uL Baso # (Auto) 100 (0-100) /uL Sodium 138 (137-145) mmol/L Potassium 4.0 (3.4-5.1) mmol/L Chloride 98 (98-107) mmol/L Carbon Dioxide 30 (22-32) mmol/L BUN 10 (9-20) mg/dL Creatinine 0.89 (0.66-1.25) mg/dL Estimated GFR > 60 (>60) mL/min BUN/Creatinine Ratio 11.2 (6-22) Glucose 101 (80-110) mg/dL Calcium 9.0 (8.4-10.2) mg/dL Total Bilirubin 1.8 H (0.2-1.3) mg/dL AST 30 (17-59) IU/L ALT 30 (<50) IU/L Alkaline Phosphatase 54 (38-126) U/L Total Protein 7.8 (6.3-8.2) g/dL Albumin 4.7 (3.5-5.0) g/dL Globulin 3.1 (1.7-4.1) g/dL Albumin/Globulin Ratio 1.5 (1.0-2.8) Imaging Data CT scan - abdomen/pelvis: Radiologist's Impression: [address] [address] [address] Scan Report Signed Patient: Brock Restrepo MR#: [id number] : 1955 Acct:[id number] Age/Sex: 66 / M Date of Service: 12/04/21 Loc: ED Accession Number: [id number] ?? Procedure: CT abdomen pelvis w con Ordering Provider: Keegan Teixeira PROCEDURE:? CT ABDOMEN PELVIS W CON ? INDICATIONS:? RLQ pain ? TECHNIQUE:? After the administration of oral and intravenous contrast, axial sections were acquired from the lung bases to the pubic symphysis.? Coronal and sagittal reformats were performed.? For radiation dose reduction, the following was used:? automated exposure control, adjustment of mA and/or kV according to patient size.? ? COMPARISON:[facility], CT, CT ABDOMEN PELVIS W CON, 12/03/2021, 16:09. ? FINDINGS:? Image quality:? Excellent.? ? Lung bases:? Unremarkable.? ? Heart:? No significant findings. ? ? ABDOMEN: Liver:? The liver is diffusely hypodense suggesting fatty infiltration.? Circumscribed cystic lesions are redemonstrated. Gallbladder:? Unremarkable.? ? Biliary ducts:? Unremarkable.? ? Pancreas:? Unremarkable.? ? Spleen:? Unremarkable.? ? Adrenal Glands:? Unremarkable.? ? Kidneys and Ureters:? A nonobstructing calculus is present within the left kidney.? No right nephrolithiasis.? No hydronephrosis, hydroureter, or ureterolithiasis. ? Stomach and Bowel:? Stomach, small bowel loops, and colon are unremarkable.? The appendix is thin walled and gas-filled.? A focal lip occult shaped region of pericolonic fat is surrounded by focal fat stranding.? Fat stranding is also present centrally within this lesion.? Peritoneum:? No abnormal intraperitoneal fluid.? No free air.? ? Ventral Wall: ? No hernia.? Abdominal Nodes:? No retroperitoneal or mesenteric adenopathy by size criteria.? Vessels:? Aorta and inferior vena cava are normal in size.? ? PELVIS: Pelvic Organs:? Unremarkable.? ? Bladder:? Unremarkable.? ? Pelvic Nodes: No enlarged lymph nodes.? Miscellaneous:? There is a moderate-sized right fat containing inguinal hernia. ? Bones:? Unremarkable.? ? ? IMPRESSION:? ? 1.? Epiploic appendagitis adjacent to the cecum. ? This finding was discussed with ARIANNE Bautista at 3:19 p.m. On December 04, 2021. ? 2. No other acute intra-abdominal findings.? Normal appendix. ? 3. Nonobstructing left nephrolithiasis. ? 4. Hepatic steatosis.? ? Dictated by: Nathaly Ramires M.D. on 12/04/2021 at 15:14 ? ? Approved by: Nathaly Ramires M.D. on 12/04/2021 at 15:21 ? MDM Narrative Medical decision making narrative: 66-year-old male that presents to emergency department with 5 day history of right lower quadrant pain. CT with IV contrast yesterday revealed normal appendix. Discussed case with Dr. Maria, general surgery, who recommended getting a CT with oral contrast and contact her with the results. Pain poorly controlled with Dilaudid. Lab results are consistent with yesterday's values and nothing concerning. Ct reveals a epiploic appendagitis. Discussed results with Dr. Maria. Will discharge patient home with pain medication and strict return precautions. Discussed return precautions and plan of care with patient, who was agreeable with course of action. Discharge Plan Departure Patient Disposition: Home Clinical Impression: Epiploic appendagitis Instructions: DI for Abdominal Pain-Adult Activity Restrictions/Additional Instructions: *You have been diagnosed with epiploic appendagitis, which does not require surgery. This should resolve over time. In the time being, we will prescribe some pain medication to use for your discomfort. In addition to the pain medications, I would like you to take ibuprofen 600 mg 3 times a day with food for the next 3-5 days. For uncontrolled or intolerable pain, please return to the emergency department. Otherwise, please follow-up with your family doctor on Tuesday. *What to do: *Please continue to take your regular medications as directed. [ ] New medication prescriptions sent to your pharmacy: [ ] [ ] New medication written as a paper prescription [x ] No new medications given *Please follow up with your primary care provider in 2-3 days, call for an appointment. Let them know you were seen in the Emergency Department and that we ask that you be seen in follow up. We will electronically transmit a record of today's note if your PCP is in our system *If you do not have a primary care provider please contact the [facility] Resource line at [phone]. They will ask some questions about your medical history and help get you set up with a doctor in the community. ? Return to ER if you should have any new, worsening or concerning symptoms, such as worsening pain, severe headache, confusion, chest pain, difficulty breathing, fever greater than 101 F, shaking chills, persistent vomiting to the point that you cannot drink fluids, or other new or worsening symptoms. Prescriptions: New hydrocodone-acetaminophen 5-325 mg tablet 1 tab PO Q6H PRN (Reason: pain) Qty: 10 0RF No Action mupirocin 2 % ointment 1 applic topical TID Qty: 22 0RF (DME) oxygen-air delivery systems Device See Rx Instructions .ROUTE .MEDSUPPLY Qty: 1 Rx Instructions: As directed nifedipine ointment See Rx Instructions .ROUTE .COMPLEX Qty: 30 1RF Rx Instructions: apply small amount to anal area twice a day lisinopril 2.5 mg tablet 2.5 mg PO QDAY Qty: 90 3RF carvedilol [Coreg] 6.25 mg tablet See Rx Instructions .ROUTE .COMPLEX Qty: 270 3RF Dose Instruction: Take 1 and a 1/2 tabs by mouth every morning and 1 and 1/2 tab by mouth every night ; Rx Instructions: Take 1 and a 1/2 tabs by mouth every morning and 1 and 1/2 tab by mouth every night ; atorvastatin [Lipitor] 40 mg tablet 40 mg PO HS Qty: 90 3RF gabapentin 300 mg capsule 900 mg PO TID Qty: 300 1RF Rx Instructions: take 3-300mg TID tramadol 50 mg tablet 50 mg PO BID PRN (Reason: pain) Qty: 30 1RF hydrocodone-acetaminophen 5-325 mg tablet 1 tab PO Q4-6H PRN (Reason: pain) Qty: 10 0RF ondansetron 4 mg tablet,disintegrating 4 mg PO TID-QID PRN (Reason: nausea and vomiting) Qty: 10 0RF celecoxib [Celebrex] 200 mg capsule 200 mg PO DAILY Qty: 30 2RF Referrals: Morales Jorgensen MD [Primary Care Provider] - Visit Report Forms: Patient Portal/API
--- NOTE | 2021-12-04 13:49 | DI.CT.S_ITS ---
PROCEDURE: CT ABDOMEN PELVIS W CON INDICATIONS: RLQ pain TECHNIQUE: After the administration of oral and intravenous contrast, axial sections were acquired from the lung bases to the pubic symphysis. Coronal and sagittal reformats were performed. For radiation dose reduction, the following was used: automated exposure control, adjustment of mA and/or kV according to patient size. COMPARISON:[facility], CT, CT ABDOMEN PELVIS W CON, 12/03/2021, 16:09. FINDINGS: Image quality: Excellent. Lung bases: Unremarkable. Heart: No significant findings. ABDOMEN: Liver: The liver is diffusely hypodense suggesting fatty infiltration. Circumscribed cystic lesions are redemonstrated. Gallbladder: Unremarkable. Biliary ducts: Unremarkable. Pancreas: Unremarkable. Spleen: Unremarkable. Adrenal Glands: Unremarkable. Kidneys and Ureters: A nonobstructing calculus is present within the left kidney. No right nephrolithiasis. No hydronephrosis, hydroureter, or ureterolithiasis. Stomach and Bowel: Stomach, small bowel loops, and colon are unremarkable. The appendix is thin walled and gas-filled. A focal lip occult shaped region of pericolonic fat is surrounded by focal fat stranding. Fat stranding is also present centrally within this lesion. Peritoneum: No abnormal intraperitoneal fluid. No free air. Ventral Wall: No hernia. Abdominal Nodes: No retroperitoneal or mesenteric adenopathy by size criteria. Vessels: Aorta and inferior vena cava are normal in size. PELVIS: Pelvic Organs: Unremarkable. Bladder: Unremarkable. Pelvic Nodes: No enlarged lymph nodes. Miscellaneous: There is a moderate-sized right fat containing inguinal hernia. Bones: Unremarkable. IMPRESSION: 1. Epiploic appendagitis adjacent to the cecum. This finding was discussed with ARIANNE Bautista at 3:19 p.m. On December 04, 2021. 2. No other acute intra-abdominal findings. Normal appendix. 3. Nonobstructing left nephrolithiasis. 4. Hepatic steatosis. Dictated by: Nathaly Ramires M.D. on 12/04/2021 at 15:14 Approved by: Nathaly Ramires M.D. on 12/04/2021 at 15:21
[2021-12-04] MEDS: HYDROMORPHONE 1 MG INJ IV (14:03)
[2021-12-04 14:05] LABS: Add Manual Diff / Slide Review NO; Basophils Absolute Auto 100 /uL (0-100); Eosinophils Absolute Auto 100 /uL (0-450); Eosinophils Percent Auto 1.9 % (2-4); Hematocrit 41.1 % (41-53); Hemoglobin 14.3 g/dL (13.5-17.5); Lymphocytes Absolute Auto 2000 /uL (1100-4500); Lymphocytes Percent Auto 34.3 % (25-40); Mean Corpuscular HGB Conc 34.9 % (30-36); Mean Corpuscular Hemoglobin 33.9 PG (26-34); Mean Corpuscular Volume 97.1 fL (80-100); Monocytes Absolute Auto 600 /uL (0-900); Monocytes Percent Auto 9.6 % (3-14); Neutrophils Absolute Auto 3100 /uL (1500-7000); Neutrophils Percent Auto 52.2 % (50-75); Platelet Count 151 X10^3/uL (150-400); Red Blood Cell Count 4.23 X10^6/uL (4.5-5.9); Red Cell Distribution Width 13.4 % (11.6-14.8); White Blood Cell Count 5.9 X10^3/uL (4.5-11.0)
[2021-12-04 14:21] LABS: Alanine Aminotransferase 30 IU/L (<50); Albumin 4.7 g/dL (3.5-5.0); Albumin Globulin Ratio 1.5 (1.0-2.8); Alkaline Phosphatase 54 U/L (38-126); Aspartate Aminotransferase 30 IU/L (17-59); BUN Creatinine Ratio 11.2 (6-22); Bilirubin Total 1.8 mg/dL (0.2-1.3); Blood Urea Nitrogen 10 mg/dL (9-20); Carbon Dioxide 30 mmol/L (22-32); Chloride 98 mmol/L (98-107); Estimated Glomerular Filt Rate > 60 mL/min (>60); Globulin 3.1 g/dL (1.7-4.1); Glucose 101 mg/dL (80-110); HEMOLYSIS < 15 (0-50); Sodium 138 mmol/L (137-145); Total Protein 7.8 g/dL (6.3-8.2)
[2021-12-04] MEDS: ONDANSETRON 4 MG/2 ML INJ IV (14:25)
[2021-12-04 16:26] VITALS: BP 161/78; PULSE 90; RESP 20; O2SAT 98
== END 2021-12-04 16:30 | disposition home or self-care (01) ==
PROVIDERS: Emergency Provider Registered Nurse; Family Provider Family Medicine; PCP Family Medicine
DX: K63.89 Other specified diseases of intestine (principal)
CPT/HCPCS: 36415; 74177; 80053; 85025; 96374; 96375; 99284; J1170; J2405; Q9967

== ENCOUNTER 2022-01-17 04:16 | Emergency (ER) | payer MEDICARE, OTHER, SELFPAY ==
[2022-01-17] VITALS (24 sets, daily range): BP systolic 120–179; BP diastolic 68–101; PULSE 109–127; RESP 20–33; TEMP 37–37.2; O2SAT 89–96; BMI 36.9
--- NOTE | 2022-01-17 04:23 | DI.CT.S_ITS ---
PROCEDURE: CT LUMBAR SPINE WO CON INDICATIONS: severe lumbar pain, recent fusion TECHNIQUE: Noncontrast 3 mm thick sections acquired from the T12 level to the sacrum. Sagittal and coronal reformats were constructed. For radiation dose reduction, the following was used: automated exposure control. COMPARISON: [facility], MR, MR LUMBAR SPINE WO CON, 02/16/2020, 14:06. [facility], CT, CT ABDOMEN PELVIS W CON, 12/04/2021, 14:50. [facility], CR, XR LUMBAR SPINE WITH FLEXION EXTENSION 5 VIEWS, 06/24/2021, 13:18. [facility], CR, XR LUMBAR SPINE 2 OR 3 VIEWS, 01/13/2022, 12:24. FINDINGS: Image quality: There is artifact associated with the metallic hardware. Bones: . No acute vertebral body compression fractures. No suspicious lytic or blastic bony lesions. No pars defects. Minimal dextroconvex scoliotic curvature is seen. T12-L1: The disc height is well preserved. Bridging anterior osteophytes are seen. No significant neural foraminal or central canal narrowing can be seen. L1-L2: The disc height is well preserved. Mild endplate irregularity is seen. Mild generalized disc bulge is seen. No significant neural foraminal or central canal narrowing can be seen. L2-L3: The disc height is well preserved. Minimal retrolisthesis is seen at this level. Mild to moderate disc bulge is seen, which is slightly eccentric to the left Minimal bilateral neural foraminal narrowing can be seen. Mild central canal narrowing is seen. L3-L4: The disc height is well preserved. Moderate generalized disc bulge is seen. There is a superimposed central disc protrusion. Mild facet joint hypertrophy is seen. There is at least moderate bilateral neural foraminal narrowing seen. At least moderate central canal narrowing is seen. These degenerative findings appear more prominent than on the prior 2019 MRI examination. L4-L5: Postoperative changes are seen at this level, with bilateral pedicle screws and vertical fixation rods. There is a disc spacer seen. There has been removal of portions of the posterior elements, with left hemilaminectomy. Mild grade 1 anterolisthesis is seen at this level. Moderate disc bulge is seen. Although obscured by artifact, there is believed to be a disc extrusion at this level, with superior migration of the disc material, as on series 3, image 50 and on series 6, image 36. There is at least moderate bilateral neural foraminal narrowing seen. Moderate central canal narrowing is seen. The disc extrusion is new compared to prior examination. The degrees of neural foraminal narrowing are similar to the prior MRI. L5-S1: The disc height is well preserved. Mild generalized disc bulge is seen. No significant neural foraminal or central canal narrowing can be seen. Soft tissues: There is an obstructing 5 mm stone seen (measuring 550 Hounsfield units) within the distal left ureter, with associated at least moderate left-sided hydroureter and hydronephrosis. Left-sided perinephric fat stranding can be seen. No retroperitoneal masses or hematomas. Visualized aorta is normal in caliber. Atherosclerotic calcification is noted. IMPRESSION: 5 mm obstructing distal left ureteral stone. Postoperative change at L4-L5, with apparent disc extrusion. This is obscured by artifact, however. Please consider a follow-up lumbar spine MRI (without and with contrast) for further evaluation. Note: This case and recommendations (including differences between this final report and the preliminary report) discussed by telephone with is Dr. Smith at 7:56 a.m. [place] time on January 17, 2022. Dictated by: Felipe Miller M.D. on 01/17/2022 at 7:44 Approved by: Felipe Miller M.D. on 01/17/2022 at 7:58
--- NOTE | 2022-01-17 04:29 | ED_ITS ---
HPI - Back Pain/Injury <Remigio Logan, DO - Last Filed: 01/20/22 01:39> General Chief Complaint: Back Pain/Injury Stated Complaint: Post op back pain Time Seen by Provider: 01/17/22 04:25 Source: patient and EMS History of Present Illness HPI Narrative: 66-year-old male nonsmoker with history of hypertension, hyperlipidemia and coronary artery disease along with lumbar radiculopathy and spondylolisthesis with recent lumbar fusion presents by EMS for evaluation of severe lumbar pain. He had recently been admitted with surgical intervention at an outside facility and was discharged with typical access to pain medications and activity instructions. He states a few days ago he walked over a mi with it he is the level of activity prescribed by his orthopedist and he is had increasing pain ever since. He denies any trauma or injury. He denies any lower extremity numbness, tingling or weakness and has no loss of control of bowel or bladder. He states the pain is increasingly severe, particularly when moving. Denies any chest pain or shortness of breath. He has had some nausea and vomiting and though he denies fever he is had some night sweats. Related Data Home Medications Medication Instructions Recorded Confirmed oxygen-air delivery systems ##1 08/07/20 12/14/21 Previous Rx's Medication Instructions Recorded nifedipine See Rx Instructions .Route 10/10/20 .COMPLEX #30 grams celecoxib 200 mg capsule (Celebrex) 200 mg PO DAILY #30 caps 05/05/21 carvedilol 6.25 mg tablet (Coreg) See Rx Instructions .Route 05/25/21 .COMPLEX #270 tabs lisinopril 2.5 mg tablet 2.5 mg PO QDAY #90 tabs 05/25/21 atorvastatin 40 mg tablet (Lipitor) 40 mg PO HS #90 tabs 05/28/21 mupirocin 2 % topical ointment 1 applic topical TID #22 grams 06/18/21 gabapentin 300 mg capsule 900 mg PO TID #300 caps 10/28/21 tramadol 50 mg tablet 50 mg PO BID PRN pain #30 tabs 11/20/21 hydrocodone 5 mg-acetaminophen 325 1 tab PO Q4-6H PRN pain #10 tabs 12/03/21 mg tablet ondansetron 4 mg disintegrating 4 mg PO TID-QID PRN nausea and 12/03/21 tablet vomiting #10 tabs DISABLED PARKING PERMIT #1 ea 12/14/21 hydrocodone 5 mg-acetaminophen 325 1 tab PO Q6H PRN pain #10 tabs 12/25/21 mg tablet Allergies Allergy/AdvReac Type Severity Reaction Status Date / Time No Known Drug Allergies Allergy Verified 12/03/21 15:05 Review of Systems <Remigio Logan DO - Last Filed: 01/20/22 01:39> Review of Systems Narrative: GENERAL: Denies chills, fatigue, malaise, fever, sweats. HEENT: Denies sinus pain, ear pain, sore throat, difficulty swallowing, dizziness. RESPIRATORY: Denies dyspnea, cough, wheezing, hemoptysis, sputum. CARDIOVASCULAR: Denies chest pain, palpitations, orthopnea, edema, GASTROINTESTINAL: Denies nausea, vomiting, abdominal pain, diarrhea, constipation, melena. : Denies dysuria, frequency, incontinence, hematuria, urinary retention. MUSCULOSKELETAL: See HPI SKIN: Denies rash, skin lesions, or other NEUROLOGIC: Denies weakness, headache, numbness, change in speech, confusion, seizures, incoordination. PSYCHIATRIC: No concerning psychosocial issues. 12 point review of systems is negative except for those stated above Patient History <Remigio Logan DO - Last Filed: 01/20/22 01:39> Medical History Diabetes mellitus type 2, controlled, without complications Elevated liver enzymes Facet arthropathy, lumbar Facet arthropathy, lumbar Gait instability Hearing loss (1978) Heart attack (2011) Lumbar radiculopathy Medicare welcome exam Sleep apnea Spondylolisthesis at L4-L5 level Thrombocytopenia Surgical History Anesthesia H/O heart artery stent (05/09/12) History of vasectomy (1998) Status post hernia repair Family History Mother Ovarian cancer Hypertension Sister Cancer Father No problems noted. Brother Alcoholism and drug addiction in family Sleep apnea Family/Other Depression Social History marital status: unknown household members: none occupational status: previously employed Smoking Status: Never smoker Tobacco: How many years used: 13 alcohol intake: current (1 drink before bedtime ) substance use type: does not use Smoking Status: Never smoker alcohol intake frequency: 0-2 drinks per day Substance Use Type: does not use Exam <Remigio Logan DO - Last Filed: 01/20/22 01:39> Narrative Exam Narrative: GENERAL: [66] year old patient appears stated age. Well-developed patient, in mild distress. Obviously uncomfortable, complaining of back pain HEAD: Atraumatic. Normocephalic. EYES: Pupils equal round and reactive. Extraocular motions intact. No scleral icterus. No injection or drainage. ENT: Nose without bleeding, purulent drainage. Throat without erythema, tonsillar hypertrophy or exudate. Airway patent. NECK: Trachea midline. Non tender CARDIOVASCULAR: Tachycardic but regular rhythm without murmurs, gallops, or rubs. RESPIRATORY: Clear to auscultation. Breath sounds equal bilaterally. No wheezes, rales, or rhonchi. GASTROINTESTINAL: Abdomen soft, non-tender, nondistended. EXTREMITIES: No edema or joint tenderness. BACK: Back pain tender to palpate but incisions are clean, dry and intact, there is no dehiscence or drainage, no significant swelling, erythema, f luctuance or induration. Patient has 2+ patellar reflexes bilaterally, 5/5 strength and sensation is intact. No saddle anesthesia NEURO: AOx3. SKIN: No rash or erythema of visible areas Initial Vital Signs Initial Vital Signs: Vital Signs Blood Pressure 167/88 H 01/17/22 04:19 <Beatrice Smith DO - Last Filed: 01/17/22 19:32> Initial Vital Signs Initial Vital Signs: Vital Signs Blood Pressure 167/88 H 01/17/22 04:19 Course <Remigio Logan DO - Last Filed: 01/20/22 01:39> Orders Ordered: Discontinued Medications Carvedilol (Carvedilol 3.125 Mg Tablet) 9.375 mg PO NOW ONE Stop: 01/17/22 07:50 Last Admin: 01/17/22 08:00 Dose: 9.375 mg Documented By: CLARISA Gabapentin (Gabapentin 300 Mg Capsule) 300 mg PO NOW ONE Stop: 01/17/22 05:35 Last Admin: 01/17/22 05:41 Dose: 300 mg Documented By: EB Hydromorphone HCl (Hydromorphone 0.5 Mg Inj) 0.5 mg IV NOW ONE Stop: 01/17/22 04:24 Last Admin: 01/17/22 04:37 Dose: 0.5 mg Documented By: WHIT Hydromorphone HCl (Hydromorphone 0.5 Mg Inj) 0.5 mg IV NOW ONE Stop: 01/17/22 07:49 Last Admin: 01/17/22 07:59 Dose: 0.5 mg Documented By: CLARISA Hydromorphone HCl (Hydromorphone 0.5 Mg Inj) 0.5 mg IV Q4H PRN PRN Reason: pain Sodium Chloride (Normal Saline 0.9%) 1,000 mls @ 1,000 mls/hr IV BOLUS ONE Stop: 01/17/22 05:22 Last Infusion: 01/17/22 05:35 Dose: 0 mls/hr Documented By: Admin: 01/17/22 04:36 Dose: 1,000 mls/hr Documented By: WHIT Sodium Chloride (Normal Saline 0.9%) 1,000 mls @ 1,000 mls/hr IV BOLUS ONE Stop: 01/17/22 08:36 Last Infusion: 01/17/22 09:34 Dose: 0 mls/hr Documented By: Admin: 01/17/22 07:46 Dose: 1,000 mls/hr Documented By: CLARISA Piperacillin Sod/Tazobactam (Sod 4.5 gm/ Sodium Chloride) 100 mls @ 25 mls/hr IV Q8H [facility] Last Infusion: 01/17/22 11:58 Dose: 0 mls/hr Documented By: Infusion: 01/17/22 10:58 Dose: 100 mls/hr Documented By: Admin: 01/17/22 10:54 Dose: 25 mls/hr Documented By: CTS Sodium Chloride (Normal Saline 0.9%) 1,000 mls @ 200 mls/hr IV CONT REESE Last Infusion: 01/17/22 14:20 Dose: 0 mls/hr Documented By: Admin: 01/17/22 10:54 Dose: 200 mls/hr Documented By: CTS Ondansetron HCl (Ondansetron 4 Mg/2 Ml Inj) 4 mg IV NOW ONE Stop: 01/17/22 04:24 Last Admin: 01/17/22 04:37 Dose: 4 mg Documented By: WHIT Oxycodone/Acetaminophen (Oxycodone/Acetaminophen 5/325 Tablet) 2 tab PO NOW ONE Stop: 01/17/22 05:35 Last Admin: 01/17/22 05:41 Dose: 2 tab Documented By: LUCRECIA Tamsulosin HCl (Tamsulosin 0.4 Mg Capsule) 0.4 mg PO NOW ONE Stop: 01/17/22 09:35 Last Admin: 01/17/22 10:54 Dose: 0.4 mg Documented By: CTS Vital Signs Vital signs: Vital Signs - 8 hr 01/17/22 12:07 01/17/22 12:00 01/17/22 12:00 Temperature 98.9 F Pulse Rate 109 H Respiratory Rate 25 H Blood Pressure 138/89 Pulse Oximetry 95 01/17/22 12:30 01/17/22 12:30 01/17/22 13:00 Temperature Pulse Rate 117 H Respiratory Rate 25 H Blood Pressure 131/73 125/77 Pulse Oximetry 94 01/17/22 13:00 01/17/22 13:30 01/17/22 13:30 Temperature Pulse Rate 118 H 127 H Respiratory Rate 26 H 24 Blood Pressure 120/72 Pulse Oximetry 91 91 <Beatrice Smith, - Last Filed: 01/17/22 19:32> Orders Ordered: Discontinued Medications Carvedilol (Carvedilol 3.125 Mg Tablet) 9.375 mg PO NOW ONE Stop: 01/17/22 07:50 Last Admin: 01/17/22 08:00 Dose: 9.375 mg Documented By: CLARISA Gabapentin (Gabapentin 300 Mg Capsule) 300 mg PO NOW ONE Stop: 01/17/22 05:35 Last Admin: 01/17/22 05:41 Dose: 300 mg Documented By: LUCRECIA Hydromorphone HCl (Hydromorphone 0.5 Mg Inj) 0.5 mg IV NOW ONE Stop: 01/17/22 04:24 Last Admin: 01/17/22 04:37 Dose: 0.5 mg Documented By: WHIT Hydromorphone HCl (Hydromorphone 0.5 Mg Inj) 0.5 mg IV NOW ONE Stop: 01/17/22 07:49 Last Admin: 01/17/22 07:59 Dose: 0.5 mg Documented By: CLARISA Hydromorphone HCl (Hydromorphone 0.5 Mg Inj) 0.5 mg IV Q4H PRN PRN Reason: pain Sodium Chloride (Normal Saline 0.9%) 1,000 mls @ 1,000 mls/hr IV BOLUS ONE Stop: 01/17/22 05:22 Last Infusion: 01/17/22 05:35 Dose: 0 mls/hr Documented By: Admin: 01/17/22 04:36 Dose: 1,000 mls/hr Documented By: AP Sodium Chloride (Normal Saline 0.9%) 1,000 mls @ 1,000 mls/hr IV BOLUS ONE Stop: 01/17/22 08:36 Last Infusion: 01/17/22 09:34 Dose: 0 mls/hr Documented By: Admin: 01/17/22 07:46 Dose: 1,000 mls/hr Documented By: CLARISA Piperacillin Sod/Tazobactam (Sod 4.5 gm/ Sodium Chloride) 100 mls @ 25 mls/hr IV Q8H [facility] Last Infusion: 01/17/22 11:58 Dose: 0 mls/hr Documented By: Infusion: 01/17/22 10:58 Dose: 100 mls/hr Documented By: Admin: 01/17/22 10:54 Dose: 25 mls/hr Documented By: CARMENCITA Sodium Chloride (Normal Saline 0.9%) 1,000 mls @ 200 mls/hr IV CONT [facility] Last Infusion: 01/17/22 14:20 Dose: 0 mls/hr Documented By: Admin: 01/17/22 10:54 Dose: 200 mls/hr Documented By: CARMENCITA Ondansetron HCl (Ondansetron 4 Mg/2 Ml Inj) 4 mg IV NOW ONE Stop: 01/17/22 04:24 Last Admin: 01/17/22 04:37 Dose: 4 mg Documented By: WHIT Oxycodone/Acetaminophen (Oxycodone/Acetaminophen 5/325 Tablet) 2 tab PO NOW ONE Stop: 01/17/22 05:35 Last Admin: 01/17/22 05:41 Dose: 2 tab Documented By: LUCRECIA Tamsulosin HCl (Tamsulosin 0.4 Mg Capsule) 0.4 mg PO NOW ONE Stop: 01/17/22 09:35 Last Admin: 01/17/22 10:54 Dose: 0.4 mg Documented By: CTS Consultations Consultation #1: Dr. De La Cruz, urology [facility]. States that if patient had persistent symptoms in tomorrow he would possibly sent him for pain control but his recommendation would be if we have Urology here tomorrow to keep patient here to be seen. He would not stent patient or take him to the OR today. If we do not have Urology he would be happy to consult if we chat with the hospitalist at [facility]. Time: 12:19 Consultation #2: Dr. Mccartney, hospitalist accepts for admission at [facility]. Plan for SDU. Time: 13:05 Vital Signs Vital signs: Vital Signs - 8 hr 01/17/22 12:07 01/17/22 12:00 01/17/22 12:00 Temperature 98.9 F Pulse Rate 109 H Respiratory Rate 25 H Blood Pressure 138/89 Pulse Oximetry 95 01/17/22 12:30 01/17/22 12:30 01/17/22 13:00 Temperature Pulse Rate 117 H Respiratory Rate 25 H Blood Pressure 131/73 125/77 Pulse Oximetry 94 01/17/22 13:00 01/17/22 13:30 01/17/22 13:30 Temperature Pulse Rate 118 H 127 H Respiratory Rate 26 H 24 Blood Pressure 120/72 Pulse Oximetry 91 91 MDM - Back Pain/Injury <Remigio Logan, - Last Filed: 01/20/22 01:39> Lab Data Result diagrams: 01/17/22 06:54 01/17/22 06:54 Labs: Lab Results 01/17/22 01/17/22 01/17/22 Range/Units 04:40 04:40 04:40 WBC 14.7 H (4.5-11.0) X10^3/uL RBC 4.42 L (4.5-5.9) X10^6/uL Hgb 14.9 (13.5-17.5) g/dL Hct 42.6 (41-53) % MCV 96.3 (80-100) fL MCH 33.8 (26-34) PG MCHC 35.1 (30-36) % RDW 12.7 (11.6-14.8) % Plt Count 198 (150-400) X10^3/uL Neut % (Auto) 78.3 H (50-75) % Lymph % (Auto) 12.5 L (25-40) % [place] % (Auto) 8.3 (3-14) % Eos % (Auto) 0.2 L (2-4) % Baso % (Auto) 0.7 (0-2) % Neut # (Auto) 42707 H (9048-9266) /uL Lymph # (Auto) 1800 (1653-2255) /uL [place] # (Auto) 1200 H (0-900) /uL Eos # (Auto) 0 (0-450) /uL Baso # (Auto) 100 (0-100) /uL ESR 57 H (0-15) MM/HR D-Dimer (<500) ng/ml Sodium 135 L (137-145) mmol/L Potassium 4.0 (3.4-5.1) mmol/L Chloride 102 (98-107) mmol/L Carbon Dioxide 24 (22-32) mmol/L BUN 19 (9-20) mg/dL Creatinine 1.40 H (0.66-1.25) mg/dL Estimated GFR 56 L (>60) mL/min BUN/Creatinine Ratio 13.6 (6-22) Glucose 169 H (80-110) mg/dL Lactate 1.4 (0.7-2.1) mmol/L Calcium 9.0 (8.4-10.2) mg/dL Magnesium 1.9 (1.6-2.3) mg/dL Total Bilirubin 2.4 H (0.2-1.3) mg/dL AST 20 (17-59) IU/L ALT 21 (<50) IU/L Alkaline Phosphatase 84 (38-126) U/L Total Creatine Kinase (55-170) U/L CK-MB (CK-2) CK-MB (CK-2) Rel Index Troponin I (0.01-0.034) ng/mL C-Reactive Protein 13.7 H (<1.0) mg/dL NT-Pro-B Natriuret Pep (<125) pg/mL Total Protein 8.1 (6.3-8.2) g/dL Albumin 4.2 (3.5-5.0) g/dL Globulin 3.9 (1.7-4.1) g/dL Albumin/Globulin Ratio 1.1 (1.0-2.8) Procalcitonin (<0.5) ng/mL Urine RBC (0-5/HPF) Urine WBC (0-5/HPF) Ur Squamous Epith Cells (0-5/HPF) Urine Bacteria (None) Hyaline Casts (None) Ur Culture Indicated? A. baumannii (PCR) (Not Detect) Agnes albicans (PCR) (Not Detect) C. glabrata (PCR) (Not Detect) C. krusei (PCR) (Not Detect) C. parapsilosis (PCR) (Not Detect) C. tropicalis (PCR) (Not Detect) SARS-CoV-2 (PCR) (Negative) Enterobacteriac sp PCR (Not Detect) E. cloacae complex PCR (Not Detect) Enterococcus sp PCR (Not Detect) E. coli (PCR) (Not Detect) H. influenzae (PCR) (Not Detect) Klebsiella oxytoca PCR (Not Detect) Klebsiella pneumoniae (Not Detect) List. monocytogenes PCR (Not Detect) N. meningitidis (PCR) (Not Detect) Proteus species (PCR) (Not Detect) Serratia marcescens PCR (Not Detect) Staphylococcus sp PCR (Not Detect) Staph aureus (PCR) (Not Detect) mecA-Methicil Res Gene (Not Detect) Streptococcus sp PCR (Not Detect) Group A Strep (PCR) (Not Detect) Strep agalactiae (PCR) (Not Detect) Strep pneumoniae (PCR) (Not Detect) P. aeruginosa (PCR) (Not Detect) Tracy/B-Vanco Res Genes (Not Detect) KPC-Carbap Res Gene PCR (Not Detect) 01/17/22 01/17/22 01/17/22 Range/Units 04:40 04:50 06:54 WBC 13.3 H (4.5-11.0) X10^3/uL RBC 4.07 L (4.5-5.9) X10^6/uL Hgb 13.9 (13.5-17.5) g/dL Hct 39.4 L (41-53) % MCV 96.8 (80-100) fL MCH 34.1 H (26-34) PG MCHC 35.2 (30-36) % RDW 12.5 (11.6-14.8) % Plt Count 178 (150-400) X10^3/uL Neut % (Auto) 78.7 H (50-75) % Lymph % (Auto) 11.3 L (25-40) % [place] % (Auto) 9.1 (3-14) % Eos % (Auto) 0.1 L (2-4) % Baso % (Auto) 0.8 (0-2) % Neut # (Auto) 19092 H (5881-4633) /uL Lymph # (Auto) 1500 (7278-0322) /uL [place] # (Auto) 1200 H (0-900) /uL Eos # (Auto) 0 (0-450) /uL Baso # (Auto) 100 (0-100) /uL ESR (0-15) MM/HR D-Dimer (<500) ng/ml Sodium (137-145) mmol/L Potassium (3.4-5.1) mmol/L Chloride (98-107) mmol/L Carbon Dioxide (22-32) mmol/L BUN (9-20) mg/dL Creatinine (0.66-1.25) mg/dL Estimated GFR (>60) mL/min BUN/Creatinine Ratio (6-22) Glucose (80-110) mg/dL Lactate (0.7-2.1) mmol/L Calcium (8.4-10.2) mg/dL Magnesium (1.6-2.3) mg/dL Total Bilirubin (0.2-1.3) mg/dL AST (17-59) IU/L ALT (<50) IU/L Alkaline Phosphatase (38-126) U/L Total Creatine Kinase (55-170) U/L CK-MB (CK-2) CK-MB (CK-2) Rel Index Troponin I (0.01-0.034) ng/mL C-Reactive Protein (<1.0) mg/dL NT-Pro-B Natriuret Pep (<125) pg/mL Total Protein (6.3-8.2) g/dL Albumin (3.5-5.0) g/dL Globulin (1.7-4.1) g/dL Albumin/Globulin Ratio (1.0-2.8) Procalcitonin (<0.5) ng/mL Urine RBC (0-5/HPF) Urine WBC (0-5/HPF) Ur Squamous Epith Cells (0-5/HPF) Urine Bacteria (None) Hyaline Casts (None) Ur Culture Indicated? A. baumannii (PCR) Not detected (Not Detect) Agnes albicans (PCR) Not detected (Not Detect) C. glabrata (PCR) Not detected (Not Detect) C. krusei (PCR) Not detected (Not Detect) C. parapsilosis (PCR) Not detected (Not Detect) C. tropicalis (PCR) Not detected (Not Detect) SARS-CoV-2 (PCR) Negative (Negative) Enterobacteriac sp PCR Not detected (Not Detect) E. cloacae complex PCR Not detected (Not Detect) Enterococcus sp PCR Not detected (Not Detect) E. coli (PCR) Not detected (Not Detect) H. influenzae (PCR) Not detected (Not Detect) Klebsiella oxytoca PCR Not detected (Not Detect) Klebsiella pneumoniae Not detected (Not Detect) List. monocytogenes PCR Not detected (Not Detect) N. meningitidis (PCR) Not detected (Not Detect) Proteus species (PCR) Not detected (Not Detect) Serratia marcescens PCR Not detected (Not Detect) Staphylococcus sp PCR Not detected (Not Detect) Staph aureus (PCR) Not detected (Not Detect) mecA-Methicil Res Gene Not detected (Not Detect) Streptococcus sp PCR Not detected (Not Detect) Group A Strep (PCR) Not detected (Not Detect) Strep agalactiae (PCR) Not detected (Not Detect) Strep pneumoniae (PCR) Not detected (Not Detect) P. aeruginosa (PCR) Not detected (Not Detect) Tracy/B-Vanco Res Genes Not detected (Not Detect) KPC-Carbap Res Gene PCR Not detected (Not Detect) 01/17/22 01/17/22 01/17/22 Range/Units 06:54 06:54 06:54 WBC (4.5-11.0) X10^3/uL RBC (4.5-5.9) X10^6/uL Hgb (13.5-17.5) g/dL Hct (41-53) % MCV (80-100) fL MCH (26-34) PG MCHC (30-36) % RDW (11.6-14.8) % Plt Count (150-400) X10^3/uL Neut % (Auto) (50-75) % Lymph % (Auto) (25-40) % [place] % (Auto) (3-14) % Eos % (Auto) (2-4) % Baso % (Auto) (0-2) % Neut # (Auto) (1437-7488) /uL Lymph # (Auto) (8749-4424) /uL [place] # (Auto) (0-900) /uL Eos # (Auto) (0-450) /uL Baso # (Auto) (0-100) /uL ESR (0-15) MM/HR D-Dimer 821 H (<500) ng/ml Sodium 136 L (137-145) mmol/L Potassium 4.2 (3.4-5.1) mmol/L Chloride 103 (98-107) mmol/L Carbon Dioxide 26 (22-32) mmol/L BUN 19 (9-20) mg/dL Creatinine 1.36 H (0.66-1.25) mg/dL Estimated GFR 58 L (>60) mL/min BUN/Creatinine Ratio 14.0 (6-22) Glucose 144 H (80-110) mg/dL Lactate (0.7-2.1) mmol/L Calcium 8.5 (8.4-10.2) mg/dL Magnesium (1.6-2.3) mg/dL Total Bilirubin (0.2-1.3) mg/dL AST (17-59) IU/L ALT (<50) IU/L Alkaline Phosphatase (38-126) U/L Total Creatine Kinase 50 L (55-170) U/L CK-MB (CK-2) TNP CK-MB (CK-2) Rel Index TNP Troponin I 0.023 (0.01-0.034) ng/mL C-Reactive Protein (<1.0) mg/dL NT-Pro-B Natriuret Pep (<125) pg/mL Total Protein (6.3-8.2) g/dL Albumin (3.5-5.0) g/dL Globulin (1.7-4.1) g/dL Albumin/Globulin Ratio (1.0-2.8) Procalcitonin 0.08 (<0.5) ng/mL Urine RBC (0-5/HPF) Urine WBC (0-5/HPF) Ur Squamous Epith Cells (0-5/HPF) Urine Bacteria (None) Hyaline Casts (None) Ur Culture Indicated? A. baumannii (PCR) (Not Detect) Agnes albicans (PCR) (Not Detect) C. glabrata (PCR) (Not Detect) C. krusei (PCR) (Not Detect) C. parapsilosis (PCR) (Not Detect) C. tropicalis (PCR) (Not Detect) SARS-CoV-2 (PCR) (Negative) Enterobacteriac sp PCR (Not Detect) E. cloacae complex PCR (Not Detect) Enterococcus sp PCR (Not Detect) E. coli (PCR) (Not Detect) H. influenzae (PCR) (Not Detect) Klebsiella oxytoca PCR (Not Detect) Klebsiella pneumoniae (Not Detect) List. monocytogenes PCR (Not Detect) N. meningitidis (PCR) (Not Detect) Proteus species (PCR) (Not Detect) Serratia marcescens PCR (Not Detect) Staphylococcus sp PCR (Not Detect) Staph aureus (PCR) (Not Detect) mecA-Methicil Res Gene (Not Detect) Streptococcus sp PCR (Not Detect) Group A Strep (PCR) (Not Detect) Strep agalactiae (PCR) (Not Detect) Strep pneumoniae (PCR) (Not Detect) P. aeruginosa (PCR) (Not Detect) Tracy/B-Vanco Res Genes (Not Detect) KPC-Carbap Res Gene PCR (Not Detect) 01/17/22 01/17/22 01/17/22 Range/Units 06:54 09:41 10:05 WBC (4.5-11.0) X10^3/uL RBC (4.5-5.9) X10^6/uL Hgb (13.5-17.5) g/dL Hct (41-53) % MCV (80-100) fL MCH (26-34) PG MCHC (30-36) % RDW (11.6-14.8) % Plt Count (150-400) X10^3/uL Neut % (Auto) (50-75) % Lymph % (Auto) (25-40) % [place] % (Auto) (3-14) % Eos % (Auto) (2-4) % Baso % (Auto) (0-2) % Neut # (Auto) (9665-4481) /uL Lymph # (Auto) (9013-7128) /uL [place] # (Auto) (0-900) /uL Eos # (Auto) (0-450) /uL Baso # (Auto) (0-100) /uL ESR (0-15) MM/HR D-Dimer (<500) ng/ml Sodium (137-145) mmol/L Potassium (3.4-5.1) mmol/L Chloride (98-107) mmol/L Carbon Dioxide (22-32) mmol/L BUN (9-20) mg/dL Creatinine (0.66-1.25) mg/dL Estimated GFR (>60) mL/min BUN/Creatinine Ratio (6-22) Glucose (80-110) mg/dL Lactate (0.7-2.1) mmol/L Calcium (8.4-10.2) mg/dL Magnesium (1.6-2.3) mg/dL Total Bilirubin (0.2-1.3) mg/dL AST (17-59) IU/L ALT (<50) IU/L Alkaline Phosphatase (38-126) U/L Total Creatine Kinase (55-170) U/L CK-MB (CK-2) CK-MB (CK-2) Rel Index Troponin I 0.029 (0.01-0.034) ng/mL C-Reactive Protein (<1.0) mg/dL NT-Pro-B Natriuret Pep 1750 H (<125) pg/mL Total Protein (6.3-8.2) g/dL Albumin (3.5-5.0) g/dL Globulin (1.7-4.1) g/dL Albumin/Globulin Ratio (1.0-2.8) Procalcitonin (<0.5) ng/mL Urine RBC None seen (0-5/HPF) Urine WBC None seen (0-5/HPF) Ur Squamous Epith Cells 0-1 /hpf (0-5/HPF) Urine Bacteria None seen (None) Hyaline Casts 5-10/lpf (None) 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 baumannii (PCR) (Not Detect) Agnes albicans (PCR) (Not Detect) C. glabrata (PCR) (Not Detect) C. krusei (PCR) (Not Detect) C. parapsilosis (PCR) (Not Detect) C. tropicalis (PCR) (Not Detect) SARS-CoV-2 (PCR) (Negative) Enterobacteriac sp PCR (Not Detect) E. cloacae complex PCR (Not Detect) Enterococcus sp PCR (Not Detect) E. coli (PCR) (Not Detect) H. influenzae (PCR) (Not Detect) Klebsiella oxytoca PCR (Not Detect) Klebsiella pneumoniae (Not Detect) List. monocytogenes PCR (Not Detect) N. meningitidis (PCR) (Not Detect) Proteus species (PCR) (Not Detect) Serratia marcescens PCR (Not Detect) Staphylococcus sp PCR (Not Detect) Staph aureus (PCR) (Not Detect) mecA-Methicil Res Gene (Not Detect) Streptococcus sp PCR (Not Detect) Group A Strep (PCR) (Not Detect) Strep agalactiae (PCR) (Not Detect) Strep pneumoniae (PCR) (Not Detect) P. aeruginosa (PCR) (Not Detect) Tracy/B-Vanco Res Genes (Not Detect) KPC-Carbap Res Gene PCR (Not Detect) Urine Dip Bedside Urine Glucose Negative Bedside Urine Bilirubin - Negative Bedside Urine Ketone - Negative Urine Specific [place] 1.030 Bedside Urine Occult Blood - Negative Bedside Urine pH 6.0 Bedside Urine Protein +/- 15 Bedside Urine Urobilinogen - Negative Bedside Urine Nitrite - Negative Bedside Urine Leukocytes - Negative Esterase <Beatrice Smith, DO - Last Filed: 01/17/22 19:32> Lab Data Labs: Lab Results 01/17/22 01/17/22 01/17/22 Range/Units 04:40 04:40 04:40 WBC 14.7 H (4.5-11.0) X10^3/uL RBC 4.42 L (4.5-5.9) X10^6/uL Hgb 14.9 (13.5-17.5) g/dL Hct 42.6 (41-53) % MCV 96.3 (80-100) fL MCH 33.8 (26-34) PG MCHC 35.1 (30-36) % RDW 12.7 (11.6-14.8) % Plt Count 198 (150-400) X10^3/uL Neut % (Auto) 78.3 H (50-75) % Lymph % (Auto) 12.5 L (25-40) % [place] % (Auto) 8.3 (3-14) % Eos % (Auto) 0.2 L (2-4) % Baso % (Auto) 0.7 (0-2) % Neut # (Auto) 84227 H (7834-3184) /uL Lymph # (Auto) 1800 (6092-6450) /uL [place] # (Auto) 1200 H (0-900) /uL Eos # (Auto) 0 (0-450) /uL Baso # (Auto) 100 (0-100) /uL ESR 57 H (0-15) MM/HR D-Dimer (<500) ng/ml Sodium 135 L (137-145) mmol/L Potassium 4.0 (3.4-5.1) mmol/L Chloride 102 (98-107) mmol/L Carbon Dioxide 24 (22-32) mmol/L BUN 19 (9-20) mg/dL Creatinine 1.40 H (0.66-1.25) mg/dL Estimated GFR 56 L (>60) mL/min BUN/Creatinine Ratio 13.6 (6-22) Glucose 169 H (80-110) mg/dL Lactate 1.4 (0.7-2.1) mmol/L Calcium 9.0 (8.4-10.2) mg/dL Magnesium 1.9 (1.6-2.3) mg/dL Total Bilirubin 2.4 H (0.2-1.3) mg/dL AST 20 (17-59) IU/L ALT 21 (<50) IU/L Alkaline Phosphatase 84 (38-126) U/L Total Creatine Kinase (55-170) U/L CK-MB (CK-2) CK-MB (CK-2) Rel Index Troponin I (0.01-0.034) ng/mL C-Reactive Protein 13.7 H (<1.0) mg/dL NT-Pro-B Natriuret Pep (<125) pg/mL Total Protein 8.1 (6.3-8.2) g/dL Albumin 4.2 (3.5-5.0) g/dL Globulin 3.9 (1.7-4.1) g/dL Albumin/Globulin Ratio 1.1 (1.0-2.8) Procalcitonin (<0.5) ng/mL Urine RBC (0-5/HPF) Urine WBC (0-5/HPF) Ur Squamous Epith Cells (0-5/HPF) Urine Bacteria (None) Hyaline Casts (None) Ur Culture Indicated? A. baumannii (PCR) (Not Detect) Agnes albicans (PCR) (Not Detect) C. glabrata (PCR) (Not Detect) C. krusei (PCR) (Not Detect) C. parapsilosis (PCR) (Not Detect) C. tropicalis (PCR) (Not Detect) SARS-CoV-2 (PCR) (Negative) Enterobacteriac sp PCR (Not Detect) E. cloacae complex PCR (Not Detect) Enterococcus sp PCR (Not Detect) E. coli (PCR) (Not Detect) H. influenzae (PCR) (Not Detect) Klebsiella oxytoca PCR (Not Detect) Klebsiella pneumoniae (Not Detect) List. monocytogenes PCR (Not Detect) N. meningitidis (PCR) (Not Detect) Proteus species (PCR) (Not Detect) Serratia marcescens PCR (Not Detect) Staphylococcus sp PCR (Not Detect) Staph aureus (PCR) (Not Detect) mecA-Methicil Res Gene (Not Detect) Streptococcus sp PCR (Not Detect) Group A Strep (PCR) (Not Detect) Strep agalactiae (PCR) (Not Detect) Strep pneumoniae (PCR) (Not Detect) P. aeruginosa (PCR) (Not Detect) Tracy/B-Vanco Res Genes (Not Detect) KPC-Carbap Res Gene PCR (Not Detect) 01/17/22 01/17/22 01/17/22 Range/Units 04:40 04:50 06:54 WBC 13.3 H (4.5-11.0) X10^3/uL RBC 4.07 L (4.5-5.9) X10^6/uL Hgb 13.9 (13.5-17.5) g/dL Hct 39.4 L (41-53) % MCV 96.8 (80-100) fL MCH 34.1 H (26-34) PG MCHC 35.2 (30-36) % RDW 12.5 (11.6-14.8) % Plt Count 178 (150-400) X10^3/uL Neut % (Auto) 78.7 H (50-75) % Lymph % (Auto) 11.3 L (25-40) % [place] % (Auto) 9.1 (3-14) % Eos % (Auto) 0.1 L (2-4) % Baso % (Auto) 0.8 (0-2) % Neut # (Auto) 06122 H (8218-4380) /uL Lymph # (Auto) 1500 (4182-9842) /uL [place] # (Auto) 1200 H (0-900) /uL Eos # (Auto) 0 (0-450) /uL Baso # (Auto) 100 (0-100) /uL ESR (0-15) MM/HR D-Dimer (<500) ng/ml Sodium (137-145) mmol/L Potassium (3.4-5.1) mmol/L Chloride (98-107) mmol/L Carbon Dioxide (22-32) mmol/L BUN (9-20) mg/dL Creatinine (0.66-1.25) mg/dL Estimated GFR (>60) mL/min BUN/Creatinine Ratio (6-22) Glucose (80-110) mg/dL Lactate (0.7-2.1) mmol/L Calcium (8.4-10.2) mg/dL Magnesium (1.6-2.3) mg/dL Total Bilirubin (0.2-1.3) mg/dL AST (17-59) IU/L ALT (<50) IU/L Alkaline Phosphatase (38-126) U/L Total Creatine Kinase (55-170) U/L CK-MB (CK-2) CK-MB (CK-2) Rel Index Troponin I (0.01-0.034) ng/mL C-Reactive Protein (<1.0) mg/dL NT-Pro-B Natriuret Pep (<125) pg/mL Total Protein (6.3-8.2) g/dL Albumin (3.5-5.0) g/dL Globulin (1.7-4.1) g/dL Albumin/Globulin Ratio (1.0-2.8) Procalcitonin (<0.5) ng/mL Urine RBC (0-5/HPF) Urine WBC (0-5/HPF) Ur Squamous Epith Cells (0-5/HPF) Urine Bacteria (None) Hyaline Casts (None) Ur Culture Indicated? A. baumannii (PCR) Not detected (Not Detect) Agnes albicans (PCR) Not detected (Not Detect) C. glabrata (PCR) Not detected (Not Detect) C. krusei (PCR) Not detected (Not Detect) C. parapsilosis (PCR) Not detected (Not Detect) C. tropicalis (PCR) Not detected (Not Detect) SARS-CoV-2 (PCR) Negative (Negative) Enterobacteriac sp PCR Not detected (Not Detect) E. cloacae complex PCR Not detected (Not Detect) Enterococcus sp PCR Not detected (Not Detect) E. coli (PCR) Not detected (Not Detect) H. influenzae (PCR) Not detected (Not Detect) Klebsiella oxytoca PCR Not detected (Not Detect) Klebsiella pneumoniae Not detected (Not Detect) List. monocytogenes PCR Not detected (Not Detect) N. meningitidis (PCR) Not detected (Not Detect) Proteus species (PCR) Not detected (Not Detect) Serratia marcescens PCR Not detected (Not Detect) Staphylococcus sp PCR Not detected (Not Detect) Staph aureus (PCR) Not detected (Not Detect) mecA-Methicil Res Gene Not detected (Not Detect) Streptococcus sp PCR Not detected (Not Detect) Group A Strep (PCR) Not detected (Not Detect) Strep agalactiae (PCR) Not detected (Not Detect) Strep pneumoniae (PCR) Not detected (Not Detect) P. aeruginosa (PCR) Not detected (Not Detect) Tracy/B-Vanco Res Genes Not detected (Not Detect) KPC-Carbap Res Gene PCR Not detected (Not Detect) 01/17/22 01/17/22 01/17/22 Range/Units 06:54 06:54 06:54 WBC (4.5-11.0) X10^3/uL RBC (4.5-5.9) X10^6/uL Hgb (13.5-17.5) g/dL Hct (41-53) % MCV (80-100) fL MCH (26-34) PG MCHC (30-36) % RDW (11.6-14.8) % Plt Count (150-400) X10^3/uL Neut % (Auto) (50-75) % Lymph % (Auto) (25-40) % [place] % (Auto) (3-14) % Eos % (Auto) (2-4) % Baso % (Auto) (0-2) % Neut # (Auto) (0405-7953) /uL Lymph # (Auto) (8878-3261) /uL [place] # (Auto) (0-900) /uL Eos # (Auto) (0-450) /uL Baso # (Auto) (0-100) /uL ESR (0-15) MM/HR D-Dimer 821 H (<500) ng/ml Sodium 136 L (137-145) mmol/L Potassium 4.2 (3.4-5.1) mmol/L Chloride 103 (98-107) mmol/L Carbon Dioxide 26 (22-32) mmol/L BUN 19 (9-20) mg/dL Creatinine 1.36 H (0.66-1.25) mg/dL Estimated GFR 58 L (>60) mL/min BUN/Creatinine Ratio 14.0 (6-22) Glucose 144 H (80-110) mg/dL Lactate (0.7-2.1) mmol/L Calcium 8.5 (8.4-10.2) mg/dL Magnesium (1.6-2.3) mg/dL Total Bilirubin (0.2-1.3) mg/dL AST (17-59) IU/L ALT (<50) IU/L Alkaline Phosphatase (38-126) U/L Total Creatine Kinase 50 L (55-170) U/L CK-MB (CK-2) TNP CK-MB (CK-2) Rel Index TNP Troponin I 0.023 (0.01-0.034) ng/mL C-Reactive Protein (<1.0) mg/dL NT-Pro-B Natriuret Pep (<125) pg/mL Total Protein (6.3-8.2) g/dL Albumin (3.5-5.0) g/dL Globulin (1.7-4.1) g/dL Albumin/Globulin Ratio (1.0-2.8) Procalcitonin 0.08 (<0.5) ng/mL Urine RBC (0-5/HPF) Urine WBC (0-5/HPF) Ur Squamous Epith Cells (0-5/HPF) Urine Bacteria (None) Hyaline Casts (None) Ur Culture Indicated? A. baumannii (PCR) (Not Detect) Agnes albicans (PCR) (Not Detect) C. glabrata (PCR) (Not Detect) C. krusei (PCR) (Not Detect) C. parapsilosis (PCR) (Not Detect) C. tropicalis (PCR) (Not Detect) SARS-CoV-2 (PCR) (Negative) Enterobacteriac sp PCR (Not Detect) E. cloacae complex PCR (Not Detect) Enterococcus sp PCR (Not Detect) E. coli (PCR) (Not Detect) H. influenzae (PCR) (Not Detect) Klebsiella oxytoca PCR (Not Detect) Klebsiella pneumoniae (Not Detect) List. monocytogenes PCR (Not Detect) N. meningitidis (PCR) (Not Detect) Proteus species (PCR) (Not Detect) Serratia marcescens PCR (Not Detect) Staphylococcus sp PCR (Not Detect) Staph aureus (PCR) (Not Detect) mecA-Methicil Res Gene (Not Detect) Streptococcus sp PCR (Not Detect) Group A Strep (PCR) (Not Detect) Strep agalactiae (PCR) (Not Detect) Strep pneumoniae (PCR) (Not Detect) P. aeruginosa (PCR) (Not Detect) Tracy/B-Vanco Res Genes (Not Detect) KPC-Carbap Res Gene PCR (Not Detect) 01/17/22 01/17/22 01/17/22 Range/Units 06:54 09:41 10:05 WBC (4.5-11.0) X10^3/uL RBC (4.5-5.9) X10^6/uL Hgb (13.5-17.5) g/dL Hct (41-53) % MCV (80-100) fL MCH (26-34) PG MCHC (30-36) % RDW (11.6-14.8) % Plt Count (150-400) X10^3/uL Neut % (Auto) (50-75) % Lymph % (Auto) (25-40) % [place] % (Auto) (3-14) % Eos % (Auto) (2-4) % Baso % (Auto) (0-2) % Neut # (Auto) (6676-5434) /uL Lymph # (Auto) (1219-2745) /uL [place] # (Auto) (0-900) /uL Eos # (Auto) (0-450) /uL Baso # (Auto) (0-100) /uL ESR (0-15) MM/HR D-Dimer (<500) ng/ml Sodium (137-145) mmol/L Potassium (3.4-5.1) mmol/L Chloride (98-107) mmol/L Carbon Dioxide (22-32) mmol/L BUN (9-20) mg/dL Creatinine (0.66-1.25) mg/dL Estimated GFR (>60) mL/min BUN/Creatinine Ratio (6-22) Glucose (80-110) mg/dL Lactate (0.7-2.1) mmol/L Calcium (8.4-10.2) mg/dL Magnesium (1.6-2.3) mg/dL Total Bilirubin (0.2-1.3) mg/dL AST (17-59) IU/L ALT (<50) IU/L Alkaline Phosphatase (38-126) U/L Total Creatine Kinase (55-170) U/L CK-MB (CK-2) CK-MB (CK-2) Rel Index Troponin I 0.029 (0.01-0.034) ng/mL C-Reactive Protein (<1.0) mg/dL NT-Pro-B Natriuret Pep 1750 H (<125) pg/mL Total Protein (6.3-8.2) g/dL Albumin (3.5-5.0) g/dL Globulin (1.7-4.1) g/dL Albumin/Globulin Ratio (1.0-2.8) Procalcitonin (<0.5) ng/mL Urine RBC None seen (0-5/HPF) Urine WBC None seen (0-5/HPF) Ur Squamous Epith Cells 0-1 /hpf (0-5/HPF) Urine Bacteria None seen (None) Hyaline Casts 5-10/lpf (None) 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 baumannii (PCR) (Not Detect) Agnes albicans (PCR) (Not Detect) C. glabrata (PCR) (Not Detect) C. krusei (PCR) (Not Detect) C. parapsilosis (PCR) (Not Detect) C. tropicalis (PCR) (Not Detect) SARS-CoV-2 (PCR) (Negative) Enterobacteriac sp PCR (Not Detect) E. cloacae complex PCR (Not Detect) Enterococcus sp PCR (Not Detect) E. coli (PCR) (Not Detect) H. influenzae (PCR) (Not Detect) Klebsiella oxytoca PCR (Not Detect) Klebsiella pneumoniae (Not Detect) List. monocytogenes PCR (Not Detect) N. meningitidis (PCR) (Not Detect) Proteus species (PCR) (Not Detect) Serratia marcescens PCR (Not Detect) Staphylococcus sp PCR (Not Detect) Staph aureus (PCR) (Not Detect) mecA-Methicil Res Gene (Not Detect) Streptococcus sp PCR (Not Detect) Group A Strep (PCR) (Not Detect) Strep agalactiae (PCR) (Not Detect) Strep pneumoniae (PCR) (Not Detect) P. aeruginosa (PCR) (Not Detect) Tracy/B-Vanco Res Genes (Not Detect) KPC-Carbap Res Gene PCR (Not Detect) Urine Dip Bedside Urine Glucose Negative Bedside Urine Bilirubin - Negative Bedside Urine Ketone - Negative Urine Specific [place] 1.030 Bedside Urine Occult Blood - Negative Bedside Urine pH 6.0 Bedside Urine Protein +/- 15 Bedside Urine Urobilinogen - Negative Bedside Urine Nitrite - Negative Bedside Urine Leukocytes - Negative Esterase Imaging Data Lspine CT: Radiologist's Impression: Unchanged alignment L4-L5 status post laminectomy and fusion procedure. No hardware abnormality. No change in foraminal stenosis. Small left paramedian disc protrusion suspected now L3-L4 level finding not apparent on preoperative MRI. ECG Data Attestation: I personally reviewed and interpreted this ECG as follows: Prior ECG tracings: available for review Interpretation: Sinus tachycardia rate of 117 [place] 130 QRS 98 QTC 438[address] No acute ST elevation or depression and patient has prior from 04/06/2021 with no changes other than at that time it was normal sinus rhythm and not tachycardia. Sinus tachycardia rate of 1 16p are 126 QRS of 100 and QTC 450. No acute ST changes appreciated. Patient's EKG appears similar to prior. [facility] Narrative Medical decision making narrative: Sarah 01/17/22: Patient signed out to myself by Dr. Parra. Patient has history of lumbar radiculopathy and spondylolisthesis with recent lumbar fusion by Dr. Gill. Patient had been doing well walked over a mi which is above the activity level prescribed by his orthopedic surgeon and had increasing pain with no acute neurologic changes since. Patient's neurologic exam was reassuring. Patient received IV pain medication on top of his normal home regimen, labs showed a bump in his creatinine, after fluids pain medications labs were rechecked. No function still elevated kind patient has 5 at a 10 pain at this time he states somewhat improved. He states he does normally take a carvedilol he suspects this is why his heart rate is elevated he is still not urinated. P [place] at BNP, troponin, D-dimer as patient has had recent surgery, some additional pain control and additional fluids as well procalcitonin and blood cultures. Patient's ESR CRP are both elevated, bilirubin slightly elevated but patient does not have any abdominal pain. His pain is really related to his back at this time. We reviewed his findings on imaging today no obvious signs of infection. Patient also had L-spine CT obtained which shows unchanged alignment L4-L5 status post laminotomy fusion procedure, no hardware abnormalities no change in foraminal stenosis there is a small left paramedian disc protrusion at the L3-L4 level was not apparent on prior operative MRI. Patient does continue to be tachycardic despite fluids. He states that he had not had his morning Coreg he was given his usual dose which is 1.5 tablets of 6.125mg coreg. Patient given additional fluid, Radiology called patient has obstructing kidney stone on discrepancy from overnight CT read. Patient had ultrasound abdomen ordered. CT PE was ordered for persistent tachycardia, bump in BNP and recent surgery , BNP is elevated troponin was not positive but repeat 2 hour was repeated, procalcitonin is negative, blood cultures are obtained. Urine sample shows protein but no clear sign of infection. Patient also had abdominal ultrasound shows some hydro on the left but no other acute changes abscess. Patient continues to be tachycardic despite his known Coreg, despite fluids he had very minimal urine output 6 he has not urinated since Tuesday so will continue with fluid resuscitation. We do not have Urology available in case this is a septic obstructive stone although there is no clear signs of infection urine but no other source of his tachycardia has been found including cardiac arrhythmia othe r than sinus tachycardia, pulmonary emboli, other source of infection or acute coronary event. Discussed with Urology at [facility] as we do not have Urology available they would be willing to take patient for stent tomorrow if needed. Spoke with hospitalist at [facility] who kindly accepts with plan for step-down unit. We do not have Urology available until the . Patient aware of plan for transfer he has received fluids, IV antibiotics, pain medication, his home Coreg dose while here. Discharge Plan Departure Patient Disposition: [facility] Clinical Impression: History of lumbar surgery, Back pain, Kidney stone on left side, JASPAL (acute kidney injury), Tachycardia Prescriptions: No Action mupirocin 2 % ointment 1 applic topical TID Qty: 22 0RF (DME) oxygen-air delivery systems Device See Rx Instructions .ROUTE .MEDSUPPLY Qty: 1 Rx Instructions: As directed nifedipine ointment See Rx Instructions .ROUTE .COMPLEX Qty: 30 1RF Rx Instructions: apply small amount to anal area twice a day lisinopril 2.5 mg tablet 2.5 mg PO QDAY Qty: 90 3RF carvedilol [Coreg] 6.25 mg tablet See Rx Instructions .ROUTE .COMPLEX Qty: 270 3RF Dose Instruction: Take 1 and a 1/2 tabs by mouth every morning and 1 and 1/2 tab by mouth every night ; Rx Instructions: Take 1 and a 1/2 tabs by mouth every morning and 1 and 1/2 tab by mouth every night ; atorvastatin [Lipitor] 40 mg tablet 40 mg PO HS Qty: 90 3RF gabapentin 300 mg capsule 900 mg PO TID Qty: 300 1RF Rx Instructions: take 3-300mg TID tramadol 50 mg tablet 50 mg PO BID PRN (Reason: pain) Qty: 30 1RF (DME) DISABLED PARKING PERMIT See Rx Instructions .ROUTE .MEDSUPPLY Qty: 1 0RF Rx Instructions: VALID FOR 5 YEARS I find this patient to be medically disabled and qualified for Disabled Parking as indicated, and signed, on the Accompanying Disabled Parking Application for individuals. hydrocodone-acetaminophen 5-325 mg tablet 1 tab PO Q6H PRN (Reason: pain) Qty: 10 0RF hydrocodone-acetaminophen 5-325 mg tablet 1 tab PO Q4-6H PRN (Reason: pain) Qty: 10 0RF ondansetron 4 mg tablet,disintegrating 4 mg PO TID-QID PRN (Reason: nausea and vomiting) Qty: 10 0RF celecoxib [Celebrex] 200 mg capsule 200 mg PO DAILY Qty: 30 2RF Referrals: Morales Jorgensen MD [Primary Care Provider] -
[2022-01-17] MEDS: SODIUM CHLORIDE 0.9% 1,000 ML 1000 ML IV ×2 (04:36→07:46)
[2022-01-17] MEDS: ONDANSETRON 4 MG/2 ML INJ IV (04:37)
[2022-01-17] MEDS: HYDROMORPHONE 0.5 MG INJ IV ×2 (04:37→07:59)
[2022-01-17 04:56] LABS: Add Manual Diff / Slide Review NO; Basophils Absolute Auto 100 /uL (0-100); Basophils Percent Auto 0.7 % (0-2); Eosinophils Absolute Auto 0 /uL (0-450); Eosinophils Percent Auto 0.2 % (2-4); Hematocrit 42.6 % (41-53); Hemoglobin 14.9 g/dL (13.5-17.5); Lymphocytes Absolute Auto 1800 /uL (1100-4500); Lymphocytes Percent Auto 12.5 % (25-40); Mean Corpuscular HGB Conc 35.1 % (30-36); Mean Corpuscular Hemoglobin 33.8 PG (26-34); Mean Corpuscular Volume 96.3 fL (80-100); Monocytes Absolute Auto 1200 /uL (0-900); Monocytes Percent Auto 8.3 % (3-14); Neutrophils Absolute Auto 11500 /uL (1500-7000); Neutrophils Percent Auto 78.3 % (50-75); Platelet Count 198 X10^3/uL (150-400); Red Blood Cell Count 4.42 X10^6/uL (4.5-5.9); Red Cell Distribution Width 12.7 % (11.6-14.8); White Blood Cell Count 14.7 X10^3/uL (4.5-11.0)
[2022-01-17 05:03] LABS: Lactate (Lactic Acid) 1.4 mmol/L (0.7-2.1)
[2022-01-17 05:04] LABS: Alanine Aminotransferase 21 IU/L (<50); Albumin 4.2 g/dL (3.5-5.0); Albumin Globulin Ratio 1.1 (1.0-2.8); Alkaline Phosphatase 84 U/L (38-126); Aspartate Aminotransferase 20 IU/L (17-59); BUN Creatinine Ratio 13.6 (6-22); Bilirubin Total 2.4 mg/dL (0.2-1.3); Blood Urea Nitrogen 19 mg/dL (9-20); Carbon Dioxide 24 mmol/L (22-32); Chloride 102 mmol/L (98-107); Estimated Glomerular Filt Rate 56 mL/min (>60); Globulin 3.9 g/dL (1.7-4.1); Glucose 169 mg/dL (80-110); HEMOLYSIS < 15 (0-50); Magnesium 1.9 mg/dL (1.6-2.3); Sodium 135 mmol/L (137-145); Total Protein 8.1 g/dL (6.3-8.2)
[2022-01-17 05:16] LABS: Erythrocyte Sedimentation Rate 57 MM/HR (0-15)
[2022-01-17 05:18] LABS: COVID19 -Nasal RAPID Negative (Negative)
[2022-01-17 05:27] LABS: C-Reactive Protein Quant 13.7 mg/dL (<1.0)
[2022-01-17] MEDS: GABAPENTIN 300 MG CAPSULE PO (05:41)
[2022-01-17] MEDS: OXYCODONE/ACETAMINOPHEN 5/325 TABLET 2 TAB PO (05:41)
[2022-01-17 07:11] LABS: Add Manual Diff / Slide Review NO; Basophils Absolute Auto 100 /uL (0-100); Basophils Percent Auto 0.8 % (0-2); Eosinophils Absolute Auto 0 /uL (0-450); Eosinophils Percent Auto 0.1 % (2-4); Hematocrit 39.4 % (41-53); Hemoglobin 13.9 g/dL (13.5-17.5); Lymphocytes Absolute Auto 1500 /uL (1100-4500); Lymphocytes Percent Auto 11.3 % (25-40); Mean Corpuscular HGB Conc 35.2 % (30-36); Mean Corpuscular Hemoglobin 34.1 PG (26-34); Mean Corpuscular Volume 96.8 fL (80-100); Monocytes Absolute Auto 1200 /uL (0-900); Monocytes Percent Auto 9.1 % (3-14); Neutrophils Absolute Auto 10500 /uL (1500-7000); Neutrophils Percent Auto 78.7 % (50-75); Platelet Count 178 X10^3/uL (150-400); Red Blood Cell Count 4.07 X10^6/uL (4.5-5.9); Red Cell Distribution Width 12.5 % (11.6-14.8); White Blood Cell Count 13.3 X10^3/uL (4.5-11.0)
[2022-01-17 07:27] LABS: Blood Urea Nitrogen 19 mg/dL (9-20); Calcium 8.5 mg/dL (8.4-10.2); Carbon Dioxide 26 mmol/L (22-32); Chloride 103 mmol/L (98-107); Estimated Glomerular Filt Rate 58 mL/min (>60); Glucose 144 mg/dL (80-110); HEMOLYSIS < 15 (0-50); Potassium 4.2 mmol/L (3.4-5.1); Sodium 136 mmol/L (137-145)
[2022-01-17] MEDS: carvediloL 3.125 MG TABLET 9.375 MG PO (08:00)
[2022-01-17 08:08] LABS: D Dimer 821 ng/ml (<500)
[2022-01-17 08:14] LABS: Creatine Kinase 50 U/L (55-170)
[2022-01-17 08:25] LABS: NT-proBNP (BNP-Adult 18+) 1750 pg/mL (<125)
[2022-01-17 08:26] LABS: Troponin I 0.023 ng/mL (0.01-0.034)
[2022-01-17 08:31] LABS: Procalcitonin 0.08 ng/mL (<0.5)
--- NOTE | 2022-01-17 08:33 | DI.CT.S_ITS ---
PROCEDURE: CT ANGIO CHEST PE PROTOCOL INDICATIONS: recent back surgery, persistent tachycardia TECHNIQUE: After the administration of intravenous contrast, 2 mm thick sections acquired from the pulmonary apices to the posterior costophrenic angles. 3-dimensional maximum intensity projection (MIP) coronal and sagittal reformats were then acquired through the thorax. For radiation dose reduction, the following was used: automated exposure control, adjustment of mA and/or kV according to patient size. COMPARISON: [facility], CT, CT LUMBAR SPINE WO CON, 01/17/2022, 4:50. FINDINGS: Image quality: Excellent. Pulmonary arteries: Pulmonary arteries are normal in size, and demonstrate no intraluminal filling defects to suggest central pulmonary embolism. Lungs and pleura: No evidence of pneumonia or edema. 8 mm calcified nodule within the superior segment left lower lobe. 3 mm calcified nodule within the left lower lobe superolaterally. 4 mm calcified nodule within the left major fissure superiorly. 5 mm subpleural nodule within the left lower lobe posteriorly. Calcified nodule within the lingula. Calcified nodules within the right upper and lower lobes. No pleural effusions or pneumothorax. Central and peripheral airways are patent. Mediastinum: Heart size is normal, without pericardial effusion. Severe calcification of the coronary vasculature is present. Calcified subcarinal bilateral hilar and right paratracheal lymph nodes. No mediastinal or hilar adenopathy. Thoracic aorta is normal in caliber and enhancement. Esophagus is normal in caliber. Small hiatal hernia. Bones and chest wall: No suspicious bony lesions. Ribs and thoracic spine appear intact throughout. Thyroid gland is within normal limits. No axillary or supraclavicular adenopathy. Abdomen: Visualized portions of the upper abdomen demonstrate left superior perinephric fat stranding, compatible with the finding of obstructing distal left ureteral calculus seen by recent CT examination. Diffusely decreased hepatic density is present. IMPRESSION: 1. Coronary artery disease. 2. No pulmonary embolus. 3. Left perinephric fat stranding, compatible with sequelae of left distal ureteral calculus. 4. Remote granulomatous disease. 5. Hepatic steatosis. Dictated by: Lourdes Puga M.D. on 01/17/2022 at 9:05 Approved by: Lourdes Puga M.D. on 01/17/2022 at 9:10
--- NOTE | 2022-01-17 08:35 | DI.US.S_ITS ---
PROCEDURE: US ABDOMEN COMPLETE INDICATIONS: JASPAL; ELEVATED BILIRUBIN TECHNIQUE: Real-time scanning was performed of the abdominal and retroperitoneal organs, with image documentation. COMPARISON: None. FINDINGS: Liver: Liver is normal in size and demonstrates right and left hepatic lobe cysts. Gallbladder: Within normal limits Biliary ducts: Intrahepatic bile ducts are non-dilated. Extrahepatic bile duct caliber measures 6 mm. Normal is 6-7 mm or less in diameter, or 10 mm or less post-cholecystectomy. Pancreas: Visualized portions of the pancreas are sonographically normal. Spleen: Spleen is normal in size and homogeneous in echotexture. Kidneys: Kidneys are normal in size and echotexture. Right kidney measures 12.4 cm long; left kidney measures 13.2 cm long. Mild left hydronephrosis No right hydronephrosis or nephrolithiasis. No solid masses. Aorta: Not well seen Iliacs: Not well seen IVC: Not well seen Miscellaneous: No free abdominal fluid. IMPRESSION: 1. Mild left hydronephrosis. 2. Otherwise negative examination. Dictated by: Lourdes Puga M.D. on 01/17/2022 at 9:37 Approved by: Lourdes Puga M.D. on 01/17/2022 at 9:38
[2022-01-17 10:30] LABS: Troponin I 0.029 ng/mL (0.01-0.034)
[2022-01-17] MEDS: TAMSULOSIN 0.4 MG CAPSULE PO (10:54)
[2022-01-17] MEDS: SODIUM CHLORIDE 0.9% 1,000 ML 200 ML IV (10:54)
[2022-01-17] MEDS: PIPERACILLIN/TAZO 4.5 GM in SODIUM CHLORIDE 0.9% 100 ML IV (10:54)
[2022-01-17 11:37] LABS: Bacteria Urine None Seen; Hyaline Casts Urine 5-10/LPF; RBC Urine None Seen (0-5/HPF); Squamous Epithelial Cell Urine 0-1 /HPF (0-5/HPF); WBC Urine None Seen (0-5/HPF)
[2022-01-17 12:59] LABS: Acinetobacter baumannii Not Detected (Not Detect); Candida albicans Not Detected (Not Detect); Candida glabrata Not Detected (Not Detect); Candida krusei Not Detected (Not Detect); Candida parapsilosis Not Detected (Not Detect); Candida tropicalis Not Detected (Not Detect); E. coli Not Detected (Not Detect); Enterobacter cloacae complex Not Detected (Not Detect); Enterobacteriaceae species Not Detected (Not Detect); Enterococcus species Not Detected (Not Detect); Haemophilus influenzae Not Detected (Not Detect); KPC (carbapenem-resist gene) Not Detected (Not Detect); Listeria monocytogenes Not Detected (Not Detect); Methicillin-resistant gene Not Detected (Not Detect); Neisseria meningitidis Not Detected (Not Detect); Proteus species Not Detected (Not Detect); Pseudomonas aeruginosa Not Detected (Not Detect); Serratia marcescens Not Detected (Not Detect); Staphylococcus species Not Detected (Not Detect); Streptococcus agalactiae (Gr B Not Detected (Not Detect); Streptococcus pneumonia Not Detected (Not Detect); Streptococcus pyogenes (Gr A) Not Detected (Not Detect); Streptococcus species Not Detected (Not Detect); Vancomycin-rest genes A/B Not Detected (Not Detect)
== END 2022-01-17 14:23 | disposition short-term general hospital (02) ==
PROVIDERS: Emergency Medicine; Emergency Provider Emergency Medicine; Family Provider Family Medicine; PCP Family Medicine
DX: G89.18 Other acute postprocedural pain (principal); M54.50 Low back pain, unspecified; N20.0 Calculus of kidney; N17.9 Acute kidney failure, unspecified; R00.0 Tachycardia, unspecified; Z20.822 Contact with and (suspected) exposure to COVID-19
CPT/HCPCS: 36415; 71275; 72131; 76700; 80048; 80053; 81003; 81015; 82550; 83605; 83735; 83880; 84145; 84484; 85025; 85379; 85651; 86140; 87040; 87077; 87086; 87147; 87150; 87205; 87635; 93005; 96361; 96365; 96375; 96376; 99285; C9803; J1170; J2405; J2543; Q9967

== ENCOUNTER → 2022-10-26 10:20 | Outpatient (CLI) | payer MEDICARE, OTHER, SELFPAY ==
[2022-10-26 11:15] LABS: Add Manual Diff / Slide Review NO; Basophils Absolute Auto 100 /uL (0-100); Basophils Percent Auto 1.3 % (0-2); Eosinophils Absolute Auto 100 /uL (0-450); Eosinophils Percent Auto 1.6 % (2-4); Hematocrit 41.4 % (41-53); Hemoglobin 14.4 g/dL (13.5-17.5); Lymphocytes Absolute Auto 1500 /uL (1100-4500); Lymphocytes Percent Auto 27.4 % (25-40); Mean Corpuscular HGB Conc 34.8 % (30-36); Mean Corpuscular Volume 97.8 fL (80-100); Monocytes Absolute Auto 500 /uL (0-900); Monocytes Percent Auto 8.4 % (3-14); Neutrophils Absolute Auto 3400 /uL (1500-7000); Neutrophils Percent Auto 61.3 % (50-75); Platelet Count 166 X10^3/uL (150-400); Red Blood Cell Count 4.23 X10^6/uL (4.5-5.9); Red Cell Distribution Width 12.7 % (11.6-14.8); White Blood Cell Count 5.6 X10^3/uL (4.5-11.0)
[2022-10-26 11:38] LABS: Cholesterol 146 mg/dL (140-199); HDL Cholesterol 43 mg/dL (40-60); LDL Cholesterol Calculated 72 mg/dL (<100); Triglycerides 157 mg/dL (35-150)
[2022-10-26 12:11] LABS: Creatinine Urine Random 265.8 mg/dL
[2022-10-26 12:12] LABS: Microalbumi Creatinin Ratio Ur 2.2 ug/mg CR (<30); Microalbumin Urine Random 0.6 mg/dL (0-1.6)
[2022-10-26 12:35] LABS: TSH w/ Reflex to FT4 1.57 uIU/mL (0.47-4.68)
[2022-10-27 06:19] LABS: x Labcorp Estim. Avg Glu (eAG) 134 mg/dL (.); x Labcorp Hemoglobin A1c 6.3 % (4.8-5.6)
== END ==
PROVIDERS: Family Provider Family Medicine; PCP Family Medicine; Referring Provider Family Medicine; Visit Provider Family Medicine
DX: I10 Essential (primary) hypertension (principal); E11.9 Type 2 diabetes mellitus without complications; D69.6 Thrombocytopenia, unspecified; R41.3 Other amnesia; R74.8 Abnormal levels of other serum enzymes
CPT/HCPCS: 80061; 82043; 82570; 83036; 84443; 85025

== ENCOUNTER → 2022-11-11 08:53 | Outpatient (CLI) | payer MEDICARE, OTHER, SELFPAY ==
--- NOTE | 2022-11-11 | DI.CT.S_ITS ---
PROCEDURE: CT LUMBAR SPINE WO CON INDICATIONS: Radiculopathy, lumbar region TECHNIQUE: Noncontrast 3 mm thick sections acquired from the T12 level to the sacrum. Sagittal and coronal reformats were constructed. For radiation dose reduction, the following was used: automated exposure control. COMPARISON: [facility], CT, CT LUMBAR SPINE WO CON, 01/17/2022, 4:50. FINDINGS: Image quality: Excellent. Bones: Postoperative changes of L4-5 pedicular screw and malu fixation and placement of disc spacers. Grade 1 anterolisthesis. No acute vertebral body compression fractures. No suspicious lytic or blastic bony lesions. T12-L1: No significant disc bulge. The foramina and central canal are patent. L1-L2: No significant disc bulge. The foramina and central canal are patent. L2-L3: Diffuse disc bulge, facet hypertrophy, and ligamentum flavum hypertrophy cause moderate bilateral foraminal stenosis and moderate central canal stenosis. L3-L4: Diffuse disc bulge, facet hypertrophy, and ligamentum flavum hypertrophy cause moderate bilateral foraminal stenosis and moderate central canal stenosis. L4-L5: Discectomy and pedicular screw and malu fixation. Moderate bilateral foraminal stenosis. Status post left hemilaminectomy. A rounded left paramedian density posterior to L4 is similar to the prior CT consistent with either a disc extrusion which is unchanged versus artifact from adjacent metallic hardware but is not well delineated. L5-S1: No significant disc bulge. The foramina and central canal are patent. Soft tissues: No retroperitoneal masses or hematomas. Visualized aorta is normal in caliber. A stone in the left distal ureter is unchanged. IMPRESSION: 1. Postoperative changes of L4-5 as detailed above. 2. Lumbar spondylosis at L2-3 and L3-4 with foraminal and central canal stenosis as detailed above. 3. Previously seen stone in the left distal ureter is no longer present. Dictated by: Jose Osorio M.D. on 11/11/2022 at 16:28 Approved by: Jose Osorio M.D. on 11/11/2022 at 16:38
--- NOTE | 2022-11-11 | DI.MRI.S_ITS ---
PROCEDURE: MR LUMBAR SPINE WO CON INDICATIONS: Radiculopathy, lumbar region TECHNIQUE: Noncontrast sagittal T1 spin echo and T2 fast echo, sagittal STIR, axial T1 and T2 fast spin echo through the lumbar spine. Axial and oblique coronal T1 spin echo and STIR through the sacrum. In cases with scoliosis, additional coronal T2 fast spin echo may be performed. COMPARISON: [facility], CT, CT LUMBAR SPINE WO CON, 01/17/2022, 4:50. [facility], CT, CT LUMBAR SPINE WO CON, 11/11/2022, 9:33. [facility], MR, MR LUMBAR SPINE WO CON, 02/16/2020, 14:06. FINDINGS: Image quality: Excellent. Alignment and Curvature: Grade 1 anterior spondylolisthesis L4-5 Bone Marrow: Edematous endplate changes Modic type 1 noted L4-5. There is been a L4 left hemilaminectomy and facetectomy associated with L4-5 discectomy and fusion posterior malu and screw instrumentation. Spinal Cord: Conus medullaris terminates at the L1 level. Visualized cord demonstrates normal signal and size. Paraspinous Soft Tissues: No paravertebral masses. T12-L1: Normal appearance. L1-L2: Normal appearance. L2-L3: Normal appearance. L3-L4: Disc height is maintained. Circumferential disc bulge and hypertrophic facet change results in [id number] central stenosis. Moderate bilateral foraminal stenosis. L4-L5: Discectomy and fusion with posterior malu and screw instrumentation. Central canal is well decompressed associated with left hemilaminectomy, however, there appears to be focal disc extrusion in the left lateral recess extending superiorly under the ligament to the level of the mid L4 vertebral body. Moderate bilateral foraminal stenosis may related to granulation tissue or fibrosis. L5-S1: Normal appearance. IMPRESSION: L4-5 discectomy and fusion with posterior malu and screw instrumentation and left hemilaminectomy and facetectomy Probable extruded disc material in the left lateral recess at L4-5 extends superiorly to the level of the mid L4 vertebral body resulting in effacement of the left lateral recess, similar prior CT 01/17/2022 L3-4 degenerative [id number] central and moderate bilateral foraminal stenosis Approved by: Elton Byers M.D. on 11/11/2022 at 13:08
== END ==
PROVIDERS: Family Provider Family Medicine; PCP Family Medicine; Referring Provider Orthopaedic Surgery; Visit Provider Orthopaedic Surgery
DX: M47.26 Other spondylosis with radiculopathy, lumbar region (principal); M48.061 Spinal stenosis, lumbar region without neurogenic claudication; Z98.1 Arthrodesis status
CPT/HCPCS: 72131; 72148

== ENCOUNTER → 2023-05-10 14:38 | Outpatient (CLI) | payer MEDICARE, OTHER, SELFPAY ==
--- NOTE | 2023-05-10 14:40 | DI.RAD.S_ITS ---
PROCEDURE: XR LUMBAR SPINE MIN 4V INDICATIONS: BACK PAIN TECHNIQUE: 5 views of the lumbar spine were acquired, including bilateral oblique views. COMPARISON: [facility], [place], XR LUMBAR SPINE 2-3V, 01/24/2019, 16:11. [facility], [place], L-SPINE 2-3 VIEWS, 08/28/2007, 11:03. FINDINGS: Bones: 5 nonrib-bearing vertebrae are present. There is normal bony alignment. No vertebral body compression fractures. No suspicious bony lesions. Posterior and interbody surgical fusion at L4-5, without hardware complication. Soft tissues: Overlying bowel gas pattern is normal. No suspicious soft tissue calcifications. Oblique images: No pars defects. IMPRESSION: No acute bony abnormality. Posterior and interbody surgical fusion at L4-5, without hardware complication. Dictated by: Raúl Hsieh M.D. on 05/10/2023 at 15:16 Approved by: Raúl Hsieh M.D. on 05/10/2023 at 15:17
[2023-05-10 15:22] LABS: Hemoglobin A1C% w Est Avg Glu 6.3 % (4.0-6.0)
== END ==
PROVIDERS: Family Provider Family Medicine; PCP Family Medicine; Referring Provider Physical Medicine & Rehabilitation; Visit Provider Physical Medicine & Rehabilitation
DX: M43.16 Spondylolisthesis, lumbar region (principal); M47.26 Other spondylosis with radiculopathy, lumbar region; E11.9 Type 2 diabetes mellitus without complications; D69.6 Thrombocytopenia, unspecified; R74.8 Abnormal levels of other serum enzymes; I10 Essential (primary) hypertension; R41.3 Other amnesia; Z98.1 Arthrodesis status
CPT/HCPCS: 36415; 72110; 83036

== ENCOUNTER 2023-07-14 18:55 | Emergency (ER) | payer MEDICARE, OTHER, SELFPAY ==
[2023-07-14] VITALS (9 sets, daily range): BP systolic 127–181; BP diastolic 76–93; PULSE 87–100; RESP 17–23; TEMP 37; O2SAT 94–98; BMI 38.4
--- NOTE | 2023-07-14 19:02 | ED.GENADULT ---
HPI - General Adult General Chief complaint: Chest Pain Stated complaint: Bitten tongue, Chest pain, SOB Time Seen by Provider: 07/14/23 18:57 History of Present Illness HPI narrative: 68-year-old male with history of coronary disease presents ambulatory from home for tongue pain, chest pain, shortness of breath. Patient states that he was eating a sandwich when he accidentally bit his tongue, causing it to bleed and be cut. He was walking to the emergency department for evaluation when on his way over he noticed some substernal chest pain and shortness of breath. Patient states that he has had intermittent chest pain and shortness of breath with exertion for the last 2 weeks. Reports history of AR in 2018, and his chest pain feels somewhat similar. Since sitting down in the ED stretcher he has been pain-free. Related Data Home Medications Medication Instructions Recorded Confirmed aspirin 81 mg tablet,delayed 81 mg PO DAILY 10/26/22 05/11/23 release cholecalciferol (vitamin D3) 50 50 mcg PO DAILY 10/26/22 05/11/23 mcg (2,000 unit) tablet psyllium husk 3.4 gram/5.4 gram 1 tbsp PO DAILY 10/26/22 05/11/23 oral powder (Metamucil) Previous Rx's Medication Instructions Recorded lisinopril 2.5 mg tablet 2.5 mg PO QDAY #90 tabs 05/25/21 atorvastatin 40 mg tablet (Lipitor) 40 mg PO HS #90 tabs 05/28/21 mupirocin 2 % topical ointment 1 applic topical TID #22 grams 06/18/21 DISABLED PARKING PERMIT #1 ea 12/14/21 carvedilol 6.25 mg tablet (Coreg) See Rx Instructions .Route 09/27/22 .COMPLEX #270 tabs meloxicam 15 mg tablet 15 mg PO DAILY #30 tabs 05/11/23 gabapentin 300 mg capsule 900 mg (3 x 300 mg) PO TID #300 06/06/23 caps Allergies Allergy/AdvReac Type Severity Reaction Status Date / Time No Known Drug Allergies Allergy Verified 07/14/23 19:07 Review of Systems Review of Systems Narrative: Negative except as noted above Patient History Medical History Status post lumbar spinal arthrodesis Medicare welcome exam Facet arthropathy, lumbar Diabetes mellitus type 2, controlled, without complications Sleep apnea Elevated liver enzymes Thrombocytopenia Facet arthropathy, lumbar Gait instability Lumbar radiculopathy Spondylolisthesis at L4-L5 level Hearing loss (1978) Heart attack (2011) Surgical History Anesthesia H/O heart artery stent (05/09/12) History of vasectomy (1998) Status post hernia repair Family History Mother Ovarian cancer Hypertension Sister Cancer Father No problems noted. Brother Alcoholism and drug addiction in family Sleep apnea Family/Other Depression Social History marital status: unknown household members: none occupational status: previously employed Smoking Status: Never smoker Tobacco: How many years used: 13 alcohol intake: current (1 drink before bedtime ) substance use type: does not use Smoking Status: Never smoker alcohol intake frequency: 0-2 drinks per day Substance Use Type: does not use Exam Initial Vital Signs Initial Vital Signs: Vital Signs Temperature 98.6 F 07/14/23 18:57 Pulse Rate 98 H 07/14/23 18:57 Respiratory Rate 20 07/14/23 18:57 Blood Pressure 181/93 H 07/14/23 18:57 Pulse Oximetry 96 07/14/23 18:57 Oxygen Delivery Method Room Air 07/14/23 18:57 Const: Awake, alert, no acute distress, nontoxic appearing ENT: Superficial, 2 cm linear laceration on underside of tongue on right-hand side, no active bleeding Cardiac: regular rate, regular rhythm RESP: unlabored, clear bilaterally, no wheezing GI: Atraumatic, soft, nontender, nondistended, no rebound, no guarding MSK: Atraumatic, full range of motion, pulses equal Skin: Warm, Dry, intact, no rashes Neuro: AO x3, CN II-XII grossly intact, moves all extremities Psych: affect normal, mood normal, not suicidal, not homicidal Course Orders Ordered: ED Orders 07/14/23 19:07 XR chest 1V Stat EKG-12 Lead Stat 07/14/23 19:10 Complete Blood Count AUTO DIFF Stat Comprehensive Metabolic Panel Stat Lipase Stat PTT Partial Thromboplastin Brayden Stat Prothrombin Time INR Stat Troponin & CK Cardiac Panel Stat 07/14/23 21:07 Trop I [Troponin I] Stat Discontinued Medications Aspirin (Aspirin 81 Mg Chew Tab) 324 mg PO NOW ONE Stop: 07/14/23 19:08 Last Admin: 07/14/23 19:15 Dose: 243 mg Documented By: DELFIN Sodium Chloride (Normal Saline 0.9%) 1,000 mls @ 150 mls/hr IV CONT REESE Last Infusion: 07/14/23 19:54 Dose: Infused Documented By: Admin: 07/14/23 19:14 Dose: 150 mls/hr Documented By: DELFIN Lidocaine HCl (Lidocaine Viscous 2% 15 Ml Solution) 15 ml PO NOW ONE Stop: 07/14/23 22:15 Last Admin: 07/14/23 22:17 Dose: 15 ml Documented By: DELFIN Vital Signs Vital signs: Vital Signs - 8 hr 07/14/23 18:57 07/14/23 19:05 07/14/23 19:30 Temperature 98.6 F Pulse Rate 98 H 100 H 92 H Respiratory Rate 20 22 19 Blood Pressure 181/93 H 181/93 H Pulse Oximetry 96 98 95 Oxygen Delivery Method Room Air Room Air 07/14/23 20:00 07/14/23 20:05 07/14/23 20:05 Temperature Pulse Rate 89 88 Respiratory Rate 18 19 Blood Pressure 143/79 H 143/79 H Pulse Oximetry 94 94 Oxygen Delivery Method Room Air 07/14/23 20:30 07/14/23 20:30 07/14/23 21:00 Temperature Pulse Rate 87 Respiratory Rate 17 Blood Pressure 138/83 143/78 H Pulse Oximetry 94 Oxygen Delivery Method Room Air 07/14/23 21:00 07/14/23 21:30 07/14/23 21:30 Temperature Pulse Rate 87 87 Respiratory Rate 18 17 Blood Pressure 127/76 Pulse Oximetry 95 96 Oxygen Delivery Method Room Air Room Air 07/14/23 22:00 07/14/23 22:00 Temperature Pulse Rate 87 Respiratory Rate 23 Blood Pressure 155/77 H Pulse Oximetry 96 Oxygen Delivery Method Medical Decision Making Differential Diagnosis Differential Diagnosis: Tongue laceration, coronary disease, pneumonia Lab Data 07/14/23 19:10 07/14/23 19:10 Labs: Lab Results 07/14/23 07/14/23 Range/Units 19:10 21:07 WBC 6.7 (4.5-11.0) X10^3/uL RBC 4.28 L (4.5-5.9) X10^6/uL Hgb 14.5 (13.5-17.5) g/dL Hct 41.6 (41-53) % MCV 97.1 (80-100) fL MCH 33.8 (26-34) PG MCHC 34.8 (30-36) % RDW 12.6 (11.6-14.8) % Plt Count 164 (150-400) X10^3/uL Neut % (Auto) 48.4 L (50-75) % Lymph % (Auto) 40.1 H (25-40) % Crane % (Auto) 8.3 (3-14) % Eos % (Auto) 2.6 (2-4) % Baso % (Auto) 0.6 (0-2) % Neut # (Auto) 3200 (9875-6808) /uL Lymph # (Auto) 2700 (5424-8897) /uL Crane # (Auto) 600 (0-900) /uL Eos # (Auto) 200 (0-450) /uL Baso # (Auto) 0 (0-100) /uL PT 11.3 (9.4-12.5) SECONDS INR 1.0 (0.9-1.3) APTT 32 (25.1-36.5) SECONDS Sodium 140 (137-145) mmol/L Potassium 3.8 (3.4-5.1) mmol/L Chloride 105 (98-107) mmol/L Carbon Dioxide 26 (22-32) mmol/L BUN 16 (9-20) mg/dL Creatinine 0.96 (0.66-1.25) mg/dL Estimated GFR > 60 (>60) mL/min BUN/Creatinine Ratio 16.7 (6-22) Glucose 131 H (80-110) mg/dL Calcium 9.1 (8.4-10.2) mg/dL Total Bilirubin 1.0 (0.2-1.3) mg/dL AST 35 (17-59) IU/L ALT 38 (<50) IU/L Alkaline Phosphatase 77 (38-126) U/L Total Creatine Kinase 94 (55-170) U/L Troponin I < 0.012 0.014 (0.01-0.034) ng/mL Total Protein 7.6 (6.3-8.2) g/dL Albumin 4.5 (3.5-5.0) g/dL Globulin 3.1 (1.7-4.1) g/dL Albumin/Globulin Ratio 1.5 (1.0-2.8) Lipase 46 (23-300) U/L ECG Data Interpretation: Normal sinus rhythm, rate 97 beats per minute, normal axis, normal MS, no STEMI MDM Narrative Medical decision making narrative: Well-appearing patient who incidentally began to experience chest pain and shortness of breath while walking to the emergency department to have his tongue evaluated. Patient's tongue does have a superficial linear laceration on the underside, however there was no active bleeding, and we will heal on its own with conservative treatment. Patient given aspirin. EKG is normal sinus rhythm without concerning findings. Troponins x2 negative. Chest x-ray shows no acute abnormalities. Patient pain-free since arrival to the emergency department. Patient history is somewhat concerning for stable angina since he has had chest pain with exertion over the last 2 weeks, however at rest he was completely pain-free, with normal vital signs. Patient advised to follow up with his primary care doctor and station installer and repairer for chest pain. He was given viscous lidocaine for oral pain and counseled to use rinse his mouth after eating to avoid infection, however I anticipate that the tongue laceration will heal very quickly Discharge Plan Departure Patient Disposition: Home Clinical Impression: Chest pain Instructions: DI for Chest Pain Activity Restrictions/Additional Instructions: Your EKG, chest x-ray, and heart enzymes were normal today. I do not know the cause of your chest pain and shortness of breath, but with your history of heart disease I highly recommend following up with your primary care doctor and your station installer and repairer as soon as you can. Prescriptions: No Action mupirocin 2 % ointment 1 applic topical TID Qty: 22 0RF lisinopril 2.5 mg tablet 2.5 mg PO QDAY Qty: 90 3RF atorvastatin [Lipitor] 40 mg tablet 40 mg PO HS Qty: 90 3RF (DME) DISABLED PARKING PERMIT See Rx Instructions .ROUTE .MEDSUPPLY Qty: 1 0RF Rx Instructions: VALID FOR 5 YEARS I find this patient to be medically disabled and qualified for Disabled Parking as indicated, and signed, on the Accompanying Disabled Parking Application for individuals. carvedilol [Coreg] 6.25 mg tablet See Rx Instructions .ROUTE .COMPLEX Qty: 270 3RF Dose Instruction: Take 1 and a 1/2 tabs by mouth every morning and 1 and 1/2 tab by mouth every night ; Rx Instructions: Take 1 and a 1/2 tabs by mouth every morning and 1 and 1/2 tab by mouth every night ; gabapentin 300 mg capsule 900 mg PO TID Qty: 300 1RF Rx Instructions: take 3-300mg TID aspirin 81 mg tablet,delayed release (DR/EC) 81 mg PO DAILY Metamucil 3.4 gram/5.4 gram powder 1 tbsp PO DAILY Rx Instructions: mix into at least 8 oz of water or juice before administering cholecalciferol (vitamin D3) 50 mcg (2,000 unit) tablet 50 mcg PO DAILY meloxicam 15 mg tablet 15 mg PO DAILY Qty: 30 2RF Referrals: Morales Jorgensen MD [Primary Care Provider] - Stand Alone Forms: Patient Portal/API
--- NOTE | 2023-07-14 19:07 | DI.RAD.S_ITS ---
PROCEDURE: XR CHEST 1V INDICATIONS: chest pain TECHNIQUE: One view of the chest was acquired. COMPARISON: [facility], , XR CHEST 1V, 04/06/2021, 20:23. [facility], , CHEST 1 VIEW, 05/09/2012, 12:33. FINDINGS: Surgical changes and devices: None. Lungs and pleura: Lungs are clear. No pleural effusions or pneumothorax. Mediastinum: Mediastinal contours appear normal. Heart size is normal. Bones and chest wall: No suspicious bony lesions. Overlying soft tissues appear unremarkable. IMPRESSION: No acute cardiopulmonary abnormality is seen. Dictated by: Gomez Mckeon M.D. on 07/14/2023 at 19:29 Approved by: Gomez Mckeon M.D. on 07/14/2023 at 19:30
[2023-07-14] MEDS: SODIUM CHLORIDE 0.9% 1,000 ML 150 ML IV (19:14)
[2023-07-14] MEDS: ASPIRIN 81 MG CHEW TAB 324 MG PO (19:15)
[2023-07-14 19:25] LABS: Add Manual Diff / Slide Review NO; Basophils Absolute Auto 0 /uL (0-100); Basophils Percent Auto 0.6 % (0-2); Eosinophils Absolute Auto 200 /uL (0-450); Eosinophils Percent Auto 2.6 % (2-4); Hematocrit 41.6 % (41-53); Hemoglobin 14.5 g/dL (13.5-17.5); Lymphocytes Absolute Auto 2700 /uL (1100-4500); Lymphocytes Percent Auto 40.1 % (25-40); Mean Corpuscular HGB Conc 34.8 % (30-36); Mean Corpuscular Hemoglobin 33.8 PG (26-34); Mean Corpuscular Volume 97.1 fL (80-100); Monocytes Absolute Auto 600 /uL (0-900); Monocytes Percent Auto 8.3 % (3-14); Neutrophils Absolute Auto 3200 /uL (1500-7000); Neutrophils Percent Auto 48.4 % (50-75); Platelet Count 164 X10^3/uL (150-400); Red Blood Cell Count 4.28 X10^6/uL (4.5-5.9); Red Cell Distribution Width 12.6 % (11.6-14.8); White Blood Cell Count 6.7 X10^3/uL (4.5-11.0)
[2023-07-14 19:40] LABS: Alanine Aminotransferase 38 IU/L (<50); Albumin 4.5 g/dL (3.5-5.0); Albumin Globulin Ratio 1.5 (1.0-2.8); Alkaline Phosphatase 77 U/L (38-126); Aspartate Aminotransferase 35 IU/L (17-59); BUN Creatinine Ratio 16.7 (6-22); Blood Urea Nitrogen 16 mg/dL (9-20); Calcium 9.1 mg/dL (8.4-10.2); Carbon Dioxide 26 mmol/L (22-32); Chloride 105 mmol/L (98-107); Creatine Kinase 94 U/L (55-170); Estimated Glomerular Filt Rate > 60 mL/min (>60); Globulin 3.1 g/dL (1.7-4.1); Glucose 131 mg/dL (80-110); HEMOLYSIS < 15 (0-50); Lipase 46 U/L (23-300); Potassium 3.8 mmol/L (3.4-5.1); Sodium 140 mmol/L (137-145); Total Protein 7.6 g/dL (6.3-8.2)
[2023-07-14 19:45] LABS: Prothrombin Time 11.3 SECONDS (9.4-12.5)
[2023-07-14 19:48] LABS: PTT Partial Thromboplastin Tim 32 SECONDS (25.1-36.5)
[2023-07-14 19:50] LABS: Troponin I < 0.012 ng/mL (0.01-0.034)
[2023-07-14 21:48] LABS: Troponin I 0.014 ng/mL (0.01-0.034)
[2023-07-14] MEDS: LIDOCAINE VISCOUS 2% 15 ML SOLUTION PO (22:17)
== END 2023-07-14 22:20 | disposition home or self-care (01) ==
PROVIDERS: Emergency Provider Emergency Medicine; Family Provider Family Medicine; PCP Family Medicine
DX: R07.9 Chest pain, unspecified (principal); R06.02 Shortness of breath
CPT/HCPCS: 36415; 71045; 80053; 82550; 83690; 84484; 85025; 85610; 85730; 93005; 96360; 99284

== ENCOUNTER 2023-07-26 11:46 | Observation (INO) | payer MEDICARE, OTHER, SELFPAY ==
[2023-07-26] VITALS (15 sets, daily range): BP systolic 109–160; BP diastolic 63–80; PULSE 58–84; RESP 14–28; TEMP 36.4–36.7; O2SAT 94–98; BMI 38.4
--- NOTE | 2023-07-26 11:57 | DI.RAD.S_ITS ---
PROCEDURE: XR CHEST 1V INDICATIONS: chest pain TECHNIQUE: One view of the chest was acquired. COMPARISON: [facility], CR, XR CHEST 1V, 07/14/2023, 19:16. FINDINGS: Surgical changes and devices: None. Lungs and pleura: Lungs are clear. No pleural effusions or pneumothorax. Mediastinum: Mediastinal contours appear normal. Heart size is normal. Bones and chest wall: No suspicious bony lesions. Overlying soft tissues appear unremarkable. IMPRESSION: No acute cardiopulmonary abnormality is seen. Dictated by: Bryan Miramnotes M.D. on 07/26/2023 at 12:49 Approved by: Bryan Miramontes M.D. on 07/26/2023 at 12:54
--- NOTE | 2023-07-26 12:10 | ED_ITS ---
HPI - Chest Pain General Chief Complaint: Chest Pain Stated Complaint: chest pain, feels like he's going to pass out Time Seen by Provider: 07/26/23 12:10 Source: patient Mode of arrival: Ambulatory Limitations: no limitations History of Present Illness HPI narrative: 68-year-old male with history of diabetes, RADHA, thrombocytopenia, anal fissure, CAD status post stent, CA, hypertension, hyperlipidemia presents with chest pain and lightheadedness. Patient states that he was feeling overall normal today then around 10:30 a.m. while seated developed substernal chest pain radiating to both arms and down his right leg. Pain was sudden and severe. It has gradually started to improve. He is mild shortness of breath and nausea with this, though not substantial. No vomiting. No fevers or chills, though multiple family members have COVID. He is mild dry cough though states this is not substantial. No back or flank or neck or head or abdominal pain. He felt mildly lightheaded with the pain, on clarification though this has resolved with no other dizziness. No syncope. No leg swelling or leg pain. He notes distant history of stent in late 1999 with cardiac arrest for CAD. He states he is consistent with his medications; he was given full aspirin today prior to any assessment by myself. No focal numbness or weakness. No visual or hearing changes. No other new concerns. Related Data Home Medications Medication Instructions Recorded Confirmed cholecalciferol (vitamin D3) 50 50 mcg PO DAILY 10/26/22 07/26/23 mcg (2,000 unit) tablet psyllium husk 3.4 gram/5.4 gram 1 tbsp PO DAILY 10/26/22 07/26/23 oral powder (Metamucil) omeprazole magnesium 20 mg 20 mg PO DAILY 07/26/23 07/26/23 tablet,delayed release (Prilosec OTC) Previous Rx's Medication Instructions Recorded lisinopril 2.5 mg tablet 2.5 mg PO QDAY #90 tabs 05/25/21 atorvastatin 40 mg tablet (Lipitor) 40 mg PO HS #90 tabs 05/28/21 DISABLED PARKING PERMIT #1 ea 12/14/21 carvedilol 6.25 mg tablet (Coreg) See Rx Instructions .Route 09/27/22 .COMPLEX #270 tabs gabapentin 300 mg capsule 900 mg (3 x 300 mg) PO TID #300 06/06/23 caps Allergies Allergy/AdvReac Type Severity Reaction Status Date / Time No Known Drug Allergies Allergy Verified 07/14/23 19:07 Review of Systems Review of Systems Narrative: Constitutional: no fever, no chills Eyes: no visual disturbance, no discharge Ears, Nose, Mouth, Throat: no rhinorrhea, no sore throat Cardiovascular: + chest pain, no palpitations Respiratory: no cough, + shortness of breath Gastrointestinal: no abdominal pain, no vomiting, no diarrhea Genitourinary: no dysuria, no hematuria Musculoskeletal: no back pain, no neck stiffness Skin: no rash, no wound Neurological: no focal weakness, no focal numbness Patient History Medical History Status post lumbar spinal arthrodesis Medicare welcome exam Facet arthropathy, lumbar Diabetes mellitus type 2, controlled, without complications Sleep apnea Elevated liver enzymes Thrombocytopenia Facet arthropathy, lumbar Gait instability Lumbar radiculopathy Spondylolisthesis at L4-L5 level Hearing loss (1978) Heart attack (2011) Surgical History Anesthesia H/O heart artery stent (05/09/12) History of vasectomy (1998) Status post hernia repair Family History Mother Ovarian cancer Hypertension Sister Cancer Father No problems noted. Brother Alcoholism and drug addiction in family Sleep apnea Family/Other Depression Social History marital status: unknown household members: none occupational status: previously employed Smoking Status: Never smoker Tobacco: How many years used: 13 alcohol intake: current substance use type: does not use Smoking Status: Never smoker alcohol intake frequency: 0-2 drinks per day Substance Use Type: does not use Exam Narrative Exam Narrative: Const: no acute distress, non toxic appearing; calm, conversant, pleasant Eyes: PERRLA, EOMI ENT: mucous membranes moist Neck: supple, non-tender Resp: no respiratory distress, clear to auscultation bilaterally Card: regular mild bradycardia, no murmurs; no chest wall tenderness Abd: non tender diffusely, negative Quick's sign, no rigidity or rebound or guarding Back: no T or L spine tenderness, no CVA tenderness bilaterally Extrem: no deformities, no swelling bilateral lower extremities, 2+ distal pulses all extremities Neuro: ANOx4, business strategist 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, grossly intact sensation and strength all extremities Skin: no rash, warm and dry Initial Vital Signs Initial Vital Signs: Vital Signs Temperature 97.5 F L 07/26/23 11:50 Pulse Rate 84 07/26/23 11:50 Respiratory Rate 18 07/26/23 11:50 Blood Pressure 160/71 H 07/26/23 11:50 Pulse Oximetry 98 07/26/23 11:50 Oxygen Delivery Method Room Air 07/26/23 11:50 Course Course Course Narrative: This patient presents with abrupt, sudden onset chest pain starting in the last few hours, with a broad differential I have considered including but not limited to aortic dissection, ACS, pneumothorax, viral syndrome, with myocarditis, pulmonary embolism, pneumonia on differential though seeming less consistent with presentation currently; costochondritis, reflux, gastritis, pancreatitis also possible, among others. I am obtaining aggressive workup with EKG, troponin, CBC, CMP, viral swab, chest x-ray, anticipating CT dissection protocol chest abdomen and pelvis. I am giving nitroglycerin and will closely reassess. Note patient was given full aspirin. EKG shows sinus bradycardia without acute ischemia or immediately concerning interval prolongation. Note morphology overall similar to July 14, 2023 EKG. Per chart review, he sees [facility] with Dr. Trevizo, initially presenting 2011 with acute CA with LCX stented, later requiring reintervention axillary close. He has history of ischemic cardiomyopathy, CAD, diabetes, hyperlipidemia, hypertension, sleep apnea. CBC with no leukocytosis, anemia. Mild thrombocytopenia present. INR within normal limits. PTT within normal limits. CMP grossly reassuring. Hypomagnesemia present though mild. Giving Mag oxide. Bilirubin elevated though with no abdominal pain or tenderness, no AST or ALT or alk-phos elevation. Initial troponin negative, reassuring. Lipase reassuring. Patient is COVID positive. Radiology review of imaging below, which I agree with on my independent review: CTA: FINDINGS: Image quality: Diagnostic. AORTA: The aorta demonstrates normal course and caliber. No aneurysmal dilatation, dissection, mural thickening, or periaortic fat stranding. Scattered atheromatous calcifications are present at the thoracic arch, within the descending thoracic aorta, and within the infra abdominal aorta. There is wide patency of the celiac axis, SMA, renal arteries and CHAVA. Visualized portions of the bilateral iliac and femoral arteries are widely patent. CHEST: Lower Neck: No enlarged lymph nodes. Thyroid: No thyroid nodules which require sonographic evaluation. Axillae: There are 2 enlarged right axillary lymph nodes, the largest of which measures 1.8 cm in diameter (series 5/image 50). No left axillary adenopathy. Chest Wall: Unremarkable. Lungs and Pleura: No pneumothorax or pleural effusions. No acute airspace opacities. A calcified granuloma is present at the left lung base. A 5 mm pulmonary nodule is present in the lingula (series 6/image 188). This is unchanged from the study dated December 04, 2021. No new suspicious pulmonary nodules. Heart: Heart size is normal. No pericardial effusion. Thoracic Vessels: Pulmonary arteries demonstrate normal size. Scattered atheromatous calcifications are present within the aortic arch. Mediastinum and Francine: No enlarged lymph nodes. Scattered calcified hilar and mediastinal lymph nodes are present suggesting prior granulomatous disease. Esophagus: No wall thickening. No hiatal hernia. ABDOMEN: Liver: The liver is markedly hypodense. A low-density cystic lesion is present at the dome of the left hepatic lobe. Gallbladder: No radiopaque gallstones or wall thickening. Biliary ducts: No biliary dilation. Pancreas: No ductal dilation. Spleen: Size is within normal limits. Adrenal Glands: No adrenal nodules. Kidneys and Ureters: No hydronephrosis. No solid mass. No complex renal cystic lesion which requires follow up. Stomach and Bowel: Normal colonic caliber, without significant wall thickening. There are scattered colonic diverticula. No evidence for diverticulitis. The appendix is thin walled and gas filled. Peritoneum: No abnormal intraperitoneal fluid. No free air. A 1.0 cm peritoneal soft tissue nodule is present within the left upper quadrant and is unchanged from the study dated January 17, 2022 (series 5/image 138). Ventral Wall: No hernia. Abdominal Nodes: No retroperitoneal or mesenteric adenopathy by size criteria. Vessels: Inferior vena cava is normal in size. PELVIS: Pelvic Organs: Unremarkable. Bladder: Unremarkable. Pelvic Nodes: No enlarged lymph nodes. Miscellaneous: There is a large right fat containing inguinal hernia.. Bones: Unremarkable. IMPRESSION: 1. Normal appearance of the thoracic and abdominal aorta. No aortic dissection or hemodynamically significant stenosis. 2. Right axillary adenopathy. Differential considerations include both neoplastic and inflammatory/infectious etiologies. If further characterization is warranted and to evaluate for biopsy, ultrasound of this region could be used. 3. Findings consistent with prior granulomatous disease. 4. Severe hepatic steatosis. 5. Normal appendix. Diverticulosis. No acute diverticulitis. Dictated by: Nathaly Ramires M.D. on 07/26/2023 at 13:[address] findings related to COVID infection, though these will need follow up. While COVID or gastritis could be contributory to his symptoms, I remain concerned for ACS given patient has numerous risk factors with concerning history as above. I spoke with Dr. Perez at 2:00PM, reviewing case. She agrees with observation admission. I am consulting Dr. Burk. Dr. Burk has kindly accepted patient. Orders Ordered: ED Orders 07/26/23 11:57 XR chest 1V Stat 07/26/23 11:58 EKG-12 Lead Stat 07/26/23 12:05 Complete Blood Count AUTO DIFF Stat Comprehensive Metabolic Panel Stat Lipase Stat Magnesium Stat PTT Partial Thromboplastin Brayden Stat Prothrombin Time INR Stat Troponin & CK Cardiac Panel Stat 07/26/23 12:07 Covid-19 + FLU A/B + RSV - PCR Stat 07/26/23 12:52 CT angio chest abdomen pelvis Stat Acetaminophen (Acetaminophen 325 Mg Tablet) 650 mg PO Q6H PRN PRN Reason: Fever/Mild Pain (1-3) Last Admin: 07/26/23 17:12 Dose: 650 mg Documented By: ALVARO Aspirin (Aspirin Ec 81 Mg Tablet) 81 mg PO DAILY [facility] Atorvastatin Calcium (Atorvastatin 20 Mg Tablet) 40 mg PO BEDTIME REESE Benzonatate (Benzonatate 100 Mg Capsule) 100 mg PO TID PRN PRN Reason: Cough Carvedilol (Carvedilol 3.125 Mg Tablet) 9.375 mg PO BID REESE Gabapentin (Gabapentin 300 Mg Capsule) 900 mg PO TID [facility] Last Admin: 07/26/23 15:15 Dose: 900 mg Documented By: ROCÍO Lisinopril (Lisinopril 5 Mg Tablet) 2.5 mg PO DAILY REESE Melatonin (Melatonin 3 Mg Tablet) 6 mg PO BEDTIME PRN PRN Reason: Insomnia Naloxone HCl (Naloxone 0.4 Mg/Ml Vial) 0.2 mg IV Q2MIN PRN PRN Reason: Opiate Reversal Ondansetron HCl (Ondansetron 4 Mg/2 Ml Inj) 4 mg IV Q4HR PRN PRN Reason: Nausea And Vomiting Pantoprazole Sodium (Pantoprazole Dr 40 Mg Tablet) 40 mg PO 0600 [facility] Polyethylene Glycol (Polyethylene Glycol 3350 17 Gm Powd.Pack) 17 gm PO DAILY PRN PRN Reason: Constipation Sennosides (Sennosides 8.6 Mg Tablet) 8.6 mg PO BID PRN PRN Reason: Constipation Discontinued Medications Aspirin (Aspirin 81 Mg Chew Tab) 324 mg PO NOW ONE Stop: 07/26/23 11:58 Last Admin: 07/26/23 12:28 Dose: 324 mg Documented By: VEGA Aspirin (Aspirin Ec 81 Mg Tablet) 81 mg PO DAILY [facility] Magnesium Sulfate (Magnesium Sulfate) 4 gm in 100 mls @ 25 mls/hr IV NOW ONE Stop: 07/26/23 18:52 Last Infusion: 07/26/23 16:10 Dose: 25 mls/hr Documented By: SONG Co-signed By: ROCÍO Admin: 07/26/23 15:22 Dose: 25 mls/hr Documented By: ROCÍO Co-signed By: LUTHER Magnesium Oxide (Magnesium Oxide 400 Mg Tablet) 400 mg PO NOW ONE Stop: 07/26/23 12:56 Last Admin: 07/26/23 13:05 Dose: 400 mg Documented By: VEGA Nitroglycerin (Nitroglycerin Oint 1 Inch/Gm Oint...G.) 1 inch TOP NOW ONE Stop: 07/26/23 12:53 Last Admin: 07/26/23 13:06 Dose: Not Given Documented By: VEGA Vital Signs Vital signs: Vital Signs - 8 hr 07/26/23 11:50 07/26/23 12:14 07/26/23 12:30 Temperature 97.5 F L Pulse Rate 84 84 84 Respiratory Rate 18 17 28 H Blood Pressure 160/71 H Pulse Oximetry 98 97 96 Oxygen Delivery Method Room Air 07/26/23 12:30 07/26/23 13:00 07/26/23 13:00 Temperature Pulse Rate 81 Respiratory Rate 22 Blood Pressure 123/66 112/80 Pulse Oximetry 95 Oxygen Delivery Method 07/26/23 13:30 07/26/23 13:31 07/26/23 13:31 Temperature Pulse Rate 82 Respiratory Rate 21 23 Blood Pressure 109/73 Pulse Oximetry 96 98 Oxygen Delivery Method 07/26/23 14:00 07/26/23 14:01 07/26/23 14:01 Temperature Pulse Rate 78 77 Respiratory Rate 25 H 23 Blood Pressure 133/63 Pulse Oximetry 97 97 Oxygen Delivery Method 07/26/23 14:30 07/26/23 14:31 07/26/23 14:31 Temperature Pulse Rate 81 82 Respiratory Rate 22 21 Blood Pressure 124/73 Pulse Oximetry 97 96 Oxygen Delivery Method MDM - Chest Pain Lab Data 07/26/23 12:05 07/26/23 12:05 Labs: Lab Results 07/26/23 07/26/23 07/26/23 Range/Units 12:05 12:07 12:15 WBC 8.5 (4.5-11.0) X10^3/uL RBC 4.24 L (4.5-5.9) X10^6/uL Hgb 14.5 (13.5-17.5) g/dL Hct 41.8 (41-53) % MCV 98.5 (80-100) fL MCH 34.2 H (26-34) PG MCHC 34.7 (30-36) % RDW 12.9 (11.6-14.8) % Plt Count 146 L (150-400) X10^3/uL Neut % (Auto) 62.9 (50-75) % Lymph % (Auto) 26.0 (25-40) % Josephine % (Auto) 8.5 (3-14) % Eos % (Auto) 1.5 L (2-4) % Baso % (Auto) 1.1 (0-2) % Neut # (Auto) 5400 (5897-9132) /uL Lymph # (Auto) 2200 (2262-5694) /uL Josephine # (Auto) 700 (0-900) /uL Eos # (Auto) 100 (0-450) /uL Baso # (Auto) 100 (0-100) /uL PT 12.1 (9.4-12.5) SECONDS INR 1.1 (0.9-1.3) APTT 32 (25.1-36.5) SECONDS Sodium 141 (137-145) mmol/L Potassium 3.9 (3.4-5.1) mmol/L Chloride 107 (98-107) mmol/L Carbon Dioxide 24 (22-32) mmol/L BUN 13 (9-20) mg/dL Creatinine 0.72 (0.66-1.25) mg/dL Estimated GFR > 60 (>60) mL/min BUN/Creatinine Ratio 18.1 (6-22) Glucose 119 H (80-110) mg/dL Hemoglobin A1c 6.3 H (4.0-6.0) % Calcium 8.8 (8.4-10.2) mg/dL Magnesium 1.5 L (1.6-2.3) mg/dL Total Bilirubin 1.4 H (0.2-1.3) mg/dL AST 28 (17-59) IU/L ALT 38 (<50) IU/L Alkaline Phosphatase 66 (38-126) U/L Total Creatine Kinase 61 (55-170) U/L Troponin I < 0.012 (0.01-0.034) ng/mL Total Protein 7.7 (6.3-8.2) g/dL Albumin 4.4 (3.5-5.0) g/dL Globulin 3.3 (1.7-4.1) g/dL Albumin/Globulin Ratio 1.3 (1.0-2.8) Triglycerides 204 H (35-150) mg/dL Cholesterol 125 L (140-199) mg/dL LDL Cholesterol, Calc 52 (<100) mg/dL HDL Cholesterol 32 L (40-60) mg/dL Lipase 40 (23-300) U/L TSH 1.96 (0.47-4.68) uIU/mL SARS-CoV-2 (PCR) Positive H (Negative) Influenza A (RT-PCR) Flu a negative (NEGATIVE) Influenza B (RT-PCR) Flu b negative (NEGATIVE) RSV (PCR) Negative (Negative) Urine Dip Bedside Urine Glucose 250 mg/dl Bedside Urine Bilirubin - Negative Bedside Urine Ketone - Negative Urine Specific [place] 1.030 Bedside Urine Occult Blood - Negative Bedside Urine pH 5.5 Bedside Urine Protein - Negative Bedside Urine Urobilinogen - Negative Bedside Urine Nitrite - Negative Bedside Urine Leukocytes - Negative Esterase Discharge Plan Departure Patient Disposition: Admitted as Observation Clinical Impression: Chest pain Admit Date/Time: 07/26/23 14:39 Admit Provider: Yonatan Burk
[2023-07-26 12:15] LABS: Add Manual Diff / Slide Review NO; Basophils Absolute Auto 100 /uL (0-100); Basophils Percent Auto 1.1 % (0-2); Eosinophils Absolute Auto 100 /uL (0-450); Eosinophils Percent Auto 1.5 % (2-4); Hematocrit 41.8 % (41-53); Hemoglobin 14.5 g/dL (13.5-17.5); Lymphocytes Absolute Auto 2200 /uL (1100-4500); Mean Corpuscular HGB Conc 34.7 % (30-36); Mean Corpuscular Hemoglobin 34.2 PG (26-34); Mean Corpuscular Volume 98.5 fL (80-100); Monocytes Absolute Auto 700 /uL (0-900); Monocytes Percent Auto 8.5 % (3-14); Neutrophils Absolute Auto 5400 /uL (1500-7000); Neutrophils Percent Auto 62.9 % (50-75); Platelet Count 146 X10^3/uL (150-400); Red Blood Cell Count 4.24 X10^6/uL (4.5-5.9); Red Cell Distribution Width 12.9 % (11.6-14.8); White Blood Cell Count 8.5 X10^3/uL (4.5-11.0)
[2023-07-26 12:27] LABS: Alanine Aminotransferase 38 IU/L (<50); Albumin 4.4 g/dL (3.5-5.0); Albumin Globulin Ratio 1.3 (1.0-2.8); Alkaline Phosphatase 66 U/L (38-126); Aspartate Aminotransferase 28 IU/L (17-59); BUN Creatinine Ratio 18.1 (6-22); Bilirubin Total 1.4 mg/dL (0.2-1.3); Blood Urea Nitrogen 13 mg/dL (9-20); Calcium 8.8 mg/dL (8.4-10.2); Carbon Dioxide 24 mmol/L (22-32); Chloride 107 mmol/L (98-107); Creatine Kinase 61 U/L (55-170); Estimated Glomerular Filt Rate > 60 mL/min (>60); Globulin 3.3 g/dL (1.7-4.1); Glucose 119 mg/dL (80-110); HEMOLYSIS < 15 (0-50); Lipase 40 U/L (23-300); Magnesium 1.5 mg/dL (1.6-2.3); Potassium 3.9 mmol/L (3.4-5.1); Sodium 141 mmol/L (137-145); Total Protein 7.7 g/dL (6.3-8.2)
[2023-07-26] MEDS: ASPIRIN 81 MG CHEW TAB 324 MG PO (12:28)
[2023-07-26 12:38] LABS: INR 1.1 (0.9-1.3); Prothrombin Time 12.1 SECONDS (9.4-12.5)
[2023-07-26 12:39] LABS: Troponin I < 0.012 ng/mL (0.01-0.034)
[2023-07-26 12:40] LABS: PTT Partial Thromboplastin Tim 32 SECONDS (25.1-36.5)
--- NOTE | 2023-07-26 12:52 | DI.CT.S_ITS ---
PROCEDURE: CT ANGIO CHEST ABDOMEN PELVIS INDICATIONS: chest pain; rule out dissection TECHNIQUE: Precontrast 5 mm thick sections acquired from the lung apices to the iliac crests. After the administration of intravenous contrast, 2.5 mm thick sections again acquired from the lung apices to the iliac crests. Maximum intensity projection (MIP) oblique sagittal and coronal reformats were then acquired. For radiation dose reduction, the following was used: automated exposure control. COMPARISON: [facility], CT, CT ANGIO CHEST PE PROTOCOL, 01/17/2022, 8:41. [facility], CT, CT ABDOMEN PELVIS W CON, 12/04/2021, 14:50. FINDINGS: Image quality: Diagnostic. AORTA: The aorta demonstrates normal course and caliber. No aneurysmal dilatation, dissection, mural thickening, or periaortic fat stranding. Scattered atheromatous calcifications are present at the thoracic arch, within the descending thoracic aorta, and within the infra abdominal aorta. There is wide patency of the celiac axis, SMA, renal arteries and CHAVA. Visualized portions of the bilateral iliac and femoral arteries are widely patent. CHEST: Lower Neck: No enlarged lymph nodes. Thyroid: No thyroid nodules which require sonographic evaluation. Axillae: There are 2 enlarged right axillary lymph nodes, the largest of which measures 1.8 cm in diameter (series 5/image 50). No left axillary adenopathy. Chest Wall: Unremarkable. Lungs and Pleura: No pneumothorax or pleural effusions. No acute airspace opacities. A calcified granuloma is present at the left lung base. A 5 mm pulmonary nodule is present in the lingula (series 6/image 188). This is unchanged from the study dated December 04, 2021. No new suspicious pulmonary nodules. Heart: Heart size is normal. No pericardial effusion. Thoracic Vessels: Pulmonary arteries demonstrate normal size. Scattered atheromatous calcifications are present within the aortic arch. Mediastinum and Francine: No enlarged lymph nodes. Scattered calcified hilar and mediastinal lymph nodes are present suggesting prior granulomatous disease. Esophagus: No wall thickening. No hiatal hernia. ABDOMEN: Liver: The liver is markedly hypodense. A low-density cystic lesion is present at the dome of the left hepatic lobe. Gallbladder: No radiopaque gallstones or wall thickening. Biliary ducts: No biliary dilation. Pancreas: No ductal dilation. Spleen: Size is within normal limits. Adrenal Glands: No adrenal nodules. Kidneys and Ureters: No hydronephrosis. No solid mass. No complex renal cystic lesion which requires follow up. Stomach and Bowel: Normal colonic caliber, without significant wall thickening. There are scattered colonic diverticula. No evidence for diverticulitis. The appendix is thin walled and gas filled. Peritoneum: No abnormal intraperitoneal fluid. No free air. A 1.0 cm peritoneal soft tissue nodule is present within the left upper quadrant and is unchanged from the study dated January 17, 2022 (series 5/image 138). Ventral Wall: No hernia. Abdominal Nodes: No retroperitoneal or mesenteric adenopathy by size criteria. Vessels: Inferior vena cava is normal in size. PELVIS: Pelvic Organs: Unremarkable. Bladder: Unremarkable. Pelvic Nodes: No enlarged lymph nodes. Miscellaneous: There is a large right fat containing inguinal hernia.. Bones: Unremarkable. IMPRESSION: 1. Normal appearance of the thoracic and abdominal aorta. No aortic dissection or hemodynamically significant stenosis. 2. Right axillary adenopathy. Differential considerations include both neoplastic and inflammatory/infectious etiologies. If further characterization is warranted and to evaluate for biopsy, ultrasound of this region could be used. 3. Findings consistent with prior granulomatous disease. 4. Severe hepatic steatosis. 5. Normal appendix. Diverticulosis. No acute diverticulitis. Dictated by: Nathaly Ramires M.D. on 07/26/2023 at 13:30 Approved by: Nathaly Ramires M.D. on 07/26/2023 at 13:47
[2023-07-26] MEDS: MAGNESIUM OXIDE 400 MG TABLET PO (13:05)
[2023-07-26 13:19] LABS: Influenza A - CEPHEID Flu A NEGATIVE (NEGATIVE); Influenza B - CEPHEID Flu B NEGATIVE (NEGATIVE); Respiratory Syncytial Virus Negative (Negative)
[2023-07-26 13:22] LABS: COVID-19 CEPHEID 4-PLEX PCR POSITIVE (Negative)
--- NOTE | 2023-07-26 15:01 | P.HP_ITS ---
History of Present Illness History of Present Illness Date Patient Seen: 07/26/23 Chief complaint: chest pain, feels like he's going to pass out Narrative: Brock Restrepo is a 68yo M with PMH of CAD s/p stents in 2008, DM2, RADHA, HTN, HLD, and low back pain who presents with chest pain. Patient also found to be COVID positive. He noted 2 bouts of substernal CP today, once while walking and another time while sitting holding his granddaughter. The pain radiated down both arms. Pain improved on it's own and then went away. He also notes sore throat and harsh cough, which sometimes results in him feeling lightheaded like he's going to pass out. This happens whenever he coughs hard. Patient states his chest pain feels similar to the pain when he had an MT in 2008 and had stents placed. He denies SOB currently, NV, abd pain, or diarrhea. FOR[facility]LY [facility] Medical History Status post lumbar spinal arthrodesis Medicare welcome exam Facet arthropathy, lumbar Diabetes mellitus type 2, controlled, without complications Sleep apnea Elevated liver enzymes Thrombocytopenia Facet arthropathy, lumbar Gait instability Lumbar radiculopathy Spondylolisthesis at L4-L5 level Hearing loss (1978) Heart attack (2011) Surgical History Anesthesia H/O heart artery stent (05/09/12) History of vasectomy (1998) Status post hernia repair Family History Mother Ovarian cancer Hypertension Sister Cancer Father No problems noted. Brother Alcoholism and drug addiction in family Sleep apnea Family/Other Depression Social History marital status: unknown household members: none occupational status: previously employed Smoking Status: Never smoker Tobacco: How many years used: 13 alcohol intake: current substance use type: does not use Meds Home Medications and Allergies Home Medications Medication Instructions Recorded Confirmed Type lisinopril 2.5 mg tablet 2.5 mg PO QDAY #90 tabs 05/25/21 07/26/23 Rx atorvastatin 40 mg tablet (Lipitor) 40 mg PO HS #90 tabs 05/28/21 07/26/23 Rx DISABLED PARKING PERMIT #1 ea 12/14/21 07/26/23 Rx carvedilol 6.25 mg tablet (Coreg) See Rx Instructions .Route 09/27/22 07/26/23 Rx .COMPLEX #270 tabs cholecalciferol (vitamin D3) 50 50 mcg PO DAILY 10/26/22 07/26/23 History mcg (2,000 unit) tablet psyllium husk 3.4 gram/5.4 gram 1 tbsp PO DAILY 10/26/22 07/26/23 History oral powder (Metamucil) gabapentin 300 mg capsule 900 mg (3 x 300 mg) PO TID #300 06/06/23 07/26/23 Rx caps omeprazole magnesium 20 mg 20 mg PO DAILY 07/26/23 07/26/23 History tablet,delayed release (Prilosec OTC) Allergies Allergy/AdvReac Type Severity Reaction Status Date / Time No Known Drug Allergies Allergy Verified 07/14/23 19:07 Review of Systems Review of Systems Narrative: All other systems reviewed with the patient and are negative unless otherwise stated. Exam Vital Signs (past 8 hours): - 07/26/23 11:50 07/26/23 12:14 07/26/23 12:30 Temperature 97.5 F L Pulse Rate 84 84 84 Respiratory Rate 18 17 28 H Blood Pressure 160/71 H Pulse Oximetry 98 97 96 Oxygen Delivery Method Room Air 07/26/23 12:30 07/26/23 13:00 07/26/23 13:00 Temperature Pulse Rate 81 Respiratory Rate 22 Blood Pressure 123/66 112/80 Pulse Oximetry 95 Oxygen Delivery Method 07/26/23 13:30 07/26/23 13:31 07/26/23 13:31 Temperature Pulse Rate 82 Respiratory Rate 21 23 Blood Pressure 109/73 Pulse Oximetry 96 98 Oxygen Delivery Method 07/26/23 14:00 07/26/23 14:01 07/26/23 14:01 Temperature Pulse Rate 78 77 Respiratory Rate 25 H 23 Blood Pressure 133/63 Pulse Oximetry 97 97 Oxygen Delivery Method 07/26/23 14:30 07/26/23 14:31 07/26/23 14:31 Temperature Pulse Rate 81 82 Respiratory Rate 22 21 Blood Pressure 124/73 Pulse Oximetry 97 96 Oxygen Delivery Method Oxygen Delivery Method Room Air Narrative Exam Narrative: GEN: no acute distress HEENT: moist mucous membranes, PERRL NECK: trachea midline, no JVD CV: regular rate and rhythm, no murmurs PULM: clear bilaterally ABD: soft, nontender, nondistended, no organomegaly EXT: warm and well perfused with no edema NEURO: awake, alert, oriented, no focal deficits Objective Labs 07/26/23 12:05 07/26/23 12:05 Labs: Laboratory Results - last 24 hr 07/26/23 07/26/23 12:05 12:07 WBC 8.5 RBC 4.24 L Hgb 14.5 Hct 41.8 MCV 98.5 MCH 34.2 H MCHC 34.7 RDW 12.9 Plt Count 146 L Neut % (Auto) 62.9 Lymph % (Auto) 26.0 [place] % (Auto) 8.5 Eos % (Auto) 1.5 L Baso % (Auto) 1.1 Neut # (Auto) 5400 Lymph # (Auto) 2200 [place] # (Auto) 700 Eos # (Auto) 100 Baso # (Auto) 100 PT 12.1 INR 1.1 APTT 32 Sodium 141 Potassium 3.9 Chloride 107 Carbon Dioxide 24 BUN 13 Creatinine 0.72 Estimated GFR > 60 BUN/Creatinine Ratio 18.1 Glucose 119 H Calcium 8.8 Magnesium 1.5 L Total Bilirubin 1.4 H AST 28 ALT 38 Alkaline Phosphatase 66 Total Creatine Kinase 61 Troponin I < 0.012 Total Protein 7.7 Albumin 4.4 Globulin 3.3 Albumin/Globulin Ratio 1.3 Lipase 40 SARS-CoV-2 (PCR) Positive H Influenza A (RT-PCR) Flu a negative Influenza B (RT-PCR) Flu b negative RSV (PCR) Negative Assessment & Plan Assessment & Plan narrative: # chest pain -patient higher risk with history of MT in 2008 with coronary stents -aspirin daily -continue home Lipitor, check lipid panel -echo and stress test ordered -trops negative x2, trend -tele # COVID positive -patient has sore throat and cough, not hypoxic -seems to be having vasovagal like reaction when coughing resulting in lightheadedness -Tessalon Perles to suppress cough -solution # CAD s/p stents -continue aspirin and statin # hypertension -continue home carvedilol and lisinopril # GERD -continue PPI Code status is full code. DVT prophylaxis with SCDs, low risk. Proxy is daughter's Bernardo. I have reviewed home meds and used all available resources to reconcile the home meds. Case discussed with ED physician/APC and patient will be admitted to the hospitalist service for further workup and management. This patient will be admitted as observation and will require less than 2 midnights of hospital time to treat chest pain.
[2023-07-26] MEDS: GABAPENTIN 300 MG CAPSULE 900 MG PO ×2 (15:15→21:32)
--- NOTE | 2023-07-26 15:19 | DI.ECHO.S_ITS ---
[facility] +---------+ : : [address] : : : : [id number] : : : : Phone: [phone]+ Echocardiogram Report + + :Name: HILARIO BARKER Study Date: 07/26/2023 Height: 69 in : :[facility] ReadingLocation: Weight: 260 lb : : Gender: Male BSA: 2.3 m2 : :: 1955 Age: 68 yrs BP: 133/80 mmHg: :Reason For Study: CHEST PAIN : :Ordering Physician: ROSS, : :JOSH Guevara Performed By: Gissell Kraft : :Referring: JOSH HAWKINS : + + Interpretation Summary The ejection fraction is estimated to be 40-45%. Inferolateral, posterior hypokinesis. There is mild mitral regurgitation. There is mild tricuspid regurgitation. The right ventricular systolic pressure is estimated to be at least 18 mmHg based on an estimated right atrial pressure of 3 mm Hg. Procedure: A two-dimensional transthoracic echocardiogram with color flow and Doppler was performed. The study quality was technically adequate. Comparison is made with the echocardiogram of 12/09/2022. The patient was in sinus rhythm with heart rates between 63-88 bpm during the exam. The patient had occasional PVCs during the exam. Left Ventricle: The left ventricle is normal in size and wall thickness. The ejection fraction is estimated to be 40-45%. Inferolateral, posterior hypokinesis. Right Ventricle: The right ventricle is normal in size and function. Atria: The left atrial size is normal. Right atrial size is normal. There is no Doppler evidence for an interatrial shunt. Mitral Valve: The mitral valve is normal in structure and function. There is mild mitral regurgitation. Aortic Valve: The aortic valve is trileaflet. The aortic valve opens well. There is no aortic valve stenosis. No aortic regurgitation is present. Tricuspid Valve: The tricuspid valve is normal in structure and function. There is mild tricuspid regurgitation. The right ventricular systolic pressure is estimated to be at least 18 mmHg based on an estimated right atrial pressure of 3 mm Hg. Pulmonic Valve: The pulmonic valve leaflets are thin and pliable; valve motion is normal. There is a trace or physiologic amount of pulmonic regurgitation. Great Vessels: The aortic root is normal size. The dimensions of the ascending aorta are normal. The IVC is of normal diameter and collapses greater than 50% with a sniff. This suggests a low right atrial pressure of 3 mm Hg. Pericardium/ Pleura There is no pericardial effusion. There is no pleural effusion. MMode/2D Measurements & Calculations LVIDd: 5.9 cm LVOT diam: 2.0 cm LVIDs: 5.0 cm Ao root diam: 3.3 cm FS: 14.7 % asc Aorta Diam: 3.2 cm EPSS: 1.2 cm Ao Arch Diam (Prox Trans): 2.9 cm IVSd: 0.96 cm LVPWd: 0.97 cm LV welch. diameter/BSA (cm/m^2): 2.5 LV sys. diameter/BSA (cm/m^2): 2.2 LA A2 area: 18.4 cm2 RA long axis: 4.9 cm LA A4 area: 19.2 cm2 RA area: 17.2 cm2 LA length (vol): 5.3 cm RA vol: 51.2 ml LA vol: 56.2 ml RA : 22.2 ml/m2 LA vol index: 24.3 ml/m2 IVC diam: 1.2 cm RVD1 (basal): 3.6 cm RVD2 (mid): 2.8 cm TAPSE: 2.1 cm Doppler Measurements & Calculations Ao V2 max: 110.1 cm/sec LVOT Max Cain: 82.4 cm/sec Ao V2 mean: 87.1 cm/sec LV V1 max P.7 mmHg Ao max P.9 mmHg LV V1 VTI: 18.3 cm Ao mean P.2 mmHg JEANETTE(I,D): 2.4 cm2 Ao V2 VTI: 23.2 cm JEANETTE(V,D): 2.2 cm2 sev ratio: 0.79 JEANETTE indexed to BSA (cm^2/m^2): 1.0 MV E max cain: 101.8 cm/sec TR max cain: 197.5 cm/sec MV A max cain: 83.5 cm/sec TR max P.6 mmHg MV E/A: 1.2 PA V2 max: 73.9 cm/sec Med Peak E' Cain: 7.5 cm/sec PA V2 mean: 58.5 cm/sec E/E' med: 13.5 PA mean P.4 mmHg Lat Peak E' Cain: 9.2 cm/sec PA pr(Accel): 48.2 mmHg E/E' lat: 11.0 E/e' average: 12.3 MV dec time: 0.16 sec SVLVOT): 54.8 ml Reading Physician:04:09 PM
[2023-07-26 15:20] LABS: Cholesterol 125 mg/dL (140-199); HDL Cholesterol 32 mg/dL (40-60); LDL Cholesterol Calculated 52 mg/dL (<100); Triglycerides 204 mg/dL (35-150)
[2023-07-26 15:22] LABS: Hemoglobin A1C% w Est Avg Glu 6.3 % (4.0-6.0)
[2023-07-26] MEDS: MAGNESIUM SULFATE 4 GM/100 ML PIGGYBACK IV (15:22)
[2023-07-26 15:49] LABS: TSH w/ Reflex to FT4 1.96 uIU/mL (0.47-4.68)
[2023-07-26 16:08] LABS: Troponin I < 0.012 ng/mL (0.01-0.034)
[2023-07-26] MEDS: ACETAMINOPHEN 325 MG TABLET 650 MG PO (17:12)
[2023-07-26] MEDS: carvediloL 3.125 MG TABLET 9.375 MG PO (21:32)
[2023-07-26] MEDS: ATORVASTATIN 20 MG TABLET 40 MG PO (21:32)
[2023-07-26] MEDS: SODIUM CHLORIDE 0.9% FLUSH 10 ML IV (21:33)
[2023-07-26] MEDS: BENZONATATE 100 MG CAPSULE PO (21:55)
[2023-07-26] MEDS: MELATONIN 3 MG TABLET 6 MG PO (21:55)
[2023-07-27] VITALS: BP 113/58; PULSE 93; RESP 17; TEMP 36.8; O2SAT 96
[2023-07-27 04:00] VITALS: BP 144/73; PULSE 103; RESP 19; TEMP 36.9; O2SAT 95
[2023-07-27] MEDS: BENZONATATE 100 MG CAPSULE PO (04:31)
[2023-07-27] MEDS: ACETAMINOPHEN 325 MG TABLET 650 MG PO ×2 (04:31→11:42)
[2023-07-27 04:47] LABS: Add Manual Diff / Slide Review NO; Basophils Absolute Auto 100 /uL (0-100); Basophils Percent Auto 0.9 % (0-2); Eosinophils Absolute Auto 100 /uL (0-450); Eosinophils Percent Auto 1.6 % (2-4); Hematocrit 38.7 % (41-53); Hemoglobin 13.9 g/dL (13.5-17.5); Lymphocytes Absolute Auto 1200 /uL (1100-4500); Lymphocytes Percent Auto 18.1 % (25-40); Mean Corpuscular HGB Conc 35.8 % (30-36); Mean Corpuscular Hemoglobin 34.4 PG (26-34); Mean Corpuscular Volume 96.2 fL (80-100); Monocytes Absolute Auto 600 /uL (0-900); Monocytes Percent Auto 8.3 % (3-14); Neutrophils Absolute Auto 4700 /uL (1500-7000); Neutrophils Percent Auto 71.1 % (50-75); Platelet Count 129 X10^3/uL (150-400); Red Blood Cell Count 4.02 X10^6/uL (4.5-5.9); Red Cell Distribution Width 12.4 % (11.6-14.8); White Blood Cell Count 6.7 X10^3/uL (4.5-11.0)
[2023-07-27 04:52] LABS: BUN Creatinine Ratio 19.2 (6-22); Blood Urea Nitrogen 14 mg/dL (9-20); Calcium 8.7 mg/dL (8.4-10.2); Carbon Dioxide 25 mmol/L (22-32); Chloride 105 mmol/L (98-107); Estimated Glomerular Filt Rate > 60 mL/min (>60); Glucose 120 mg/dL (80-110); HEMOLYSIS < 15 (0-50); Potassium 3.9 mmol/L (3.4-5.1); Sodium 136 mmol/L (137-145)
[2023-07-27 04:53] LABS: Magnesium 1.9 mg/dL (1.6-2.3)
[2023-07-27 05:03] LABS: Troponin I < 0.012 ng/mL (0.01-0.034)
[2023-07-27] MEDS: PANTOPRAZOLE DR 40 MG TABLET PO (06:49)
[2023-07-27 08:47] VITALS: BP 135/79; PULSE 65; RESP 20; TEMP 36.8; O2SAT 97
[2023-07-27 09:49] VITALS: BP 135/79; PULSE 65
[2023-07-27] MEDS: ASPIRIN EC 81 MG TABLET PO (09:49)
[2023-07-27] MEDS: GABAPENTIN 300 MG CAPSULE 900 MG PO (09:49)
[2023-07-27] MEDS: lisinopriL 5 MG TABLET 2.5 MG PO (09:49)
[2023-07-27 09:50] VITALS: BP 135/79; PULSE 65
[2023-07-27] MEDS: SODIUM CHLORIDE 0.9% FLUSH 10 ML IV (09:50)
[2023-07-27] MEDS: carvediloL 3.125 MG TABLET 9.375 MG PO (09:50)
--- NOTE | 2023-07-27 10:51 | CM.DANOTE ---
Initial DCP Assessment Note Pt is a 68 yo male, resident of [place], arrives with chest pain, found to be COVID+. Admitted for further work up and chest pain r/o. PCP: Morales Jorgensen Payer: Floyd [employer] Reviewed chart, placed call into patient's room d/t COVID+ isolation precautions. Patient reports he lives in an apt in [place] and is indp in all aspects. Patient has a daughter, Yusra, that lives in [place] and another, Kendal that lives in [place]. Daughter Yusra can transport patient home upon discharge. 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 No barriers identified at this time to patient's safe discharge home w/family to assist as needed; close outpatient f/u recommended. CM team will plan to follow closely in case any DC needs or concerns arise. MARY ELLEN Christopher Discharge Planning/Care Management CM Discharge Assessment Start: 07/27/23 10:49 Freq: Status: Active Protocol: Document 07/27/23 10:49 FREDERICK (Rec: 07/27/23 10:50 FREDERICK [id number]) Discharge Planning Assessment Assigned Studio Camera Operator MARY ELLEN Godinez DPOA/Assigned Designee Name Yusra Restrepo, daughter ([place] ) Contact Information [phone] Advance Directives? No History Provided By Patient,Medical Record Prior Living Arrangements Apartment/Condo Household Members none Type of transporation used prior to Drives own vehicle admit Independent with ADL's Yes Is patient alert and oriented? Yes Barriers to Discharge No Comment Return home, close outpatient follow up, family to transport Discharge Plan Home Transportation Arrangement Family Referrals Initiated None needed
[2023-07-27 11:41] VITALS: BP 131/51; PULSE 61; RESP 18; TEMP 36.9; O2SAT 95
--- NOTE | 2023-07-27 15:25 | P.DS_ITS ---
History of Present Illness History of Present Illness Chief complaint: chest pain, feels like he's going to pass out Narrative: Brock Restrepo is a 68yo M with PMH of CAD s/p stents in 2008, DM2, RADHA, HTN, HLD, and low back pain who presents with chest pain. Patient also found to be COVID positive. He noted 2 bouts of substernal CP today, once while walking and another time while sitting holding his granddaughter. The pain radiated down both arms. Pain improved on it's own and then went away. He also notes sore throat and harsh cough, which sometimes results in him feeling lightheaded like he's going to pass out. This happens whenever he coughs hard. Patient states his chest pain feels similar to the pain when he had an AR in 2008 and had stents placed. He denies SOB currently, NV, abd pain, or diarrhea. Discharge Providers Provider Date of admission: 07/26/23 14:39 Discharge Date: 07/27/23 Primary care physician: Morales Jorgensen MD Discharge provider: Yonatan Burk DO Summary Hospital Course Discharge Diagnosis: # chest pain -patient higher risk with history of AR in 2008 with coronary stents -aspirin daily -continue home Lipitor, lipid panel with LDL at goal -echo was unchanged from prior with EF 40-45%, inferior wall hypokinesis -trops negative x3 -could not due to stress test due to COVID, patient will f/up with Dr. Trevizo his operations support representative for outpatient stress # COVID positive -patient has sore throat and cough, not hypoxic -seems to be having vasovagal like reaction when coughing resulting in lightheadedness -Tessalon Perles to suppress cough -solution # CAD s/p stents -continue aspirin and statin # hypertension -continue home carvedilol and lisinopril # GERD -continue PPI Hospital Course: Admitted for chest pain workup. Found to have COVID. Had no further episodes of chest pain and not hypoxic. Echo was reassuring and unchanged from prior. Could not get stress test due to COVID positive. Will f/up with operations support representative for outpatient stress. Home meds were unchanged. Exam Vital Signs (past 8 hours): - 07/27/23 08:47 07/27/23 09:49 07/27/23 09:50 Temperature 98.3 F Pulse Rate 65 65 65 Respiratory Rate 20 Blood Pressure 135/79 135/79 135/79 Pulse Oximetry 97 Oxygen Flow Rate 0 07/27/23 11:41 Temperature 98.4 F Pulse Rate 61 Respiratory Rate 18 Blood Pressure 131/51 L Pulse Oximetry 95 Oxygen Flow Rate 0 Oxygen Delivery Method Room Air Oxygen Flow Rate 0 Narrative Exam Narrative: GEN: no acute distress, ill-appearing HEENT: moist mucous membranes, PERRL NECK: trachea midline, no JVD CV: regular rate and rhythm, no murmurs PULM: clear bilaterally ABD: soft, nontender, nondistended, no organomegaly EXT: warm and well perfused with no edema NEURO: awake, alert, oriented, no focal deficits Objective Labs 07/27/23 04:15 07/27/23 04:15 Labs: Laboratory Results - last 24 hr 07/26/23 07/26/23 07/27/23 12:15 15:35 04:15 WBC 6.7 RBC 4.02 L Hgb 13.9 Hct 38.7 L MCV 96.2 MCH 34.4 H MCHC 35.8 RDW 12.4 Plt Count 129 L Neut % (Auto) 71.1 Lymph % (Auto) 18.1 L [place] % (Auto) 8.3 Eos % (Auto) 1.6 L Baso % (Auto) 0.9 Neut # (Auto) 4700 Lymph # (Auto) 1200 [place] # (Auto) 600 Eos # (Auto) 100 Baso # (Auto) 100 Sodium 136 L Potassium 3.9 Chloride 105 Carbon Dioxide 25 BUN 14 Creatinine 0.73 Estimated GFR > 60 BUN/Creatinine Ratio 19.2 Glucose 120 H Calcium 8.7 Magnesium 1.9 Troponin I < 0.012 < 0.012 TSH 1.96 PFSH Medical History Status post lumbar spinal arthrodesis Medicare welcome exam Facet arthropathy, lumbar Diabetes mellitus type 2, controlled, without complications Sleep apnea Elevated liver enzymes Thrombocytopenia Facet arthropathy, lumbar Gait instability Lumbar radiculopathy Spondylolisthesis at L4-L5 level Hearing loss (1978) Heart attack (2011) Surgical History Anesthesia H/O heart artery stent (05/09/12) History of vasectomy (1998) Status post hernia repair Family History Mother Ovarian cancer Hypertension Sister Cancer Father No problems noted. Brother Alcoholism and drug addiction in family Sleep apnea Family/Other Depression Social History marital status: unknown household members: none occupational status: previously employed Smoking Status: Never smoker Tobacco: How many years used: 13 alcohol intake: current substance use type: does not use Discharge Plan Discharge Plan Patient Disposition: Home Discharge orders & Medications Prescriptions: Continued lisinopril 2.5 mg tablet 2.5 mg PO QDAY Qty: 90 3RF atorvastatin [Lipitor] 40 mg tablet 40 mg PO HS Qty: 90 3RF (DME) DISABLED PARKING PERMIT See Rx Instructions .ROUTE .MEDSUPPLY Qty: 1 0RF Rx Instructions: VALID FOR 5 YEARS I find this patient to be medically disabled and qualified for Disabled Parking as indicated, and signed, on the Accompanying Disabled Parking Application for individuals. carvedilol [Coreg] 6.25 mg tablet See Rx Instructions .ROUTE .COMPLEX Qty: 270 3RF Dose Instruction: Take 1 and a 1/2 tabs by mouth every morning and 1 and 1/2 tab by mouth every night ; Rx Instructions: Take 1 and a 1/2 tabs by mouth every morning and 1 and 1/2 tab by mouth every night ; gabapentin 300 mg capsule 900 mg PO TID Qty: 300 1RF Rx Instructions: take 3-300mg TID Metamucil 3.4 gram/5.4 gram powder 1 tbsp PO DAILY Rx Instructions: mix into at least 8 oz of water or juice before administering cholecalciferol (vitamin D3) 50 mcg (2,000 unit) tablet 50 mcg PO DAILY omeprazole magnesium [Prilosec OTC] 20 mg Tablet,Delayed Release (Dr/Ec) 20 mg PO DAILY Follow up/Referrals: Morales Jorgensen MD [Primary Care Provider] - 2 Weeks Visit Report/Discharge Packet Instructions: DI for Chest Pain, DI for COVID-19 (Suspected or Confirmed ) Stand Alone Forms: Patient Portal/API, Stroke Signs & Symptoms Discharge Data Primary Care Provider: Morales Jorgensen Attending Provider: Yonatan Burk Admit Date/Time: 07/26/23 14:39
== END 2023-07-27 15:45 | disposition home or self-care (01) ==
LOC: ED 12:10 → AC 15:00
PROVIDERS: Admitting Provider Student in an Organized Health Care Education/Training Program; Emergency Provider Emergency Medicine; Family Provider Family Medicine; PCP Family Medicine; Referring Provider Emergency Medicine; Visit Provider Student in an Organized Health Care Education/Training Program
DX: U07.1 COVID-19 (principal); I11.0 Hypertensive heart disease with heart failure; I50.20 Unspecified systolic (congestive) heart failure; E11.9 Type 2 diabetes mellitus without complications; G47.33 Obstructive sleep apnea (adult) (pediatric); E78.5 Hyperlipidemia, unspecified; I25.2 Old myocardial infarction; Z11.52 Encounter for screening for COVID-19
CPT/HCPCS: 0241U; 36415; 71045; 71275; 74174; 80048; 80053; 80061; 81003; 82550; 83036; 83690; 83735; 84443; 84484; 85025; 85610; 85730; 93005; 93010; 93306; 96360; 99284; G0378; J3475; Q9967

== ENCOUNTER → 2024-02-02 15:23 | Outpatient (CLI) | payer MEDICARE, OTHER, SELFPAY ==
[2023-07-26 18:36] VITALS: BMI 38.4
== END ==
PROVIDERS: Family Provider Family Medicine; PCP Family Medicine; Visit Provider Nurse Practitioner Family
DX: S41.109A Unspecified open wound of unspecified upper arm, initial encounter (principal)
CPT/HCPCS: 87070; 87075; 87205

== ENCOUNTER → 2024-02-22 11:35 | Outpatient (CLI) | payer MEDICARE, OTHER, SELFPAY ==
[2023-07-26 18:36] VITALS: BMI 38.4
[2024-02-22 12:45] LABS: Influenza A - CEPHEID Flu A NEGATIVE (NEGATIVE); Influenza B - CEPHEID Flu B NEGATIVE (NEGATIVE); Respiratory Syncytial Virus Negative (Negative)
[2024-02-22 12:46] LABS: COVID-19 CEPHEID 4-PLEX PCR Negative (Negative)
== END ==
PROVIDERS: Family Provider Family Medicine; PCP Family Medicine; Visit Provider Physician Assistant
DX: J02.9 Acute pharyngitis, unspecified (principal); R05.1 Acute cough
CPT/HCPCS: 0241U; 87070

== ENCOUNTER → 2024-05-26 12:19 | Outpatient (CLI) | payer MEDICARE, OTHER, SELFPAY ==
[2023-07-26 18:36] VITALS: BMI 38.4
[2024-05-26 13:26] LABS: Influenza A - CEPHEID Flu A NEGATIVE (NEGATIVE); Influenza B - CEPHEID Flu B NEGATIVE (NEGATIVE); Respiratory Syncytial Virus Negative (Negative)
[2024-05-26 13:28] LABS: COVID-19 CEPHEID 4-PLEX PCR Negative (Negative)
== END ==
PROVIDERS: Family Provider Family Medicine; PCP Family Medicine; Referring Provider Nurse Practitioner Family; Visit Provider Nurse Practitioner Family
DX: J02.9 Acute pharyngitis, unspecified (principal); R06.02 Shortness of breath
CPT/HCPCS: 0241U; 87070

== ENCOUNTER 2024-06-05 09:53 | Day surgery (SDC) | payer MEDICARE, OTHER, SELFPAY ==
[2023-07-26 18:36] VITALS: BMI 38.4
[2024-06-05] VITALS (9 sets, daily range): BP systolic 114–133; BP diastolic 58–78; PULSE 82–100; RESP 12–22; TEMP 37.2; O2SAT 94–98
--- NOTE | 2024-06-05 09:59 | DI.RAD.S_ITS ---
PROCEDURE: PAIN L INTERLAMINAR/CAUDAL INJ INDICATIONS: para left L4/5 translaminar TAPAN COMPARISON: [facility], , PAIN L INTERLAMINAR/CAUDAL INJ, 05/01/2020, 10:33. FINDINGS/IMPRESSION: Fluoroscopic spot filming was performed to verify placement of spinal needles at the left L4-L5 level(s), as labeled on the films. Appropriate location(s) of the needle tip(s) was confirmed by injection of iodinated contrast. Dictated by: Chuck Lee M.D. on 06/05/2024 at 12:31 Approved by: Chuck Lee M.D. on 06/05/2024 at 12:31
[2024-06-05] MEDS: MIDAZOLAM 2 MG/2 ML VIAL IV (11:06)
[2024-06-05] MEDS: BUPIVACAINE 0.25% (PF) VIAL 2 ML INJ (11:12)
[2024-06-05] MEDS: DEXAMETHASONE 10 MG/ML VIAL INJ (11:12)
[2024-06-05] MEDS: iopamidoL 15 ML VIAL 3 ML INJ (11:12)
[2024-06-05] MEDS: BETAMETHASONE 30 MG/5 ML MDV 12 MG INJ (11:13)
--- NOTE | 2024-06-05 11:25 | P.PCN_ITS ---
Date/Time/Diagnoses Date of procedure: 06/05/24 Time of procedure: 11:25 Pre-procedure diagnosis: 1. HNP WITH RADICULAR FEATURES, 2. MULTILEVEL CENTRAL STENOSIS, Post-procedure diagnosis: same Procedure Notes Procedure: 1. FLUOROSCOPICALLY GUIDED CONTRAST CONTROLLED INTERLAMINAR EPIDURAL STEROID INJECTION -L4/5 Indications: Brock is referred by Dr. Jorgensen for treatment of Bilateral Foraminal Stenosis R>L LE symptoms. Physician: Jose R Hernandez Total Fluoroscopy time (seconds): 8 Total sedation minutes: 14 Complications: none Procedure in detail & Post-procedure care: FINDINGS Multilevel Central Spinal Stenosis with Nerve Root Compression DESCRIPTION OF PROCEDURE Fluoroscopically guided, contrast-controlled L4/5 translaminar epidural steroid injection. Following review of allergy and review of potential side effects and complications, including, but not necessarily limited to, infection, allergic reaction, local tissue breakdown, temporary as well as permanent nerve injury, paralysis, stroke and possible , the patient indicated that the patient understood and agreed to proceed. An informed consent document was signed by the patient, witnessed by a nurse, and placed in the patient's chart. Additionally, other treatment options including modalities, medications, and physical therapy were reviewed with the patient. After review of previous anaesthesic history and IV conscious sedation the patient was deemed safe to proceed with today?s procedure with IV conscious sedation as ASA class II designation. Safety time-out was performed to confirm patient ID, procedure to be performed and site of procedure. IV sedation was accomplished with a combination of 2mg of Versed was administered by the RN after DO order, titrated to patient comfort during the course of the procedure while the patient remained responsive to all verbal commands In the prone position, following sterile prep and drape of the lumbar region, the L4/5 translaminar space was identified fluoroscopically. The skin was anesthetized via a 25-gauge, 1.5inch needle with 1% lidocaine solution. At this point, a 22-gauge short bevel spinal needle was atraumatically introduced and advanced under fluoroscopic guidance into the region of the L4/5 translaminar space. Depth was confirmed on lateral view. Radiological data, including multiple fluoroscopic views of the lumbar spine, reveal a spinal needle at the L4/5 translaminar space. Lateral views then show placement of the needle in the epidural space. Subsequent views show contrast material flowing superiorly and inferiorly in the epidural space. No vascular or intrathecal uptake is observed. At this point, using loss of resistance technique with saline and air, the epidural space was entered. This was confirmed following negative aspiration with injection of approximately 1.5cc of Isovue 200, showing excellent epidural flow without vascular or intrathecal uptake. At this point, 1cc of 1% lidocaine solution combined with 2cc or 10mg of dexamethasone and 6mg betamethasone was injected without incident. The patient tolerated the procedure well without signs or symptoms of complications prior to transfer to the recovery area continued monitoring without incident. The patient was then transferred to the recovery area where they were observed for an appropriate period of time after the injection. The patient reported a VAS score of 6 prior to the procedure and a post- procedure VAS of 0. POST OP INSTRUCTIONS The patient was provided a Pain Log to continue to record their response to the target-specific procedure prior to follow-up visit with their referring physician. Additionally, specific post-injection care instructions and a contact number to our office were provided if concerns arise regarding possible complications associated with the procedure are suspected.
--- NOTE | 2024-06-05 12:19 | PC.NURSE ---
Patient discharged from [facility] but was unable to bear weight to go home at 1142. Patient will stay here until able to ambulate and safe to go home. Patient VSS and aox4 at this time. Currently 1220 pm. Will update info
== END 2024-06-05 12:48 | disposition home or self-care (01) ==
LOC: RAD 13:05
PROVIDERS: Family Provider Family Medicine; PCP Family Medicine; Referring Provider Physical Medicine & Rehabilitation; Visit Provider Physical Medicine & Rehabilitation
DX: M48.061 Spinal stenosis, lumbar region without neurogenic claudication (principal); M54.16 Radiculopathy, lumbar region
CPT/HCPCS: 62323; 99152; J0702; J1100; J2250; J3490

== ENCOUNTER → 2024-08-20 09:09 | Outpatient (CLI) | payer MEDICARE, OTHER, SELFPAY ==
[2023-07-26 18:36] VITALS: BMI 38.4
[2024-08-20 09:57] LABS: Add Manual Diff / Slide Review NO; Basophils Absolute Auto 100 /uL (0-100); Eosinophils Absolute Auto 300 /uL (0-450); Eosinophils Percent Auto 4.1 % (2-4); Hematocrit 37.6 % (41-53); Lymphocytes Absolute Auto 2400 /uL (1100-4500); Lymphocytes Percent Auto 37.9 % (25-40); Mean Corpuscular HGB Conc 34.5 % (30-36); Mean Corpuscular Hemoglobin 34.4 PG (26-34); Mean Corpuscular Volume 99.7 fL (80-100); Monocytes Absolute Auto 500 /uL (0-900); Monocytes Percent Auto 8.6 % (3-14); Neutrophils Absolute Auto 2900 /uL (1500-7000); Neutrophils Percent Auto 47.4 % (50-75); Platelet Count 167 X10^3/uL (150-400); Red Blood Cell Count 3.77 X10^6/uL (4.5-5.9); Red Cell Distribution Width 13.3 % (11.6-14.8); White Blood Cell Count 6.2 X10^3/uL (4.5-11.0)
[2024-08-20 10:15] LABS: Hemoglobin A1C% w Est Avg Glu 6.6 % (4.0-6.0)
[2024-08-20 10:23] LABS: Alanine Aminotransferase 38 IU/L (<50); Albumin 4.3 g/dL (3.5-5.0); Albumin Globulin Ratio 1.5 (1.0-2.8); Alkaline Phosphatase 81 U/L (38-126); Aspartate Aminotransferase 29 IU/L (17-59); BUN Creatinine Ratio 14.7 (6-22); Blood Urea Nitrogen 19 mg/dL (9-20); Calcium 9.1 mg/dL (8.4-10.2); Carbon Dioxide 20 mmol/L (22-32); Chloride 106 mmol/L (98-107); Cholesterol 155 mg/dL (140-199); Estimated Glomerular Filt Rate > 60 mL/min (>60); Globulin 2.9 g/dL (1.7-4.1); Glucose 153 mg/dL (80-110); HDL Cholesterol 36 mg/dL (40-60); HEMOLYSIS < 15 (0-50); LDL Cholesterol Calculated 68 mg/dL (<100); Potassium 4.3 mmol/L (3.4-5.1); Sodium 137 mmol/L (137-145); Total Protein 7.2 g/dL (6.3-8.2); Triglycerides 256 mg/dL (35-150)
[2024-08-20 10:52] LABS: Prostate Specific Antigen Scrn 0.411 ng/mL (0.1-4.0); TSH w/ Reflex to FT4 2.41 uIU/mL (0.47-4.68)
[2024-08-20 11:20] LABS: Creatinine Urine Random 146.14 mg/dL
[2024-08-20 11:27] LABS: Microalbumin Urine Random 4.2 mg/dL (0-1.6)
[2024-08-21 03:39] LABS: Apolipoprotein B 82 mg/dL (<90)
== END ==
PROVIDERS: Family Provider Family Medicine; PCP Family Medicine; Referring Provider Family Medicine; Visit Provider Family Medicine
DX: I10 Essential (primary) hypertension (principal); E11.9 Type 2 diabetes mellitus without complications; Z12.5 Encounter for screening for malignant neoplasm of prostate; E78.2 Mixed hyperlipidemia; I25.10 Atherosclerotic heart disease of native coronary artery without angina pectoris; M54.16 Radiculopathy, lumbar region
CPT/HCPCS: 36415; 80053; 80061; 82043; 82172; 82570; 83036; 84443; 85025; G0103

== ENCOUNTER → 2024-08-20 12:04 | Outpatient (CLI) | payer MEDICARE, OTHER, SELFPAY ==
[2023-07-26 18:36] VITALS: BMI 38.4
--- NOTE | 2024-08-20 12:06 | DI.RAD.S_ITS ---
PROCEDURE: XR KNEE LT 3V INDICATIONS: bilateral knee pain TECHNIQUE: 3 views of the knee were acquired. COMPARISON: [facility], CR, XR KNEE RT 3V, 08/20/2024, 11:26. FINDINGS: Bones: No fractures or dislocations. No suspicious bony lesions. Moderate medial and lateral tibiofemoral and moderate to severe patellofemoral compartment narrowing with associated osteophytosis. Soft tissues: No joint effusion. No suspicious soft tissue calcifications. IMPRESSION: KL grade 2 tricompartmental osteoarthritis without evidence of acute osseous abnormality. Dictated by: Chuck Avila M.D. on 08/21/2024 at 5:15 Approved by: Chuck Avila M.D. on 08/21/2024 at 5:17
--- NOTE | 2024-08-20 12:06 | DI.RAD.S_ITS ---
PROCEDURE: XR KNEE RT 3V INDICATIONS: bilateral knee pain TECHNIQUE: 3 views of the knee were acquired. COMPARISON: [facility], , XR KNEE RT 3V, 01/24/2019, 16:11. FINDINGS: Bones: No fractures or dislocations. No suspicious bony lesions. Moderate medial and lateral tibiofemoral and moderate to severe patellofemoral compartment narrowing with associated osteophytosis. Soft tissues: Small joint effusion. No suspicious soft tissue calcifications. IMPRESSION: KL grade 2 tricompartmental osteophytosis without evidence of acute osseous abnormality. Small joint effusion. Dictated by: Chuck Avila M.D. on 08/21/2024 at 5:14 Approved by: Chuck Avila M.D. on 08/21/2024 at 5:15
== END ==
PROVIDERS: Family Provider Family Medicine; PCP Family Medicine; Referring Provider Family Medicine; Visit Provider Family Medicine
DX: M17.12 Unilateral primary osteoarthritis, left knee (principal); M25.561 Pain in right knee; M25.562 Pain in left knee; M25.461 Effusion, right knee; M25.761 Osteophyte, right knee; I10 Essential (primary) hypertension; E11.9 Type 2 diabetes mellitus without complications; E78.2 Mixed hyperlipidemia; Z12.5 Encounter for screening for malignant neoplasm of prostate; I25.10 Atherosclerotic heart disease of native coronary artery without angina pectoris; M54.16 Radiculopathy, lumbar region
CPT/HCPCS: 36415; 73562; 80053; 80061; 82043; 82172; 82570; 83036; 84443; 85025; G0103

== ENCOUNTER → 2024-09-28 09:08 | Outpatient (CLI) | payer MEDICARE, OTHER, SELFPAY ==
[2023-07-26 18:36] VITALS: BMI 38.4
--- NOTE | 2024-09-28 09:09 | DI.RAD.S_ITS ---
PROCEDURE: XR CHEST 2V INDICATIONS: cough, shortness of breath TECHNIQUE: 2 views of the chest were acquired. COMPARISON: [facility], CR, XR CHEST 1V, 07/26/2023, 12:14. FINDINGS: Surgical changes and devices: None. Lungs and pleura: Lungs are clear. No pleural effusions or pneumothorax. Mediastinum: Mediastinal contours are normal. Heart size is normal. Bones and chest wall: No suspicious bony abnormalities. Soft tissues appear unremarkable. IMPRESSION: No acute cardiopulmonary abnormality is seen. Dictated by: Bryan Miramontes M.D. on 09/28/2024 at 9:59 Approved by: Bryan Miramontes M.D. on 09/28/2024 at 9:59
== END ==
PROVIDERS: Family Provider Family Medicine; PCP Family Medicine; Referring Provider Family Medicine; Visit Provider Family Medicine
DX: M17.0 Bilateral primary osteoarthritis of knee (principal); R05.9 Cough, unspecified; R06.02 Shortness of breath
CPT/HCPCS: 71046; 99213

== ENCOUNTER 2024-10-05 20:09 | Emergency (ER) | payer MEDICARE, OTHER, SELFPAY ==
[2023-07-26 18:36] VITALS: BMI 38.4
[2024-10-05 20:12] VITALS: BP 154/95; PULSE 137; RESP 22; TEMP 37; O2SAT 98; BMI 37.6
--- NOTE | 2024-10-05 20:22 | DI.RAD.S_ITS ---
PROCEDURE: XR CHEST 1V INDICATIONS: suspected sepsis TECHNIQUE: One view of the chest was acquired. COMPARISON: [facility], CR, XR CHEST 2V, 09/28/2024, 9:09. FINDINGS: Surgical changes and devices: None. Lungs and pleura: Lungs are clear. No pleural effusions or pneumothorax. Mediastinum: Mediastinal contours appear normal. Heart size is normal. Bones and chest wall: No suspicious bony lesions. Overlying soft tissues appear unremarkable. IMPRESSION: No acute cardiopulmonary pathology. Dictated by: Enrico Aggarwal M.D. on 10/05/2024 at 20:45 Approved by: Enrico Aggarwal M.D. on 10/05/2024 at 20:45
--- NOTE | 2024-10-05 20:22 | EKG_ITS ---
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
[2024-10-05 20:43] LABS: Add Manual Diff / Slide Review NO; Basophils Absolute Auto 100 /uL (0-100); Eosinophils Absolute Auto 100 /uL (0-450); Eosinophils Percent Auto 0.6 % (2-4); Hematocrit 43.3 % (41-53); Hemoglobin 15.3 g/dL (13.5-17.5); Lymphocytes Absolute Auto 2400 /uL (1100-4500); Lymphocytes Percent Auto 22.9 % (25-40); Mean Corpuscular HGB Conc 35.2 % (30-36); Mean Corpuscular Hemoglobin 34.9 PG (26-34); Mean Corpuscular Volume 98.9 fL (80-100); Monocytes Absolute Auto 900 /uL (0-900); Monocytes Percent Auto 8.5 % (3-14); Neutrophils Absolute Auto 7000 /uL (1500-7000); Platelet Count 225 X10^3/uL (150-400); Red Blood Cell Count 4.38 X10^6/uL (4.5-5.9); Red Cell Distribution Width 12.8 % (11.6-14.8); White Blood Cell Count 10.5 X10^3/uL (4.5-11.0)
[2024-10-05] MEDS: SODIUM CHLORIDE 0.9% 1,000 ML 1000 ML IV ×2 (20:46→23:02)
[2024-10-05 20:47] LABS: Prothrombin Time 11.8 SECONDS (9.4-12.5)
[2024-10-05 20:50] LABS: PTT Partial Thromboplastin Tim 28 SECONDS (25.1-36.5)
[2024-10-05 20:51] LABS: Lactate (Lactic Acid) 2.8 mmol/L (0.7-2.1)
[2024-10-05 20:52] LABS: Alanine Aminotransferase 61 IU/L (<50); Albumin 4.8 g/dL (3.5-5.0); Albumin Globulin Ratio 1.2 (1.0-2.8); Alkaline Phosphatase 83 U/L (38-126); Aspartate Aminotransferase 52 IU/L (17-59); BUN Creatinine Ratio 18.1 (6-22); Blood Urea Nitrogen 23 mg/dL (9-20); Calcium 9.3 mg/dL (8.4-10.2); Carbon Dioxide 18 mmol/L (22-32); Chloride 102 mmol/L (98-107); Estimated Glomerular Filt Rate > 60 mL/min (>60); Globulin 3.9 g/dL (1.7-4.1); Glucose 201 mg/dL (70-99); HEMOLYSIS 19 (0-50); Lipase 51 U/L (23-300); Potassium 3.8 mmol/L (3.4-5.1); Sodium 138 mmol/L (137-145); Total Protein 8.7 g/dL (6.3-8.2)
--- NOTE | 2024-10-05 21:01 | ED.NAVMDI ---
HPI - Nausea/Vomiting/Diarrhea General Chief complaint: Nausea/Vomiting/Diarrhea Stated complaint: fever, diarrhea, shakes x6 days Time Seen by Provider: 10/05/24 21:00 Source: patient Mode of arrival: Ambulatory History of Present Illness HPI Narrative: 61-year-old gentleman history of CAD x4 stents dyslipidemia sleep apnea hypertension diabetes presents with multiple episodes of watery runny diarrhea for the past week along with nonbilious nonbloody vomit 3 times today. Patient also reports having a fever ranging from 100-101 and right lower quadrant pain nonradiating with no back pain, testicular pain, penile discharge or urinary complaints. He has also been complaining of a nonproductive nonbloody cough that started to 3 days ago. He denies chest pain shortness of breath dyspnea on exertion leg swelling. Other than what is stated 14 point review of system is negative Related Data Home Medications Medication Instructions Recorded Confirmed cholecalciferol (vitamin D3) 50 50 mcg PO DAILY 10/26/22 09/28/24 mcg (2,000 unit) tablet psyllium husk 3.4 gram/5.4 gram 1 tbsp PO DAILY 10/26/22 09/28/24 oral powder (Metamucil) omeprazole magnesium 20 mg 20 mg PO DAILY 07/26/23 09/28/24 tablet,delayed release (Prilosec OTC) aspirin 81 mg tablet,delayed 81 mg PO DAILY 02/02/24 09/28/24 release (Adult Low Dose Aspirin) fluticasone propionate 50 2 spray intranasal DAILY 04/18/24 09/28/24 mcg/actuation nasal spray,suspension gabapentin 600 mg tablet 900 mg PO 3XD 04/18/24 09/28/24 nitroglycerin 0.4 mg sublingual mg sublingual 04/18/24 09/28/24 tablet Previous Rx's Medication Instructions Recorded lisinopril 2.5 mg tablet 2.5 mg PO QDAY #90 tabs 05/25/21 atorvastatin 40 mg tablet (Lipitor) 40 mg PO HS #90 tabs 05/28/21 DISABLED PARKING PERMIT #1 ea 12/14/21 carvedilol 6.25 mg tablet (Coreg) See Rx Instructions .Route 09/27/22 .COMPLEX #270 tabs naproxen 500 mg tablet 500 mg PO BID #30 tabs 10/02/24 triamcinolone acetonide 0.1 % 1 applic topical BID #80 grams 07/12/24 topical cream sodium,potassium,mag sulfates 17.5 See Rx Instructions PO .COMPLEX 09/24/24 gram-3.13 gram-1.6 gram oral soln #354 mL (Suprep Bowel Prep Kit) albuterol sulfate 90 mcg/actuation 1 puff inhalation Q6H PRN 09/28/24 aerosol inhaler shortness of breath or wheezing #6.7 grams prednisone 20 mg tablet 40 mg (2 x 20 mg) PO DAILY #10 tabs 09/28/24 albuterol sulfate 90 mcg/actuation 2 puff inhalation Q6H PRN 10/06/24 aerosol inhaler shortness of breath or wheezing #8.5 grams ondansetron HCl 4 mg tablet 4 mg PO Q6H PRN nausea and 10/06/24 vomiting #30 tabs prednisone 20 mg tablet 20 mg PO DAILY #5 tabs 10/06/24 Allergies Allergy/AdvReac Type Severity Reaction Status Date / Time No Known Drug Allergies Allergy Verified 09/28/24 10:57 Review of Systems Review of Systems ROS Unobtainable: All systems reviewed & are unremarkable except as noted in HPI and below Patient History Medical History (Updated 10/06/24 @ 00:44 by Tyler Moreno DO) Primary osteoarthritis of both knees Cough Right inguinal hernia Status post lumbar spinal arthrodesis Medicare welcome exam Facet arthropathy, lumbar Diabetes mellitus type 2, controlled, without complications Sleep apnea Elevated liver enzymes Thrombocytopenia Facet arthropathy, lumbar Gait instability Lumbar radiculopathy Spondylolisthesis at L4-L5 level Hearing loss (1978) Heart attack (2011) Surgical History (Updated 09/24/24 @ 10:06 by Jose R Ham MD) Anesthesia H/O heart artery stent (05/09/12) History of vasectomy (1998) Status post hernia repair Family History Mother Ovarian cancer Hypertension Sister Cancer Father No problems noted. Brother Alcoholism and drug addiction in family Sleep apnea Family/Other Depression Social History marital status: unknown household members: none occupational status: previously employed Smoking Status: Current some day smoker Tobacco: How many years used: 13 alcohol intake: current substance use type: does not use Smoking Status: Current some day smoker tobacco type: vaping alcohol intake frequency: 0-2 drinks per day Exam Narrative Exam Narrative: GENERAL: [69] year old patient appears stated age. Well-developed patient, in mild distress. HEAD: Atraumatic. Normocephalic. EYES: Pupils equal round and reactive. Extraocular motions intact. No scleral icterus. No injection or drainage. ENT: Nose without bleeding, purulent drainage. Throat without erythema, tonsillar hypertrophy or exudate. Airway patent. NECK: Trachea midline. Non tender CARDIOVASCULAR: Tachycardic Regular rate and rhythm without murmurs, gallops, or rubs. RESPIRATORY: Clear to auscultation. Breath sounds equal bilaterally. No wheezes, rales, or rhonchi. GASTROINTESTINAL: Abdomen soft, non-tender, nondistended. EXTREMITIES: No edema or joint tenderness. BACK: Nontender without deformity or crepitance. No flank tenderness. NEURO: AOx3. SKIN: No rash or erythema of visible areas Initial Vital Signs Initial Vital Signs: Vital Signs Temperature 98.6 F 10/05/24 20:12 Pulse Rate 137 H 10/05/24 20:12 Respiratory Rate 22 10/05/24 20:12 Blood Pressure 154/95 H 10/05/24 20:12 Pulse Oximetry 98 10/05/24 20:12 Oxygen Delivery Method Room Air 10/05/24 20:12 Course Orders Ordered: ED Orders 10/05/24 20:22 XR chest 1V Stat EKG-12 Lead Stat RT Consult Eval and Treat NOW 10/05/24 20:29 Complete Blood Count AUTO DIFF Stat Comprehensive Metabolic Panel Stat Lactate (Lactic Acid) Stat Lipase Stat PTT Partial Thromboplastin Brayden Stat Procalcitonin Stat Prothrombin Time INR Stat 10/05/24 20:40 GI Panel (Film Array) Stat 10/05/24 20:53 Blood Culture Stat 10/05/24 21:10 Covid-19 + FLU A/B + RSV - PCR Stat 10/05/24 21:12 CT abdomen pelvis w con Stat 10/05/24 21:13 Urine Microscopic Stat Ondansetron HCl (Ondansetron 4 Mg/2 Ml Inj) 4 mg IV NOW PRN PRN Reason: Nausea And Vomiting Ondansetron HCl (Ondansetron 4 Mg Odt) 4 mg PO NOW PRN PRN Reason: Nausea And Vomiting Discontinued Medications Sodium Chloride (Normal Saline 0.9%) 1,000 mls @ 1,000 mls/hr IV BOLUS ONE Stop: 10/05/24 21:21 Last Infusion: 10/05/24 21:52 Dose: Infused Documented By: Admin: 10/05/24 20:46 Dose: 1,000 mls/hr Documented By: JOEL Sodium Chloride (Normal Saline 0.9%) 1,000 mls @ 1,000 mls/hr IV BOLUS ONE Stop: 10/05/24 23:56 Last Infusion: 10/06/24 00:17 Dose: Infused Documented By: Admin: 10/05/24 23:02 Dose: 1,000 mls/hr Documented By: JOEL Vital Signs Vital signs: Vital Signs - 8 hr 10/05/24 20:12 10/05/24 22:23 10/05/24 22:50 Temperature 98.6 F 98.5 F Pulse Rate 137 H 113 H Respiratory Rate 22 22 Blood Pressure 154/95 H 152/78 H Pulse Oximetry 98 95 Oxygen Delivery Method Room Air Room Air 10/05/24 22:56 10/06/24 00:21 Temperature Pulse Rate 111 H 98 H Respiratory Rate 20 20 Blood Pressure 141/66 H 141/79 H Pulse Oximetry 95 97 Oxygen Delivery Method Room Air Room Air MDM - Nausea/Vomiting/Diarrhea Lab Data 10/05/24 20:29 10/05/24 20:29 Labs: Lab Results 10/05/24 10/05/24 10/05/24 Range/Units 20:29 21:10 23:18 WBC 10.5 (4.5-11.0) X10^3/uL RBC 4.38 L (4.5-5.9) X10^6/uL Hgb 15.3 (13.5-17.5) g/dL Hct 43.3 (41-53) % MCV 98.9 (80-100) fL MCH 34.9 H (26-34) PG MCHC 35.2 (30-36) % RDW 12.8 (11.6-14.8) % Plt Count 225 (150-400) X10^3/uL Neut % (Auto) 67.0 (50-75) % Lymph % (Auto) 22.9 L (25-40) % Howard % (Auto) 8.5 (3-14) % Eos % (Auto) 0.6 L (2-4) % Baso % (Auto) 1.0 (0-2) % Neut # (Auto) 7000 (0490-3535) /uL Lymph # (Auto) 2400 (0684-9710) /uL Howard # (Auto) 900 (0-900) /uL Eos # (Auto) 100 (0-450) /uL Baso # (Auto) 100 (0-100) /uL PT 11.8 (9.4-12.5) SECONDS INR 1.0 (0.9-1.3) APTT 28 (25.1-36.5) SECONDS Sodium 138 (137-145) mmol/L Potassium 3.8 (3.4-5.1) mmol/L Chloride 102 (98-107) mmol/L Carbon Dioxide 18 L (22-32) mmol/L BUN 23 H (9-20) mg/dL Creatinine 1.27 H (0.66-1.25) mg/dL Estimated GFR > 60 (>60) mL/min BUN/Creatinine Ratio 18.1 (6-22) Glucose 201 H (70-99) mg/dL Lactate 2.8 H 2.0 (0.7-2.1) mmol/L Calcium 9.3 (8.4-10.2) mg/dL Total Bilirubin 1.0 (0.2-1.3) mg/dL AST 52 (17-59) IU/L ALT 61 H (<50) IU/L Alkaline Phosphatase 83 (38-126) U/L Total Protein 8.7 H (6.3-8.2) g/dL Albumin 4.8 (3.5-5.0) g/dL Globulin 3.9 (1.7-4.1) g/dL Albumin/Globulin Ratio 1.2 (1.0-2.8) Lipase 51 (23-300) U/L Procalcitonin 0.127 (<0.5) ng/mL SARS-CoV-2 (PCR) Negative (Negative) Influenza A (RT-PCR) Flu a negative (NEGATIVE) Influenza B (RT-PCR) Flu b negative (NEGATIVE) RSV (PCR) Negative (Negative) Imaging Data Chest x-ray: Radiologist's Impression: [address] [address] XRay Report Signed Patient: Brock Restrepo MR#: [id number] : 1955 Acct:[id number] Age/Sex: 69 / M Date of Service: 10/05/24 Loc: ED Accession Number: [id number] Procedure: XR chest 1V Ordering Provider: Tyler Moreno D.O. PROCEDURE: XR CHEST 1V INDICATIONS: suspected sepsis TECHNIQUE: One view of the chest was acquired. COMPARISON: [facility], CR, XR CHEST 2V, 09/28/2024, 9:09. FINDINGS: Surgical changes and devices: None. Lungs and pleura: Lungs are clear. No pleural effusions or pneumothorax. Mediastinum: Mediastinal contours appear normal. Heart size is normal. Bones and chest wall: No suspicious bony lesions. Overlying soft tissues appear unremarkable. IMPRESSION: No acute cardiopulmonary pathology. CT scan - abdomen/pelvis: Radiologist's Impression: [address] [address] [address] Scan Report Signed Patient: Brock Restrepo MR#: [id number] : 1955 Acct:[id number] Age/Sex: 69 / M Date of Service: 10/05/24 Loc: ED Accession Number: [id number] Procedure: CT abdomen pelvis w con Ordering Provider: Tyler Moreno D.O. PROCEDURE: CT ABDOMEN PELVIS W CON INDICATIONS: RLQ pain/ n/v/d/cough TECHNIQUE: After the administration of intravenous contrast, axial sections acquired from the lung bases to the pubic symphysis. Coronal and sagittal reformats were performed. For radiation dose reduction, the following was used: automated exposure control, adjustment of mA and/or kV according to patient size. COMPARISON: [facility], CT, CT ABDOMEN PELVIS W CON, 12/04/2021, 14:50. FINDINGS: Image quality: Diagnostic. Lower Chest: Calcified granuloma are seen at bilateral lung bases. Heart size is mildly enlarged, no pericardial effusion. ABDOMEN: Liver: No solid mass. Severe hepatic steatosis is seen. Stable cyst in left hepatic lobe unchanged from prior study. Gallbladder: No radiopaque gallstones or wall thickening. Biliary ducts: No biliary dilation. Pancreas: No ductal dilation. Spleen: Size is within normal limits. Adrenal Glands: No adrenal nodules. Kidneys and Ureters: Tiny nonobstructing stones in bilateral kidneys. No hydronephrosis. No solid mass. No complex renal cystic lesion which requires follow up. Stomach and Bowel: There is no bowel obstruction. No abnormal bowel wall thickening or mesenteric fat stranding. Appendix is visualized in right lower quadrant and is within normal limits. No abscess collection. Peritoneum: No abnormal intraperitoneal fluid. No free air. Ventral Wall: No significant ventral hernia. Abdominal Nodes: No retroperitoneal or mesenteric adenopathy by size criteria. Vessels: Aorta and inferior vena cava are normal in size. PELVIS: Pelvic Organs: Unremarkable. Bladder: No bladder wall thickening, accounting for underdistention. Pelvic Nodes: No enlarged lymph nodes. Miscellaneous: Right greater than left bilateral inguinal hernia are seen containing fat only. Bones: No aggressive osseous abnormality. Postfusion changes are noted at L4-5 level. No acute vertebral body compression fracture. IMPRESSION: 1. Severe hepatic steatosis. Stable left hepatic cyst. No solid appearing hepatic lesion. 2. Tiny bilateral nonobstructing renal calculi. No hydronephrosis or hydroureter. 3. No bowel obstruction or abnormal bowel wall thickening. Normal appendix. No free fluid or free air. No abscess collection. Dictated by: Enrico Aggarwal M.D. on 10/05/2024 at 21:59 Approved by: Enrico Aggarwal M.D. on 10/05/2024 at 22:12 ECG Data Interpretation: Sinus Tach HR 124 VT 146 QRS [address]-t wave change Unchanged from 09/28/24 [facility] Narrative Medical decision making narrative: All lab work, vital signs, nurse triage note, medication list, previous ER visits, and CT scan all reviewed. lab work showed a normal lactic acid and normal procalcitonin with no white count BUN was [address] scan showed severe hepatic steatosis, stable left hepatic cyst, no solid appearing hepatic lesion, tiny bilateral nonobstructing renal calculi, no hydronephrosis or hydroureter, no bowel obstruction or abnormal bowel wall abdominal wall thickening, normal appendix, no free fluid or free air, no abscess collection. Pt given LR 1L bolus x 2. Pt voided and also had BM here and feels much better. Patient given Zofran here and will be sent home on zofran, prednisone and proventil inhaler. Differential diagnosis includes COVID, flu, RSV, pneumonia, COPD, bronchitis, electrolyte derangement, dehydration, appendicitis, kidney stone, kidney infection. Discharge Plan Departure Patient Disposition: Home Clinical Impression: Nausea vomiting and diarrhea, Abdominal mass, RLQ (right lower quadrant), Bronchitis Instructions: DI for Dehydration -- Adult Activity Restrictions/Additional Instructions: Return with new or worsening symptoms. Take your medicines as directed. Follow up with PCP in 1-2 weeks for recheck Prescriptions: New ondansetron HCl 4 mg tablet 4 mg PO Q6H PRN (Reason: nausea and vomiting) Qty: 30 0RF prednisone 20 mg tablet 20 mg PO DAILY Qty: 5 0RF albuterol sulfate 90 mcg/actuation HFA aerosol inhaler 2 puff inhalation Q6H PRN (Reason: shortness of breath or wheezing) Qty: 8.5 0RF No Action naproxen 500 mg tablet 500 mg PO BID Qty: 30 0RF aspirin [Adult Low Dose Aspirin] 81 mg tablet,delayed release (DR/EC) 81 mg PO DAILY lisinopril 2.5 mg tablet 2.5 mg PO QDAY Qty: 90 3RF atorvastatin [Lipitor] 40 mg tablet 40 mg PO HS Qty: 90 3RF (DME) DISABLED PARKING PERMIT See Rx Instructions .ROUTE .MEDSUPPLY Qty: 1 0RF Rx Instructions: VALID FOR 5 YEARS I find this patient to be medically disabled and qualified for Disabled Parking as indicated, and signed, on the Accompanying Disabled Parking Application for individuals. carvedilol [Coreg] 6.25 mg tablet See Rx Instructions .ROUTE .COMPLEX Qty: 270 3RF Dose Instruction: Take 1 and a 1/2 tabs by mouth every morning and 1 and 1/2 tab by mouth every night ; Rx Instructions: Take 1 and a 1/2 tabs by mouth every morning and 1 and 1/2 tab by mouth every night ; sodium,potassium,mag sulfates [Suprep Bowel Prep Kit] 17.5-3.13-1.6 gram recon soln See Rx Instructions PO .COMPLEX Qty: 354 0RF Rx Instructions: take as directed by Physician Metamucil 3.4 gram/5.4 gram powder 1 tbsp PO DAILY Rx Instructions: mix into at least 8 oz of water or juice before administering cholecalciferol (vitamin D3) 50 mcg (2,000 unit) tablet 50 mcg PO DAILY triamcinolone acetonide 0.1 % cream 1 applic topical BID Qty: 80 0RF Rx Instructions: apply thin layer to affected area on neck and upper back for up to 2 weeks at a time. albuterol sulfate 90 mcg/actuation HFA aerosol inhaler 1 puff inhalation Q6H PRN (Reason: shortness of breath or wheezing) Qty: 6.7 0RF prednisone 20 mg tablet 40 mg PO DAILY Qty: 10 0RF omeprazole magnesium [Prilosec OTC] 20 mg Tablet,Delayed Release (Dr/Ec) 20 mg PO DAILY nitroglycerin 0.4 mg tablet, sublingual sublingual fluticasone propionate 50 mcg/actuation spray,suspension 2 spray intranasal DAILY gabapentin 600 mg tablet 900 mg PO 3XD Referrals: Morales Jorgensen MD [Primary Care Provider] - Stand Alone Forms: Patient Portal/API/Survey
[2024-10-05 21:09] LABS: Procalcitonin 0.127 ng/mL (<0.5)
--- NOTE | 2024-10-05 21:12 | DI.CT.S_ITS ---
PROCEDURE: CT ABDOMEN PELVIS W CON INDICATIONS: RLQ pain/ n/v/d/cough TECHNIQUE: After the administration of intravenous contrast, axial sections acquired from the lung bases to the pubic symphysis. Coronal and sagittal reformats were performed. For radiation dose reduction, the following was used: automated exposure control, adjustment of mA and/or kV according to patient size. COMPARISON: [facility], CT, CT ABDOMEN PELVIS W CON, 12/04/2021, 14:50. FINDINGS: Image quality: Diagnostic. Lower Chest: Calcified granuloma are seen at bilateral lung bases. Heart size is mildly enlarged, no pericardial effusion. ABDOMEN: Liver: No solid mass. Severe hepatic steatosis is seen. Stable cyst in left hepatic lobe unchanged from prior study. Gallbladder: No radiopaque gallstones or wall thickening. Biliary ducts: No biliary dilation. Pancreas: No ductal dilation. Spleen: Size is within normal limits. Adrenal Glands: No adrenal nodules. Kidneys and Ureters: Tiny nonobstructing stones in bilateral kidneys. No hydronephrosis. No solid mass. No complex renal cystic lesion which requires follow up. Stomach and Bowel: There is no bowel obstruction. No abnormal bowel wall thickening or mesenteric fat stranding. Appendix is visualized in right lower quadrant and is within normal limits. No abscess collection. Peritoneum: No abnormal intraperitoneal fluid. No free air. Ventral Wall: No significant ventral hernia. Abdominal Nodes: No retroperitoneal or mesenteric adenopathy by size criteria. Vessels: Aorta and inferior vena cava are normal in size. PELVIS: Pelvic Organs: Unremarkable. Bladder: No bladder wall thickening, accounting for underdistention. Pelvic Nodes: No enlarged lymph nodes. Miscellaneous: Right greater than left bilateral inguinal hernia are seen containing fat only. Bones: No aggressive osseous abnormality. Postfusion changes are noted at L4-5 level. No acute vertebral body compression fracture. IMPRESSION: 1. Severe hepatic steatosis. Stable left hepatic cyst. No solid appearing hepatic lesion. 2. Tiny bilateral nonobstructing renal calculi. No hydronephrosis or hydroureter. 3. No bowel obstruction or abnormal bowel wall thickening. Normal appendix. No free fluid or free air. No abscess collection. Dictated by: Enrico Aggarwal M.D. on 10/05/2024 at 21:59 Approved by: Enrico Aggarwal M.D. on 10/05/2024 at 22:12
--- NOTE | 2024-10-05 21:24 | PC.NURSE ---
RT at bedside. Pt coughs forcefully and states, everything going black. Pt reports he does not have any LOC but comes close and has with prior coughing fits as well. Provider Josh made aware.
[2024-10-05 21:53] LABS: Influenza A - CEPHEID Flu A NEGATIVE (NEGATIVE); Influenza B - CEPHEID Flu B NEGATIVE (NEGATIVE); Respiratory Syncytial Virus Negative (Negative)
[2024-10-05 21:58] LABS: COVID-19 CEPHEID 4-PLEX PCR Negative (Negative)
[2024-10-05 22:12] LABS: Reflexed Lactate in 2 Hours Y
[2024-10-05 22:23] VITALS: BP 152/78; PULSE 113; RESP 22; O2SAT 95
[2024-10-05 22:50] VITALS: TEMP 36.9
[2024-10-05 22:56] VITALS: BP 141/66; PULSE 111; RESP 20; O2SAT 95
[2024-10-06 00:21] VITALS: BP 141/79; PULSE 98; RESP 20; O2SAT 97
[2024-10-06 01:37] LABS: Bacteria Urine None Seen; Culture Indicated Urine Cult Not Indicated; RBC Urine None Seen (0-5/HPF); Squamous Epithelial Cell Urine None Seen (0-5/HPF); Urine Volume 10mL (spun); WBC Urine None Seen (0-5/HPF)
[2024-10-06 02:28] LABS: Adenovirus F 40/41 Not Detected (Not Detect); Astrovirus Detected (Not Detect); Campylobacter Not Detected (Not Detect); Clostridium difficile toxin AB Not Detected (Not Detect); Cryptosporidium Not Detected (Not Detect); Cyclospora cayetanensis Not Detected (Not Detect); Entamoeba histolytica Not Detected (Not Detect); Enteroaggregative E.coli Not Detected (Not Detect); Enteropathogenic E.coli Not Detected (Not Detect); Enterotoxigenic E.coli It/st Not Detected (Not Detect); Giardia lamblia Not Detected (Not Detect); Norovirus GI/GII Detected (Not Detect); Plesiomonsa shigelloides Not Detected (Not Detect); Rotavirus A Not Detected (Not Detect); Salmonella Not Detected (Not Detect); Sapovirus Not Detected (Not Detect); Shiga-like toxin-prod E.coli Not Detected (Not Detect); Shigella/Enteroinvasive E.coli Not Detected (Not Detect); Vibrio Not Detected (Not Detect); Vibrio cholerae Not Detected (Not Detect); Yersinia enterocolitica Not Detected (Not Detect)
== END 2024-10-06 01:07 | disposition home or self-care (01) ==
PROVIDERS: Emergency Provider Family Medicine; Family Provider Family Medicine; PCP Family Medicine
DX: J40 Bronchitis, not specified as acute or chronic (principal); R19.03 Right lower quadrant abdominal swelling, mass and lump; R10.31 Right lower quadrant pain; R11.2 Nausea with vomiting, unspecified; R19.7 Diarrhea, unspecified; R50.9 Fever, unspecified
CPT/HCPCS: 0241U; 36415; 71045; 74177; 80053; 81003; 81015; 83605; 83690; 84145; 85025; 85610; 85730; 87040; 87507; 93005; 96360; 96361; 99284; Q9967

== ENCOUNTER 2024-12-27 06:20 | Day surgery (SDC) | payer OTHER, SELFPAY ==
[2023-07-26 18:36] VITALS: BMI 38.4
[2024-12-17 10:25] VITALS: BMI 38.4
[2024-12-27 07:24] VITALS: BP 137/79; PULSE 90; RESP 17; TEMP 36.4; O2SAT 95
[2024-12-27] MEDS: LACTATED RINGERS 1,000 ML 42 ML IV (07:24)
--- NOTE | 2024-12-27 07:31 | PM.HP.IH.1 ---
History of Present Illness History of Present Illness Date Patient Seen: 12/27/24 Time Patient Seen: 07:32 Chief complaint: Colonoscopy Narrative: Maykel is a 69-year-old man here for a screening colonoscopy. He believes his last colonoscopy was about 10 years ago and was normal. No family history of colon cancer. [facility] Medical History (Updated 12/27/24 @ 07:32 by Perry Colon MD) Primary osteoarthritis of both knees Cough Right inguinal hernia Status post lumbar spinal arthrodesis Medicare welcome exam Facet arthropathy, lumbar Diabetes mellitus type 2, controlled, without complications Sleep apnea Elevated liver enzymes Thrombocytopenia Facet arthropathy, lumbar Gait instability Lumbar radiculopathy Spondylolisthesis at L4-L5 level Hearing loss (1978) Heart attack (2011) Surgical History (Updated 09/24/24 @ 10:06 by Jose R Ham MD) Anesthesia H/O heart artery stent (05/09/12) History of vasectomy (1998) Status post hernia repair Family History Mother Ovarian cancer Hypertension Sister Cancer Father No problems noted. Brother Alcoholism and drug addiction in family Sleep apnea Family/Other Depression Social History marital status: unknown household members: none occupational status: previously employed Tobacco: How many years used: 13 alcohol intake: current substance use type: does not use Meds Home Medications and Allergies Home Medications ?Medication ?Instructions ?Recorded ?Confirmed ?Type lisinopril 2.5 mg tablet 2.5 mg PO QDAY #90 tabs 05/25/21 12/27/24 Rx atorvastatin 40 mg tablet (Lipitor) 40 mg PO HS #90 tabs 05/28/21 12/27/24 Rx DISABLED PARKING PERMIT #1 ea 12/14/21 12/21/24 Rx carvedilol 6.25 mg tablet (Coreg) See Rx Instructions .Route 09/27/22 12/27/24 Rx .COMPLEX #270 tabs cholecalciferol (vitamin D3) 50 50 mcg PO DAILY 10/26/22 12/27/24 History mcg (2,000 unit) tablet psyllium husk 3.4 gram/5.4 gram 1 tbsp PO DAILY 10/26/22 12/21/24 History oral powder (Metamucil) omeprazole magnesium 20 mg 20 mg PO DAILY 07/26/23 12/27/24 History tablet,delayed release (Prilosec OTC) aspirin 81 mg tablet,delayed 81 mg PO DAILY 02/02/24 12/27/24 History release (Adult Low Dose Aspirin) naproxen 500 mg tablet 500 mg PO BID #30 tabs 02/22/24 12/27/24 Rx fluticasone propionate 50 2 spray intranasal DAILY 04/18/24 12/21/24 History mcg/actuation nasal spray,suspension gabapentin 600 mg tablet 900 mg PO 3XD 04/18/24 12/27/24 History nitroglycerin 0.4 mg sublingual mg sublingual 04/18/24 12/21/24 History tablet triamcinolone acetonide 0.1 % 1 applic topical BID #80 grams 07/12/24 12/21/24 Rx topical cream albuterol sulfate 90 mcg/actuation 1 puff inhalation Q6H PRN 09/28/24 12/27/24 Rx aerosol inhaler shortness of breath or wheezing #6.7 grams albuterol sulfate 90 mcg/actuation 2 puff inhalation Q6H PRN 10/06/24 12/21/24 Rx aerosol inhaler shortness of breath or wheezing #8.5 grams sodium,potassium,mag sulfates 17.5 See Rx Instructions PO .COMPLEX 12/12/24 12/21/24 Rx gram-3.13 gram-1.6 gram oral soln #354 mL (Suprep Bowel Prep Kit) Allergies Allergy/AdvReac Type Severity Reaction Status Date / Time No Known Drug Allergies Allergy Verified 12/27/24 07:08 Exam Const General: No acute distress Assessment & Plan Assessment and plan (1) Colon cancer screening: Status: Acute Plan Colonoscopy Time-Based Coding :: [TOTAL MINUTES] spent with patient and on the chart (including review of chart, obtaining history, exam, reviewing outside data, placing orders, documenting exam and treatment plan, and counseling patient) on [DATE]. [employer] Orthotics Technician Document charge(s): No
[2024-12-27 07:55] VITALS: BP 116/63; PULSE 95; RESP 17; TEMP 36.6; O2SAT 96
--- NOTE | 2024-12-27 07:55 | PM.OP.COLON ---
Operative Date/Time/Diagnoses Date of procedure: 12/27/24 Time of procedure: 07:55 Pre-op diagnosis: Colon cancer screening Post-op diagnosis: same Procedure & Clinicians Study performed: Colonoscopy Same procedure(s) as scheduled: Yes Surgeon: Perry Colon Anesthesia Type: MAC +/- Procedure Notes Procedure in detail: Surgeon: Perry Colon MD Anesthesia: Adair Dowell D.O. Procedure: The patient was brought to the endoscopy suite, placed in left lateral decubitus position. The patient was connected to monitoring devices. A time-out was performed. Sedation was administered. Once the patient was adequately sedated, a digital rectal exam was performed and was normal. The scope was then inserted and advanced to the cecum where the appendiceal orifice was identified and photographed. The scope was then slowly withdrawn over greater than 6 minutes. The mucosa was thoroughly inspected. No abnormalities were found. The scope was retroflexed in the rectum. No abnormalities were seen. The scope was straightened and removed. The patient was awakened and brought to recovery. Scope withdrawal time: 7 minutes Sedation time: 9 minutes EBL: 0 Findings: Normal colon Post-procedure Recommendations: Colonoscopy in 10 years Disposition: PACU
[2024-12-27 08:00] VITALS: BP 126/68; PULSE 93; RESP 16; O2SAT 96
[2024-12-27 08:05] VITALS: BP 122/82; PULSE 90; RESP 118; TEMP 36.5; O2SAT 96
== END 2024-12-27 08:16 | disposition home or self-care (01) ==
PROVIDERS: Family Provider Family Medicine; PCP Family Medicine; Referring Provider Surgery; Visit Provider Surgery
PROC: 0DJD8ZZ Inspection of Lower Intestinal Tract, Via Natural or Artificial Opening Endoscopic (ICD-10-PCS; CPT 45378; principal; 2024-12-27 07:45)
DX: Z12.11 Encounter for screening for malignant neoplasm of colon (principal)
CPT/HCPCS: G0121; J2704